=== PATIENT | female | born 1955 | race Caucasian/White ===

== ENCOUNTER 2016-10-10 13:14 | Inpatient (IN) | payer MEDICAID ==
[~2016-10-10] VITALS: Ht 160 cm; Wt 54.0 kg
[~2016-10-10 13:14] MED LIST: LORA0.5T PO; ONDA4TAB8 PO; PANT40TA4 PO; PERCOCET PO; PROM6.25 PO; SENN-53 PO
--- NOTE | 2016-10-10 15:50 | ERA ---
ER Documentation Chief Complaint Date/Time DATE: 10/10/16 TIME: 15:49 Chief Complaint Increased in ABD girth, hads a parecentesis on 09/07. HPI The patient is a 61-year-old female, presenting to the ER because of abdominal pain for the last 2 days, associated with vomiting and diarrhea. The pain is 5 out of 10. She has history of metastatic gastric carcinoma with peritoneal carcinomatosis, currently receiving chemotherapy. He denies fever, chills, neck pain, chest pain, palpitation, dysuria, polyuria. He denies hematochezia, hematemesis. She does not smoke, drink Past medical history: Metastatic gastric cancer with peritoneal carcinomatosis, gastritis, hypertension, dyslipidemia Past surgical history: Right chest Port-A-Cath, fibroid ROS All systems reviewed and are negative except as per history of present illness. Medications Home Meds Reported Medications Hydrocodone/Acetaminophen ([place] 5-325 Tablet) 1 Each Tablet, 1 EACH PO Q6H, TAB 10/10/16 Discontinued Scripts Sennosides* (Senna Lax*) 8.6 Mg Tablet, 1 TAB PO DAILY, #30 TAB Prov:YOGI AL MD 09/17/16 Ondansetron Hcl* (Zofran*) 4 Mg Tablet, 4 MG PO Q8 for NAUSEA AND/OR VOMITING, # 30 TAB Prov:REGGIE LAM NP 08/11/16 Lorazepam* (Lorazepam*) 0.5 Mg Tablet, 0.5 MG PO Q8 Y for NAUSEA AND/OR VOMITING , #30 TAB Prov:REGGIE LAM NP 08/11/16 Promethazine Hcl* (Phenergan* Liq) 6.25 Mg/5 Ml Syrup, 6.25 MG PO Q4H Y for NAUSEA AND/OR VOMITING, #30 Prov:REGGIE LAM NP 08/11/16 Pantoprazole* (Pantoprazole*) 40 Mg Tablet., 40 MG PO BID@,18 for 30 Days Prov:REGGIE LAM NP 08/11/16 Oxycodone Hcl/Acetaminophen (Percocet) 1 Tab Tab, 1 TAB PO Q6H Y for MODERATE PAIN LEVEL 4-6, #30 TAB Prov:REGGIE LAM NP 08/11/16 Allergies Allergies: Coded Allergies: No Known Allergy (Unverified , 10/10/16) PMhx/Soc History of Surgery: Yes (fybroma removal) Anesthesia Reaction: No Hx 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 Disorder: No Hx Respiratory Disorders: No Hx Cardiac Disorders: Yes (htn) Hx Psychiatric Problems: No Hx Miscellaneous Medical Probl: Yes (ascitis,stomach CA) Hx Alcohol Use: No Hx Substance Use: No Hx Tobacco Use: No Physical Exam Vitals Vital Signs Date Time Temp Pulse Resp B/P Pulse Ox O2 Delivery O2 Flow Rate FiO2 10/10/16 13:39 98.4 84 16 126/80 98 Physical Exam Const: No acute distress. Head: Atraumatic. Eyes: Normal Conjunctiva. ENT: Normal External Ears, Nose and Mouth. Neck: Full range of motion. No meningismus. Resp: Clear to auscultation bilaterally. Cardio: Regular rate and rhythm, no murmurs. Abd: Soft, non distended, normal bowel sounds, diffuse and moderate abdominal tenderness, no rigidity, rebound, CVA tenderness Skin: No petechiae or rashes. Back: No midline or flank tenderness. Ext: No cyanosis, or edema. Neur: Awake and alert. No focal deficit Psych: Normal Mood and Affect. Result Diagram: 10/10/16 1622 10/10/16 1622 Results 24 hrs Laboratory Tests Test 10/10/16 16:22 Alanine Aminotransferase (ALT/SGPT) 28IU/L Albumin 3.3g/dl Albumin/Globulin Ratio 1.00 Alkaline Phosphatase 141IU/L Anion Gap 15 Aspartate Amino Transf (AST/SGOT) 29IU/L Blood Morphology Comment Blood Urea Nitrogen 8mg/dl Calcium Level 8.6mg/dl Carbon Dioxide Level 26mmol/L Chloride Level 101mmol/L Creatinine 0.67mg/dl Direct Bilirubin 0.00mg/dl Globulin 3.30g/dl Glucose Level 122mg/dl Hematocrit 42.3% Hemoglobin 14.1g/dl Indirect Bilirubin 0.2mg/dl Lipase 61U/L Mean Corpuscular Hemoglobin 29.4pg Mean Corpuscular Hemoglobin Concent 33.3g/dl Mean Corpuscular Volume 88.3fl Mean Platelet Volume 7.8fl Platelet Count 54191^3/UL Potassium Level 3.8mmol/L Red Blood Count 4.7810^6/ul Red Cell Distribution Width 16.2% Sodium Level 138mmol/L Total Bilirubin 0.2mg/dl Total Protein 6.6g/dl White Blood Count 5.510^3/ul Current Medications Medications (Trade) Dose Ordered Sig/Deon Route PRN Reason Start Time Stop Time Status Last Admin Dose Admin Morphine Sulfate (morphine) 2 mg ONCE ONCE IV 10/10/16 16:00 10/10/16 16:04 DC 10/10/16 16:19 Ondansetron HCl (Zofran Inj) 4 mg ONCE STAT IV 10/10/16 16:00 10/10/16 16:04 DC 10/10/16 16:19 Procedures/[place] [address] Radiology Main Line: [phone] DIAGNOSTIC IMAGING REPORT Patient: CHRIS RALPH : 1955 Age: 61 Sex: F MR #: [id number] DOS: 10/10/16 1558 Ordering MD: JIAN BENSON MD Location: E/R Room/Bed: PROCEDURE: CT Abdomen and Pelvis without contrast. CLINICAL INDICATION: Abdominal pain TECHNIQUE: CT scan of the abdomen and pelvis without contrast was performed on a multi-slice CT scanner without intravenous contrast. Coronal and sagittal reformatted images were obtained from the axial source images. Images were reviewed on a high-resolution PACS workstation. One or more of the following does reduction techniques were used: Automated exposure control; adjustment of the mA and/or kV according to patient size; use of the aorta of reconstruction technique. The total exam CTDI equals 8.97 mGy and the total exam DLP equals 506.25 mGy-cm. COMPARISON: CT abdomen pelvis 09/17/2016 FINDINGS: There is mild bibasilar atelectasis.. The heart is mildly enlarged. There is a mild to moderate pericardial effusion increased slightly when compared to prior study.. Again seen is circumferential thickening of the body and antrum of the stomach. The liver, spleen, and pancreas are normal given limitations of a noncontrast CT examination. The gallbladder is normal. The adrenal glands are normal. The kidneys without renal calculus or hydronephrosis. The aorta is of normal caliber. There is no retroperitoneal lymph node enlargment. There is no evidence of large or small bowel obstruction. Again seen is large volume abdominal pelvic ascites with moderate peritoneal thickening and a few peritoneal nodules consistent with peritoneal carcinomatosis. There is a 6.1 x 4.2 cm mass in the left adnexa which may represent a primary, or peritoneal implant. No inflammatory changes are seen. As noted above, there is a 6.1 cm mass in the left adnexa which may represent a primary or metastatic focus. There is no other evidence of enlarged pelvic sidewall lymph nodes. There is moderate pelvic free fluid. The bladder is grossly unremarkable but difficult to separate from adjacent ascites. The uterus is not visualized and likely absent. There is a small left inguinal hernia containing fat. Incidental note is made of bilateral L5 spondylolysis with grade 1 anterolisthesis of L5 on S1. There are degenerative change of the spine. There are no definitive lytic or sclerotic osseous lesions.. IMPRESSION: 1. Large volume abdominal pelvic ascites with associated peritoneal thickening likely indicative of peritoneal carcinomatosis. 2. 6 cm left adnexal mass which may represent metastatic disease or primary. 3. Circumferential thickening of the gastric body and antrum which may represent a primary or metastatic disease. 4. Mild to moderate pericardial effusion, slightly worsened when compared to prior study. RPTAT: KK .Angelo Curtis MD, Date Time Electronically viewed and signed by .Angelo Curtis MD, on 2016 16:49 .B/ CC: JIAN BENSON MD Urinalysis and abdominal paracentesis are pending MEDICAL MAKING DECISION: The patient is a 61-year-old female, presenting with recurrent acute ascites, most likely due to metastatic gastric carcinoma with peritoneal carcinomatosis, mild to moderate pericardial effusion. She was treated with morphine 2 IV for pain, Zofran for me for nausea with good response. The differential diagnoses considered include but are not limited to spontaneous bacterial peritonitis, cholecystitis, cystitis, pancreatitis, hepatitis, gastritis, peptic ulcer disease, gastric ulcer, appendicitis, diverticulitis, cholangitis, choledocholithiasis, partial small bowel obstruction. Departure Diagnosis: Primary Impression: Abdominal pain Additional Impressions: Ascites Pericardial effusion Condition: Stable Comments I discussed the findings with the patient. I discussed the patient with the hospitalist Dr. Ojeda who was made aware of the lab, the treatment, the patient condition. The patient is admitted to medical surgery bed at 5:15 AM. He is aware of pending urinalysis and abdominal paracentesis JIAN BENSON MD Oct 10, 2016 15:50
[2016-10-10] MEDS ORDERED: morphine 2 MG INJ IV ONE (16:00)
[2016-10-10] MEDS ORDERED: ONDANSETRON 4 MG INJ IV STA (16:00)
[2016-10-10] MEDS ORDERED: HYDR-906 PO (16:08)
[2016-10-10 16:40] LABS: HEMATOCRIT 42.3 % (37.0-47.0); HEMOGLOBIN 14.1 g/dl (12.0-16.0); MEAN CORPUSCULAR HEMOGLOBIN 29.4 pg (29.0-33.0); MEAN CORPUSCULAR HGB CONC 33.3 g/dl (32.0-37.0); MEAN CORPUSCULAR VOLUME 88.3 fl (82.0-101.0); MEAN PLATELET VOLUME 7.8 fl (7.4-10.4); PLATELET COUNT 364 10^3/UL (140-440); RED BLOOD COUNT 4.78 10^6/ul (4.20-5.40); RED CELL DISTRIBUTION WIDTH 16.2 % (11.5-14.5); UNCORRECTED WBC 5.5 10^3/ul (4.8-10.8); WHITE BLOOD COUNT 5.5 10^3/ul (4.8-10.8)
[2016-10-10 16:46] LABS: CONDITION 1; LH ANALYZER COMMENTS 1
[2016-10-10 16:48] LABS: ALBUMIN 3.3 g/dl (3.3-4.9)
[2016-10-10 16:49] LABS: POTASSIUM 3.8 mmol/L (3.5-5.1)
--- NOTE | 2016-10-10 16:50 | RADRPT ---
PROCEDURE: CT Abdomen and Pelvis without contrast. CLINICAL INDICATION: Abdominal pain TECHNIQUE: CT scan of the abdomen and pelvis without contrast was performed on a multi-slice CT [facility] without intravenous contrast. Coronal and sagittal reformatted images were obtained from the axial source images. Images were reviewed on a high-resolution PACS workstation. One or more of the following does reduction techniques were used: Automated exposure control; adjustment of the mA an d/or kV according to patient size; use of the aorta of reconstruction technique. The total exam CTD I equals 8.97 mGy and the total exam DLP equals 506.25 mGy-cm. COMPARISON: CT abdomen pelvis 09/17/2016 FINDINGS: There is mild bibasilar atelectasis.. The heart is mildly enlarged. There is a mild to moderate pe ricardial effusion increased slightly when compared to prior study.. Again seen is circumferential thickening of the body and antrum of the stomach. The liver, spleen, and pancreas are normal given limitations of a noncontrast CT examination. The g allbladder is normal. The adrenal glands are normal. The kidneys without renal calculus or hydronephrosis. The aorta is of normal caliber. There is no retroperitoneal lymph node enlargment. There is no evidence of large or small bowel obstruction. Again seen is large volume abdominal pel elis ascites with moderate peritoneal thickening and a few peritoneal nodules consistent with periton eal carcinomatosis. There is a 6.1 x 4.2 cm mass in the left adnexa which may represent a primary, or peritoneal implant. No inflammatory changes are seen. As noted above, there is a 6.1 cm mass in the left adnexa which may represent a primary or metastati c focus. There is no other evidence of enlarged pelvic sidewall lymph nodes. There is moderate pelv ic free fluid. The bladder is grossly unremarkable but difficult to separate from adjacent ascites. The uterus is not visualized and likely absent. There is a small left inguinal hernia containing fat. Incidental note is made of bilateral L5 spondylolysis with grade 1 anterolisthesis of L5 on S1. The re are degenerative change of the spine. There are no definitive lytic or sclerotic osseous lesions .. IMPRESSION: 1. Large volume abdominal pelvic ascites with associated peritoneal thickening likely indicative of peritoneal carcinomatosis. 2. 6 cm left adnexal mass which may represent metastatic disease or primary. 3. Circumferential thickening of the gastric body and antrum which may represent a primary or metas tatic disease. 4. Mild to moderate pericardial effusion, slightly worsened when compared to prior study. RPTAT: KK .Angelo Curtis MD, MD Date Time Electronically viewed and signed by .Angelo Curtis MD, MD on 10/10/2016 16:49 .B/
[2016-10-10 16:51] LABS: BILIRUBIN,INDIRECT 0.2 mg/dl (0-1.1); BILIRUBIN,TOTAL 0.2 mg/dl (0.2-1.3); CREATININE 0.67 mg/dl (0.44-1.00); TOTAL PROTEIN 6.6 g/dl (6.1-8.1)
[2016-10-10 16:52] LABS: CALCIUM 8.6 mg/dl (8.4-10.2)
[2016-10-10 17:32] LABS: ADD UMIC YES; URINE BILIRUBIN (Dip) NEGATIVE (NEGATIVE); URINE BLOOD (Dip) NEGATIVE (NEGATIVE); URINE COLOR LT. YELLOW (YELLOW); URINE GLUCOSE (Dip) NEGATIVE (NEGATIVE); URINE KETONES (Dip) 15 (NEGATIVE); URINE LEUKOCYTE ESTERASE (Dip) 3+ (NEGATIVE); URINE NITRITE (Dip) NEGATIVE (NEGATIVE); URINE TOTAL PROTEIN (Dip) TRACE (NEGATIVE); URINE UROBILINOGEN (Dip) 0.2 E.U./dL (0.1-1.0)
[2016-10-10 17:42] LABS: SQUAMOUS EPITHELIAL CELL,UR MODERATE; URINE RBCS NONE SEEN /HPF (0)
[2016-10-10 17:47] LABS: ANISOCYTOSIS 1+; LYMPHOCYTES # 0.7 10^3/ul (0.8-2.9); NEUTROPHIL # 4.8 10^3/ul (1.6-7.5); PLATELET ESTIMATE PLT APPEAR ADEQUATE
[2016-10-10 19:42] VITALS: TEMP 97.7
[2016-10-10 20:00] VITALS: BP 116/65; PULSE 97; RESP 18
[2016-10-10] MEDS ORDERED: PANT40TA4 PO (20:19)
[2016-10-10] MEDS ORDERED: ACET-141 PO (20:19)
[2016-10-10] MEDS ORDERED: [UNRECOGNIZED DRUG - CODE] PO (20:19)
[2016-10-10] MEDS ORDERED: LORA0.5T PO (20:19)
[2016-10-10] MEDS ORDERED: DOCU-144 PO (20:19)
[2016-10-10 20:28] VITALS: Ht 160 cm; Wt 54.0 kg
[2016-10-10] MEDS ORDERED: LORAZEPAM 0.5 MG TAB PO PRN (21:00)
[2016-10-10] MEDS ORDERED: ACETAMINOPHEN 500 MG TAB PO PRN (21:00)
[2016-10-10] MEDS ORDERED: morphine 2 MG INJ IV PRN (21:00)
[2016-10-10] MEDS ORDERED: HYDROCODONE/APAP (5/325) TAB PO SCH (21:00)
[2016-10-10] MEDS ORDERED: ONDANSETRON 4 MG INJ IV PRN (21:00)
[2016-10-10] MEDS ORDERED: HYDROCODONE/APAP (5/325) TAB PO PRN (22:00)
[2016-10-10] MEDS: PANTOPRAZOLE (EC) 40 MG TAB PO SCH (22:23)
[2016-10-11] MEDS: PANTOPRAZOLE (EC) 40 MG TAB PO SCH (06:00)
[2016-10-11 07:36] VITALS: BP 120/76; RESP 18
--- NOTE | 2016-10-11 07:53 | HP ---
DATE OF ADMISSION: 10/10/2016 TIME SEEN: 2200. CHIEF COMPLAINT: Abdominal pain and distention. HISTORY OF PRESENT ILLNESS: The patient is a 61-year-old female with a history of metastatic gastri c adenocarcinoma with peritoneal carcinomatosis, ascites, gastritis and hypertension, which is now b eing medically managed, who presented to the emergency department with abdominal pain and distention . The pain has been going on for about 2 to 3 days and has been associated with nausea and nonbilio us, nonbloody emesis. The patient is currently receiving chemotherapy. Reported paracentesis a mon ago. Denied any chest pain, fevers, chills, or palpitations. When she presented to the ER vitals were stable. CBC and CMP were within acceptable range. CT abdo men and pelvis show large volume abdominal/pelvic ascites, with associated peritoneal thickening, in dicative of peritoneal carcinomatosis. Also a 6-cm left adnexal mass, which may represent metastati c disease or a primary. Also thickening of the gastric body and antrum, again likely related to can cer. Moderate pericardial effusion, slightly worsened compared to a prior study a month ago, was al so noted. REVIEW OF SYSTEMS: A 12-point review of systems was performed and is negative except as mentioned in the HPI. PAST MEDICAL HISTORY: As per HPI. SOCIAL HISTORY: Denied history of tobacco, alcohol, or illicit drug use. FAMILY HISTORY: Mother with abdominal cancer. ALLERGIES: NO KNOWN DRUG ALLERGIES. HOME MEDICATIONS: 1. Tylenol. 2. [place]. 3. Ativan. 4. Aprepitant. 5. Colace. 6. Protonix. PHYSICAL EXAMINATION: VITAL SIGNS: Stable. GENERAL: In no acute distress. Alert, answering questions appropriately. HEENT: Normocephalic, atraumatic. Pupils are reactive to light. CARDIOVASCULAR: Regular rate and rhythm, with no extra sounds. LUNGS: Slightly decreased breath sounds at the bases. ABDOMEN: Soft. There is tenderness diffusely, with no guarding, no rigidity. EXTREMITIES: No edema. LABORATORY: CBC and CMP within acceptable range. IMAGING: CT abdomen and pelvis with results as mentioned in the HPI. IMPRESSION: 1. History of metastatic gastric cancer, with peritoneal carcinomatosis. 2. Large abdominopelvic ascites. 3. Abdominal pain, secondary to #1 and #2. 4. History of gastritis. PLAN: Will keep n.p.o. for now. Will perform a paracentesis. Will provide pain medication and ant iemetics as needed. Will continue her home medications, with adjustment as needed. If the patient' s symptoms improve after paracentesis, will most likely discharge. I am not suspecting spontaneous bacterial peritonitis at this moment. Further workup and management per clinical course. Dictated By: SURI SANTIAGO/NO Conf#: [id number] DID#: [id number]
[2016-10-11] MEDS ORDERED: DOCUSATE SODIUM 100 MG CAP PO SCH (09:00)
[2016-10-11] MEDS ORDERED: APREPITANT 80 MG PO SCH (09:00)
[2016-10-11 10:12] LABS: INR 0.98
[2016-10-11 11:17] VITALS: BP 119/70; PULSE 68; RESP 18
--- NOTE | 2016-10-11 13:16 | CONS ---
Date/Time of Note Date/Time of Note DATE: 10/11/16 TIME: 12:28 Assessment/Plan Assessment/Plan Chief Complaint/Hosp Course Patient is a 61 year old female with metastatic gastric adenocarcinoma with peritoneal carcinomatosis, HER2 negative, currently on cycle 4 FOLFOX 10/10/16 with abdominal pain likely related to recurrent ascites vs. carcinomatosis. Patient admitted for paracentesis today. CT A/P without contrast performed 10/10 showed: 1. Large volume abdominal pelvic ascites with associated peritoneal thickening likely indicative of peritoneal carcinomatosis. 2. 6 cm left adnexal mass which may represent metastatic disease or primary. 3. Circumferential thickening of the gastric body and antrum which may represent a primary or metastatic disease. 4. Mild to moderate pericardial effusion, slightly worsened when compared to prior study. - Given non-contrast study, may not be the best to compare with prior to evaluate response, though again does show ascites with peritoneal thickening indicative of peritoneal carcinomatosis. There is also mild to moderate pericardial effusion, I have ordered a TTE to evaluate. - Patient also had 5FU pump changed today. If patient discharged today or tomorrow, she can come to our office to disconnect the pump. - Patient now s/p 4.8L paracentesis, consider albumin given large volume paracentesis. Will see whether outpatient paracenteses can be arranged if needed. Problems: Consultation Date/Type/Reason Admit Date/Time Oct 10, 2016 at 17:22 Initial Consult Date 24 HR Interval Summary Free Text/Dictation Patient just returned from paracentesis, where 4.8L were removed. She has some pain following the paracentesis but otherwise is doing well. Denies diarrhea for the last two days, some nausea, no vomiting, no SOB. Exam/Review of Systems Vital Signs Vitals Vital Signs Date Time Temp Pulse Resp B/P Pulse Ox O2 Delivery O2 Flow Rate FiO2 10/11/16 11:17 98.1 68 18 119/70 99 Room Air Intake and Output 10/10/16 10/10/16 10/11/16 15:00 23:00 07:00 Intake Total 320 ml Balance 320 ml Exam Constitutional: alert, oriented Psych: no complaints Eyes: nl conjunctiva Neck: supple Respiratory: clear to auscultation Cardiovascular: regular rate and rhythm Gastrointestinal: ascites, soft Musculoskeletal: nl extremities to inspection 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: AOC [employer] IN[employer]LL[employer] OFFICER II-XII intact Results Result Diagram: 10/10/16 1622 10/10/16 1622 Results 24 hrs Laboratory Tests Test 10/10/16 16:20 10/10/16 16:22 10/11/16 09:47 Urine Bilirubin NEGATIVE Urine Calcium Oxalate Crystals MODERATE Urine Clarity CLOUDY Urine Color LT. YELLOW Urine Glucose NEGATIVE Urine Hemoglobin NEGATIVE Urine Ketones 15 Urine Leukocyte Esterase 3+ H Urine Microscopic RBC NONE SEEN Urine Microscopic WBC 10-25 Urine Nitrite NEGATIVE Urine Specific [place] 1.025 Urine Squamous Epithelial Cells MODERATE Urine Total Protein TRACE Urine Urobilinogen 0.2 E.U./dL Urine pH 6.0 Alanine Aminotransferase (ALT/SGPT) 28 Albumin 3.3 Albumin/Globulin Ratio 1.00 Alkaline Phosphatase 141 H Anion Gap 15 Anisocytosis 1+ Aspartate Amino Transf (AST/SGOT) 29 Blood Morphology Comment Blood Urea Nitrogen 8 Calcium Level 8.6 Carbon Dioxide Level 26 Chloride Level 101 Creatinine 0.67 Direct Bilirubin 0.00 Globulin 3.30 H Glucose Level 122 Hematocrit 42.3 Hemoglobin 14.1 Indirect Bilirubin 0.2 Lipase 61 Lymphocytes # 0.7 L Lymphocytes % 12.0 L Mean Corpuscular Hemoglobin 29.4 Mean Corpuscular Hemoglobin Concent 33.3 Mean Corpuscular Volume 88.3 Mean Platelet Volume 7.8 Neutrophils # 4.8 Neutrophils % 88.0 H Platelet Count 364 # Platelet Estimate PLT APPEAR ADEQUATE Potassium Level 3.8 Red Blood Count 4.78 Red Cell Distribution Width 16.2 H Sodium Level 138 Total Bilirubin 0.2 Total Protein 6.6 White Blood Count 5.5 # INR International Normalized Ratio 0.98 Prothrombin Time 13.0 Prothrombin Time Ratio 1.0 Medications Medications Current Medications Acetaminophen (Tylenol Tab) 500 mg Q4H PRN PO PAIN AND OR ELEVATED TEMP Last administered on 10/10/16 22:23; Admin Dose 500 MG; Start 10/10/16 at 21:00 Docusate Sodium (Colace) 200 mg DAILY PO Last administered on 10/11/16 09:48; Admin Dose 200 MG; Start 10/11/16 at 09:00 Lorazepam (Ativan) 0.5 mg Q8H PRN PO AGITATION/ANXIETY; Start 10/10/16 at 21:00 Pantoprazole (Protonix Tab) 40 mg BID@18 PO Last administered on 10/10/16 22:23; Admin Dose 40 MG; Start 10/10/16 at 21:00 Morphine Sulfate (morphine) 2 mg Q4H PRN IV PAIN Last administered on 02:50; Admin Dose 2 MG; Start 10/10/16 at 21:00 Ondansetron HCl (Zofran Inj) 4 mg Q6H PRN IV NAUSEA AND/OR VOMITING; Start at 21:00 Acetaminophen/ Hydrocodone Bitart ([place] (5/325)) 1 tab Q6H PRN PO PAIN; Start 10/10/16 at 22:00 Non-Formulary Medication 1 ea DAILY PO Last administered on 10/11/16 09:48; Admin Dose 1 EA; Start 10/11/16 at 09:00; Stop 10/12/16 at 10:00 TORED MD Oct 11, 2016 13:16
[2016-10-11] MEDS ORDERED: FLUOROURACIL IV SCH (13:30)
[2016-10-11] MEDS ORDERED: LIDOCAINE 1% (MPF) 5 ML VIAL ONE (13:45)
[2016-10-11 14:10] VITALS: BP 132/69; PULSE 66; RESP 18
--- NOTE | 2016-10-11 14:29 | RADRPT ---
PROCEDURE: Ultrasound guided paracentesis. CLINICAL INDICATION: Ascites and shortness of breath. COMPARISON: 09/17/2016. TECHNIQUE: The risks, benefits, and alternatives were explained to the patient, including but not limited to bl eeding, infection, pain, visceral or vascular damage, shock, and . The patient understood the risks and the alternatives and wished to proceed with the procedure. Informed written consent was o btained. A procedural time out was performed. The patient's name, date of , and procedure to b e performed were verified. Utilizing ultrasound guidance, optimal location for entry to the peritoneal cavity was ascertained. The overlying skin was prepped and draped in the usual sterile fashion. Approximately 10 ml of 1% Xylocaine was injected locally for pain control. Using ultrasound guidance, an 8 [place] catheter wa s introduced into the peritoneal cavity in the right lower quadrant without difficulty. FINDINGS: Initial images demonstrate ascites. Approximately 4.8 liters of serous fluid was aspirated and sent for laboratory analysis. The patient tolerated the procedure well without complication. IMPRESSION: 1. Successful ultrasound-guided paracentesis. RPTAT: QQ .Jeison White MD, Date Time Electronically viewed and signed by .Jeison White MD, on 10/11/2016 14:29 .R/
--- NOTE | 2016-10-11 16:04 | DS ---
Date/Time of Note Date/Time of Note DATE: 10/11/16 TIME: 15:56 Discharge Summary Admission/Discharge Info Admit Date/Time Oct 10, 2016 at 17:22 Discharge Date/Time Final Diagnosis 1. Metastatic gastric cancer, with peritoneal carcinomatosis, follow up with oncology 2. Large abdominopelvic ascites, s/p US-guided paracentesis, stable, follow up with PCP 3. Pericardial effusion on CT scan, follow up with PCP Patient Condition: Stable Procedures ultrasound guided paracentesis with removal of 4.8 liter fluid Hx of Present Illness The patient is a 61-year-old female with a history of metastatic gastric adenocarcinoma with peritoneal carcinomatosis, ascites, gastritis and hypertension, which is now being medically managed, who presented to the emergency department with abdominal pain and distention. The pain has been going on for about 2 to 3 days and has been associated with nausea and nonbilious, nonbloody emesis. The patient is currently receiving chemotherapy. Reported paracentesis a month ago. Denied any chest pain, fevers, chills, or palpitations. When she presented to the ER vitals were stable. CBC and CMP were within acceptable range. CT abdomen and pelvis show large volume abdominal/pelvic ascites, with associated peritoneal thickening, indicative of peritoneal carcinomatosis. Also a 6-cm left adnexal mass, which may represent metastatic disease or a primary. Also thickening of the gastric body and antrum, again likely related to cancer. Moderate pericardial effusion, slightly worsened compared to a prior study a month ago, was also noted. Hospital Course Patient is a 61 year old female with metastatic gastric adenocarcinoma with peritoneal carcinomatosis, HER2 negative, currently on cycle 4 FOLFOX 10/10/16 with abdominal pain likely related to recurrent ascites vs. carcinomatosis. Patient admitted for paracentesis today. CT A/P without contrast performed 10/10 showed: 1. Large volume abdominal pelvic ascites with associated peritoneal thickening likely indicative of peritoneal carcinomatosis. 2. 6 cm left adnexal mass which may represent metastatic disease or primary. 3. Circumferential thickening of the gastric body and antrum which may represent a primary or metastatic disease. 4. Mild to moderate pericardial effusion, slightly worsened when compared to prior study. Patient got ultrasound guided paracentesis, that removed 4.8 liter of ascites fluid. Patient feels much better. She tolerates the procedure well. According to application support technician, no pericardial tamponade on Echo. Home Meds Reported Medications Aprepitant (Emend) 1 Each Cap.ds.pk, 1 EACH PO 10/10/16 Docusate Sodium* (Colace*) 100 Mg Capsule, 200 MG PO DAILY, #30 CAP 10/10/16 Acetaminophen* (Acetaminophen*) 500 MG Extra Strength Tablet, 500 MG PO Q4H Y for PAIN AND OR ELEVATED TEMP, TAB 10/10/16 Pantoprazole* (Pantoprazole*) 40 Mg Tablet.dr, 40 MG PO BID, TAB 10/10/16 Lorazepam* (Lorazepam*) 0.5 Mg Tablet, 0.5 MG PO Q8 Y for AGITATION/ANXIETY, TAB 10/10/16 Hydrocodone/Acetaminophen ([place] 5-325 Tablet) 1 Each Tablet, 1 EACH PO Q6H, TAB 10/10/16 Discontinued Scripts Sennosides* (Senna Lax*) 8.6 Mg Tablet, 1 TAB PO DAILY, #30 TAB Prov:YOGI AL MD 09/17/16 Ondansetron Hcl* (Zofran*) 4 Mg Tablet, 4 MG PO Q8 for NAUSEA AND/OR VOMITING, # 30 TAB Prov:REGGIE LAM NP 08/11/16 Lorazepam* (Lorazepam*) 0.5 Mg Tablet, 0.5 MG PO Q8 Y for NAUSEA AND/OR VOMITING , #30 TAB Prov:REGGIE LAM NP 08/11/16 Promethazine Hcl* (Phenergan* Liq) 6.25 Mg/5 Ml Syrup, 6.25 MG PO Q4H Y for NAUSEA AND/OR VOMITING, #30 Prov:REGGIE LAM NP 08/11/16 Pantoprazole* (Pantoprazole*) 40 Mg Tablet., 40 MG PO BID@,18 for 30 Days Prov:REGGIE LAM NP 08/11/16 Oxycodone Hcl/Acetaminophen (Percocet) 1 Tab Tab, 1 TAB PO Q6H Y for MODERATE PAIN LEVEL 4-6, #30 TAB Prov:REGGIE LAM NP 08/11/16 Follow-up Plan follow up with PCP and oncology Pending Labs Laboratory Tests Test 10/10/16 16:20 10/10/16 16:22 10/11/16 09:47 Urine Bilirubin NEGATIVE (NEGATIVE) Urine Calcium Oxalate Crystals MODERATE Urine Clarity CLOUDY (CLEAR) Urine Color LT. YELLOW (YELLOW) Urine Glucose NEGATIVE% (NEGATIVE) Urine Hemoglobin NEGATIVE (NEGATIVE) Urine Ketones 15 (NEGATIVE) Urine Leukocyte Esterase 3+ (NEGATIVE) Urine Microscopic RBC NONE SEEN/HPF (0) Urine Microscopic WBC 10-25/HPF (0) Urine Nitrite NEGATIVE (NEGATIVE) Urine Specific Edwards 1.025 (1.003-1.030) Urine Squamous Epithelial Cells MODERATE Urine Total Protein TRACE (NEGATIVE) Urine Urobilinogen 0.2 E.U./dL (0.1-1.0) Urine pH 6.0 (5.0-9.0) Alanine Aminotransferase (ALT/SGPT) 28IU/L (13-69) Albumin 3.3g/dl (3.3-4.9) Albumin/Globulin Ratio 1.00 Alkaline Phosphatase 141IU/L (42-121) Anion Gap 15 (8-16) Anisocytosis 1+ Aspartate Amino Transf (AST/SGOT) 29IU/L (15-46) Blood Morphology Comment Blood Urea Nitrogen 8mg/dl (7-20) Calcium Level 8.6mg/dl (8.4-10.2) Carbon Dioxide Level 26mmol/L (21-31) Chloride Level 101mmol/L (97-110) Creatinine 0.67mg/dl (0.44-1.00) Direct Bilirubin 0.00mg/dl (0.00-0.20) Globulin 3.30g/dl (1.3-3.2) Glucose Level 122mg/dl (70-220) Hematocrit 42.3% (37.0-47.0) Hemoglobin 14.1g/dl (12.0-16.0) Indirect Bilirubin 0.2mg/dl (0-1.1) Lipase 61U/L (23-300) Lymphocytes # 0.710^3/ul (0.8-2.9) Lymphocytes % 12.0% (15.0-51.0) Mean Corpuscular Hemoglobin 29.4pg (29.0-33.0) Mean Corpuscular Hemoglobin Concent 33.3g/dl (32.0-37.0) Mean Corpuscular Volume 88.3fl (82.0-101.0) Mean Platelet Volume 7.8fl (7.4-10.4) Neutrophils # 4.810^3/ul (1.6-7.5) Neutrophils % 88.0% (39.0-77.0) Platelet Count 05278^3/UL (140-440) Platelet Estimate PLT APPEAR ADEQUATE Potassium Level 3.8mmol/L (3.5-5.1) Red Blood Count 4.7810^6/ul (4.20-5.40) Red Cell Distribution Width 16.2% (11.5-14.5) Sodium Level 138mmol/L (135-144) Total Bilirubin 0.2mg/dl (0.2-1.3) Total Protein 6.6g/dl (6.1-8.1) White Blood Count 5.510^3/ul (4.8-10.8) INR International Normalized Ratio 0.98 Prothrombin Time 13.0Sec (12.2-14.2) Prothrombin Time Ratio 1.0 Microbiology Date/Time Source Procedure Growth Status 10/10/16 16:20 Clean Catch Urine Urine Culture - Preliminary NO GROWTH AFTER 24 HOURS Resulted RUBEN BALLARD MD Oct 11, 2016 16:04
[2016-10-11 16:43] LABS: FLUID TYPE ABDOMINAL FLUID
[2016-10-11 17:41] LABS: FLUID GLUCOSE 39 mg/dl; FLUID TOTAL PROTEIN 3.6 g/dl
[2016-10-11 19:34] LABS: FLUID APPEARANCE CLOUDY; FLUID LYMPHOCYTES 30 %; FLUID MONOCYTES 28 %; FLUID NEUTROPHILS 1 %; FLUID RBC EST 1+; FLUID TYPE PERITONEAL; FLUID WBC'S 238 /cmm
--- NOTE | 2016-10-12 11:26 | RADRPT ---
Echocardiogram Report Patient Name: CHRIS RALPH Gender: Female Date: 1955 Study Date: 11-Oct-2016 Technology Director: Vidhi Ball [facility] Location: 430 Ref. Physician: RED BARRON Quality: Good Procedures: Transthoracic echocardiogram examination. Indications: Pericardial Effusion. Findings Left Ventricle: The left ventricular ejection fraction is visually estimated at 60 - 65 %. Tricuspid Valve: There is moderate tricuspid regurgitation. Pericardium: Trivial effusion. Left pleural effusion seen. IVC: Normal inferior vena cava appearance and respiratory collapse. Conclusions 1.The left ventricular ejection fraction is visually estimated at 60 - 65 %. 2.There is moderate tricuspid regurgitation. 3.Trivial effusion. Left pleural effusion seen. 4.Normal inferior vena cava appearance and respiratory collapse. Electronically Signed By: Moshe Carrillo 12-Oct-2016 11:25:40 -0800 Patient Name: CHRIS RALPH Study Date: 11-Oct-2016 [id number]
== END 2016-10-11 17:25 | disposition home or self-care (01) | DRG 948 ==
LOC: E/R 13:14 → PP2 17:22 → MS1 10-11 10:15
PROVIDERS: ADMIT Internal Medicine; ATTEND Internal Medicine
PROC: 0W9G30Z Drainage of Peritoneal Cavity with Drainage Device, Percutaneous Approach (ICD-10-PCS; principal; 2016-10-11)
DX: R18.8 Other ascites (principal); C78.6 Secondary malignant neoplasm of retroperitoneum and peritoneum; I31.3 Pericardial effusion (noninflammatory); Z85.028 Personal history of other malignant neoplasm of stomach
CPT/HCPCS: 36415; 74176; 80053; 81001; 81003; 82945; 83690; 84157; 85025; 85610; 87070; 87086; 87102; 87116; 89050; 93308; 96374; 96375; J2270; J2405

== ENCOUNTER 2016-11-01 12:23 | Emergency (ER) | payer MEDICAID, OTHER ==
[~2016-11-01] VITALS: Ht 152.4 cm; Wt 50.0 kg
[~2016-11-01 12:23] MED LIST changes: +ACET-141 PO; +DOCU-144 PO; +HYDR-906 PO; -ONDA4TAB8 PO; -PERCOCET PO; -PROM6.25 PO; -SENN-53 PO; +[UNRECOGNIZED DRUG - CODE] PO
[2016-11-01 12:27] VITALS: Ht 152.4 cm; Wt 50.0 kg
[2016-11-01] MEDS ORDERED: ONDANSETRON (ODT) 4 MG TAB ODT STA (13:02)
[2016-11-01 13:21] LABS: ADD SCAN DIFF NO
[2016-11-01 13:24] LABS: BASOPHILS % 0.7 % (0.0-2.0); EOSINOPHILS # 0.1 10^3/ul (0.0-0.5); EOSINOPHILS % 1.7 % (0.0-7.0); HEMATOCRIT 37.3 % (37.0-47.0); HEMOGLOBIN 12.7 g/dl (12.0-16.0); LYMPHOCYTES # 0.7 10^3/ul (0.8-2.9); LYMPHOCYTES % 16.1 % (15.0-51.0); MEAN CORPUSCULAR HEMOGLOBIN 29.4 pg (29.0-33.0); MEAN CORPUSCULAR VOLUME 86.3 fl (82.0-101.0); MEAN PLATELET VOLUME 9.2 fl (7.4-10.4); MONOCYTE # 0.5 10^3/ul (0.3-0.9); MONOCYTES % 10.8 % (0.0-11.0); NEUTROPHIL # 2.9 10^3/ul (1.6-7.5); NEUTROPHILS % 70.2 % (39.0-77.0); PLATELET COUNT 395 10^3/UL (140-415); RED BLOOD COUNT 4.32 10^6/ul (4.20-5.40); RED CELL DISTRIBUTION WIDTH 15.1 % (11.5-14.5); WHITE BLOOD COUNT 4.2 10^3/ul (4.8-10.8)
[2016-11-01 13:26] LABS: ABNORMAL IP MESSAGE 1
[2016-11-01 13:33] LABS: INR 0.91; PROTIME 12.3 Sec (12.2-14.2)
[2016-11-01 13:34] LABS: PARTIAL THROMBOPLASTIN TIME 25.8 Sec (25.0-35.0)
[2016-11-01 13:38] LABS: POTASSIUM 3.8 mmol/L (3.5-5.1)
[2016-11-01 13:40] LABS: BILIRUBIN,INDIRECT 0.2 mg/dl (0-1.1); BILIRUBIN,TOTAL 0.2 mg/dl (0.2-1.3); CREATININE 0.68 mg/dl (0.44-1.00)
[2016-11-01 13:41] LABS: ALBUMIN/GLOBULIN RATIO 1.07; CALCIUM 8.5 mg/dl (8.4-10.2); TOTAL PROTEIN 5.8 g/dl (6.1-8.1)
--- NOTE | 2016-11-01 15:58 | ERD ---
ER Documentation Chief Complaint Date/Time DATE: 11/01/16 TIME: 15:56 Chief Complaint Patient sent from MD for eval abdominal pain HPI 7-year-old female presents from her doctor for evaluation for paracentesis. She has a history of gastric carcinoma with recurrent ascites. She has had several paracentesis here. She has nausea but no vomiting no fevers. She has no surgical history but is receiving chemotherapy per ROS All systems reviewed and are negative except as per history of present illness. Medications Home Meds Reported Medications Aprepitant (Emend) 1 Each Cap.ds.pk, 1 EACH PO 10/10/16 Docusate Sodium* (Colace*) 100 Mg Capsule, 200 MG PO DAILY, #30 CAP 10/10/16 Acetaminophen* (Acetaminophen*) 500 MG Extra Strength Tablet, 500 MG PO Q4H Y for PAIN AND OR ELEVATED TEMP, TAB 10/10/16 Pantoprazole* (Pantoprazole*) 40 Mg Tablet.dr, 40 MG PO BID, TAB 10/10/16 Lorazepam* (Lorazepam*) 0.5 Mg Tablet, 0.5 MG PO Q8 Y for AGITATION/ANXIETY, TAB 10/10/16 Hydrocodone/Acetaminophen ([place] 5-325 Tablet) 1 Each Tablet, 1 EACH PO Q6H, TAB 10/10/16 Allergies Allergies: Coded Allergies: No Known Allergy (Unverified , 10/10/16) PMhx/Soc History of Surgery: Yes (fibroids removal) Anesthesia Reaction: No Hx 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 Disorder: No Hx Respiratory Disorders: No Hx Cardiac Disorders: Yes (htn) Hx Psychiatric Problems: No Hx Miscellaneous Medical Probl: Yes (liver cirrhosis) Hx Alcohol Use: No Hx Substance Use: No Hx Tobacco Use: No Physical Exam Vitals Vital Signs Date Time Temp Pulse Resp B/P Pulse Ox O2 Delivery O2 Flow Rate FiO2 11/01/16 18:57 98.9 67 17 105/65 100 Room Air 11/01/16 12:27 98.9 81 20 112/76 99 Physical Exam Const: [] Head: Atraumatic Eyes: Normal Conjunctiva ENT: Normal External Ears, Nose and Mouth. Neck: Full range of motion..~ No meningismus. Resp: Clear to auscultation bilaterally Cardio: Regular rate and rhythm, no murmurs Abd: Soft, non tender, non distended. Normal bowel sounds Skin: No petechiae or rashes Back: No midline or flank tenderness Ext: No cyanosis, or edema Neur: Awake and alert Psych: Normal Mood and Affect Result Diagram: 11/01/16 1320 11/01/16 1320 Results 24 hrs Laboratory Tests Test 11/01/16 13:20 Activated Partial Thromboplast Time 25.8Sec Alanine Aminotransferase (ALT/SGPT) 20IU/L Albumin 3.0g/dl Albumin/Globulin Ratio 1.07 Alkaline Phosphatase 102IU/L Anion Gap 13 Aspartate Amino Transf (AST/SGOT) 19IU/L Basophils # 0.010^3/ul Basophils % 0.7% Blood Urea Nitrogen 11mg/dl Calcium Level 8.5mg/dl Carbon Dioxide Level 28mmol/L Chloride Level 101mmol/L Creatinine 0.68mg/dl Direct Bilirubin 0.00mg/dl Eosinophils # 0.110^3/ul Eosinophils % 1.7% Globulin 2.80g/dl Glucose Level 97mg/dl Hematocrit 37.3% Hemoglobin 12.7g/dl INR International Normalized Ratio 0.91 Indirect Bilirubin 0.2mg/dl Lymphocytes # 0.710^3/ul Lymphocytes % 16.1% Mean Corpuscular Hemoglobin 29.4pg Mean Corpuscular Hemoglobin Concent 34.0g/dl Mean Corpuscular Volume 86.3fl Mean Platelet Volume 9.2fl Monocytes # 0.510^3/ul Monocytes % 10.8% Neutrophils # 2.910^3/ul Neutrophils % 70.2% Nucleated Red Blood Cells # 0.010^3/ul Nucleated Red Blood Cells % 0.0/100WBC Platelet Count 66300^3/UL Potassium Level 3.8mmol/L Prothrombin Time 12.3Sec Prothrombin Time Ratio 1.0 Red Blood Count 4.3210^6/ul Red Cell Distribution Width 15.1% Sodium Level 138mmol/L Total Bilirubin 0.2mg/dl Total Protein 5.8g/dl White Blood Count 4.210^3/ul Current Medications Medications (Trade) Dose Ordered Sig/Deon Route PRN Reason Start Time Stop Time Status Last Admin Dose Admin Ondansetron HCl (Zofran Odt) 8 mg ONCE STAT ODT 11/01/16 13:02 11/01/16 13:04 DC 2/9/17 13:19 Lidocaine (Xylocaine 1% (Mpf)) 5 ml STK-MED ONCE .ROUTE 11/01/16 16:41 11/01/16 16:42 DC Procedures/MDM CBC shows white blood cell count of 4.2, hemoglobin normal. CMP is normal. PT PTT normal. Ultrasound-guided paracentesis pending at time of dictation will be signed out to mid-level provider Miller supervising ER physician. Patient was stable throughout the ER course. Patient with presumed UNcomplicated procedure will be discharged home instructions to return for fevers, vomiting, pain, new worsening symptoms. Patient advised to follow-up with primary care doctor and oncologist as scheduled. Patient shows no current evidence to suggest additional complications were emergent conditions. The patient was stable with no new complaints during the ER course. Clinically, there is no current evidence to suggest meningitis, sepsis, acute abdomen, pneumonia, acute coronary syndrome, pulmonary embolism, or any other emergent condition appearing to require further evaluation or hospitalization. The patient should certainly return for any new or worsening symptoms per the aftercare instructions. They should otherwise follow-up with her primary care doctor for reevaluation this week. Departure Diagnosis: Primary Impression: Gastric carcinoma Condition: Stable Patient Instructions: Paracentesis Additional Instructions: Cheque otro vez con rhoades doctor primario en el proximo evans or regresa para mas o nueva simptomas. JAVAD GARCIA MD Nov 01, 2016 15:58
[2016-11-01] MEDS ORDERED: LIDOCAINE 1% (MPF) 5 ML VIAL ONE (16:41)
--- NOTE | 2016-11-01 17:21 | RADRPT ---
PROCEDURE: Ultrasound guided paracentesis CLINICAL INDICATION: Ascites TECHNIQUE: The risks benefits and alternatives of the procedure were explained to the patient. In formed written consent was obtained. A time out was performed. The patient understood the risks be nefits and alternatives and wished to proceed with the procedure. COMPARISON: Ultrasound, 10/11/2016 FINDINGS: A time out was performed. The overlying skin of the right lower quadrant of the abdomen was prepped and draped in the usual sterile fashion. Approximately 10 cc of lidocaine was injected locally for pain control. Utilizing ultrasound guidance, a 5-Mexican Yueh catheter was placed into the peritone al cavity without difficulty. The patient tolerated the procedure well without complication. Appro ximately 4400 cc of clear yellow fluid was obtained. The fluid was not sent to the lab for further analysis. IMPRESSION: 1. Successful ultrasound-guided paracentesis. RPTAT: QQ .Florencio Maldonado MD, MD Date Time Electronically viewed and signed by .Florencio Maldonado MD, on 11/01/2016 17:20 .R/
[2016-11-01 18:57] VITALS: BP 105/65; PULSE 67; RESP 17; TEMP 98.9
== END 2016-11-01 18:57 | disposition home or self-care (01) ==
LOC: FTE 12:23
DX: C16.9 Malignant neoplasm of stomach, unspecified (principal); I10 Essential (primary) hypertension; R11.0 Nausea
CPT/HCPCS: 80053; 85025; 85610; 85730; Z7502; Z7610

== ENCOUNTER 2016-11-20 17:43 | Inpatient (IN) | payer OTHER ==
[~2016-11-20] VITALS: Ht 144.8 cm; Wt 51.2 kg
[2016-11-20] MEDS ORDERED: morphine 4 MG/ML VIAL IV STA (21:58)
[2016-11-20] MEDS ORDERED: ONDANSETRON 4 MG INJ IV STA (21:58)
[2016-11-20] MEDS ORDERED: DIPH1TAB25 PO (22:20)
[2016-11-20] MEDS ORDERED: FURO20TA3 PO (22:21)
[2016-11-20] MEDS ORDERED: ONDA4TAB95 PO (22:21)
[2016-11-20] MEDS ORDERED: TRAM-40 PO (22:22)
[2016-11-20] MEDS ORDERED: PANT40TA4 PO (22:23)
[2016-11-20 22:45] LABS: ADD SCAN DIFF NO
[2016-11-20 22:51] LABS: ABNORMAL IP MESSAGE 1; BASOPHILS % 0.2 % (0.0-2.0); HEMATOCRIT 41.6 % (37.0-47.0); HEMOGLOBIN 14.2 g/dl (12.0-16.0); LYMPHOCYTES # 0.3 10^3/ul (0.8-2.9); LYMPHOCYTES % 7.8 % (15.0-51.0); MEAN CORPUSCULAR HEMOGLOBIN 29.8 pg (29.0-33.0); MEAN CORPUSCULAR HGB CONC 34.1 g/dl (32.0-37.0); MEAN CORPUSCULAR VOLUME 87.4 fl (82.0-101.0); MEAN PLATELET VOLUME 9.5 fl (7.4-10.4); MONOCYTE # 0.2 10^3/ul (0.3-0.9); MONOCYTES % 4.7 % (0.0-11.0); NEUTROPHIL # 3.7 10^3/ul (1.6-7.5); NEUTROPHILS % 86.8 % (39.0-77.0); PLATELET COUNT 457 10^3/UL (140-415); RED BLOOD COUNT 4.76 10^6/ul (4.20-5.40); RED CELL DISTRIBUTION WIDTH 14.7 % (11.5-14.5); WHITE BLOOD COUNT 4.3 10^3/ul (4.8-10.8)
[2016-11-20 23:09] LABS: ALBUMIN 3.2 g/dl (3.3-4.9)
[2016-11-20 23:10] LABS: INR 0.97; POTASSIUM 4.6 mmol/L (3.5-5.1); PROTIME 12.9 Sec (12.2-14.2)
[2016-11-20 23:11] LABS: PARTIAL THROMBOPLASTIN TIME 27.8 Sec (25.0-35.0)
[2016-11-20 23:12] LABS: ALBUMIN/GLOBULIN RATIO 0.78; BILIRUBIN,INDIRECT 0.4 mg/dl (0-1.1); BILIRUBIN,TOTAL 0.4 mg/dl (0.2-1.3); CREATININE 0.73 mg/dl (0.44-1.00); TOTAL PROTEIN 7.3 g/dl (6.1-8.1)
[2016-11-20 23:13] LABS: CALCIUM 9.1 mg/dl (8.4-10.2)
--- NOTE | 2016-11-21 00:22 | ERA ---
ER Documentation Chief Complaint Date/Time DATE: 11/21/16 TIME: 00:21 Chief Complaint abdominal pain and distention. pres for paracentesis from pcp HPI This is a 7-year-old female with abdominal pain and distention. Patient was sent for possible paracentesis secondary to tense ascites prior primary care physician. ROS All systems reviewed and are negative except as per history of present illness. Medications Home Meds Reported Medications Pantoprazole* (Pantoprazole*) 40 Mg Tablet.dr, 40 MG PO AC BREAKFAST DINNER, TAB 11/20/16 Tramadol Hcl* (Ultram*) 50 Mg Tablet, 50 MG PO TID Y for PAIN, TAB 11/20/16 Ondansetron Hcl* (Ondansetron Hcl*) 4 Mg Tablet, 4 MG PO Q4H Y for NAUSEA AND OR VOMITING, TAB 11/20/16 Furosemide* (Furosemide*) 20 Mg Tablet, 20 MG PO DAILY, #60 TAB 11/20/16 Diphenoxylate HCl/Atropine (Diphenoxylate-Atrop 2.5-0.025) 1 Each Tablet, 1 EACH PO TID, TAB 11/20/16 Docusate Sodium* (Colace*) 100 Mg Capsule, 200 MG PO DAILY, #30 CAP 10/10/16 Acetaminophen* (Acetaminophen*) 500 MG Extra Strength Tablet, 500 MG PO Q4H Y for PAIN AND OR ELEVATED TEMP, TAB 10/10/16 Pantoprazole* (Pantoprazole*) 40 Mg Tablet.dr, 40 MG PO BID, TAB 10/10/16 Lorazepam* (Lorazepam*) 0.5 Mg Tablet, 0.5 MG PO Q8 Y for AGITATION/ANXIETY, TAB 10/10/16 Hydrocodone/Acetaminophen ([place] 5-325 Tablet) 1 Each Tablet, 1 EACH PO Q6H, TAB 10/10/16 Discontinued Reported Medications Aprepitant (Emend) 1 Each Cap.ds.pk, 1 EACH PO 10/10/16 Allergies Allergies: Coded Allergies: No Known Allergy (Unverified , 11/20/16) PMhx/Soc History of Surgery: Yes (fibroids removal) Anesthesia Reaction: No Hx 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 Disorder: No Hx Respiratory Disorders: No Hx Cardiac Disorders: Yes (htn) Hx Psychiatric Problems: No Hx Miscellaneous Medical Probl: Yes (liver cirrhosis, STOMACH CA) Hx Alcohol Use: No Hx Substance Use: No Hx Tobacco Use: No Smoking Status: Never smoker Physical Exam Vitals Vital Signs Date Time Temp Pulse Resp B/P Pulse Ox O2 Delivery O2 Flow Rate FiO2 11/20/16 22:07 97.8 86 18 119/82 98 Room Air 11/20/16 18:47 97.3 87 18 110/73 98 Physical Exam Const: [] Head: Atraumatic Eyes: Normal Conjunctiva ENT: Normal External Ears, Nose and Mouth. Neck: Full range of motion..~ No meningismus. Resp: Clear to auscultation bilaterally Cardio: Regular rate and rhythm, no murmurs Abd: Soft, non tender, non distended. Normal bowel sounds Skin: No petechiae or rashes Back: No midline or flank tenderness Ext: No cyanosis, or edema Neur: Awake and alert Psych: Normal Mood and Affect Result Diagram: 11/20/16222211/20/162222 Results 24 hrs Laboratory Tests Test 11/20/16 22:23 Activated Partial Thromboplast Time 27.8Sec Alanine Aminotransferase (ALT/SGPT) 18IU/L Albumin 3.2g/dl Albumin/Globulin Ratio 0.78 Alkaline Phosphatase 139IU/L Anion Gap 17 Aspartate Amino Transf (AST/SGOT) 23IU/L Basophils # 0.010^3/ul Basophils % 0.2% Blood Urea Nitrogen 14mg/dl Calcium Level 9.1mg/dl Carbon Dioxide Level 28mmol/L Chloride Level 93mmol/L Creatinine 0.73mg/dl Direct Bilirubin 0.00mg/dl Eosinophils # 0.010^3/ul Eosinophils % 0.0% Globulin 4.10g/dl Glucose Level 107mg/dl Hematocrit 41.6% Hemoglobin 14.2g/dl INR International Normalized Ratio 0.97 Indirect Bilirubin 0.4mg/dl Lipase 50U/L Lymphocytes # 0.310^3/ul Lymphocytes % 7.8% Mean Corpuscular Hemoglobin 29.8pg Mean Corpuscular Hemoglobin Concent 34.1g/dl Mean Corpuscular Volume 87.4fl Mean Platelet Volume 9.5fl Monocytes # 0.210^3/ul Monocytes % 4.7% Neutrophils # 3.710^3/ul Neutrophils % 86.8% Nucleated Red Blood Cells # 0.010^3/ul Nucleated Red Blood Cells % 0.0/100WBC Platelet Count 75367^3/UL Potassium Level 4.6mmol/L Prothrombin Time 12.9Sec Prothrombin Time Ratio 1.0 Red Blood Count 4.7610^6/ul Red Cell Distribution Width 14.7% Sodium Level 133mmol/L Total Bilirubin 0.4mg/dl Total Protein 7.3g/dl White Blood Count 4.310^3/ul Current Medications Medications (Trade) Dose Ordered Sig/Deon Route PRN Reason Start Time Stop Time Status Last Admin Dose Admin Morphine Sulfate (morphine) 4 mg ONCE STAT IV 11/20/16 21:58 11/20/16 22:01 DC 11/20/16 22:20 Ondansetron HCl (Zofran Inj) 4 mg ONCE STAT IV 11/20/16 21:58 11/20/16 22:01 DC 11/20/16 22:20 Procedures/MDM Medical decision-making: Patient has obvious ascites. Will need to be admitted for therapeutic tap. Patient to be admitted to Dr. Adam who is on-call for Dr. Marquez Departure Diagnosis: Primary Impression: Ascites Qualified Code: R18.0 - Malignant ascites Condition: Serious MORENOSURI TEMPLETONJt Nov 21, 2016 00:22
[2016-11-21 01:01] VITALS: TEMP 98
[2016-11-21 01:20] VITALS: BP 124/64; PULSE 77; RESP 18
[2016-11-21 01:56] VITALS: Ht 144.8 cm; Wt 51.2 kg
[2016-11-21] MEDS: morphine 2 MG INJ IV PRN ×2 (02:27→12:19)
[2016-11-21] MEDS: ONDANSETRON 4 MG INJ IV PRN ×2 (02:27→09:47)
[2016-11-21 07:52] VITALS: BP 106/68; RESP 18
[2016-11-21] MEDS ORDERED: LIDOCAINE 1% (MPF) 5 ML VIAL ONE (12:02)
[2016-11-21] MEDS ORDERED: METOCLOPRAMIDE 10 MG INJ IV PRN (12:30)
[2016-11-21] MEDS ORDERED: HYDROCODONE/APAP (5/325) TAB PO PRN (12:30)
--- NOTE | 2016-11-21 13:22 | HP ---
DATE OF ADMISSION: 11/21/2016 CHIEF COMPLAINT: Abdominal pain and distention. REASON FOR ADMISSION: Sent from primary physician's office for paracentesis. HISTORY OF PRESENT ILLNESS: The patient is a 61-year-old unfortunate female with metastatic gastric carcinoma which was diagnosed in July 2016. Patient with peritoneal carcinomatosis and ascites . The patient currently follows with Dr. Sands's office and Hematology/Oncology, and undergoing chemotherapy. Patient is also complaining of nonbilious, nonbloody emesis and severe nausea and pa in. The patient will be admitted for paracentesis. The patient denied any fever, denies any chills , complains of the left lower extremity swelling, abdominal and generalized pain and nausea and vomi ting. Patient denies any chest pain, denies any shortness of breath. PAST MEDICAL HISTORY: Per HPI. PAST SURGICAL HISTORY: The patient is status post a right chest Perm-A-Cath placement and denies ricketts ving any other surgeries. PAST MEDICAL HISTORY: Gastric adenocarcinoma with peritoneal carcinomatosis, diagnosed in July 2016, gastritis, hypertension. SOCIAL HISTORY: Patient lives at home. Patient denies any tobacco use, denies any alcohol use, den ies any illicit drug use. FAMILY HISTORY: Patient's mother with abdominal cancer. ALLERGIES: NO KNOWN ALLERGIES. MEDICATIONS ON ADMISSION: 1. Protonix. 2. Ultram. 3. Zofran. 4. Lasix. 5. Diphenoxylate. 6. Atropine. 7. Acetaminophen. 8. Ativan. 9. Boring. REVIEW OF SYSTEMS: A 12-point review of systems is negative unless what mentioned in the HPI. PHYSICAL ASSESSMENT GENERAL: Well-developed, cachectic female, currently is awake, alert. VITAL SIGNS: Temperature 97.9, pulse is 74, blood pressure 106/68, respiratory rate 18, oxygen satu ration 98% on room air. HEENT: Head is atraumatic, normocephalic. Pupils equal, round, reactive to light and accommodation . Oral mucosa is pink and moist. NECK: Supple. No cervical lymphadenopathy, no thyromegaly. CHEST: Lungs clear bilaterally. There is no rhonchi, wheezes, rales noted. CARDIOVASCULAR: The patient is slightly tachycardic. Normal S1, S2. No murmurs, gallops, clicks, rubs noted. ABDOMEN: Flat, soft, nondistended. Patient has right lower quadrant tenderness on palpation. EXTREMITIES: The patient has a left lower extremity with edema. Pulses equal bilaterally 2+. SKIN: There is no rash, petechiae noted. NEUROLOGIC: Patient has a right chest Perm-A-Cath. NEUROLOGIC: The patient is awake, alert and oriented x4. No focal deficits noted. Motor strength 5/5 in all extremities. LABORATORY DATA: On admission, CBC: White blood cells 4.3, hemoglobin 14.2, hematocrit 41.6, plate lets 467. Chemistry: Sodium is 133, potassium 4.6, chloride 93, carbon dioxide 28, anion gap 17, B UN is 14, creatinine 0.73, glucose 107, calcium 9.1. AST is 22, ALT is 18, alkaline phosphatase 139 . PT is 12.9, INR 0.97, APTT is 27.8. ASSESSMENT AND PLAN: 1. Intractable nausea, vomiting. 2. Metastatic gastric adenocarcinoma with peritoneal carcinomatosis. 3. Abdominopelvic ascites. 4. Abdominal pain. 5. Gastritis by history. 6. Left lower extremity edema. The patient will undergo paracentesis. We will continue Zofran and Reglan p.r.n. for nausea. Trung nue morphine p.r.n. for pain. We will obtain bilateral lower extremities ultrasound to rule out rosa p venous thrombosis. Dr. Sands will be following the patient from hematology[facility]oncology [facility], [facility]. We will continue Lovenox for deep venous thrombosis prophylaxis and Protonix for peptic ulcer disease prophylaxis. Further recommendations based on clinical course. Plan of care discussed with Dr. Estrella. Dictated By: GHAZALA HORNE MACHINE ROUGH ROUNDER for CINDY ESTRELLA MD SR/NO Conf#: [id number] DID#: [id number]
[2016-11-21] MEDS: PANTOPRAZOLE (EC) 40 MG TAB PO SCH ×2 (14:20→22:34)
[2016-11-21] MEDS: ENOXAPARIN 30 MG/0.3 ML SYG SC SCH (14:23)
--- NOTE | 2016-11-21 14:30 | RADRPT ---
PROCEDURE: Ultrasound guided paracentesis. CLINICAL INDICATION: Ascites and shortness of breath. COMPARISON: 11/01/2016. TECHNIQUE: The risks, benefits, and alternatives were explained to the patient and/or the patient's family, inc luding but not limited to bleeding, infection, pain, visceral or vascular damage, shock, and . The patient and/or the patient's family understood the risks and the alternatives and wished to pro ceed with the procedure. Informed written consent was obtained. A procedural time out was performed . The patient's name, date of , and procedure to be performed were verified. Utilizing ultrasound guidance, optimal location for entry to the peritoneal cavity was ascertained. The overlying skin was prepped and draped in the usual sterile fashion. Approximately 10 ml of 1% Xylocaine was injected locally for pain control. Using ultrasound guidance, an 8 Moroccan catheter wa s introduced into the peritoneal cavity in the right lower quadrant without difficulty. FINDINGS: Initial images demonstrate ascites. Approximately 5 point a liters of serous fluid was aspirated an d discarded. The patient tolerated the procedure well without complication. IMPRESSION: 1. Successful ultrasound-guided paracentesis. RPTAT: QQ .Jeison White MD, Date Time Electronically viewed and signed by .Jeison White MD, MD on 11/21/2016 14:29 .R/
[2016-11-21] MEDS ORDERED: morphine 2 MG INJ IV PRN (15:00)
--- NOTE | 2016-11-21 15:00 | RADRPT ---
PROCEDURE: US bilateral lower extremity veins. CLINICAL INDICATION: Bilateral leg pain and swelling. TECHNIQUE: Multiple longitudinal and transverse images of the bilateral lower extremity veins were obtained with [place] scale and color Doppler imaging. The common femoral vein, femoral vein, and popl iteal vein were evaluated. 2D grayscale measurements with compression sonography, color Doppler, and pulsed Doppler with augmentation. COMPARISON: No prior studies are available for comparison. FINDINGS: The bilateral common femoral, femoral and popliteal veins are normally compressible throughout. Col or flow demonstrates normal filling of the vessels. Normal waveforms are visualized and there is no rmal response to augmentation. IMPRESSION: 1. No evidence of deep vein thrombosis involving either lower extremity. RPTAT: QQ .Jeison White MD, MD Date Time Electronically viewed and signed by .Jeison White MD, on 11/21/2016 15:00 .R/
[2016-11-21 20:11] VITALS: BP 105/58; RESP 19
--- NOTE | 2016-11-21 20:17 | CONS ---
Date/Time of Note Date/Time of Note DATE: 11/21/16 TIME: 20:06 Assessment/Plan Assessment/Plan Chief Complaint/Hosp Course ASSESSMENT AND PLAN: Metastatic gastric adenocarcinoma with peritoneal carcinomatosis. Abdominopelvic ascites - malignant Intractable nausea, vomiting. Abdominal pain. Left lower extremity edema. PLAN COMPLETE CHEMO WITH 5FU INFUSION paracentesis. continue Zofran and Reglan p.r.n. for nausea. Continue morphine p.r.n. for pain. We will obtain bilateral lower extremities ultrasound to rule out deep venous thrombosis. Lovenox for deep venous thrombosis prophylaxis and Protonix for peptic ulcer disease prophylaxis. Problems: Consultation Date/Type/Reason Admit Date/Time Nov 21, 2016 at 00:10 Date of Consultation: Nov 21, 2016 Type of Consultation: [facility] Reason for Consultation gastric cancer Referring Provider: CINDY ESTRELLA MD Hx of Present Illness The patient is a 61-year-old unfortunate female with metastatic gastric carcinoma which was diagnosed in July 2016. Patient with peritoneal carcinomatosis and ascites. PT is undergoing chemotherapy with FOLFOX, started yesterday. Patient is also complaining of nonbilious, nonbloody emesis and severe nausea and pain. The patient will be admitted for paracentesis. The patient denied any fever, denies any chills, complains of the left lower extremity swelling, abdominal and generalized pain and nausea and vomiting. Patient denies any chest pain, denies any shortness of breath. PAST MEDICAL HISTORY: Per HPI. PAST SURGICAL HISTORY: The patient is status post a right chest Perm-A-Cath placement and denies having any other surgeries. PAST MEDICAL HISTORY: Gastric adenocarcinoma with peritoneal carcinomatosis, diagnosed in July 2016, gastritis, hypertension. SOCIAL HISTORY: Patient lives at home. Patient denies any tobacco use, denies any alcohol use, denies any illicit drug use. FAMILY HISTORY: Patient's mother with abdominal cancer. ALLERGIES: NO KNOWN ALLERGIES. MEDICATIONS ON ADMISSION: 1. Protonix. 2. Ultram. 3. Zofran. 4. Lasix. 5. Diphenoxylate. 6. Atropine. 7. Acetaminophen. 8. Ativan. 9. [place]. REVIEW OF SYSTEMS: A 12-point review of systems is negative unless what mentioned in the HPI. Past Surgical History Past Surgical Hx: other Social History Smoking Status: Never smoker Exam/Review of Systems Vital Signs Vitals Vital Signs Date Time Temp Pulse Resp B/P Pulse Ox O2 Delivery O2 Flow Rate FiO2 11/21/16 07:52 97.9 74 18 106/68 98 11/21/16 01:20 Room Air Intake and Output 11/20/16 11/20/16 11/21/16 15:00 23:00 07:00 Intake Total 420 ml Balance 420 ml Exam PHYSICAL ASSESSMENT GENERAL: Well-developed, cachectic female, currently is awake, alert. HEENT: Head is atraumatic, normocephalic. Pupils equal, round, reactive to light and accommodation. Oral mucosa is pink and moist. NECK: Supple. No cervical lymphadenopathy, no thyromegaly. CHEST: Lungs clear bilaterally. There is no rhonchi, wheezes, rales noted. CARDIOVASCULAR: The patient is slightly tachycardic. Normal S1, S2. No murmurs, gallops, clicks, rubs noted. ABDOMEN: Flat, soft, nondistended. Patient has right lower quadrant tenderness on palpation. EXTREMITIES: The patient has a left lower extremity with edema. Pulses equal bilaterally 2+. SKIN: There is no rash, petechiae noted. NEUROLOGIC: Patient has a right chest Perm-A-Cath. NEUROLOGIC: The patient is awake, alert and oriented x4. No focal deficits noted. Motor strength 5/5 in all extremities. Results Result Diagram: 11/20/16222211/20/162222 Results 24 hrs Laboratory Tests Test 11/20/16 22:23 Activated Partial Thromboplast Time 27.8 Alanine Aminotransferase (ALT/SGPT) 18 Albumin 3.2 L Albumin/Globulin Ratio 0.78 Alkaline Phosphatase 139 H Anion Gap 17 H Aspartate Amino Transf (AST/SGOT) 23 Basophils # 0.0 Basophils % 0.2 Blood Urea Nitrogen 14 Calcium Level 9.1 Carbon Dioxide Level 28 Chloride Level 93 L Creatinine 0.73 Direct Bilirubin 0.00 Eosinophils # 0.0 Eosinophils % 0.0 Globulin 4.10 H Glucose Level 107 Hematocrit 41.6 Hemoglobin 14.2 INR International Normalized Ratio 0.97 Indirect Bilirubin 0.4 Lipase 50 Lymphocytes # 0.3 L Lymphocytes % 7.8 L Mean Corpuscular Hemoglobin 29.8 Mean Corpuscular Hemoglobin Concent 34.1 Mean Corpuscular Volume 87.4 Mean Platelet Volume 9.5 Monocytes # 0.2 L Monocytes % 4.7 Neutrophils # 3.7 Neutrophils % 86.8 H Nucleated Red Blood Cells # 0.0 Nucleated Red Blood Cells % 0.0 Platelet Count 457 H Potassium Level 4.6 Prothrombin Time 12.9 Prothrombin Time Ratio 1.0 Red Blood Count 4.76 Red Cell Distribution Width 14.7 H Sodium Level 133 L Total Bilirubin 0.4 Total Protein 7.3 White Blood Count 4.3 L Medications Medications Current Medications Ondansetron HCl (Zofran Inj) 4 mg Q6H PRN IV NAUSEA AND/OR VOMITING Last administered on 11/21/16 09:47; Admin Dose 4 MG; Start 11/21/16 at 02:30 Metoclopramide HCl (Reglan) 10 mg Q6H PRN IV NAUSEA Last administered on 17:36; Admin Dose 10 MG; Start 11/21/16 at 12:30 Morphine Sulfate (morphine) 2 mg Q3 PRN IV PAIN Last administered on 11/21/16 17:35; Admin Dose 2 MG; Start 11/21/16 at 15:00 Acetaminophen/ Hydrocodone Bitart ([place] (5/325)) 1 tab Q4H PRN PO PAIN LEVEL 4 -6 Last administered on 11/21/16 14:20; Admin Dose 1 TAB; Start 11/21/16 at 12:30 Pantoprazole (Protonix Tab) 40 mg BID@06,18 PO Last administered on 11/21/16 14 :20; Admin Dose 40 MG; Start 11/21/16 at 13:00 Enoxaparin Sodium (Lovenox) 30 mg DAILY SC Last administered on 11/21/16 14:23 ; Admin Dose 30 MG; Start 11/21/16 at 13:00 GRETEL LITTLEJOHN MD Nov 21, 2016 20:17
[2016-11-22 05:06] LABS: ADD SCAN DIFF NO
[2016-11-22 05:12] LABS: ABNORMAL IP MESSAGE 1; BASOPHILS % 0.4 % (0.0-2.0); EOSINOPHILS # 0.1 10^3/ul (0.0-0.5); EOSINOPHILS % 1.6 % (0.0-7.0); HEMATOCRIT 30.9 % (37.0-47.0); HEMOGLOBIN 10.8 g/dl (12.0-16.0); LYMPHOCYTES # 0.3 10^3/ul (0.8-2.9); LYMPHOCYTES % 6.7 % (15.0-51.0); MEAN CORPUSCULAR HEMOGLOBIN 30.1 pg (29.0-33.0); MEAN CORPUSCULAR VOLUME 86.1 fl (82.0-101.0); MEAN PLATELET VOLUME 9.1 fl (7.4-10.4); MONOCYTE # 0.2 10^3/ul (0.3-0.9); MONOCYTES % 5.4 % (0.0-11.0); NEUTROPHIL # 3.8 10^3/ul (1.6-7.5); NEUTROPHILS % 85.5 % (39.0-77.0); PLATELET COUNT 345 10^3/UL (140-415); RED BLOOD COUNT 3.59 10^6/ul (4.20-5.40); RED CELL DISTRIBUTION WIDTH 14.3 % (11.5-14.5); WHITE BLOOD COUNT 4.5 10^3/ul (4.8-10.8)
[2016-11-22 05:39] LABS: POTASSIUM 3.7 mmol/L (3.5-5.1)
[2016-11-22 05:41] LABS: CREATININE 0.75 mg/dl (0.44-1.00)
[2016-11-22 05:42] LABS: CALCIUM 7.5 mg/dl (8.4-10.2)
[2016-11-22] MEDS: PANTOPRAZOLE (EC) 40 MG TAB PO SCH ×2 (06:07→17:39)
[2016-11-22] MEDS: ENOXAPARIN 30 MG/0.3 ML SYG SC SCH (08:28)
[2016-11-22 08:52] VITALS: BP 100/63; RESP 18
--- NOTE | 2016-11-22 14:36 | PN ---
Date/Time of Note Date/Time of Note DATE: 11/22/16 TIME: 14:36 Assessment/Plan Lines/Catheters IV [facility]from [facility]): Saline Lock Urinary Cath still in place: No Assessment/Plan Assessment/Plan 1. Intractable nausea, vomiting. 2. Metastatic gastric adenocarcinoma with peritoneal carcinomatosis. 3. Abdominopelvic ascites. 4. Abdominal pain. 5. Gastritis by history. 6. Left lower extremity edema. We will continue Lovenox for deep venous thrombosis prophylaxis and Protonix for peptic ulcer disease prophylaxis. Further recommendations based on clinical course. Plan of care discussed with Dr. Garner. Exam/Review of Systems Vital Signs Vitals Vital Signs Date Time Temp Pulse Resp B/P Pulse Ox O2 Delivery O2 Flow Rate FiO2 11/22/16 08:52 98.7 72 18 100/63 98 11/21/16 01:20 Room Air Intake and Output 11/21/16 11/21/16 11/22/16 15:00 23:00 07:00 Intake Total 400 ml 800 ml Balance 400 ml 800 ml Results Result Diagram: 11/22/16 0435 11/22/16 0435 Results 24 hrs Laboratory Tests Test 11/22/16 04:35 Anion Gap 12 Basophils # 0.0 Basophils % 0.4 Blood Urea Nitrogen 11 Calcium Level 7.5 L Carbon Dioxide Level 26 Chloride Level 96 L Creatinine 0.75 Eosinophils # 0.1 Eosinophils % 1.6 Glucose Level 84 Hematocrit 30.9 #L Hemoglobin 10.8 #L Lymphocytes # 0.3 L Lymphocytes % 6.7 L Mean Corpuscular Hemoglobin 30.1 Mean Corpuscular Hemoglobin Concent 35.0 Mean Corpuscular Volume 86.1 Mean Platelet Volume 9.1 Monocytes # 0.2 L Monocytes % 5.4 Neutrophils # 3.8 Neutrophils % 85.5 H Nucleated Red Blood Cells # 0.0 Nucleated Red Blood Cells % 0.0 Platelet Count 345 # Potassium Level 3.7 Red Blood Count 3.59 #L Red Cell Distribution Width 14.3 Sodium Level 130 L White Blood Count 4.5 L Medications Medications Current Medications Ondansetron HCl (Zofran Inj) 4 mg Q6H PRN IV NAUSEA AND/OR VOMITING Last administered on 11/21/16t 09:47; Admin Dose 4 MG; Start 11/21/16 at 02:30 Metoclopramide HCl (Reglan) 10 mg Q6H PRN IV NAUSEA Last administered on 17:36; Admin Dose 10 MG; Start 11/21/16 at 12:30 Morphine Sulfate (morphine) 2 mg Q3 PRN IV PAIN Last administered on 11/21/16 17:35; Admin Dose 2 MG; Start 11/21/16 at 15:00 Acetaminophen/ Hydrocodone Bitart ([place] (5/325)) 1 tab Q4H PRN PO PAIN LEVEL 4 -6 Last administered on 11/21/16 14:20; Admin Dose 1 TAB; Start 11/21/16 at 12:30 Pantoprazole (Protonix Tab) 40 mg BID@06,18 PO Last administered on 11/22/16 06 :07; Admin Dose 40 MG; Start 11/21/16 at 13:00 Enoxaparin Sodium (Lovenox) 30 mg DAILY SC Last administered on 11/22/16 08:28 ; Admin Dose 30 MG; Start 11/21/16 at 13:00 EDILSON ADEN Nov 22, 2016 14:36
--- NOTE | 2016-11-22 18:26 | CONS ---
Date/Time of Note Date/Time of Note DATE: 11/22/16 TIME: 18:24 Assessment/Plan Assessment/Plan Chief Complaint/Hosp Course ASSESSMENT AND PLAN: Metastatic gastric adenocarcinoma with peritoneal carcinomatosis. Abdominopelvic ascites - malignant Intractable nausea, vomiting. Abdominal pain. Left lower extremity edema. PLAN COMPLETED CHEMO WITH 5FU INFUSION POST paracentesis. continue Zofran and Reglan p.r.n. for nausea. Continue morphine p.r.n. for pain. bilateral lower extremities ultrasound - NEG OK TO DC Problems: Consultation Date/Type/Reason Admit Date/Time Nov 21, 2016 at 00:10 Initial Consult Date 11/21/16 [facility] Referring Provider: CINDY ESTRELLA MD 24 HR Interval Summary Free Text/Dictation all noted felling better post paracentesis Exam/Review of Systems Vital Signs Vitals Vital Signs Date Time Temp Pulse Resp B/P Pulse Ox O2 Delivery O2 Flow Rate FiO2 11/22/16 08:52 98.7 72 18 100/63 98 11/21/16 01:20 Room Air Intake and Output 11/21/16 11/21/16 11/22/16 15:00 23:00 07:00 Intake Total 400 ml 800 ml Balance 400 ml 800 ml Exam GENERAL: Well-developed, cachectic female, currently is awake, alert. HEENT: Head is atraumatic, normocephalic. Pupils equal, round, reactive to light and accommodation. Oral mucosa is pink and moist. NECK: Supple. No cervical lymphadenopathy, no thyromegaly. CHEST: Lungs clear bilaterally. There is no rhonchi, wheezes, rales noted. CARDIOVASCULAR: The patient is slightly tachycardic. Normal S1, S2. No murmurs, gallops, clicks, rubs noted. ABDOMEN: Flat, soft, nondistended. Patient has right lower quadrant tenderness on palpation. ascites decreased EXTREMITIES: The patient has a left lower extremity with edema. Pulses equal bilaterally 2+. SKIN: There is no rash, petechiae noted. NEUROLOGIC: Patient has a right chest Perm-A-Cath. NEUROLOGIC: The patient is awake, alert and oriented x4. No focal deficits noted. Motor strength 5/5 in all extremities. Results Result Diagram: 11/22/16 0435 11/22/16 0435 Results 24 hrs Laboratory Tests Test 11/22/16 04:35 Anion Gap 12 Basophils # 0.0 Basophils % 0.4 Blood Urea Nitrogen 11 Calcium Level 7.5 L Carbon Dioxide Level 26 Chloride Level 96 L Creatinine 0.75 Eosinophils # 0.1 Eosinophils % 1.6 Glucose Level 84 Hematocrit 30.9 #L Hemoglobin 10.8 #L Lymphocytes # 0.3 L Lymphocytes % 6.7 L Mean Corpuscular Hemoglobin 30.1 Mean Corpuscular Hemoglobin Concent 35.0 Mean Corpuscular Volume 86.1 Mean Platelet Volume 9.1 Monocytes # 0.2 L Monocytes % 5.4 Neutrophils # 3.8 Neutrophils % 85.5 H Nucleated Red Blood Cells # 0.0 Nucleated Red Blood Cells % 0.0 Platelet Count 345 # Potassium Level 3.7 Red Blood Count 3.59 #L Red Cell Distribution Width 14.3 Sodium Level 130 L White Blood Count 4.5 L Medications Medications Current Medications Ondansetron HCl (Zofran Inj) 4 mg Q6H PRN IV NAUSEA AND/OR VOMITING Last administered on 11/21/16 09:47; Admin Dose 4 MG; Start 11/21/16 at 02:30 Metoclopramide HCl (Reglan) 10 mg Q6H PRN IV NAUSEA Last administered on 17:36; Admin Dose 10 MG; Start 11/21/16 at 12:30 Morphine Sulfate (morphine) 2 mg Q3 PRN IV PAIN Last administered on 11/21/16 17:35; Admin Dose 2 MG; Start 11/21/16 at 15:00 Acetaminophen/ Hydrocodone Bitart ([place] (5/325)) 1 tab Q4H PRN PO PAIN LEVEL 4 -6 Last administered on 11/21/16 14:20; Admin Dose 1 TAB; Start 11/21/16 at 12:30 Pantoprazole (Protonix Tab) 40 mg BID@06,18 PO Last administered on 11/22/16 17 :39; Admin Dose 40 MG; Start 11/21/16 at 13:00 Enoxaparin Sodium (Lovenox) 30 mg DAILY SC Last administered on 11/22/16 08:28 ; Admin Dose 30 MG; Start 11/21/16 at 13:00 GRETEL LITTLEJOHN MD Nov 22, 2016 18:26
--- NOTE | 2016-11-22 19:09 | PDOCDIS ---
Discharge Instructions CONDITION Patient Condition: Stable HOME CARE INSTRUCTIONS: Diet Instructions: ACTIVITY: Activity Restrictions: Slowly Increase Activity Rest between Activity Avoid heavy lifting Do not operate Machinery Do not operate Power Tool Avoid Heavy Housework Bathing Restrictions: Sponge Bath FOLLOW UP/APPOINTMENTS Appointments fu with Primary MD x 1 week FU with oncology as recommended. Patient verbalized understanding discharge instructions. call 911 or go to the nearest hospital if symptoms get worse. Valdemar Garner/ staff/patient. EDILSON ADEN Nov 22, 2016 19:09
--- NOTE | 2016-11-22 19:10 | DS ---
Date/Time of Note Date/Time of Note DATE: 11/22/16 TIME: 19:10 Discharge Summary Admission/Discharge Info Admit Date/Time Nov 21, 2016 at 00:10 Discharge Date/Time Hospital Course ASSESSMENT AND PLAN: Metastatic gastric adenocarcinoma with peritoneal carcinomatosis. Abdominopelvic ascites - malignant Intractable nausea, vomiting. Abdominal pain. Left lower extremity edema. PLAN COMPLETED CHEMO WITH 5FU INFUSION POST paracentesis. continue Zofran and Reglan p.r.n. for nausea. Continue morphine p.r.n. for pain. bilateral lower extremities ultrasound - NEG OK TO PA Home Meds Reported Medications Pantoprazole* (Pantoprazole*) 40 Mg Tablet.dr, 40 MG PO AC BREAKFAST DINNER, TAB 11/20/16 Tramadol Hcl* (Ultram*) 50 Mg Tablet, 50 MG PO TID Y for PAIN, TAB 11/20/16 Ondansetron Hcl* (Ondansetron Hcl*) 4 Mg Tablet, 4 MG PO Q4H Y for NAUSEA AND OR VOMITING, TAB 11/20/16 Furosemide* (Furosemide*) 20 Mg Tablet, 20 MG PO DAILY, #60 TAB 11/20/16 Diphenoxylate HCl/Atropine (Diphenoxylate-Atrop 2.5-0.025) 1 Each Tablet, 1 EACH PO TID, TAB 11/20/16 Docusate Sodium* (Colace*) 100 Mg Capsule, 200 MG PO DAILY, #30 CAP 10/10/16 Acetaminophen* (Acetaminophen*) 500 MG Extra Strength Tablet, 500 MG PO Q4H Y for PAIN AND OR ELEVATED TEMP, TAB 10/10/16 Pantoprazole* (Pantoprazole*) 40 Mg Tablet.dr, 40 MG PO BID, TAB 10/10/16 Lorazepam* (Lorazepam*) 0.5 Mg Tablet, 0.5 MG PO Q8 Y for AGITATION/ANXIETY, TAB 10/10/16 Hydrocodone/Acetaminophen ([place] 5-325 Tablet) 1 Each Tablet, 1 EACH PO Q6H, TAB 10/10/16 Discontinued Reported Medications Aprepitant (Emend) 1 Each Cap.ds.pk, 1 EACH PO 10/10/16 Pending Labs Laboratory Tests Test 11/22/16 04:35 Anion Gap 12 (8-16) Basophils # 0.010^3/ul (0.0-0.1) Basophils % 0.4% (0.0-2.0) Blood Urea Nitrogen 11mg/dl (7-20) Calcium Level 7.5mg/dl (8.4-10.2) Carbon Dioxide Level 26mmol/L (21-31) Chloride Level 96mmol/L (97-110) Creatinine 0.75mg/dl (0.44-1.00) Eosinophils # 0.110^3/ul (0.0-0.5) Eosinophils % 1.6% (0.0-7.0) Glucose Level 84mg/dl (70-220) Hematocrit 30.9% (37.0-47.0) Hemoglobin 10.8g/dl (12.0-16.0) Lymphocytes # 0.310^3/ul (0.8-2.9) Lymphocytes % 6.7% (15.0-51.0) Mean Corpuscular Hemoglobin 30.1pg (29.0-33.0) Mean Corpuscular Hemoglobin Concent 35.0g/dl (32.0-37.0) Mean Corpuscular Volume 86.1fl (82.0-101.0) Mean Platelet Volume 9.1fl (7.4-10.4) Monocytes # 0.210^3/ul (0.3-0.9) Monocytes % 5.4% (0.0-11.0) Neutrophils # 3.810^3/ul (1.6-7.5) Neutrophils % 85.5% (39.0-77.0) Nucleated Red Blood Cells # 0.010^3/ul (0.0-0.0) Nucleated Red Blood Cells % 0.0/100WBC (0.0-0.0) Platelet Count 47032^3/UL (140-415) Potassium Level 3.7mmol/L (3.5-5.1) Red Blood Count 3.5910^6/ul (4.20-5.40) Red Cell Distribution Width 14.3% (11.5-14.5) Sodium Level 130mmol/L (135-144) White Blood Count 4.510^3/ul (4.8-10.8) EDILSON ADEN Nov 22, 2016 19:10
[2016-11-22 20:25] VITALS: BP 136/65; RESP 20
== END 2016-11-22 20:00 | disposition home or self-care (01) | DRG 375 ==
LOC: E/R 17:43 → MS2 11-21 00:10 → MS1 11-21 01:16
PROVIDERS: ADMIT Internal Medicine; ATTEND Internal Medicine
PROC: 0W9G3ZZ Drainage of Peritoneal Cavity, Percutaneous Approach (ICD-10-PCS; principal; 2016-11-21)
DX: C16.9 Malignant neoplasm of stomach, unspecified (principal); C78.6 Secondary malignant neoplasm of retroperitoneum and peritoneum; R18.0 Malignant ascites; K74.60 Unspecified cirrhosis of liver; I10 Essential (primary) hypertension; K29.70 Gastritis, unspecified, without bleeding; R60.0 Localized edema; R11.2 Nausea with vomiting, unspecified; Z80.0 Family history of malignant neoplasm of digestive organs
CPT/HCPCS: 36415; 80048; 80053; 83690; 85025; 85610; 85730; 93970; 96374; 96375; J1650; J2270; J2405; J2765

== ENCOUNTER 2016-12-07 08:18 | Emergency (ER) | payer OTHER ==
[~2016-12-07] VITALS: Wt 44.0 kg
[~2016-12-07 08:18] MED LIST changes: +DIPH1TAB25 PO; +FURO20TA3 PO; +ONDA4TAB95 PO; +TRAM-40 PO; -[UNRECOGNIZED DRUG - CODE] PO
[2016-12-07] MEDS ORDERED: ONDANSETRON 4 MG INJ IV STA (08:51)
[2016-12-07] MEDS ORDERED: SOD CHLORIDE 0.9% 1,000 ML IV STA (08:51)
[2016-12-07] MEDS ORDERED: morphine 4 MG/ML VIAL IV STA (08:51)
--- NOTE | 2016-12-07 09:02 | ERA ---
ER Documentation Chief Complaint Date/Time DATE: 12/07/16 TIME: 08:58 Chief Complaint abd pain and distention . sent here for paracenthesis HPI Patient is a 61-year-old female who recently started chemo for her cancer. She states she took her first round of chemo this week. Since then she has had increased abdominal pain with vomiting and subjective fevers. She also reports lower extremity edema which she says is "retained water" according to her physician. She does not know if she has blood clots. She says her abdominal pain is diffuse and nothing seems to help the pain. She says movement increases the pain. The vomiting started 2-3 days ago and she has had increasing dysuria without hematuria. She has not had any diarrhea, flank or back pain. She denies any hematemesis, melena, or hematochezia. She also denies any chest pain, shortness of breath, coughing, congestion, rhinorrhea, sore throat, otalgia, dizziness, syncope, paresthesias, bruising, or abnormal bleeding, or rashes. The remainder of the systems are negative. ROS All systems reviewed and are negative except as per history of present illness. Medications Home Meds Reported Medications Pantoprazole* (Pantoprazole*) 40 Mg Tablet.dr, 40 MG PO AC BREAKFAST DINNER, TAB 11/20/16 Tramadol Hcl* (Ultram*) 50 Mg Tablet, 50 MG PO TID Y for PAIN, TAB 11/20/16 Ondansetron Hcl* (Ondansetron Hcl*) 4 Mg Tablet, 4 MG PO Q4H Y for NAUSEA AND OR VOMITING, TAB 11/20/16 Furosemide* (Furosemide*) 20 Mg Tablet, 20 MG PO DAILY, #60 TAB 11/20/16 Diphenoxylate HCl/Atropine (Diphenoxylate-Atrop 2.5-0.025) 1 Each Tablet, 1 EACH PO TID, TAB 11/20/16 Docusate Sodium* (Colace*) 100 Mg Capsule, 200 MG PO DAILY, #30 CAP 10/10/16 Acetaminophen* (Acetaminophen*) 500 MG Extra Strength Tablet, 500 MG PO Q4H Y for PAIN AND OR ELEVATED TEMP, TAB 10/10/16 Lorazepam* (Lorazepam*) 0.5 Mg Tablet, 0.5 MG PO Q8 Y for AGITATION/ANXIETY, TAB 10/10/16 Hydrocodone/Acetaminophen ([place] 5-325 Tablet) 1 Each Tablet, 1 EACH PO Q6H, TAB 10/10/16 Discontinued Reported Medications Pantoprazole* (Pantoprazole*) 40 Mg Tablet.dr, 40 MG PO BID, TAB 10/10/16 Allergies Allergies: Coded Allergies: No Known Allergy (Unverified , 11/20/16) PMhx/Soc History of Surgery: Yes (FIBROIDS REMOVAL) Anesthesia Reaction: No Hx 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 Disorder: No Hx Respiratory Disorders: No Hx Cardiac Disorders: Yes (HTN) Hx Psychiatric Problems: No Hx Miscellaneous Medical Probl: Yes (LIVER CIRRHOSIS) Hx Alcohol Use: No Hx Substance Use: No Hx Tobacco Use: No FmHx Family History: No diabetes Physical Exam Vitals Vital Signs Date Time Temp Pulse Resp B/P Pulse Ox O2 Delivery O2 Flow Rate FiO2 12/07/16 08:20 97.9 81 20 119/65 97 Physical Exam Const: [] Well-developed well-nourished female sitting on the bed spitting into an emesis bag Head: Atraumatic normocephalic Eyes: Normal Conjunctiva ENT: Normal External Ears, Nose and Mouth. Neck: Full range of motion..~ No meningismus. Resp: Clear to auscultation bilaterally Cardio: Regular rate and rhythm, no murmurs Abd: Soft, mild tenderness to palpation diffusely, audible bowel sounds, no masses, rebound, or guarding Skin: No petechiae or rashes Back: No midline or flank tenderness Ext: No cyanosis, 2+ pitting edema of the feet, ankles, and lower extremities Neur: Awake and alert oriented 3 with a GCS of 15, moves all extremities equally, nonfocal Psych: Normal Mood and Affect Result Diagram: 12/07/1690712/07/1608 Results 24 hrs Laboratory Tests Test 12/07/16 09:00 12/07/16 09:08 Activated Partial Thromboplast Time 27.8Sec INR International Normalized Ratio 0.93 Prothrombin Time 12.5Sec Prothrombin Time Ratio 1.0 Alanine Aminotransferase (ALT/SGPT) 21IU/L Albumin 2.5g/dl Albumin/Globulin Ratio 1.08 Alkaline Phosphatase 123IU/L Anion Gap 12 Aspartate Amino Transf (AST/SGOT) 20IU/L Basophils # 0.010^3/ul Basophils % 0.2% Blood Urea Nitrogen 11mg/dl Calcium Level 8.4mg/dl Carbon Dioxide Level 29mmol/L Chloride Level 97mmol/L Creatinine 0.65mg/dl Direct Bilirubin 0.00mg/dl Eosinophils # 0.010^3/ul Eosinophils % 0.2% Globulin 2.30g/dl Glucose Level 85mg/dl Hematocrit 37.6% Hemoglobin 12.9g/dl Indirect Bilirubin 0.5mg/dl Lipase 196U/L Lymphocytes # 0.410^3/ul Lymphocytes % 7.9% Mean Corpuscular Hemoglobin 30.4pg Mean Corpuscular Hemoglobin Concent 34.3g/dl Mean Corpuscular Volume 88.5fl Mean Platelet Volume 8.6fl Monocytes # 0.110^3/ul Monocytes % 2.4% Neutrophils # 4.410^3/ul Neutrophils % 87.9% Nucleated Red Blood Cells # 0.010^3/ul Nucleated Red Blood Cells % 0.0/100WBC Platelet Count 05828^3/UL Potassium Level 3.9mmol/L Red Blood Count 4.2510^6/ul Red Cell Distribution Width 14.7% Sodium Level 134mmol/L Total Bilirubin 0.5mg/dl Total Protein 4.8g/dl White Blood Count 5.110^3/ul Current Medications Medications (Trade) Dose Ordered Sig/Deon Route PRN Reason Start Time Stop Time Status Last Admin Dose Admin Sodium Chloride (NS) 1,000 ml @ 1,000 mls/hr Q1H STAT IV 12/07/16 08:51 12/07/16 09:50 DC 12/07/16 09:28 Morphine Sulfate (morphine) 4 mg ONCE STAT IV 12/07/16 08:51 12/07/16 08:54 DC 12/07/16 09:28 Ondansetron HCl (Zofran Inj) 4 mg ONCE STAT IV 12/07/16 08:51 12/07/16 08:54 DC 12/07/16 09:28 Lidocaine (Xylocaine 1% (Mpf)) 5 ml STK-MED ONCE .ROUTE 12/07/16 13:58 12/07/16 13:59 DC 12/07/16 14:02 Procedures/MDM Differential includes but is not limited to nonspecific abdominal pain, urinary tract infection, pyelonephritis, colitis, DVT, pedal edema, mesenteric adenopathy, febrile reaction to chemo CT of the abdomen and pelvis is consistent with peritoneal and intestinal carcinomatosis without any evidence for obstruction or acute findings per the radiologist Bilateral ultrasound of the lower extremities does not reveal any evidence of DVT or acute findings per the radiologist An ultrasound-guided paracentesis was performed per Dr. White in the radiology suite. Patient tolerated the procedure well without any complications noted. She feels much improved. She is stable for discharge home. Departure Diagnosis: Primary Impression: Abdominal carcinomatosis Additional Impressions: Ascites, malignant Edema leg Qualified Code: R60.0 - Bilateral edema of lower extremity Condition: Good Patient Instructions: Abdominal Pain, Ascites, Peripheral Edema, Bilateral Additional Instructions: Continue taking all of your medications as previously prescribed and keep all of your follow-up appointments with your oncologist and primary care physician is made. Return to the emergency department for any increasing abdominal pain, fever, vomiting, or new or worsening symptoms. You may want to discuss scheduling your paracentesis as a routine appointment through outpatient. Please discuss this with your oncologist as these can be scheduled routinely so that you do not have to come to the emergency department. Otherwise please return to the emergency department for any of the above symptoms. PRINCESS ROSALES Dec 07, 2016 09:01
[2016-12-07 09:15] LABS: ADD SCAN DIFF NO
[2016-12-07 09:21] LABS: ABNORMAL IP MESSAGE 1; BASOPHILS % 0.2 % (0.0-2.0); EOSINOPHILS % 0.2 % (0.0-7.0); HEMATOCRIT 37.6 % (37.0-47.0); HEMOGLOBIN 12.9 g/dl (12.0-16.0); LYMPHOCYTES # 0.4 10^3/ul (0.8-2.9); LYMPHOCYTES % 7.9 % (15.0-51.0); MEAN CORPUSCULAR HEMOGLOBIN 30.4 pg (29.0-33.0); MEAN CORPUSCULAR HGB CONC 34.3 g/dl (32.0-37.0); MEAN CORPUSCULAR VOLUME 88.5 fl (82.0-101.0); MEAN PLATELET VOLUME 8.6 fl (7.4-10.4); MONOCYTE # 0.1 10^3/ul (0.3-0.9); MONOCYTES % 2.4 % (0.0-11.0); NEUTROPHIL # 4.4 10^3/ul (1.6-7.5); NEUTROPHILS % 87.9 % (39.0-77.0); PLATELET COUNT 442 10^3/UL (140-415); RED BLOOD COUNT 4.25 10^6/ul (4.20-5.40); RED CELL DISTRIBUTION WIDTH 14.7 % (11.5-14.5); WHITE BLOOD COUNT 5.1 10^3/ul (4.8-10.8)
[2016-12-07 09:54] LABS: ALBUMIN 2.5 g/dl (3.3-4.9)
[2016-12-07 09:55] LABS: POTASSIUM 3.9 mmol/L (3.5-5.1)
--- NOTE | 2016-12-07 09:56 | RADRPT ---
PROCEDURE: US DVT. CLINICAL INDICATION: Lower extremity edema. The patient on chemotherapy.. TECHNIQUE: Multiple longitudinal and transverse images of the bilateral lower extremity veins were obtained with [place] scale and color Doppler imaging. 2D grayscale measurements with compression, co hugh Doppler flow, and augmentation was performed. The calf veins were interrogated as well. COMPARISON: Previous venous ultrasound from 07/30/2016. FINDINGS: The bilateral common femoral, superficial femoral and popliteal veins are normally compressible thro ughout. Color flow demonstrates normal filling of the vessel. Normal waveforms are visualized and there is normal response to augmentation. The calf veins are visualized and are equally unremarkabl e. IMPRESSION: 1. No evidence of a deep vein thrombosis involving either lower extremity. RPTAT: [facility] Physician Isaiah Date Time Electronically viewed and signed by Physician Isaiah on 12/07/2016 09:56 /
[2016-12-07 09:57] LABS: ALBUMIN/GLOBULIN RATIO 1.08; BILIRUBIN,INDIRECT 0.5 mg/dl (0-1.1); BILIRUBIN,TOTAL 0.5 mg/dl (0.2-1.3); CREATININE 0.65 mg/dl (0.44-1.00); TOTAL PROTEIN 4.8 g/dl (6.1-8.1)
[2016-12-07 09:58] LABS: CALCIUM 8.4 mg/dl (8.4-10.2)
--- NOTE | 2016-12-07 10:25 | RADRPT ---
PROCEDURE: CT Abdomen and Pelvis without contrast. CLINICAL INDICATION: Abdominal distension. TECHNIQUE: CT scan of the abdomen and pelvis without contrast was performed on a multi-slice [facility] without intravenous contrast. Coronal and sagittal reformatted images were obtained from the axial source images. Images were reviewed on a high-resolution PACS workstation. One or more of the following does reduction techniques were used: Automated exposure control; adjustment of the mA an d/or kV according to patient size; use of the aorta of reconstruction technique. The total exam CTD I equals 5.97 mGy and the total exam DLP equals 322.2 mGy-cm. COMPARISON: CT abdomen pelvis 10/10/2016 FINDINGS: There is a new small right pleural effusion and trace left pleural effusion with adjacent atelectasi s. There is mild increased interstitial opacification which may represent pulmonary edema or inters titial carcinomatosis. There is a trace pericardial effusion which is stable compared to prior stud y. Heart size is at the upper limits of normal. There is persistent moderate thickening of the gastric antrum. The liver, spleen, and pancreas are normal given limitations of a noncontrast CT examination. The g allbladder is normal. The adrenal glands are not well visualized but no obvious adrenal masses seen. There is new mild to moderate bilateral hydronephrosis presumably related to external compression of the ureters.. No r enal calculi identified. The aorta is of normal caliber. Evaluation for retroperitoneal lymph node enlargement is limited th ere is no obvious retroperitoneal lymph node enlargement.. There is no evidence of large or small bowel obstruction the appendix is not clearly identified.. Again seen is peritoneal nodularity and thickening with associated large volume ascites consistent w ith peritoneal carcinomatosis. Evaluation for inflammatory change is limited a large left adnexal m ass is again seen, though poorly from adjacent ascites. The mass is likely increased sign ificantly in size now measuring approximately 7.6 x 5.8 cm.. Evaluation for pelvic sidewall lymph node enlargement is limited. Apart from left adnexal mass and no obvious sidewall lymph node enlargement is seen. The bladder is decompressed and collapsed. The inguinal regions are unremarkable. There is bilateral L5 spondylolysis with grade 1 anterolisthesis of L5 on S1. No obvious lytic or s clerotic lesions are identified to suggest osseous metastatic disease. IMPRESSION: 1. 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 2. New small right pleural effusion and trace left pleural effusion with adjacent atelectasis. Int erstitial opacities in the lung bases may represent pulmonary edema or interstitial carcinomatosis. 3. New mild to moderate bilateral hydronephrosis, presumably related to external compression of the ureters. 4. Enlarging left adnexal mass. 5. Persistent marked thickening of the gastric antrum which may be related to primary or metastatic disease. RPTAT: KK .Angelo Curtis MD, MD Date Time Electronically viewed and signed by .Angelo Curtis MD, on 12/07/2016 10:25 .B/
[2016-12-07 12:46] LABS: INR 0.93; PROTIME 12.5 Sec (12.2-14.2)
[2016-12-07 12:47] LABS: PARTIAL THROMBOPLASTIN TIME 27.8 Sec (25.0-35.0)
[2016-12-07] MEDS ORDERED: LIDOCAINE 1% (MPF) 5 ML VIAL ONE (13:58)
[2016-12-07 15:07] VITALS: BP 109/64; PULSE 64; RESP 20; TEMP 98.3
--- NOTE | 2016-12-07 16:26 | RADRPT ---
PROCEDURE: Ultrasound guided paracentesis. CLINICAL INDICATION: Ascites and shortness of breath. COMPARISON: 11/21/2016. TECHNIQUE: The risks, benefits, and alternatives were explained to the patient and/or the patient's family, inc luding but not limited to bleeding, infection, pain, visceral or vascular damage, shock, and . The patient and/or the patient's family understood the risks and the alternatives and wished to pro ceed with the procedure. Informed written consent was obtained. A procedural time out was performed . The patient's name, date of , and procedure to be performed were verified. Utilizing ultrasound guidance, optimal location for entry to the peritoneal cavity was ascertained. The overlying skin was prepped and draped in the usual sterile fashion. Approximately 10 ml of 1% Xylocaine was injected locally for pain control. Using ultrasound guidance, an 8 Kosovan catheter wa s introduced into the peritoneal cavity in the right lower quadrant without difficulty. FINDINGS: Initial images demonstrate ascites. Approximately 4.35 liters of serous fluid was aspirated and dis carded. The patient tolerated the procedure well without complication. IMPRESSION: 1. Successful ultrasound-guided paracentesis. RPTAT: QQ .Jeison White MD, Date Time Electronically viewed and signed by .Jeison White MD, on 12/07/2016 16:26 .R/
== END 2016-12-07 15:09 | disposition home or self-care (01) ==
LOC: E/R 08:18
DX: C78.6 Secondary malignant neoplasm of retroperitoneum and peritoneum (principal); I10 Essential (primary) hypertension; R18.0 Malignant ascites; C16.9 Malignant neoplasm of stomach, unspecified; R11.10 Vomiting, unspecified; R40.2142 Coma scale, eyes open, spontaneous, at arrival to emergency department; R40.2252 Coma scale, best verbal response, oriented, at arrival to emergency department; R40.2362 Coma scale, best motor response, obeys commands, at arrival to emergency department
CPT/HCPCS: 36415; 74176; 80053; 83690; 85025; 85610; 85730; 87040; 93970; 96374; 96375; J2270; J2405; J7030; Z7502; Z7610

== ENCOUNTER 2016-12-24 08:43 | Emergency (ER) | payer OTHER ==
[~2016-12-24] VITALS: Ht 152.4 cm; Wt 51.5 kg
[2016-12-24 08:46] VITALS: Ht 152.4 cm; Wt 51.5 kg
[2016-12-24 09:49] LABS: ADD SCAN DIFF NO
[2016-12-24 09:52] LABS: ABNORMAL IP MESSAGE 1; ADD UMIC YES; BASOPHILS % 0.3 % (0.0-2.0); EOSINOPHILS % 0.1 % (0.0-7.0); HEMATOCRIT 31.4 % (37.0-47.0); HEMOGLOBIN 10.5 g/dl (12.0-16.0); LYMPHOCYTES # 0.6 10^3/ul (0.8-2.9); LYMPHOCYTES % 7.9 % (15.0-51.0); MEAN CORPUSCULAR HEMOGLOBIN 29.5 pg (29.0-33.0); MEAN CORPUSCULAR HGB CONC 33.4 g/dl (32.0-37.0); MEAN CORPUSCULAR VOLUME 88.2 fl (82.0-101.0); MEAN PLATELET VOLUME 8.7 fl (7.4-10.4); MONOCYTE # 0.2 10^3/ul (0.3-0.9); MONOCYTES % 2.7 % (0.0-11.0); NEUTROPHIL # 5.9 10^3/ul (1.6-7.5); NEUTROPHILS % 85.4 % (39.0-77.0); PLATELET COUNT 360 10^3/UL (140-415); RED BLOOD COUNT 3.56 10^6/ul (4.20-5.40); RED CELL DISTRIBUTION WIDTH 15.6 % (11.5-14.5); URINE BILIRUBIN (Dip) NEGATIVE (NEGATIVE); URINE BLOOD (Dip) NEGATIVE (NEGATIVE); URINE COLOR LT. YELLOW (YELLOW); URINE GLUCOSE (Dip) NEGATIVE (NEGATIVE); URINE KETONES (Dip) NEGATIVE (NEGATIVE); URINE LEUKOCYTE ESTERASE (Dip) 1+ (NEGATIVE); URINE NITRITE (Dip) NEGATIVE (NEGATIVE); URINE TOTAL PROTEIN (Dip) TRACE (NEGATIVE); URINE UROBILINOGEN (Dip) 1.0 E.U./dL (0.1-1.0); WHITE BLOOD COUNT 6.9 10^3/ul (4.8-10.8)
[2016-12-24 10:01] LABS: ALBUMIN 2.5 g/dl (3.3-4.9)
[2016-12-24 10:02] LABS: POTASSIUM 3.3 mmol/L (3.5-5.1)
[2016-12-24 10:03] LABS: INR 1.01; PROTIME 13.3 Sec (12.2-14.2)
[2016-12-24 10:04] LABS: BILIRUBIN,INDIRECT 0.1 mg/dl (0-1.1); CREATININE 0.55 mg/dl (0.44-1.00)
[2016-12-24 10:05] LABS: ALBUMIN/GLOBULIN RATIO 0.86; BILIRUBIN,TOTAL 0.1 mg/dl (0.2-1.3); CALCIUM 7.9 mg/dl (8.4-10.2); TOTAL PROTEIN 5.4 g/dl (6.1-8.1)
[2016-12-24 10:13] LABS: BACTERIA,URINE FEW; URINE RBCS 0-2 /HPF (0)
[2016-12-24] MEDS ORDERED: NITR-58 PO (10:24)
[2016-12-24] MEDS ORDERED: CEPHALEXIN 500 MG CAP PO ONE (10:30)
[2016-12-24] MEDS ORDERED: LIDOCAINE 1% (MPF) 5 ML VIAL ONE (11:50)
[2016-12-24 13:00] VITALS: BP 118/77; PULSE 64; RESP 18; TEMP 98.3
[2016-12-24] MEDS ORDERED: POTASSIUM CHLORIDE (SR) 20 MEQ TAB PO STA (13:34)
--- NOTE | 2016-12-24 13:38 | RADRPT ---
PROCEDURE: Ultrasound guided paracentesis. CLINICAL INDICATION: Ascites and shortness of breath. COMPARISON: 12/07/2016. TECHNIQUE: The risks, benefits, and alternatives were explained to the patient and/or the patient's family, inc luding but not limited to bleeding, infection, pain, visceral or vascular damage, shock, and . The patient and/or the patient's family understood the risks and the alternatives and wished to pro ceed with the procedure. Informed written consent was obtained. A procedural time out was performed . The patient's name, date of , and procedure to be performed were verified. Utilizing ultrasound guidance, optimal location for entry to the peritoneal cavity was ascertained. The overlying skin was prepped and draped in the usual sterile fashion. Approximately 10 ml of 1% Xylocaine was injected locally for pain control. Using ultrasound guidance, an 8 Malagasy catheter wa s introduced into the peritoneal cavity in the right lower quadrant without difficulty. FINDINGS: Initial images demonstrate ascites. Approximately 3.9 liters of serous fluid was aspirated and disc arded. The patient tolerated the procedure well without complication. IMPRESSION: 1. Successful ultrasound-guided paracentesis. RPTAT: QQ .Jeison White MD, Date Time Electronically viewed and signed by .Jeison White MD, on 12/24/2016 13:38 .R/
--- NOTE | 2016-12-24 13:48 | ERD ---
ER Documentation Chief Complaint Date/Time DATE: 12/24/16 TIME: 13:46 Chief Complaint abd pain , needs paracentesis HPI Patient is a 61-year-old female with cirrhosis who presents with "water in my stomach". The patient has bilateral leg swelling as well. The symptoms started last Saturday. She had a paracentesis done last month. She says that she is having abdominal pain from the distention. She tried Tylenol for pain. She does not know the name of her primary doctor. Upon review of old medical records she has had multiple visits to the ER for various complaints. ROS All systems reviewed and are negative except as per history of present illness. Medications Home Meds Active Scripts Nitrofurantoin Monohyd Macrocr* (Macrobid*) 100 Mg Capsr, 100 MG PO BID for 7 Days, CAP Prov:YOGI AL MD 12/24/16 Reported Medications Pantoprazole* (Pantoprazole*) 40 Mg Tablet.dr, 40 MG PO AC BREAKFAST DINNER, TAB 11/20/16 Tramadol Hcl* (Ultram*) 50 Mg Tablet, 50 MG PO TID Y for PAIN, TAB 11/20/16 Ondansetron Hcl* (Ondansetron Hcl*) 4 Mg Tablet, 4 MG PO Q4H Y for NAUSEA AND OR VOMITING, TAB 11/20/16 Furosemide* (Furosemide*) 20 Mg Tablet, 20 MG PO DAILY, #60 TAB 11/20/16 Diphenoxylate HCl/Atropine (Diphenoxylate-Atrop 2.5-0.025) 1 Each Tablet, 1 EACH PO TID, TAB 11/20/16 Docusate Sodium* (Colace*) 100 Mg Capsule, 200 MG PO DAILY, #30 CAP 10/10/16 Acetaminophen* (Acetaminophen*) 500 MG Extra Strength Tablet, 500 MG PO Q4H Y for PAIN AND OR ELEVATED TEMP, TAB 10/10/16 Lorazepam* (Lorazepam*) 0.5 Mg Tablet, 0.5 MG PO Q8 Y for AGITATION/ANXIETY, TAB 10/10/16 Hydrocodone/Acetaminophen ([place] 5-325 Tablet) 1 Each Tablet, 1 EACH PO Q6H, TAB 10/10/16 Allergies Allergies: Coded Allergies: No Known Allergy (Unverified , 12/24/16) PMhx/Soc History of Surgery: Yes (Hysterectomy) Anesthesia Reaction: No Hx 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 Disorder: No Hx Respiratory Disorders: No Hx Cardiac Disorders: Yes (HTN, Cholesterol) Hx Psychiatric Problems: No Hx Miscellaneous Medical Probl: Yes (Stomach CA-Chemo) Hx Alcohol Use: No Hx Substance Use: No Hx Tobacco Use: No Smoking Status: Never smoker FmHx Family History: No diabetes Physical Exam Vitals Vital Signs Date Time Temp Pulse Resp B/P Pulse Ox O2 Delivery O2 Flow Rate FiO2 12/24/16 13:00 98.3 64 18 118/77 98 Room Air 12/24/16 10:50 98.3 62 16 123/83 98 Room Air 12/24/16 08:46 98.1 73 18 127/70 99 Physical Exam Const: Mild distress Head: Atraumatic Eyes: Normal Conjunctiva ENT: Normal External Ears, Nose and Mouth. Neck: Full range of motion..~ No meningismus. Resp: Clear to auscultation bilaterally Cardio: Regular rate and rhythm, no murmurs Abd: Distended abdomen with positive fluid wave Skin: No petechiae or rashes Back: No midline or flank tenderness Ext: 3+ pitting edema bilaterally Neur: Awake and alert Psych: Normal Mood and Affect Result Diagram: 12/24/1630 12/24/16 0930 Results 24 hrs Laboratory Tests Test 12/24/16 09:30 White Blood Count 6.910^3/ul Red Blood Count 3.5610^6/ul Hemoglobin 10.5g/dl Hematocrit 31.4% Mean Corpuscular Volume 88.2fl Mean Corpuscular Hemoglobin 29.5pg Mean Corpuscular Hemoglobin Concent 33.4g/dl Red Cell Distribution Width 15.6% Platelet Count 31957^3/UL Mean Platelet Volume 8.7fl Neutrophils % 85.4% Lymphocytes % 7.9% Monocytes % 2.7% Eosinophils % 0.1% Basophils % 0.3% Nucleated Red Blood Cells % 0.0/100WBC Neutrophils # 5.910^3/ul Lymphocytes # 0.610^3/ul Monocytes # 0.210^3/ul Eosinophils # 0.010^3/ul Basophils # 0.010^3/ul Nucleated Red Blood Cells # 0.010^3/ul Prothrombin Time 13.3Sec Prothrombin Time Ratio 1.0 INR International Normalized Ratio 1.01 Activated Partial Thromboplast Time 25.0Sec Urine Color LT. YELLOW Urine Clarity CLEAR Urine pH 7.0 Urine Specific [place] 1.015 Urine Ketones NEGATIVE Urine Nitrite NEGATIVE Urine Bilirubin NEGATIVE Urine Urobilinogen 1.0 E.U./dL Urine Leukocyte Esterase 1+ Urine Microscopic RBC 0-2/HPF Urine Microscopic WBC 2-5/HPF Urine Epithelial Cells FEW Urine Calcium Oxalate Crystals MODERATE Urine Bacteria FEW Urine Hemoglobin NEGATIVE Urine Glucose NEGATIVE% Urine Total Protein TRACE Sodium Level 135mmol/L Potassium Level 3.3mmol/L Chloride Level 99mmol/L Carbon Dioxide Level 28mmol/L Anion Gap 11 Blood Urea Nitrogen 11mg/dl Creatinine 0.55mg/dl Glucose Level 94mg/dl Calcium Level 7.9mg/dl Total Bilirubin 0.1mg/dl Direct Bilirubin 0.00mg/dl Indirect Bilirubin 0.1mg/dl Aspartate Amino Transf (AST/SGOT) 17IU/L Alanine Aminotransferase (ALT/SGPT) 18IU/L Alkaline Phosphatase 130IU/L Total Protein 5.4g/dl Albumin 2.5g/dl Globulin 2.90g/dl Albumin/Globulin Ratio 0.86 Lipase 132U/L Current Medications Medications (Trade) Dose Ordered Sig/Deon Route PRN Reason Start Time Stop Time Status Last Admin Dose Admin Cephalexin (Keflex) 500 mg ONCE ONCE PO 12/24/16 10:30 12/24/16 10:31 DC 12/24/16 10:36 Lidocaine (Xylocaine 1% (Mpf)) 5 ml STK-MED ONCE .ROUTE 12/24/16 11:50 12/24/16 11:51 DC 12/24/16 11:52 Potassium Chloride (Klor-Con 20) 40 meq ONCE STAT PO 12/24/16 13:34 12/24/16 13:35 DC 12/24/16 13:37 Procedures/MDM Ultrasound-guided paracentesis done by radiology. Patient is a 61-year-old female with cirrhosis who presents with abdominal distention. I believe she has acute ascites. I doubt spontaneous bacterial peritonitis. I believe outpatient management is appropriate. The patient had mild hypokalemia and was given potassium by mouth. The patient will be discharged and can return for any worsening symptoms. I doubt appendicitis, cholecystitis, pancreatitis, or bowel obstruction. Departure Diagnosis: Primary Impression: Abdominal pain Abdominal location: generalized Qualified Code: R10.84 - Generalized abdominal pain Additional Impression: Cystitis Condition: Fair Patient Instructions: Cystitis, Ascites Referrals: Your doctor Additional Instructions: Llame al doctor nombrado abajo (Referral Sources) MAANA y naomie kate ANUSHA PARA DENTRO DE KATE SEMANA. Dgale a la secretaria que nosotros le instruimos hacer esta anusha.Avise o llame si rhoades condicin se empeora antes de la anusha. YOGI AL MD Dec 24, 2016 13:48
== END 2016-12-24 13:45 | disposition home or self-care (01) ==
LOC: E/R 08:43
DX: R10.84 Generalized abdominal pain (principal); N30.90 Cystitis, unspecified without hematuria; I10 Essential (primary) hypertension; C16.9 Malignant neoplasm of stomach, unspecified
CPT/HCPCS: 80053; 81001; 81003; 83690; 85025; 85610; 85730; Z7610; 36415

== ENCOUNTER 2017-01-25 09:26 | Emergency (ER) | payer OTHER ==
[~2017-01-25] VITALS: Wt 43.5 kg
[~2017-01-25 09:26] MED LIST changes: +NITR-58 PO
[2017-01-25 11:30] LABS: ADD SCAN DIFF NO
[2017-01-25 11:37] LABS: ABNORMAL IP MESSAGE 1; BASOPHILS % 0.3 % (0.0-2.0); EOSINOPHILS # 0.1 10^3/ul (0.0-0.5); EOSINOPHILS % 1.9 % (0.0-7.0); HEMATOCRIT 34.2 % (37.0-47.0); HEMOGLOBIN 11.8 g/dl (12.0-16.0); LYMPHOCYTES # 0.6 10^3/ul (0.8-2.9); LYMPHOCYTES % 8.8 % (15.0-51.0); MEAN CORPUSCULAR HEMOGLOBIN 30.6 pg (29.0-33.0); MEAN CORPUSCULAR HGB CONC 34.5 g/dl (32.0-37.0); MEAN CORPUSCULAR VOLUME 88.6 fl (82.0-101.0); MEAN PLATELET VOLUME 9.2 fl (7.4-10.4); MONOCYTE # 0.2 10^3/ul (0.3-0.9); NEUTROPHIL # 5.3 10^3/ul (1.6-7.5); NEUTROPHILS % 85.2 % (39.0-77.0); PLATELET COUNT 381 10^3/UL (140-415); RED BLOOD COUNT 3.86 10^6/ul (4.20-5.40); WHITE BLOOD COUNT 6.3 10^3/ul (4.8-10.8)
[2017-01-25] MEDS ORDERED: ONDANSETRON (ODT) 4 MG TAB ODT STA (11:38)
[2017-01-25 11:55] LABS: INR 0.91; PROTIME 12.2 Sec (12.2-14.2)
[2017-01-25 11:56] LABS: PARTIAL THROMBOPLASTIN TIME 26.6 Sec (25.0-35.0)
[2017-01-25 12:55] LABS: ALBUMIN 2.9 g/dl (3.3-4.9)
[2017-01-25 12:58] LABS: ALBUMIN/GLOBULIN RATIO 1.03; BILIRUBIN,INDIRECT 0.2 mg/dl (0-1.1); BILIRUBIN,TOTAL 0.2 mg/dl (0.2-1.3); CREATININE 0.61 mg/dl (0.44-1.00); TOTAL PROTEIN 5.7 g/dl (6.1-8.1)
[2017-01-25 12:59] LABS: CALCIUM 7.9 mg/dl (8.4-10.2); POTASSIUM 2.9 mmol/L (3.5-5.1)
[2017-01-25] MEDS ORDERED: POTASSIUM CHLORIDE (SR) 20 MEQ TAB PO STA (13:01)
[2017-01-25] MEDS ORDERED: ONDA4TAB14 PO (13:09)
[2017-01-25] MEDS ORDERED: LIDOCAINE 1% (MPF) 5 ML VIAL ONE (13:23)
[2017-01-25 13:58] VITALS: BP 106/68; PULSE 68; RESP 20; TEMP 98.5
--- NOTE | 2017-01-25 14:05 | ERD ---
ER Documentation Chief Complaint Date/Time DATE: 01/25/17 TIME: 14:04 Chief Complaint ABD PAIN AND DISTENTION FOR THE PAST MONTH. NEEDS PARACENTHESIS HPI Patient is a 61-year-old female with gastric carcinoma who presents saying that she needs to have a paracentesis. She says "I need water taken off". She said these symptoms of abdominal distention started in December about 1 month ago. She has had paracentesis in the past. She has subjective fever but has not taken her temperature as of yet. She has mild abdominal pain. Upon review of old medical records this is the patient's eighth visit to the ER since 2016. She does not know the name of her primary doctor. ROS All systems reviewed and are negative except as per history of present illness. Medications Home Meds Active Scripts Ondansetron (Ondansetron Odt) 4 Mg Tab.rapdis, 4 MG PO Q6H Y for NAUSEA AND/OR VOMITING, #10 TAB Prov:YOGI AL MD 01/25/17 Reported Medications Pantoprazole* (Pantoprazole*) 40 Mg Tablet.dr, 40 MG PO AC BREAKFAST DINNER, TAB 11/20/16 Tramadol Hcl* (Ultram*) 50 Mg Tablet, 50 MG PO TID Y for PAIN, TAB 11/20/16 Ondansetron Hcl* (Ondansetron Hcl*) 4 Mg Tablet, 4 MG PO Q4H Y for NAUSEA AND OR VOMITING, TAB 11/20/16 Furosemide* (Furosemide*) 20 Mg Tablet, 20 MG PO DAILY, #60 TAB 11/20/16 Diphenoxylate HCl/Atropine (Diphenoxylate-Atrop 2.5-0.025) 1 Each Tablet, 1 EACH PO TID, TAB 11/20/16 Docusate Sodium* (Colace*) 100 Mg Capsule, 200 MG PO DAILY, #30 CAP 10/10/16 Acetaminophen* (Acetaminophen*) 500 MG Extra Strength Tablet, 500 MG PO Q4H Y for PAIN AND OR ELEVATED TEMP, TAB 10/10/16 Lorazepam* (Lorazepam*) 0.5 Mg Tablet, 0.5 MG PO Q8 Y for AGITATION/ANXIETY, TAB 10/10/16 Hydrocodone/Acetaminophen ([place] 5-325 Tablet) 1 Each Tablet, 1 EACH PO Q6H, TAB 10/10/16 Discontinued Scripts Nitrofurantoin Monohyd Macrocr* (Macrobid*) 100 Mg Capsr, 100 MG PO BID for 7 Days, CAP Prov:YOGI AL MD 12/24/16 Allergies Allergies: Coded Allergies: No Known Allergy (Unverified , 01/25/17) PMhx/Soc History of Surgery: Yes (Hysterectomy) Anesthesia Reaction: No Hx 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 Disorder: No Hx Respiratory Disorders: No Hx Cardiac Disorders: Yes (HTN, Cholesterol) Hx Psychiatric Problems: No Hx Miscellaneous Medical Probl: Yes (Stomach CA-Chemo) Hx Alcohol Use: No Hx Substance Use: No Hx Tobacco Use: No Smoking Status: Unknown if ever smoked FmHx Family History: No diabetes Physical Exam Vitals Vital Signs Date Time Temp Pulse Resp B/P Pulse Ox O2 Delivery O2 Flow Rate FiO2 01/25/17 13:58 98.5 68 20 106/68 99 Room Air 01/25/17 09:31 98.5 89 20 119/82 98 Physical Exam Const: No acute distress Head: Atraumatic Eyes: Normal Conjunctiva ENT: Normal External Ears, Nose and Mouth. Neck: Full range of motion..~ No meningismus. Resp: Clear to auscultation bilaterally Cardio: Regular rate and rhythm, no murmurs Abd: Distended abdomen with positive fluid wave Skin: No petechiae or rashes Back: No midline or flank tenderness Ext: No cyanosis, or edema Neur: Awake and alert Psych: Normal Mood and Affect Result Diagram: 01/25/17 1115 01/25/17 1115 Results 24 hrs Laboratory Tests Test 01/25/17 11:15 White Blood Count 6.310^3/ul Red Blood Count 3.8610^6/ul Hemoglobin 11.8g/dl Hematocrit 34.2% Mean Corpuscular Volume 88.6fl Mean Corpuscular Hemoglobin 30.6pg Mean Corpuscular Hemoglobin Concent 34.5g/dl Red Cell Distribution Width 16.0% Platelet Count 60558^3/UL Mean Platelet Volume 9.2fl Neutrophils % 85.2% Lymphocytes % 8.8% Monocytes % 3.0% Eosinophils % 1.9% Basophils % 0.3% Nucleated Red Blood Cells % 0.0/100WBC Neutrophils # 5.310^3/ul Lymphocytes # 0.610^3/ul Monocytes # 0.210^3/ul Eosinophils # 0.110^3/ul Basophils # 0.010^3/ul Nucleated Red Blood Cells # 0.010^3/ul Prothrombin Time 12.2Sec Prothrombin Time Ratio 1.0 INR International Normalized Ratio 0.91 Activated Partial Thromboplast Time 26.6Sec Sodium Level 134mmol/L Potassium Level 2.9mmol/L Chloride Level 95mmol/L Carbon Dioxide Level 29mmol/L Anion Gap 13 Blood Urea Nitrogen 10mg/dl Creatinine 0.61mg/dl Glucose Level 109mg/dl Calcium Level 7.9mg/dl Total Bilirubin 0.2mg/dl Direct Bilirubin 0.00mg/dl Indirect Bilirubin 0.2mg/dl Aspartate Amino Transf (AST/SGOT) 21IU/L Alanine Aminotransferase (ALT/SGPT) 26IU/L Alkaline Phosphatase 165IU/L Total Protein 5.7g/dl Albumin 2.9g/dl Globulin 2.80g/dl Albumin/Globulin Ratio 1.03 Current Medications Medications (Trade) Dose Ordered Sig/Deon Route PRN Reason Start Time Stop Time Status Last Admin Dose Admin Ondansetron HCl (Zofran Odt) 4 mg ONCE STAT ODT 01/25/17 11:38 01/25/17 11:39 DC 01/25/17 11:50 Potassium Chloride (Klor-Con 20) 40 meq ONCE STAT PO 01/25/17 13:01 01/25/17 13:02 DC 01/25/17 13:37 Lidocaine (Xylocaine 1% (Mpf)) 5 ml STK-MED ONCE .ROUTE 01/25/17 13:23 01/25/17 13:24 DC 01/25/17 13:34 Procedures/MDM Patient is a 61-year-old female who presents with abdominal ascites. The patient had laboratory studies done prior to ultrasound-guided paracentesis. She was found to have mild hypokalemia and was given potassium. She had one episode of vomiting was given Zofran. She has no fever in the emergency department. At this point time I doubt spontaneous bacterial peritonitis. The patient had ultrasound-guided paracentesis and now feels much better. She will be discharged home and can follow-up with her primary doctor within 24-48 hours. She can return sooner for any worsening symptoms. Departure Diagnosis: Primary Impression: Ascites Ascites type: malignant Qualified Code: R18.0 - Malignant ascites Additional Impression: Hypokalemia Condition: Fair Patient Instructions: Ascites Referrals: Your doctor Additional Instructions: Llame al doctor MAANA y naomie kate ANUSHA PARA DENTRO DE 1-2 PATRICK.Dgale a la secretaria que nosotros le instruimos hacer esta anusha.Avise o llame si rhoades condicin se empeora antes de la anusha. Regresa aqui si peor o no mejor. YOGI AL MD January 25, 2017 14:05
--- NOTE | 2017-01-25 14:40 | RADRPT ---
PROCEDURE: Ultrasound guided paracentesis. CLINICAL INDICATION: Ascites and shortness of breath. COMPARISON: No prior studies are available for comparison. TECHNIQUE: The risks, benefits, and alternatives were explained to the patient and/or the patient's family, inc luding but not limited to bleeding, infection, pain, visceral or vascular damage, shock, and . The patient and/or the patient's family understood the risks and the alternatives and wished to pro ceed with the procedure. Informed written consent was obtained. A procedural time out was performed . The patient's name, date of , and procedure to be performed were verified. Utilizing ultrasound guidance, optimal location for entry to the peritoneal cavity was ascertained. The overlying skin was prepped and draped in the usual sterile fashion. Approximately 10 ml of 1% Xylocaine was injected locally for pain control. Using ultrasound guidance, an 8 Irish catheter wa s introduced into the peritoneal cavity in the right lower quadrant without difficulty. FINDINGS: Initial images demonstrate ascites. Approximately 4.5 liters of serous fluid was aspirated and disc arded. The patient tolerated the procedure well without complication. IMPRESSION: 1. Successful ultrasound-guided paracentesis. RPTAT: QQ .Jeison White MD, Date Time Electronically viewed and signed by .Jeison White MD, on 01/25/2017 14:39 .R/
== END 2017-01-25 13:59 | disposition home or self-care (01) ==
LOC: E/R 09:26
DX: C78.6 Secondary malignant neoplasm of retroperitoneum and peritoneum (principal); E87.6 Hypokalemia; R18.0 Malignant ascites; I10 Essential (primary) hypertension
CPT/HCPCS: 36415; 80053; 85025; 85610; 85730; Z7502; Z7610

== ENCOUNTER 2017-02-26 09:26 | Emergency (ER) | payer OTHER ==
[~2017-02-26] VITALS: Ht 160 cm; Wt 49.0 kg
[~2017-02-26 09:26] MED LIST changes: -NITR-58 PO; +ONDA4TAB14 PO
[2017-02-26 09:49] VITALS: Ht 160 cm; Wt 49.0 kg
--- NOTE | 2017-02-26 11:14 | ERD ---
ER Documentation Chief Complaint Date/Time DATE: 02/26/17 TIME: 11:14 Chief Complaint ABDOMINAL DISTENTION, NEEDS FLUID REMOVED HPI 61-year-old female with history of hypertension and metastatic gastric carcinoma with peritoneal carcinomatosis diagnosed in 2016 being treated with chemotherapy and recurrent ascites requiring frequent paracentesis most recently January 25, 2017, presents to the ED complaining of increasing abdominal girth and discomfort but no pain. Denies nausea, vomiting, diarrhea, constipation, hematemesis, hematochezia or melanotic stools. No shortness of breath or cough. Chronic mild lower extremity swelling but no pain. No fevers or chills. ROS All systems reviewed and are negative except as per history of present illness. Medications Home Meds Active Scripts Ondansetron (Ondansetron Odt) 4 Mg Tab.rapdis, 4 MG PO Q6H Y for NAUSEA AND/OR VOMITING, #10 TAB Prov:YOGI AL MD 01/25/17 Reported Medications Pantoprazole* (Pantoprazole*) 40 Mg Tablet.dr, 40 MG PO AC BREAKFAST DINNER, TAB 11/20/16 Tramadol Hcl* (Ultram*) 50 Mg Tablet, 50 MG PO TID Y for PAIN, TAB 11/20/16 Ondansetron Hcl* (Ondansetron Hcl*) 4 Mg Tablet, 4 MG PO Q4H Y for NAUSEA AND OR VOMITING, TAB 11/20/16 Furosemide* (Furosemide*) 20 Mg Tablet, 20 MG PO DAILY, #60 TAB 11/20/16 Diphenoxylate HCl/Atropine (Diphenoxylate-Atrop 2.5-0.025) 1 Each Tablet, 1 EACH PO TID, TAB 11/20/16 Docusate Sodium* (Colace*) 100 Mg Capsule, 200 MG PO DAILY, #30 CAP 10/10/16 Acetaminophen* (Acetaminophen*) 500 MG Extra Strength Tablet, 500 MG PO Q4H Y for PAIN AND OR ELEVATED TEMP, TAB 10/10/16 Lorazepam* (Lorazepam*) 0.5 Mg Tablet, 0.5 MG PO Q8 Y for AGITATION/ANXIETY, TAB 10/10/16 Hydrocodone/Acetaminophen ([place] 5-325 Tablet) 1 Each Tablet, 1 EACH PO Q6H, TAB 10/10/16 Allergies Allergies: Coded Allergies: No Known Allergy (Unverified , 01/25/17) PMhx/Soc Reviewed in chart. As per HPI History of Surgery: Yes (Hysterectomy) Anesthesia Reaction: No Hx 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 Disorder: No Hx Respiratory Disorders: No Hx Cardiac Disorders: Yes (HTN, Cholesterol) Hx Psychiatric Problems: No Hx Miscellaneous Medical Probl: Yes (Stomach CA-Chemo) Hx Alcohol Use: No Hx Substance Use: No Hx Tobacco Use: No FmHx Not relevant to presenting complaint Physical Exam Vitals Vital Signs Date Time Temp Pulse Resp B/P Pulse Ox O2 Delivery O2 Flow Rate FiO2 02/26/17 14:54 97.6 83 14 114/71 97 Room Air 02/26/17 09:49 98.3 79 20 117/75 98 Physical Exam Const: Alert, cachectic, chronically ill-appearing in moderate distress. Head: Atraumatic Eyes: Pale Conjunctiva. ENT: Normal External Ears, Nose and Mouth. Neck: Full range of motion. No JVD Resp: Breath sounds are equal but diminished at the bases. Clear to auscultation bilaterally Chest Wall: Port-A-Cath right upper chest wall. Nontender. Cardio: Regular rate and rhythm, no murmurs Abd: Soft, distended. Positive fluid wave. Nontender. No rebound or guarding. Skin: No petechiae or rashes Back: No midline or flank tenderness Ext: 2+ bilateral lower extremity pitting edema. No calf swelling or tenderness. Neur: Awake and alert. No focal deficit observed. Psych: Normal Mood and Affect Result Diagram: 02/26/17 1145 02/26/17 1145 Results 24 hrs Laboratory Tests Test 02/26/17 11:45 White Blood Count 14.710^3/ul Red Blood Count 3.5210^6/ul Hemoglobin 10.5g/dl Hematocrit 31.5% Mean Corpuscular Volume 89.5fl Mean Corpuscular Hemoglobin 29.8pg Mean Corpuscular Hemoglobin Concent 33.3g/dl Red Cell Distribution Width 17.0% Platelet Count 79633^3/UL Mean Platelet Volume 9.6fl Neutrophils % 82.4% Lymphocytes % 4.4% Monocytes % 7.4% Eosinophils % 1.0% Basophils % 0.3% Nucleated Red Blood Cells % 0.0/100WBC Neutrophils # 12.110^3/ul Lymphocytes # 0.610^3/ul Monocytes # 1.110^3/ul Eosinophils # 0.110^3/ul Basophils # 0.010^3/ul Nucleated Red Blood Cells # 0.010^3/ul Prothrombin Time 13.2Sec Prothrombin Time Ratio 1.0 INR International Normalized Ratio 1.00 Activated Partial Thromboplast Time 31.2Sec Sodium Level 132mmol/L Potassium Level 2.9mmol/L Chloride Level 97mmol/L Carbon Dioxide Level 30mmol/L Anion Gap 8 Blood Urea Nitrogen 10mg/dl Creatinine 0.59mg/dl Glucose Level 93mg/dl Calcium Level 7.8mg/dl Magnesium Level 2.0mg/dl Current Medications Medications (Trade) Dose Ordered Sig/Deon Route PRN Reason Start Time Stop Time Status Last Admin Dose Admin Potassium Chloride (Potassium Chloride Pwd/Soln) 40 meq ONCE ONCE PO 02/26/17 13:00 02/26/17 13:01 DC 02/26/17 14:05 Lidocaine (Xylocaine 1% (Mpf)) 5 ml STK-MED ONCE .ROUTE 02/26/17 13:12 02/26/17 13:13 DC 02/26/17 13:41 PROCEDURE: US guided paracentesis CLINICAL INDICATION: Ascites TECHNIQUE: Multiple sonographic images were obtained through the patient's abdomen. A site in the patient's RIGHT lower abdomen was selected and marked. The area was prepped and draped in the usual sterile fashion. 1% lidocaine was utilized. A 19-gauge Yueh needle was advanced into the peritoneal space and the introducer was connected to a vacuum drainage bottle. A total of 4600 cc of clear yellow fluid were drained at the end of the procedure. The patient tolerated the procedure well. COMPARISON: None FINDINGS: Ascites. RPTAT: AA IMPRESSION: Successful paracentesis. .Alfredo Escalona MD, MD Date Time Electronically viewed and signed by .Alfredo Escalona MD, on 02/26/2017 13: 47 .S/ Procedures/MDM DOCUMENTS REVIEWED: ED nurse, prior ED, prior records REEXAMINATION/REEVALUATION: Time: 14:00. Returned from interventional radiology. Doing well. Vital signs stable. BP:114/71. Abdomen soft nontender. MEDICAL DECISION MAKIN-year-old female with history of hypertension and metastatic gastric carcinoma with peritoneal carcinomatosis diagnosed in 2016 being treated with chemotherapy and recurrent ascites requiring frequent paracentesis most recently January 25, 2017, presents to the ED complaining of increasing abdominal girth and discomfort but no pain. Ultrasound-guided paracentesis performed by interventional radiology. 4.6 Liters of clear fluid removed. No pain, tenderness, rebound or other signs of spontaneous bacterial peritonitis. No leukopenia, fever or signs of sepsis. Hypokalemia replaced orally. Stable for discharge with precautionary instructions and outpatient follow-up as counseled. Counseled patient and family regarding diagnostic workup, diagnosis and need for followup. Understands to return to ED if symptoms recur, worsen or any other concerns. Departure Diagnosis: Primary Impression: Ascites Ascites type: other type Qualified Code: R18.8 - Other ascites Additional Impressions: Gastric carcinoma Hypokalemia Condition: Stable (Improved) LEOBARDO POTTER MD Feb 26, 2017 11:14
[2017-02-26 11:54] LABS: ADD SCAN DIFF NO
[2017-02-26 11:58] LABS: BASOPHILS % 0.3 % (0.0-2.0); EOSINOPHILS # 0.1 10^3/ul (0.0-0.5); HEMATOCRIT 31.5 % (37.0-47.0); HEMOGLOBIN 10.5 g/dl (12.0-16.0); LYMPHOCYTES # 0.6 10^3/ul (0.8-2.9); LYMPHOCYTES % 4.4 % (15.0-51.0); MEAN CORPUSCULAR HEMOGLOBIN 29.8 pg (29.0-33.0); MEAN CORPUSCULAR HGB CONC 33.3 g/dl (32.0-37.0); MEAN CORPUSCULAR VOLUME 89.5 fl (82.0-101.0); MEAN PLATELET VOLUME 9.6 fl (7.4-10.4); MONOCYTE # 1.1 10^3/ul (0.3-0.9); MONOCYTES % 7.4 % (0.0-11.0); NEUTROPHIL # 12.1 10^3/ul (1.6-7.5); NEUTROPHILS % 82.4 % (39.0-77.0); PLATELET COUNT 314 10^3/UL (140-415); RED BLOOD COUNT 3.52 10^6/ul (4.20-5.40); WHITE BLOOD COUNT 14.7 10^3/ul (4.8-10.8)
[2017-02-26 12:16] LABS: CALCIUM 7.8 mg/dl (8.4-10.2); CREATININE 0.59 mg/dl (0.44-1.00)
[2017-02-26 12:26] LABS: POTASSIUM 2.9 mmol/L (3.5-5.1)
[2017-02-26 12:33] LABS: PROTIME 13.2 Sec (12.2-14.2)
[2017-02-26 12:34] LABS: PARTIAL THROMBOPLASTIN TIME 31.2 Sec (25.0-35.0)
[2017-02-26] MEDS ORDERED: POTASSIUM CHLORIDE 20 MEQ POWDER FOR ORAL SOLN PO ONE (13:00)
[2017-02-26] MEDS ORDERED: LIDOCAINE 1% (MPF) 5 ML VIAL ONE (13:12)
--- NOTE | 2017-02-26 13:48 | RADRPT ---
PROCEDURE: US guided paracentesis CLINICAL INDICATION: Ascites TECHNIQUE: Multiple sonographic images were obtained through the patient's abdomen. A site in the patient's RIGHT lower abdomen was selected and marked. The area was prepped and draped in the usual sterile fashion. 1% lidocaine was utilized. A 19-gauge Yueh needle was advanced into the peritonea l space and the introducer was connected to a vacuum drainage bottle. A total of 4600 cc of clear y ellow fluid were drained at the end of the procedure. The patient tolerated the procedure well. COMPARISON: None FINDINGS: Ascites. RPTAT: AA IMPRESSION: Successful paracentesis. .Alfredo Escalona MD, Date Time Electronically viewed and signed by .Alfrdeo Escalona MD, on 02/26/2017 13:47 .S/
[2017-02-26 14:54] VITALS: BP 114/71; PULSE 83; RESP 14; TEMP 97.6
== END 2017-02-26 14:56 | disposition home or self-care (01) ==
LOC: E/R 09:26
DX: R18.8 Other ascites (principal); E87.6 Hypokalemia; C16.9 Malignant neoplasm of stomach, unspecified; I10 Essential (primary) hypertension; M79.89 Other specified soft tissue disorders
CPT/HCPCS: 80048; 83735; 85025; 85610; 85730; Z7502; Z7610

== ENCOUNTER 2017-03-14 08:50 | Emergency (ER) | payer OTHER ==
[~2017-03-14] VITALS: Ht 152.4 cm; Wt 47.0 kg
[2017-03-14 08:54] VITALS: Ht 152.4 cm; Wt 47.0 kg
[2017-03-14 09:36] LABS: ADD SCAN DIFF NO
[2017-03-14 09:41] LABS: ABNORMAL IP MESSAGE 1; BASOPHILS % 0.4 % (0.0-2.0); EOSINOPHILS % 0.8 % (0.0-7.0); HEMATOCRIT 30.3 % (37.0-47.0); HEMOGLOBIN 10.5 g/dl (12.0-16.0); LYMPHOCYTES # 0.4 10^3/ul (0.8-2.9); LYMPHOCYTES % 8.5 % (15.0-51.0); MEAN CORPUSCULAR HEMOGLOBIN 30.4 pg (29.0-33.0); MEAN CORPUSCULAR HGB CONC 34.7 g/dl (32.0-37.0); MEAN CORPUSCULAR VOLUME 87.8 fl (82.0-101.0); MONOCYTE # 0.5 10^3/ul (0.3-0.9); MONOCYTES % 9.5 % (0.0-11.0); NEUTROPHILS % 80.2 % (39.0-77.0); PLATELET COUNT 291 10^3/UL (140-415); RED BLOOD COUNT 3.45 10^6/ul (4.20-5.40); RED CELL DISTRIBUTION WIDTH 15.9 % (11.5-14.5)
[2017-03-14 09:53] LABS: INR 0.94; PARTIAL THROMBOPLASTIN TIME 22.1 Sec (25.0-35.0); PROTIME 12.6 Sec (12.2-14.2)
[2017-03-14 09:54] LABS: ALBUMIN 3.3 g/dl (3.3-4.9); ALBUMIN/GLOBULIN RATIO 1.13; BILIRUBIN,INDIRECT 0.2 mg/dl (0-1.1); BILIRUBIN,TOTAL 0.2 mg/dl (0.2-1.3); CALCIUM 8.2 mg/dl (8.4-10.2); CREATININE 0.65 mg/dl (0.44-1.00); POTASSIUM 3.4 mmol/L (3.5-5.1); TOTAL PROTEIN 6.2 g/dl (6.1-8.1)
[2017-03-14] MEDS ORDERED: LIDOCAINE 1% (MPF) 5 ML VIAL ONE (10:16)
[2017-03-14 10:41] VITALS: BP 109/74; PULSE 65; RESP 22
--- NOTE | 2017-03-14 11:05 | ERD ---
ER Documentation Chief Complaint Date/Time DATE: 03/14/17 TIME: 11:03 Chief Complaint here for paracenthesis, HPI Patient is a 61-year-old female with cirrhosis and ascites who presents for paracentesis. The patient denies abdominal pain or fever. She said that her last paracentesis was done a few weeks ago in the beginning of February. Upon review of old medical records the patient has multiple visits to the ER for similar complaints. ROS All systems reviewed and are negative except as per history of present illness. Medications Home Meds Reported Medications Pantoprazole* (Pantoprazole*) 40 Mg Tablet.dr, 40 MG PO AC BREAKFAST DINNER, TAB 11/20/16 Tramadol Hcl* (Ultram*) 50 Mg Tablet, 50 MG PO TID Y for PAIN, TAB 11/20/16 Ondansetron Hcl* (Ondansetron Hcl*) 4 Mg Tablet, 4 MG PO Q4H Y for NAUSEA AND OR VOMITING, TAB 11/20/16 Furosemide* (Furosemide*) 20 Mg Tablet, 20 MG PO DAILY, #60 TAB 11/20/16 Diphenoxylate HCl/Atropine (Diphenoxylate-Atrop 2.5-0.025) 1 Each Tablet, 1 EACH PO TID, TAB 11/20/16 Docusate Sodium* (Colace*) 100 Mg Capsule, 200 MG PO DAILY, #30 CAP 10/10/16 Acetaminophen* (Acetaminophen*) 500 MG Extra Strength Tablet, 500 MG PO Q4H Y for PAIN AND OR ELEVATED TEMP, TAB 10/10/16 Lorazepam* (Lorazepam*) 0.5 Mg Tablet, 0.5 MG PO Q8 Y for AGITATION/ANXIETY, TAB 10/10/16 Hydrocodone/Acetaminophen ([place] 5-325 Tablet) 1 Each Tablet, 1 EACH PO Q6H, TAB 10/10/16 Discontinued Scripts Ondansetron (Ondansetron Odt) 4 Mg Tab.rapdis, 4 MG PO Q6H Y for NAUSEA AND/OR VOMITING, #10 TAB Prov:YOGI AL MD 01/25/17 Allergies Allergies: Coded Allergies: No Known Allergy (Unverified , 03/14/17) PMhx/Soc History of Surgery: Yes (Hysterectomy) Anesthesia Reaction: No Hx 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 Disorder: No Hx Respiratory Disorders: No Hx Cardiac Disorders: Yes (HTN, Cholesterol) Hx Psychiatric Problems: No Hx Miscellaneous Medical Probl: Yes (Stomach CA-Chemo) Hx Alcohol Use: No Hx Substance Use: No Hx Tobacco Use: No Smoking Status: Never smoker FmHx Family History: No diabetes Physical Exam Vitals Vital Signs Date Time Temp Pulse Resp B/P Pulse Ox O2 Delivery O2 Flow Rate FiO2 03/14/17 10:41 65 22 109/74 99 03/14/17 08:54 98.1 80 20 112/75 99 Physical Exam Const: No acute distress Head: Atraumatic Eyes: Normal Conjunctiva ENT: Normal External Ears, Nose and Mouth. Neck: Full range of motion..~ No meningismus. Resp: Clear to auscultation bilaterally Cardio: Regular rate and rhythm, no murmurs Abd: Distended abdomen with positive fluid wave Skin: No petechiae or rashes Back: No midline or flank tenderness Ext: No cyanosis, or edema Neur: Awake and alert Psych: Normal Mood and Affect Result Diagram: 03/14/1792903/14/1730 Results 24 hrs Laboratory Tests Test 03/14/17 09:30 White Blood Count 5.010^3/ul Red Blood Count 3.4510^6/ul Hemoglobin 10.5g/dl Hematocrit 30.3% Mean Corpuscular Volume 87.8fl Mean Corpuscular Hemoglobin 30.4pg Mean Corpuscular Hemoglobin Concent 34.7g/dl Red Cell Distribution Width 15.9% Platelet Count 68797^3/UL Mean Platelet Volume 10.0fl Neutrophils % 80.2% Lymphocytes % 8.5% Monocytes % 9.5% Eosinophils % 0.8% Basophils % 0.4% Nucleated Red Blood Cells % 0.0/100WBC Neutrophils # 4.010^3/ul Lymphocytes # 0.410^3/ul Monocytes # 0.510^3/ul Eosinophils # 0.010^3/ul Basophils # 0.010^3/ul Nucleated Red Blood Cells # 0.010^3/ul Prothrombin Time 12.6Sec Prothrombin Time Ratio 1.0 INR International Normalized Ratio 0.94 Activated Partial Thromboplast Time 22.1Sec Sodium Level 129mmol/L Potassium Level 3.4mmol/L Chloride Level 93mmol/L Carbon Dioxide Level 31mmol/L Anion Gap 8 Blood Urea Nitrogen 11mg/dl Creatinine 0.65mg/dl Glucose Level 101mg/dl Calcium Level 8.2mg/dl Total Bilirubin 0.2mg/dl Direct Bilirubin 0.00mg/dl Indirect Bilirubin 0.2mg/dl Aspartate Amino Transf (AST/SGOT) 16IU/L Alanine Aminotransferase (ALT/SGPT) 24IU/L Alkaline Phosphatase 145IU/L Total Protein 6.2g/dl Albumin 3.3g/dl Globulin 2.90g/dl Albumin/Globulin Ratio 1.13 Lipase 215U/L Current Medications Medications (Trade) Dose Ordered Sig/Deon Route PRN Reason Start Time Stop Time Status Last Admin Dose Admin Lidocaine (Xylocaine 1% (Mpf)) 5 ml STK-MED ONCE .ROUTE 03/14/17 10:16 03/14/17 10:17 DC 03/14/17 10:37 Procedures/MDM Patient is a 61-year-old female with abdominal distention who presents for paracentesis. The patient has mild hypokalemia and hyponatremia. The patient had laboratory studies done and then had a paracentesis performed by radiology. She feels much better. She can return for any worsening symptoms. I believe outpatient management is appropriate at this time. I doubt spontaneous bacterial peritonitis. Departure Diagnosis: Primary Impression: Ascites Ascites type: other type Qualified Code: R18.8 - Other ascites Additional Impression: Abdominal pain Abdominal location: generalized Qualified Code: R10.84 - Generalized abdominal pain Condition: Fair Patient Instructions: Ascites Referrals: Your doctor Additional Instructions: Llame al doctor nomfeliberto cox (Referral Sources) MAANA y naomie kate ANUSHA PARA DENTRO DE KATE SEMANA. Dgale a la secretaria que nosotros le instruimos hacer esta anusha.Avise o llame si rhoades condicin se empeora antes de la anusha. YOGI AL MD Mar 14, 2017 11:04
--- NOTE | 2017-03-14 11:17 | RADRPT ---
PROCEDURE: Ultrasound guided paracentesis. CLINICAL INDICATION: Ascites and shortness of breath. COMPARISON: No prior studies are available for comparison. TECHNIQUE: The risks, benefits, and alternatives were explained to the patient and/or the patient's family, inc luding but not limited to bleeding, infection, pain, visceral or vascular damage, shock, and . The patient and/or the patient's family understood the risks and the alternatives and wished to pro ceed with the procedure. Informed written consent was obtained. A procedural time out was performed . The patient's name, date of , and procedure to be performed were verified. Utilizing ultrasound guidance, optimal location for entry to the peritoneal cavity was ascertained. The overlying skin was prepped and draped in the usual sterile fashion. Approximately 10 ml of 1% Xylocaine was injected locally for pain control. Using ultrasound guidance, an 8 [place] catheter wa s introduced into the peritoneal cavity in the right lower quadrant without difficulty. FINDINGS: Initial images demonstrate ascites. Approximately 4.95 liters of serous fluid was aspirated and dis carded. The patient tolerated the procedure well without complication. IMPRESSION: 1. Successful ultrasound-guided paracentesis. RPTAT: QQ .Jeison White MD, MD Date Time Electronically viewed and signed by .Jeison White MD, on 03/14/2017 11:17 .R/
== END 2017-03-14 10:59 | disposition home or self-care (01) ==
LOC: E/R 08:50
DX: R18.8 Other ascites (principal); R10.84 Generalized abdominal pain; I10 Essential (primary) hypertension; C16.9 Malignant neoplasm of stomach, unspecified
CPT/HCPCS: 36415; 80053; 83690; 85025; 85610; 85730; Z7502; Z7610

== ENCOUNTER 2017-03-27 08:23 | Emergency (ER) | payer BC, OTHER ==
[~2017-03-27] VITALS: Ht 152.4 cm; Wt 45.0 kg
[~2017-03-27 08:23] MED LIST changes: -ONDA4TAB14 PO
[2017-03-27 08:26] VITALS: Ht 152.4 cm; Wt 45.0 kg
[2017-03-27] MEDS ORDERED: LIDOCAINE 1% (MPF) 5 ML VIAL ONE (11:39)
[2017-03-27 12:45] VITALS: BP 97/71; PULSE 77; RESP 18
--- NOTE | 2017-03-27 12:53 | ERD ---
ER Documentation Chief Complaint Date/Time DATE: 03/27/17 TIME: 12:52 Chief Complaint ap with nausea, here for paracenthesis HPI Patient is a 61-year-old female with cirrhosis and ascites who presents with ascites. She said that she needs "fluid removed". She said that she last had a paracentesis on March 14. She had subjective fevers on Saturday. She has abdominal pain and distention. Upon review of old medical records she has multiple visits with similar complaints of ascites. ROS All systems reviewed and are negative except as per history of present illness. Medications Home Meds Reported Medications Pantoprazole* (Pantoprazole*) 40 Mg Tablet.dr, 40 MG PO AC BREAKFAST DINNER, TAB 11/20/16 Tramadol Hcl* (Ultram*) 50 Mg Tablet, 50 MG PO TID Y for PAIN, TAB 11/20/16 Ondansetron Hcl* (Ondansetron Hcl*) 4 Mg Tablet, 4 MG PO Q4H Y for NAUSEA AND OR VOMITING, TAB 11/20/16 Furosemide* (Furosemide*) 20 Mg Tablet, 20 MG PO DAILY, #60 TAB 11/20/16 Diphenoxylate HCl/Atropine (Diphenoxylate-Atrop 2.5-0.025) 1 Each Tablet, 1 EACH PO TID, TAB 11/20/16 Docusate Sodium* (Colace*) 100 Mg Capsule, 200 MG PO DAILY, #30 CAP 10/10/16 Acetaminophen* (Acetaminophen*) 500 MG Extra Strength Tablet, 500 MG PO Q4H Y for PAIN AND OR ELEVATED TEMP, TAB 10/10/16 Lorazepam* (Lorazepam*) 0.5 Mg Tablet, 0.5 MG PO Q8 Y for AGITATION/ANXIETY, TAB 10/10/16 Hydrocodone/Acetaminophen ([place] 5-325 Tablet) 1 Each Tablet, 1 EACH PO Q6H, TAB 10/10/16 Allergies Allergies: Coded Allergies: No Known Allergy (Unverified , 03/14/17) PMhx/Soc History of Surgery: Yes (Hysterectomy) Anesthesia Reaction: No Hx 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 Disorder: No Hx Respiratory Disorders: No Hx Cardiac Disorders: Yes (HTN, Cholesterol) Hx Psychiatric Problems: No Hx Miscellaneous Medical Probl: Yes (Stomach CA-Chemo, PARECENTESIS) Hx Alcohol Use: No Hx Substance Use: No Hx Tobacco Use: No Smoking Status: Never smoker FmHx Family History: No diabetes Physical Exam Vitals Vital Signs Date Time Temp Pulse Resp B/P Pulse Ox O2 Delivery O2 Flow Rate FiO2 03/27/17 12:45 77 18 97/71 99 Room Air 03/27/17 08:26 98.4 88 18 111/78 99 Physical Exam Const: No acute distress Head: Atraumatic Eyes: Normal Conjunctiva ENT: Normal External Ears, Nose and Mouth. Neck: Full range of motion..~ No meningismus. Resp: Clear to auscultation bilaterally Cardio: Regular rate and rhythm, no murmurs Abd: Distended abdomen with positive fluid wave Skin: No petechiae or rashes Back: No midline or flank tenderness Ext: No cyanosis, or edema Neur: Awake and alert Psych: Normal Mood and Affect Results 24 hrs Current Medications Medications (Trade) Dose Ordered Sig/Deon Route PRN Reason Start Time Stop Time Status Last Admin Dose Admin Lidocaine (Xylocaine 1% (Mpf)) 5 ml STK-MED ONCE .ROUTE 03/27/17 11:39 03/27/17 11:40 DC 03/27/17 11:46 Procedures/MDM Ultrasound-guided paracentesis performed by radiology. Patient is a 61-year-old female with cirrhosis and ascites who presents for paracentesis. She had laboratory studies done on March 14 and does not need a repeat at this time. I doubt spontaneous bacterial peritonitis. She had her centesis performed that she feels much better. She will be discharged home and can follow-up with her primary doctor within 1 week. Departure Diagnosis: Primary Impression: Abdominal pain Abdominal location: generalized Qualified Code: R10.84 - Generalized abdominal pain Additional Impression: Ascites Ascites type: other type Qualified Code: R18.8 - Other ascites Condition: Fair Patient Instructions: Ascites Referrals: Your doctor Additional Instructions: Llame al doctor nomfeliberto cox (Referral Sources) MAANA y naomie kate ANUSHA PARA DENTRO DE KATE SEMANA. Dgale a la secretaria que nosotros le instruimos hacer esta anusha.Avise o llame si rhoades condicin se empeora antes de la anusha. YOGI AL MD Mar 27, 2017 12:53
--- NOTE | 2017-03-27 13:42 | RADRPT ---
PROCEDURE: Ultrasound guided paracentesis. CLINICAL INDICATION: Ascites and shortness of breath. COMPARISON: 03/14/2017. TECHNIQUE: The risks, benefits, and alternatives were explained to the patient and/or the patient's family, inc luding but not limited to bleeding, infection, pain, visceral or vascular damage, shock, and . The patient and/or the patient's family understood the risks and the alternatives and wished to pro ceed with the procedure. Informed written consent was obtained. A procedural time out was performed . The patient's name, date of , and procedure to be performed were verified. Utilizing ultrasound guidance, optimal location for entry to the peritoneal cavity was ascertained. The overlying skin was prepped and draped in the usual sterile fashion. Approximately 10 ml of 1% Xylocaine was injected locally for pain control. Using ultrasound guidance, an 8 [place] Citizen catheter wa s introduced into the peritoneal cavity in the right lower quadrant without difficulty. FINDINGS: Initial images demonstrate ascites. Approximately 5.55 liters of serous fluid was aspirated and dis carded. The patient tolerated the procedure well without complication. IMPRESSION: 1. Successful ultrasound-guided paracentesis. RPTAT: QQ .Jeison White MD, Date Time Electronically viewed and signed by .Jeison White MD, on 03/27/2017 13:41 .R/
== END 2017-03-27 12:46 | disposition home or self-care (01) ==
LOC: E/R 08:23
DX: R10.84 Generalized abdominal pain (principal); R18.8 Other ascites; I10 Essential (primary) hypertension; C16.9 Malignant neoplasm of stomach, unspecified
CPT/HCPCS: 99285; Z7610

== ENCOUNTER 2017-04-02 15:12 | Emergency (ER) | payer BC ==
[~2017-04-02] VITALS: Ht 152.4 cm; Wt 42.5 kg
[2017-04-02 15:17] VITALS: Ht 152.4 cm; Wt 42.5 kg
--- NOTE | 2017-04-02 16:57 | RADRPT ---
PROCEDURE: XR Chest. CLINICAL INDICATION: chest pain TECHNIQUE: Single frontal view of the chest was obtained COMPARISON: 09/17/2016 FINDINGS: There is mild cardiomegaly. There is a right-sided Port-A-Cath with its tip overlying the low right atrium. The lungs are clear. There is no pleural effusion or pneumothorax. RPTAT: AA IMPRESSION: Right-sided Perma-Cath with its tip overlying the low right atrium. Mild cardiomegaly. .Alfredo Escalona MD, Date Time Electronically viewed and signed by .Alfredo Escalona MD, on 04/02/2017 16:57 .S/
[2017-04-02] MEDS ORDERED: FURO80TA3 PO (17:30)
[2017-04-02] MEDS ORDERED: GABA-526 PO (17:31)
[2017-04-02] MEDS ORDERED: POTA10TA37 PO (17:31)
[2017-04-02] MEDS ORDERED: ALTEPLASE (CATHFLO) 2 MG INJ CATHETER ONE (18:00)
[2017-04-02 18:46] VITALS: BP 109/76; PULSE 79; RESP 18
--- NOTE | 2017-04-02 18:48 | ERD ---
ER Documentation Chief Complaint Date/Time DATE: 04/02/17 TIME: 18:45 Chief Complaint portacath not functioning, unable to get chemo today HPI This is a 61-year-old female who presents to the emergency room due to the fact that her Port-A-Cath is not functioning properly. The patient did see her oncologist, Dr. Ford and was unable to get chemotherapy today. They were unable to draw blood from the port and the patient was sent to the ER for evaluation. The patient is getting chemo for gastric carcinoma ROS All systems reviewed and are negative except as per history of present illness. Medications Home Meds Reported Medications Gabapentin* (Gabapentin*) 600 Mg Tablet, 600 MG PO BID, #60 TAB 04/02/17 Potassium Chloride* (K-Dur*) 10 Meq Tab.prt.sr, 10 MEQ PO DAILY, TAB 04/02/17 Furosemide* (Furosemide*) 80 Mg Tablet, 80 MG PO DAILY, #30 TAB 04/02/17 Ondansetron Hcl* (Ondansetron Hcl*) 4 Mg Tablet, 4 MG PO Q4H Y for NAUSEA AND OR VOMITING, TAB 11/20/16 Discontinued Reported Medications Pantoprazole* (Pantoprazole*) 40 Mg Tablet.dr, 40 MG PO AC BREAKFAST DINNER, TAB 11/20/16 Tramadol Hcl* (Ultram*) 50 Mg Tablet, 50 MG PO TID Y for PAIN, TAB 11/20/16 Furosemide* (Furosemide*) 20 Mg Tablet, 20 MG PO DAILY, #60 TAB 11/20/16 Diphenoxylate HCl/Atropine (Diphenoxylate-Atrop 2.5-0.025) 1 Each Tablet, 1 EACH PO TID, TAB 11/20/16 Docusate Sodium* (Colace*) 100 Mg Capsule, 200 MG PO DAILY, #30 CAP 10/10/16 Acetaminophen* (Acetaminophen*) 500 MG Extra Strength Tablet, 500 MG PO Q4H Y for PAIN AND OR ELEVATED TEMP, TAB 10/10/16 Lorazepam* (Lorazepam*) 0.5 Mg Tablet, 0.5 MG PO Q8 Y for AGITATION/ANXIETY, TAB 10/10/16 Hydrocodone/Acetaminophen (Elim 5-325 Tablet) 1 Each Tablet, 1 EACH PO Q6H, TAB 10/10/16 Allergies Allergies: Coded Allergies: No Known Allergy (Unverified , 04/02/17) PMhx/Soc History of Surgery: Yes (Hysterectomy) Anesthesia Reaction: No Hx 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 Disorder: No Hx Respiratory Disorders: No Hx Cardiac Disorders: Yes (HTN, Cholesterol) Hx Psychiatric Problems: No Hx Miscellaneous Medical Probl: Yes (Stomach CA-Chemo, PARECENTESIS) Hx Alcohol Use: No Hx Substance Use: No Hx Tobacco Use: No Smoking Status: Never smoker Physical Exam Vitals Vital Signs Date Time Temp Pulse Resp B/P Pulse Ox O2 Delivery O2 Flow Rate FiO2 04/02/17 15:17 97.8 92 18 101/67 100 Physical Exam Const: Frail-appearing elderly female, no acute distress Head: Atraumatic Eyes: Normal Conjunctiva ENT: Normal External Ears, Nose and Mouth. Neck: Full range of motion..~ No meningismus. Resp: Clear to auscultation bilaterally Cardio: Regular rate and rhythm, no murmurs Abd: Soft, non tender, non distended. Normal bowel sounds Skin: Port-A-Cath in right anterior chest wall, unable to draw back, flushes easily no petechiae or rashes Back: No midline or flank tenderness Ext: No cyanosis, or edema Neur: Awake and alert Psych: Normal Mood and Affect Results 24 hrs Current Medications Medications (Trade) Dose Ordered Sig/Deon Route PRN Reason Start Time Stop Time Status Last Admin Dose Admin Alteplase, Recombinant (Cathflo (Activase)) 2 mg ONCE ONCE CATHETER 04/02/17 18:00 04/02/17 18:01 DC 04/02/17 17:55 Procedures/MDM Chest X-ray 1V Interpreted by me: Soft Tissue: Port-A-Cath tip in right atrium Bones: No acute abnormalities Mediastinum/Cardiac Silhouette/Lungs: [No acute abnormalities] This 61-year-old female presents to the ER for evaluation of a Port-A-Cath of is unable to draw back. The patient was supposed to receive chemotherapy today by her oncologist Dr. Ford however she was unable to do so. The patient was sent to the ER for evaluation. I was unable to draw back on the port. 2 mg of capsule were placed in the port for 30 minutes and after consult was placed this patient had blood that was easily able to be aspirated. The patient is in no acute distress at this time. I have contacted Dr. Ford who states the patient can follow-up in office on April 04. Departure Diagnosis: Primary Impression: Encounter for care related to Port-a-Cath Condition: ELISHA Ortega DO Apr 02, 2017 18:48
[2017-04-02] MEDS ORDERED: ONDA4TAB8 PO (18:50)
[2017-04-09] MEDS ORDERED: ONDANSETRON 4 MG INJ ONE (13:01)
== END 2017-04-02 18:55 | disposition home or self-care (01) ==
LOC: E/R 15:12
DX: T82.598A Other mechanical complication of other cardiac and vascular devices and implants, initial encounter (principal); I10 Essential (primary) hypertension; C16.9 Malignant neoplasm of stomach, unspecified; Y82.8 Other medical devices associated with adverse incidents
CPT/HCPCS: 36593; 71010; J2997

== ENCOUNTER 2017-04-07 16:43 | Inpatient (IN) | payer BC, OTHER ==
[~2017-04-07] VITALS: Ht 157.5 cm; Wt 41.9 kg
[~2017-04-07 16:43] MED LIST changes: -ACET-141 PO; -DIPH1TAB25 PO; -DOCU-144 PO; -FURO20TA3 PO; +FURO80TA3 PO; +GABA-526 PO; -HYDR-906 PO; -LORA0.5T PO; +ONDA4TAB8 PO; -PANT40TA4 PO; +POTA10TA37 PO; -TRAM-40 PO
[2017-04-07] MEDS ORDERED: ONDANSETRON 4 MG INJ IV STA ×2 (17:04)
[2017-04-07] MEDS ORDERED: morphine 10 MG INJ IV ONE (17:30)
--- NOTE | 2017-04-07 17:37 | RADRPT ---
PROCEDURE: Chest x-ray CLINICAL INDICATION: Shortness of breath TECHNIQUE: Chest single view COMPARISON: None FINDINGS: There is a right chest Port-A-Cath with tip in right atrium. Mild cardiomegaly is identified. Ther e are prominent bilateral interstitial markings. This may represent interstitial edema, interstitia l pneumonia, or chronic change. Lung volumes are low. Costophrenic angles are sharp. IMPRESSION: 1. Right chest Port-A-Cath with tip in the right atrium. 2. Mild cardiomegaly. 3. Increased bilateral interstitial markings may represent interstitial edema, interstitial pneumon ia, or chronic change RPTAT: HH .Garry Vasquez MD, MD Date Time Electronically viewed and signed by .Garry Vasquez MD, on 04/07/2017 17:36 .W/
[2017-04-07 18:02] LABS: ABNORMAL IP MESSAGE 1; HEMATOCRIT 34.3 % (37.0-47.0); HEMOGLOBIN 11.5 g/dl (12.0-16.0); MEAN CORPUSCULAR HEMOGLOBIN 28.1 pg (29.0-33.0); MEAN CORPUSCULAR HGB CONC 33.5 g/dl (32.0-37.0); MEAN CORPUSCULAR VOLUME 83.9 fl (82.0-101.0); MEAN PLATELET VOLUME 8.7 fl (7.4-10.4); PLATELET COUNT 270 10^3/UL (140-415); RED BLOOD COUNT 4.09 10^6/ul (4.20-5.40); RED CELL DISTRIBUTION WIDTH 16.5 % (11.5-14.5); WHITE BLOOD COUNT 2.5 10^3/ul (4.8-10.8)
[2017-04-07 18:03] LABS: ADD SCAN DIFF NO
[2017-04-07 18:06] VITALS: TEMP 97.3
[2017-04-07 18:16] LABS: INR 1.03; PROTIME 13.5 Sec (12.2-14.2); PT RATIO 1.1
[2017-04-07 18:20] LABS: LYMPHOCYTES # 0.3 10^3/ul (0.8-2.9); NEUTROPHIL # 2.2 10^3/ul (1.6-7.5)
[2017-04-07 18:22] LABS: ALBUMIN 2.6 g/dl (3.3-4.9); ALBUMIN/GLOBULIN RATIO 1.08; BILIRUBIN,INDIRECT 0.3 mg/dl (0-1.1); BILIRUBIN,TOTAL 0.3 mg/dl (0.2-1.3); CREATININE 0.73 mg/dl (0.44-1.00); POTASSIUM 3.7 mmol/L (3.5-5.1)
[2017-04-07 18:32] LABS: TROPONIN-I 0.013 ng/ml (0.00-0.12)
--- NOTE | 2017-04-07 18:53 | ERA ---
ER Documentation Chief Complaint Date/Time DATE: 04/07/17 TIME: 18:47 Chief Complaint BIB RA FOR EVAL OF N/V AP. HX OF STOMACH CA HPI This 61-year-old female presents for nausea and vomiting with mid and upper abdominal pain. She has stomach cancer and received chemotherapy on which was 4 days ago. Last 2 days she has had increasing abdominal pain nausea and vomiting. She is also had chills. No fevers. Denies specific chest pain shortness of breath. Feels profound generalized weakness without any focal weakness. ROS All systems reviewed and are negative except as per history of present illness. Allergies Allergies: Coded Allergies: No Known Allergy (Unverified , 04/07/17) Physical Exam Vitals Vital Signs Date Time Temp Pulse Resp B/P Pulse Ox O2 Delivery O2 Flow Rate FiO2 04/07/17 18:06 97.3 97 16 117/94 100 Room Air 04/07/17 17:03 98.3 103 20 108/86 100 Physical Exam Const: [] Moderate distress, vomiting appears to be in pain Head: Atraumatic Eyes: Normal Conjunctiva, EOMI, PRL ENT: Normal External Ears, Nose and Mouth. Neck: Full range of motion..~ No meningismus. Resp: Clear to auscultation bilaterally Cardio: Regular tachycardia m, no murmurs Abd: Soft, moderate upper abdominal tenderness without guarding or rebound, non distended. Normal bowel sounds Skin: No petechiae or rashes Back: No midline or flank tenderness Ext: No cyanosis, or edema Neur: Awake and alert and oriented 3, no focal deficits Psych: Normal Mood and Affect Result Diagram: 04/07/17 1745 04/07/17 1745 Results 24 hrs Laboratory Tests Test 04/07/17 17:45 White Blood Count 2.510^3/ul Red Blood Count 4.0910^6/ul Hemoglobin 11.5g/dl Hematocrit 34.3% Mean Corpuscular Volume 83.9fl Mean Corpuscular Hemoglobin 28.1pg Mean Corpuscular Hemoglobin Concent 33.5g/dl Red Cell Distribution Width 16.5% Platelet Count 21058^3/UL Mean Platelet Volume 8.7fl Neutrophils % 86.0% Band Neutrophils % 1.0% Lymphocytes % 12.0% Monocytes % 1.0% Neutrophils # 2.210^3/ul Lymphocytes # 0.310^3/ul Monocytes # 0.010^3/ul Prothrombin Time 13.5Sec Prothrombin Time Ratio 1.1 INR International Normalized Ratio 1.03 Activated Partial Thromboplast Time 24.0Sec Sodium Level 125mmol/L Potassium Level 3.7mmol/L Chloride Level 77mmol/L Carbon Dioxide Level 36mmol/L Anion Gap 16 Blood Urea Nitrogen 36mg/dl Creatinine 0.73mg/dl Glucose Level 135mg/dl Lactic Acid Level 1.5mmol/L Calcium Level 8.0mg/dl Total Bilirubin 0.3mg/dl Direct Bilirubin 0.00mg/dl Indirect Bilirubin 0.3mg/dl Aspartate Amino Transf (AST/SGOT) 27IU/L Alanine Aminotransferase (ALT/SGPT) 31IU/L Alkaline Phosphatase 153IU/L Troponin I 0.013ng/ml Total Protein 5.0g/dl Albumin 2.6g/dl Globulin 2.40g/dl Albumin/Globulin Ratio 1.08 Lipase 76U/L Current Medications Medications (Trade) Dose Ordered Sig/Deon Route PRN Reason Start Time Stop Time Status Last Admin Dose Admin Ondansetron HCl (Zofran Inj) 4 mg ONCE STAT IV 04/07/17 17:04 04/07/17 17:10 DC 04/07/17 17:21 Ondansetron HCl (Zofran Inj) 4 mg ONCE STAT IV 04/07/17 17:04 04/07/17 17:10 DC 04/07/17 17:58 Morphine Sulfate 6 mg 6 mg ONCE ONCE IV 04/07/17 17:30 04/07/17 17:31 DC 04/07/17 17:21 Cefepime HCl (Maxipime 1gm/50 ml (Pmx)) 50 ml @ 100 mls/hr ONCE ONCE IVPB 04/07/17 19:00 04/07/17 19:29 Procedures/MDM 61-year-old female with significant vomiting and hyponatremia. Dehydration. She also has significant abdominal pain. She was given 30 cc/kg of IV fluid, morphine, Zofran, cefepime out of worry for sepsis in immunocompromised patient with tachycardia. Heart rate improved with IV fluid. No signs of acute ischemia on EKG. No lactic acidosis. Patient is very uncomfortable with the hyponatremia which may be causative of many of her symptoms. Evidence of dehydration on physical exam as well as laboratories consistent with contraction alkalosis. CT is pending. Urinalysis is also pending. Patient still is very ill-appearing and she will be admitted for treatment of hypernatremia and dehydration. Departure Diagnosis: Primary Impression: Hyponatremia Additional Impressions: Dehydration Acute abdominal pain Vomiting Condition: Serious TEXMALICKNSETORBEVERLY REYNOLDS Apr 07, 2017 18:53
[2017-04-07] MEDS ORDERED: CEFEPIME 1GM/50 ML (PMX) 50 ML IVPB ONE (19:00)
[2017-04-07] MEDS ORDERED: ONDANSETRON 4 MG INJ IV PRN (19:30)
[2017-04-07] MEDS ORDERED: ACETAMINOPHEN 325 MG TAB PO PRN (19:30)
[2017-04-07] MEDS ORDERED: METOCLOPRAMIDE 10 MG INJ IV ONE (19:30)
[2017-04-07 20:34] LABS: ADD UMIC YES; UR ASCORBIC ACID NEGATIVE (NEGATIVE); UR BILIRUBIN (Dip) NEGATIVE (NEGATIVE); UR BLOOD (Dip) NEGATIVE (NEGATIVE); UR CLARITY SLIGHTLY CLOUDY (CLEAR); UR COLOR YELLOW (YELLOW); UR GLUCOSE (Dip) NEGATIVE (NEGATIVE); UR KETONES (Dip) NEGATIVE (NEGATIVE); UR LEUKOCYTE ESTERASE (Dip) NEGATIVE Leu/ul (NEGATIVE); UR MUCUS MANY /HPF (NONE SEEN); UR NITRITE (Dip) NEGATIVE (NEGATIVE); UR NONSQUAMOUS EPITHELIAL CELL 1 /HPF (NONE SEEN); UR RBC 2 /HPF (0-5); UR SPECIFIC GRAVITY (Dip) 1.027 (1.003-1.030); UR SQUAMOUS EPITHELIAL CELL FEW /HPF (FEW); UR TOTAL PROTEIN (Dip) 1+ mg/dl (NEGATIVE); UR UROBILINOGEN (Dip) NEGATIVE (NEGATIVE)
--- NOTE | 2017-04-07 20:57 | RADRPT ---
PROCEDURE: CT Abdomen and Pelvis without intravenous contrast. CLINICAL INDICATION: Abdominal pain. Vomiting. History of stomach cancer. . TECHNIQUE: CT scan of the abdomen and pelvis without intravenous contrast was performed on a multi -slice CT scanner. Coronal and sagittal reformatted images were obtained from the axial source image s. Images were reviewed on a high-resolution PACS workstation. Total DLP = 195 mGy-cm. CTDIvol = 504.0 mGy. One or more of the following dose reduction techniques were used: Automated exposure control. Adjustment of the mA and/or kV according to patient size. Use of iterative reconstruction technique. COMPARISON: None. FINDINGS: CT abdomen and pelvis: The lung bases there is a moderate right pleural effusion and trace left pleural effusion.. The hea rt size is normal in size. There is mild pericardial effusion or thickening. Cardiac pacer wires e xtending to the right heart chambers. . The liver is effaced with loculated ascites along the shanta ins. There is no hepatic focal mass or intrahepatic biliary dilatation. The spleen is normal in siz e and homogeneous in density. The pancreas as visualized is normal. The gallbladder shows no tawnya dence of stones or distension . The adrenal glands are normal. The kidneys are symmetrically unrem arkable. No urolithiasis, obstructive uropathy, or solid mass lesion is seen. There is extensive partially loculated ascites throughout the abdomen and pelvis. The ascites cause s displacement of the stomach and small bowels centrally. The stomach is diffusely thick-walled jeffrey ecially along the body and antrum which may correlate to history of gastric cancer. There is mild d istension of the distal esophagus and proximal duodenum. . The small bowels are nondistended.. The c olon and rectum are nondistended.. There is diffuse thickening of the peritoneum. There is a left pelvic peritoneal mass measuring 5.5 cm suspicious for peroneal tumor or metastasis.. The uterus has been removed.. The bladder is not well visualized.. There is no abdominal or pelvic adenopathy, alison e air. The aorta is normal in caliber and course. The osseous structures are intact. No osteolytic or osteo blastic lesions are identified. There is diffuse subcutaneous edema or anasarca.. Lack of IV and o ral contrast limits sensitivity of exam. IMPRESSION: 1. Extensive partially loculated ascites throughout the abdomen and pelvis with peroneal thickening and 5.5 cm peritoneal tumor in the left pelvis. Findings are suspicious for malignant ascites with peritoneal carcinomatosis. Ascites causes effacement and displacement of the liver margin and centr alization of small bowels. 2. Diffusely thick-walled gastric body and antrum which may correlate to history of gastric carcino ma. 3. Distended distal esophagus and proximal duodenum. 4. Moderate right pleural effusion. 5. Mild pericardial effusion. 6. Diffuse subcutaneous edema. RPTAT: [facility] .Amari Dominguez MD, MD Date Time Electronically viewed and signed by .Amari Dominguez MD, MD on 04/07/2017 20:55 .L/
[2017-04-07 21:45] VITALS: Ht 157.5 cm; Wt 41.9 kg
[2017-04-07 22:07] VITALS: PULSE 90
[2017-04-07 22:16] VITALS: BP 119/94; RESP 17
[2017-04-07 22:45] VITALS: BP 119/94; PULSE 100; RESP 20
[2017-04-07] MEDS: NS + KCL 20 MEQ 1,000 ML IV SCH (23:27)
[2017-04-07] MEDS: CEFTRIAXONE 1 GM/50 ML (PMX) 50 ML IVPB SCH (23:27)
[2017-04-07] MEDS: ONDANSETRON 4 MG INJ IV PRN (23:27)
[2017-04-07 23:36] VITALS: BP 119/78; RESP 17
[2017-04-08] VITALS (11 sets, daily range): BP systolic 102–109; BP diastolic 70–80; PULSE 78–87; RESP 17–19
[2017-04-08 05:58] LABS: ADD SCAN DIFF NO
[2017-04-08 06:01] LABS: ABNORMAL IP MESSAGE 1; HEMATOCRIT 30.2 % (37.0-47.0); MEAN CORPUSCULAR HEMOGLOBIN 27.9 pg (29.0-33.0); MEAN CORPUSCULAR HGB CONC 33.1 g/dl (32.0-37.0); MEAN CORPUSCULAR VOLUME 84.4 fl (82.0-101.0); MEAN PLATELET VOLUME 8.9 fl (7.4-10.4); PLATELET COUNT 211 10^3/UL (140-415); RED BLOOD COUNT 3.58 10^6/ul (4.20-5.40); RED CELL DISTRIBUTION WIDTH 16.6 % (11.5-14.5); WHITE BLOOD COUNT 1.9 10^3/ul (4.8-10.8)
[2017-04-08 06:46] LABS: ALBUMIN 2.4 g/dl (3.3-4.9); ALBUMIN/GLOBULIN RATIO 1.14; BILIRUBIN,INDIRECT 0.1 mg/dl (0-1.1); BILIRUBIN,TOTAL 0.1 mg/dl (0.2-1.3); CALCIUM 7.3 mg/dl (8.4-10.2); CREATININE 0.77 mg/dl (0.44-1.00); POTASSIUM 3.6 mmol/L (3.5-5.1); TOTAL PROTEIN 4.5 g/dl (6.1-8.1)
[2017-04-08 11:04] LABS: LYMPHOCYTES # 0.4 10^3/ul (0.8-2.9); NEUTROPHIL # 1.4 10^3/ul (1.6-7.5)
--- NOTE | 2017-04-08 12:40 | HP ---
Date/Time of Note Date/Time of Note DATE: 04/08/17 TIME: 12:23 Assessment/Plan VTE Prophylaxis VTE Prophylaxis Intervention: SCD's Lines/Catheters IV Catheter Type (from [facility]): DILIP CATH Urinary Cath still in place: No Assessment/Plan Assessment/Plan -Gastric cancer, status post chemotherapy by Dr. Ford, oncology. -Nausea and vomiting, rule out gastric outlet obstruction. Dr. Millan is asked to see patient in gastroenterology consultation. Continue Zofran for for nausea and morphine as needed for pain. -Hyponatremia secondary to dehydration, continue IV fluids, monitor electrolytes. -Possible malignant ascites with peritoneal carcinomatosis -Protein calorie severe malnutrition, nutritional consult. -Leukopenia and anemia most likely secondary to chemotherapy. Further recommendations based on clinical course. Plan of care discussed with Dr. Garner. HPI/ROS Admit Date/Time Admit Date/Time Apr 07, 2017 at 19:17 Hx of Present Illness The patient is 61-year-old unfortunate female with history of gastric cancer was diagnosed in July 2016. Patient underwent chemotherapy through right upper chest permacath and was followed by Dr. Ford in oncology consultation. Patient received chemotherapy 4 days ago. Patient developed dysphagia, was able to tolerate only liquid diet for the last couple of weeks. Patient presented to the emergency room with increased abdominal pain and nausea and vomiting, patient also complains of generalized weakness. Patient also complains of esophageal pain after food ingestion. Patient denies any chest pain, denies any shortness of breath, denies fever, chills. Patient complains of weight loss, appears cachectic. Patient was also noted to have hyponatremia with dehydration, was giving IV fluids. Chest x-ray revealed bilateral interstitial markings patient was giving cefepime for possible infection since patient immunocompromised. Patient is admitted for further evaluation and management. ROS 12 point review of systems is negative unless mentioned in HPI PMH/Family/Social Past Medical History Medical History: hypertension Past Surgical History Colonoscopy by Dr. Millan Family History Significant Family History: no pertinent family hx Social History Alcohol Use: none Smoking Status: Never smoker Drug Use: none Exam/Review of Systems Vital Signs Vitals Vital Signs Date Time Temp Pulse Resp B/P Pulse Ox O2 Delivery O2 Flow Rate FiO2 04/08/17 12:02 87 04/08/17 11:06 98.6 18 109/77 100 04/07/17 22:45 Room Air 04/07/17 17:03 2 Intake and Output 04/07/17 04/07/17 04/08/17 15:00 23:00 07:00 Intake Total 525 ml Balance 525 ml Exam Constitutional: alert, frail, oriented, other (Cachectic) Psych: no complaints Head: atraumatic, normocephalic Eyes: nl conjunctiva Neck: supple Respiratory: normal air movement Cardiovascular: nl pulses Gastrointestinal: distended, soft, tender Musculoskeletal: nl extremities to inspection Extremities: edema 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: nl mental status Skin: nl turgor Labs Result Diagram: 04/08/1754304/08/1744 Medications Medications Current Medications Ceftriaxone Sodium 50 ml @ 100 mls/hr Q24H IVPB Last administered on 23:27; Admin Dose 100 MLS/HR; Start 04/07/17 at 23:00 Potassium Chloride/Sodium Chloride (NS-KCl 20 Meq) 1,000 ml @ 75 mls/hr [id number] IV Last administered on 04/07/17 23:27; Admin Dose 75 MLS/HR; Start at 23:00 Ondansetron HCl (Zofran Inj) 4 mg Q6H PRN IV NAUSEA AND/OR VOMITING Last administered on 04/07/17 23:27; Admin Dose 4 MG; Start 04/07/17 at 23:00 Morphine Sulfate (morphine) 2 mg Q4H PRN IV PAIN; Start 04/07/17 at 23:00 GHAZALA HORNE Apr 08, 2017 12:34
[2017-04-08] MEDS: NS + KCL 20 MEQ 1,000 ML IV SCH (12:47)
[2017-04-08] MEDS: morphine 2 MG INJ IV PRN (14:08)
[2017-04-08] MEDS: ONDANSETRON 4 MG INJ IV PRN (14:08)
--- NOTE | 2017-04-08 14:53 | CONS ---
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 POST CHEMO Abdominopelvic ascites - malignant LEUKOPENIA POST CHEMO NEUPOGEN, monitor blood count ANEMIA POST CHEMO MONITOR Intractable nausea, vomiting, dehydration ANTIEMETICS, IVF Moderate right pleural effusion. Mild pericardial effusion. Diffuse subcutaneous edema. Abdominal pain. PAIN CONTROL hx Left lower extremity edema.- better HYPONATREMIA NEPHRO Problems: Consultation Date/Type/Reason Admit Date/Time Apr 07, 2017 at 19:17 Initial Consult Date Type of Consultation: hemeon Reason for Consultation gastric cancer Referring Provider: CINDY ESTRELLA MD 24 HR Interval Summary Free Text/Dictation WEAK WBC- COMING DOWN NO FEVER ON ATB Exam/Review of Systems Vital Signs Vitals Vital Signs Date Time Temp Pulse Resp B/P Pulse Ox O2 Delivery O2 Flow Rate FiO2 04/08/17 12:02 87 04/08/17 11:06 98.6 18 109/77 100 04/07/17 22:45 Room Air 04/07/17 17:03 2 Intake and Output 04/07/17 04/07/17 04/08/17 15:00 23:00 07:00 Intake Total 525 ml Balance 525 ml Exam Const: [] Moderate distress, WEAK Head: Atraumatic Eyes: Normal Conjunctiva, EOMI, PRL ENT: Normal External Ears, Nose and Mouth. Neck: Full range of motion..~ No meningismus. Resp: Clear to auscultation bilaterally Cardio: Regular tachycardia m, no murmurs Abd: Soft, moderate upper abdominal tenderness without guarding or rebound, + ASCITES. Normal bowel sounds Skin: No petechiae or rashes Back: No midline or flank tenderness Ext: No cyanosis, or edema Neur: Awake and alert and oriented 3, no focal deficits Psych: Normal Mood and Affect Results Result Diagram: 04/08/17 0544 04/08/17 0544 Results 24 hrs Laboratory Tests Test 04/07/17 17:45 04/07/17 19:57 04/07/17 20:15 04/07/17 21:07 White Blood Count 2.5 L Red Blood Count 4.09 L Hemoglobin 11.5 L Hematocrit 34.3 L Mean Corpuscular Volume 83.9 Mean Corpuscular Hemoglobin 28.1 L Mean Corpuscular Hemoglobin Concent 33.5 Red Cell Distribution Width 16.5 H Platelet Count 270 Mean Platelet Volume 8.7 Neutrophils % 86.0 H Band Neutrophils % 1.0 Lymphocytes % 12.0 L Monocytes % 1.0 Neutrophils # 2.2 Lymphocytes # 0.3 L Monocytes # 0.0 L Prothrombin Time 13.5 Prothrombin Time Ratio 1.1 INR International Normalized Ratio 1.03 Activated Partial Thromboplast Time 24.0 L Sodium Level 125 L Potassium Level 3.7 Chloride Level 77 L Carbon Dioxide Level 36 H Anion Gap 16 Blood Urea Nitrogen 36 H Creatinine 0.73 Glucose Level 135 Lactic Acid Level 1.5 2.4 *H 2.2 *H Calcium Level 8.0 L Total Bilirubin 0.3 Direct Bilirubin 0.00 Indirect Bilirubin 0.3 Aspartate Amino Transf (AST/SGOT) 27 Alanine Aminotransferase (ALT/SGPT) 31 Alkaline Phosphatase 153 H Troponin I 0.013 Total Protein 5.0 L Albumin 2.6 L Globulin 2.40 Albumin/Globulin Ratio 1.08 Lipase 76 Urine Color YELLOW Urine Clarity SLIGHTLY CLOUDY A Urine pH 5.0 Urine Specific [place] 1.027 Urine Ketones NEGATIVE Urine Nitrite NEGATIVE Urine Bilirubin NEGATIVE Urine Urobilinogen NEGATIVE Urine Leukocyte Esterase NEGATIVE Urine Microscopic RBC 2 Urine Microscopic WBC 2 Urine Squamous Epithelial Cells FEW Urine Mucus MANY A Urine Hemoglobin NEGATIVE Urine Glucose NEGATIVE Urine Total Protein 1+ H Test 04/08/17 05:44 White Blood Count 1.9 #L Red Blood Count 3.58 L Hemoglobin 10.0 L Hematocrit 30.2 L Mean Corpuscular Volume 84.4 Mean Corpuscular Hemoglobin 27.9 L Mean Corpuscular Hemoglobin Concent 33.1 Red Cell Distribution Width 16.6 H Platelet Count 211 # Mean Platelet Volume 8.9 Neutrophils % 73.0 Band Neutrophils % 1.0 Lymphocytes % 23.0 Monocytes % 2.0 Eosinophils % 1.0 Nucleated Red Blood Cells % 1.0 H Neutrophils # 1.4 L Lymphocytes # 0.4 L Monocytes # 0.0 L Eosinophils # 0.0 Sodium Level 126 L Potassium Level 3.6 Chloride Level 81 L Carbon Dioxide Level 36 H Anion Gap 13 Blood Urea Nitrogen 36 H Creatinine 0.77 Glucose Level 116 Lactic Acid Level 1.2 Calcium Level 7.3 L Total Bilirubin 0.1 L Direct Bilirubin 0.00 Indirect Bilirubin 0.1 Aspartate Amino Transf (AST/SGOT) 27 Alanine Aminotransferase (ALT/SGPT) 26 Alkaline Phosphatase 123 H Total Protein 4.5 L Albumin 2.4 L Globulin 2.10 Albumin/Globulin Ratio 1.14 Medications Medications Current Medications Ceftriaxone Sodium 50 ml @ 100 mls/hr Q24H IVPB Last administered on 23:27; Admin Dose 100 MLS/HR; Start 04/07/17 at 23:00 Potassium Chloride/Sodium Chloride (NS-KCl 20 Meq) 1,000 ml @ 75 mls/hr [id number] IV Last administered on 04/08/17 12:47; Admin Dose 75 MLS/HR; Start at 23:00 Ondansetron HCl (Zofran Inj) 4 mg Q6H PRN IV NAUSEA AND/OR VOMITING Last administered on 04/08/17 14:08; Admin Dose 4 MG; Start 04/07/17 at 23:00 Morphine Sulfate (morphine) 2 mg Q4H PRN IV PAIN Last administered on 14:08; Admin Dose 2 MG; Start 04/07/17 at 23:00 Procedures Procedures [place] [id number] Radiology Main Line: [phone] DIAGNOSTIC IMAGING REPORT Patient: CHRIS RALPH : 1955 Age: 61 Sex: F [id number] DOS: 04/07/17 0000 Ordering MD: NESTOR NICE DO Location: FTE Room/Bed: PROCEDURE: CT Abdomen and Pelvis without intravenous contrast. CLINICAL INDICATION: Abdominal pain. Vomiting. History of stomach cancer. . TECHNIQUE: CT scan of the abdomen and pelvis without intravenous contrast was performed on a multi-slice CT scanner. Coronal and sagittal reformatted images were obtained from the axial source images. Images were reviewed on a high- resolution PACS workstation. Total DLP = 195 mGy-cm. CTDIvol = 504.0 mGy. One or more of the following dose reduction techniques were used: Automated exposure control. Adjustment of the mA and/or kV according to patient size. Use of iterative reconstruction technique. COMPARISON: None. FINDINGS: CT abdomen and pelvis: The lung bases there is a moderate right pleural effusion and trace left pleural effusion.. The heart size is normal in size. There is mild pericardial effusion or thickening. Cardiac pacer wires extending to the right heart chambers. . The liver is effaced with loculated ascites along the margins. There is no hepatic focal mass or intrahepatic biliary dilatation. The spleen is normal in size and homogeneous in density. The pancreas as visualized is normal. The gallbladder shows no evidence of stones or distension . The adrenal glands are normal. The kidneys are symmetrically unremarkable. No urolithiasis, obstructive uropathy, or solid mass lesion is seen. There is extensive partially loculated ascites throughout the abdomen and pelvis. The ascites causes displacement of the stomach and small bowels centrally. The stomach is diffusely thick-walled especially along the body and antrum which may correlate to history of gastric cancer. There is mild distension of the distal esophagus and proximal duodenum. . The small bowels are nondistended.. The colon and rectum are nondistended.. There is diffuse thickening of the peritoneum. There is a left pelvic peritoneal mass measuring 5.5 cm suspicious for peroneal tumor or metastasis.. The uterus has been removed.. The bladder is not well visualized.. There is no abdominal or pelvic adenopathy, free air. The aorta is normal in caliber and course. The osseous structures are intact. No osteolytic or osteoblastic lesions are identified. There is diffuse subcutaneous edema or anasarca.. Lack of IV and oral contrast limits sensitivity of exam. IMPRESSION: 1. Extensive partially loculated ascites throughout the abdomen and pelvis with peroneal thickening and 5.5 cm peritoneal tumor in the left pelvis. Findings are suspicious for malignant ascites with peritoneal carcinomatosis. Ascites causes effacement and displacement of the liver margin and centralization of small bowels. 2. Diffusely thick-walled gastric body and antrum which may correlate to history of gastric carcinoma. 3. Distended distal esophagus and proximal duodenum. 4. Moderate right pleural effusion. 5. Mild pericardial effusion. 6. Diffuse subcutaneous edema. RPTAT: [facility] .Amari Dominguez MD, MD Date Time Electronically viewed and signed by .Amari Dominguez MD, on 04/07/2017 20:55 .L/ CC: NESTOR NICE VERA M MD Apr 08, 2017 14:47
--- NOTE | 2017-04-08 16:23 | CONS ---
Date/Time of Note Date/Time of Note DATE: 04/08/17 TIME: 16:22 Consultation Date/Type/Reason Admit Date/Time Apr 07, 2017 at 19:17 Type of Consultation: ID Reason for Consultation This is Dr. Taniya Reis dictating infectious disease consult on [place], date of admission 04/07 date of consultation and dictation is , reason for consultation is antibiotic management. 3 months patient is a 61-year-old unfortunate female with history of gastric cancer diagnosed July 2016. She underwent chemotherapy through right upper chest permacath and was followed by Dr. Ford in oncology consultation. She received chemotherapy 4 days ago. She has developed dysphasia and has been able to tolerate only liquid diets for the last few weeks. She presented to the emergency room with increased abdominal pain nausea vomiting, as well as generalized weakness. Patient also complains of esophageal pain after food ingestion chest x-ray revealed bilateral interstitial markings and she was started on cefepime for possible infection since she is immunocompromise. On admission her white count was 1.9 H&H of 10 and 30.2 platelet count 211,000. BUN creatinine is 36/0.77. Patient is currently on ceftriaxone she has 73 polys and 1 band, so she is not absolutely neutropenic urine analysis was negative for leukocyte esterase and nitrite her lactic acid was 2.4 and 2.2. Chest x-ray has a right chest Port-A-Cath with the tip in the right atrium mild cardiomegaly increased bilateral interstitial markings which may represent interstitial edema pneumonia or chronic change. Urine C&S grew no organisms. CT scan of the abdomen and pelvis showed extensive partially loculated ascites throughout the abdomen and pelvis with peritoneal thickening and 5.5 cm peritoneal tumor in the left pelvis findings are suspicious for malignant ascites with peritoneal carcinomatosis. She has diffusely thickened gastric body and antrum which may correlate to history of gastric carcinoma. She has a distended distal esophageal area and distended proximal duodenum. She has moderate right pleural effusion mild pericardial effusion diffuse subcutaneous edema. Past medical history: Hypertension and gastric carcinoma. Past surgical history: None Family history noncontributory Social history she does not smoke drink or abuse drugs Allergies none to penicillin sulfa foods Medications per chart Review of systems noncontributory On physical examination patient is a frail cachectic female who is awake responsive in no acute distress. Vital signs are stable she is afebrile. SHEENT: Within normal limits Neck is supple without neck vein distention Chest decreased breath sounds at the bases Heart without murmur gallop Abdomen is soft nontender without organosplenomegaly or masses Extremities without cyanosis clubbing but with 1+ edema Rectal genital exams deferred 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 evaluation no focal neurological abnormalities. Impression/plan: Patient has Meding static gastric adenocarcinoma with peritoneal, carcinomatosis. She is leukopenic but not absolutely, and is receiving Neupogen postchemotherapy. At present she is on ceftriaxone. Her chest x-ray shows interstitial markings possible interstitial pneumonia. She has a right Port-A-Cath in place. She has had blood cultures and urine cultures done and are pending. I will dictate my findings to Dr. Read and to Dr. Ford. 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 Psychological: no complaints Past Medical History Medical History: hypertension Social History Alcohol Use: none Smoking Status: Never smoker Drug Use: none Exam/Review of Systems Vital Signs Vitals Vital Signs Date Time Temp Pulse Resp B/P Pulse Ox O2 Delivery O2 Flow Rate FiO2 04/08/17 15:27 98.7 67 18 108/80 98 04/07/17 22:45 Room Air 04/07/17 17:03 2 Intake and Output 04/07/17 04/07/17 04/08/17 15:00 23:00 07:00 Intake Total 525 ml Balance 525 ml Results Result Diagram: 04/08/17 0544 04/08/17 0544 Results 24 hrs Laboratory Tests Test 04/07/17 17:45 04/07/17 19:57 04/07/17 20:15 04/07/17 21:07 White Blood Count 2.5 L Red Blood Count 4.09 L Hemoglobin 11.5 L Hematocrit 34.3 L Mean Corpuscular Volume 83.9 Mean Corpuscular Hemoglobin 28.1 L Mean Corpuscular Hemoglobin Concent 33.5 Red Cell Distribution Width 16.5 H Platelet Count 270 Mean Platelet Volume 8.7 Neutrophils % 86.0 H Band Neutrophils % 1.0 Lymphocytes % 12.0 L Monocytes % 1.0 Neutrophils # 2.2 Lymphocytes # 0.3 L Monocytes # 0.0 L Prothrombin Time 13.5 Prothrombin Time Ratio 1.1 INR International Normalized Ratio 1.03 Activated Partial Thromboplast Time 24.0 L Sodium Level 125 L Potassium Level 3.7 Chloride Level 77 L Carbon Dioxide Level 36 H Anion Gap 16 Blood Urea Nitrogen 36 H Creatinine 0.73 Glucose Level 135 Lactic Acid Level 1.5 2.4 *H 2.2 *H Calcium Level 8.0 L Total Bilirubin 0.3 Direct Bilirubin 0.00 Indirect Bilirubin 0.3 Aspartate Amino Transf (AST/SGOT) 27 Alanine Aminotransferase (ALT/SGPT) 31 Alkaline Phosphatase 153 H Troponin I 0.013 Total Protein 5.0 L Albumin 2.6 L Globulin 2.40 Albumin/Globulin Ratio 1.08 Lipase 76 Urine Color YELLOW Urine Clarity SLIGHTLY CLOUDY A Urine pH 5.0 Urine Specific [place] 1.027 Urine Ketones NEGATIVE Urine Nitrite NEGATIVE Urine Bilirubin NEGATIVE Urine Urobilinogen NEGATIVE Urine Leukocyte Esterase NEGATIVE Urine Microscopic RBC 2 Urine Microscopic WBC 2 Urine Squamous Epithelial Cells FEW Urine Mucus MANY A Urine Hemoglobin NEGATIVE Urine Glucose NEGATIVE Urine Total Protein 1+ H Test 04/08/17 05:44 White Blood Count 1.9 #L Red Blood Count 3.58 L Hemoglobin 10.0 L Hematocrit 30.2 L Mean Corpuscular Volume 84.4 Mean Corpuscular Hemoglobin 27.9 L Mean Corpuscular Hemoglobin Concent 33.1 Red Cell Distribution Width 16.6 H Platelet Count 211 # Mean Platelet Volume 8.9 Neutrophils % 73.0 Band Neutrophils % 1.0 Lymphocytes % 23.0 Monocytes % 2.0 Eosinophils % 1.0 Nucleated Red Blood Cells % 1.0 H Neutrophils # 1.4 L Lymphocytes # 0.4 L Monocytes # 0.0 L Eosinophils # 0.0 Sodium Level 126 L Potassium Level 3.6 Chloride Level 81 L Carbon Dioxide Level 36 H Anion Gap 13 Blood Urea Nitrogen 36 H Creatinine 0.77 Glucose Level 116 Lactic Acid Level 1.2 Calcium Level 7.3 L Total Bilirubin 0.1 L Direct Bilirubin 0.00 Indirect Bilirubin 0.1 Aspartate Amino Transf (AST/SGOT) 27 Alanine Aminotransferase (ALT/SGPT) 26 Alkaline Phosphatase 123 H Total Protein 4.5 L Albumin 2.4 L Globulin 2.10 Albumin/Globulin Ratio 1.14 Medications Medications Current Medications Ceftriaxone Sodium 50 ml @ 100 mls/hr Q24H IVPB Last administered on t 23:27; Admin Dose 100 MLS/HR; Start 04/07/17 at 23:00 Potassium Chloride/Sodium Chloride (NS-KCl 20 Meq) 1,000 ml @ 75 mls/hr [id number] IV Last administered on 04/08/17 12:47; Admin Dose 75 MLS/HR; Start at 23:00 Ondansetron HCl (Zofran Inj) 4 mg Q6H PRN IV NAUSEA AND/OR VOMITING Last administered on 04/08/17 14:08; Admin Dose 4 MG; Start 04/07/17 at 23:00 Morphine Sulfate (morphine) 2 mg Q4H PRN IV PAIN Last administered on 14:08; Admin Dose 2 MG; Start 04/07/17 at 23:00 Filgrastim (Neupogen) 300 mcg DAILY@17 SC ; Start 04/08/17 at 17:00 TANIYA REIS MD Apr 08, 2017 16:23
[2017-04-08] MEDS: FILGRASTIM 300 MCG INJ SC SCH (16:56)
--- NOTE | 2017-04-08 18:12 | CONS ---
Date/Time of Note Date/Time of Note DATE: 04/08/17 TIME: 18:09 Assessment/Plan Assessment/Plan Additional Assessment/Plan 1. 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 Intractable nausea vomiting 3. Dysphagia 4. Hypertension 5. Cachexia Plan PPI and Reglan for symptomatic relief of her heartburn and nausea and vomiting. Patient may need EGD to evaluate abnormal findings on CAT scan. I will also try to review her previous EGD report. Consultation Date/Type/Reason Admit Date/Time Apr 07, 2017 at 19:17 Initial Consult Date Type of Consultation: ID Reason for Consultation 61-year-old female with a history of cancer of the stomach status post chemotherapy admitted to the hospital for nausea vomiting and dysphagia. Patient was unable to swallow solid food for last 2 weeks. She is able to take only liquid diet. She lost a significant weight. GI consult was called in for dysphagia and nausea and vomiting. Patient has not had a CAT scan done which showed ascites and carcinomatosis. It also showed thickening of the distal part of the esophagus and also stomach. Patient feels somewhat better today Referring Provider: CINDY ESTRELLA MD Exam/Review of Systems Vital Signs Vitals Vital Signs Date Time Temp Pulse Resp B/P Pulse Ox O2 Delivery O2 Flow Rate FiO2 04/08/17 16:11 87 04/08/17 15:27 98.7 18 108/80 98 04/07/17 22:45 Room Air 04/07/17 17:03 2 Intake and Output 04/07/17 04/07/17 04/08/17 15:00 23:00 07:00 Intake Total 525 ml Balance 525 ml Exam Constitutional: alert, oriented, well developed Psych: nl mood/affect, no complaints Head: atraumatic, normocephalic Eyes: EOMI, PERRL, nl conjunctiva, nl lids, nl sclera ENMT: nl external ears & nose, nl lips & teeth, nl nasal mucosa & septum Neck: non-tender, supple Respiratory: clear to auscultation, normal air movement Cardiovascular: nl pulses, regular rate and rhythm Gastrointestinal: nl liver, spleen, non-tender, soft Musculoskeletal: nl extremities to inspection, nl gait and stance Extremities: normal pulses 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: 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 intact, nl mental status, nl speech, nl strength Skin: nl turgor, No rash or lesions Lymph: nl lymph nodes Results Result Diagram: 04/08/17 0544 04/08/17 0544 Results 24 hrs Laboratory Tests Test 04/07/17 19:57 04/07/17 20:15 04/07/17 21:07 04/08/17 05:44 Urine Color YELLOW Urine Clarity SLIGHTLY CLOUDY A Urine pH 5.0 Urine Specific [place] 1.027 Urine Ketones NEGATIVE Urine Nitrite NEGATIVE Urine Bilirubin NEGATIVE Urine Urobilinogen NEGATIVE Urine Leukocyte Esterase NEGATIVE Urine Microscopic RBC 2 Urine Microscopic WBC 2 Urine Squamous Epithelial Cells FEW Urine Mucus MANY A Urine Hemoglobin NEGATIVE Urine Glucose NEGATIVE Urine Total Protein 1+ H Lactic Acid Level 2.4 *H 2.2 *H 1.2 White Blood Count 1.9 #L Red Blood Count 3.58 L Hemoglobin 10.0 L Hematocrit 30.2 L Mean Corpuscular Volume 84.4 Mean Corpuscular Hemoglobin 27.9 L Mean Corpuscular Hemoglobin Concent 33.1 Red Cell Distribution Width 16.6 H Platelet Count 211 # Mean Platelet Volume 8.9 Neutrophils % 73.0 Band Neutrophils % 1.0 Lymphocytes % 23.0 Monocytes % 2.0 Eosinophils % 1.0 Nucleated Red Blood Cells % 1.0 H Neutrophils # 1.4 L Lymphocytes # 0.4 L Monocytes # 0.0 L Eosinophils # 0.0 Sodium Level 126 L Potassium Level 3.6 Chloride Level 81 L Carbon Dioxide Level 36 H Anion Gap 13 Blood Urea Nitrogen 36 H Creatinine 0.77 Glucose Level 116 Calcium Level 7.3 L Total Bilirubin 0.1 L Direct Bilirubin 0.00 Indirect Bilirubin 0.1 Aspartate Amino Transf (AST/SGOT) 27 Alanine Aminotransferase (ALT/SGPT) 26 Alkaline Phosphatase 123 H Total Protein 4.5 L Albumin 2.4 L Globulin 2.10 Albumin/Globulin Ratio 1.14 Medications Medications Current Medications Ceftriaxone Sodium 50 ml @ 100 mls/hr Q24H IVPB Last administered on 23:27; Admin Dose 100 MLS/HR; Start 04/07/17 at 23:00 Potassium Chloride/Sodium Chloride (NS-KCl 20 Meq) 1,000 ml @ 75 mls/hr [id number] IV Last administered on 04/08/17 12:47; Admin Dose 75 MLS/HR; Start at 23:00 Ondansetron HCl (Zofran Inj) 4 mg Q6H PRN IV NAUSEA AND/OR VOMITING Last administered on 04/08/17 14:08; Admin Dose 4 MG; Start 04/07/17 at 23:00 Morphine Sulfate (morphine) 2 mg Q4H PRN IV PAIN Last administered on 14:08; Admin Dose 2 MG; Start 04/07/17 at 23:00 Filgrastim (Neupogen) 300 mcg DAILY@17 SC Last administered on 04/08/17 16:56 ; Admin Dose 300 MCG; Start 04/08/17 at 17:00 GIANNA CHANEL MD Apr 08, 2017 18:12
[2017-04-08] MEDS: CEFTRIAXONE 1 GM/50 ML (PMX) 50 ML IVPB SCH (22:30)
[2017-04-09] VITALS (24 sets, daily range): BP systolic 81–116; BP diastolic 58–77; PULSE 68–93; RESP 10–21
[2017-04-09] MEDS: NS + KCL 20 MEQ 1,000 ML IV SCH ×2 (01:20→14:16)
[2017-04-09 07:54] LABS: ADD SCAN DIFF NO
[2017-04-09 07:57] LABS: ABNORMAL IP MESSAGE 1; BASOPHILS % 0.2 % (0.0-2.0); HEMATOCRIT 28.7 % (37.0-47.0); HEMOGLOBIN 9.3 g/dl (12.0-16.0); LYMPHOCYTES # 0.3 10^3/ul (0.8-2.9); LYMPHOCYTES % 2.6 % (15.0-51.0); MEAN CORPUSCULAR HEMOGLOBIN 27.7 pg (29.0-33.0); MEAN CORPUSCULAR HGB CONC 32.4 g/dl (32.0-37.0); MEAN CORPUSCULAR VOLUME 85.4 fl (82.0-101.0); MEAN PLATELET VOLUME 9.4 fl (7.4-10.4); MONOCYTE # 0.1 10^3/ul (0.3-0.9); MONOCYTES % 0.7 % (0.0-11.0); NEUTROPHIL # 12.1 10^3/ul (1.6-7.5); NEUTROPHILS % 93.5 % (39.0-77.0); NUCLEATED RED BLOOD CELLS% 0.2 /100WBC (0.0-0.0); PLATELET COUNT 177 10^3/UL (140-415); RED BLOOD COUNT 3.36 10^6/ul (4.20-5.40); RED CELL DISTRIBUTION WIDTH 16.6 % (11.5-14.5); WHITE BLOOD COUNT 12.9 10^3/ul (4.8-10.8)
[2017-04-09 08:10] LABS: CALCIUM 7.1 mg/dl (8.4-10.2); CREATININE 0.58 mg/dl (0.44-1.00); POTASSIUM 3.2 mmol/L (3.5-5.1)
[2017-04-09] MEDS: morphine 2 MG INJ IV PRN ×3 (08:25→22:00)
[2017-04-09] MEDS: ONDANSETRON 4 MG INJ IV PRN ×2 (08:31→13:03)
--- NOTE | 2017-04-09 08:43 | QN ---
Documentation Comment Patient seen and examined, full H&P dictated FORTUNATO MUÑIZ DO Apr 09, 2017 08:43
[2017-04-09 10:44] LABS: ADD UMIC YES; UR ASCORBIC ACID NEGATIVE (NEGATIVE); UR BILIRUBIN (Dip) NEGATIVE (NEGATIVE); UR BLOOD (Dip) NEGATIVE (NEGATIVE); UR CLARITY CLEAR (CLEAR); UR COLOR YELLOW (YELLOW); UR GLUCOSE (Dip) NEGATIVE (NEGATIVE); UR KETONES (Dip) TRACE mg/dL (NEGATIVE); UR LEUKOCYTE ESTERASE (Dip) NEGATIVE Leu/ul (NEGATIVE); UR NITRITE (Dip) NEGATIVE (NEGATIVE); UR RBC 1 /HPF (0-5); UR SPECIFIC GRAVITY (Dip) 1.025 (1.003-1.030); UR SQUAMOUS EPITHELIAL CELL FEW /HPF (FEW); UR TOTAL PROTEIN (Dip) 1+ mg/dl (NEGATIVE); UR UROBILINOGEN (Dip) 1+ mg/dL (NEGATIVE)
[2017-04-09] MEDS ORDERED: LIDOCAINE 2% (SDV) 5 ML INJ ONE (11:34)
[2017-04-09] MEDS ORDERED: ONDANSETRON 4 MG INJ ONE (11:34)
[2017-04-09] MEDS ORDERED: PHENYLephrine (100 MCG/ML) 5ML SYG ONE (11:34)
[2017-04-09] MEDS ORDERED: FENTAnyl 50 MCG/ML VIAL ONE (11:34)
[2017-04-09] MEDS ORDERED: PROPOFOL 40 ML ONE (11:34)
[2017-04-09] MEDS ORDERED: PROCHLORPERAZINE 10 MG INJ IV PRN (12:30)
[2017-04-09] MEDS ORDERED: OXYCODONE/ACETAMINOPHEN (5/325) TAB PO PRN ×2 (12:30)
[2017-04-09] MEDS ORDERED: METOCLOPRAMIDE 10 MG INJ IV PRN (12:30)
[2017-04-09] MEDS ORDERED: HYDROmorphONE (0.2 MG/ML) 10ML SYG IV PRN ×3 (12:30)
[2017-04-09] MEDS ORDERED: TRIMETHOBENZAMIDE 100 MG/ML VIAL IM PRN (12:30)
--- NOTE | 2017-04-09 17:19 | PN ---
Date/Time of Note Date/Time of Note DATE: 04/09/17 TIME: 17:10 Assessment/Plan VTE Prophylaxis VTE Prophylaxis Intervention: SCD's Lines/Catheters IV Catheter Type (from [facility]): DILIP CATH Urinary Cath still in place: No Assessment/Plan Chief Complaint/Hosp Course Patient pain is better controlled, patient has an intermittent nausea however able to tolerate liquid diet. Assessment/Plan -Metastatic gastric adenocarcinoma, status post chemotherapy by Dr. Ford, oncology. -Nausea and vomiting, rule out gastric outlet obstruction. Dr. Millan is following in gastroenterology consultation. Continue Zofran for for nausea and morphine as needed for pain. -Hyponatremia secondary to dehydration, continue IV fluids, monitor electrolytes. -Possible malignant ascites with peritoneal carcinomatosis -Protein calorie severe malnutrition, nutritional consult. -Leukopenia and anemia most likely secondary to chemotherapy. Further recommendations based on clinical course. Plan of care discussed with Dr. Garner. Problems: Exam/Review of Systems Vital Signs Vitals Vital Signs Date Time Temp Pulse Resp B/P Pulse Ox O2 Delivery O2 Flow Rate FiO2 04/09/17 16:08 81 04/09/17 15:25 97.5 16 116/73 100 04/09/17 13:30 Nasal Cannula 3.0 Intake and Output 04/08/17 04/08/17 04/09/17 15:00 23:00 07:00 Intake Total 600 ml 1460 ml 900 ml Balance 600 ml 1460 ml 900 ml Exam Constitutional: alert, frail, oriented, other (Cachectic) Neck: supple Respiratory: normal air movement Cardiovascular: nl pulses Gastrointestinal: distended, soft, tender Musculoskeletal: nl extremities to inspection Extremities: edema 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: nl mental status Skin: nl turgor Results Result Diagram: 04/09/17 0708 04/09/17 0708 Results 24 hrs Laboratory Tests Test 04/09/17 07:08 04/09/17 10:22 White Blood Count 12.9 #H Red Blood Count 3.36 L Hemoglobin 9.3 L Hematocrit 28.7 L Mean Corpuscular Volume 85.4 Mean Corpuscular Hemoglobin 27.7 L Mean Corpuscular Hemoglobin Concent 32.4 Red Cell Distribution Width 16.6 H Platelet Count 177 Mean Platelet Volume 9.4 Neutrophils % 93.5 H Lymphocytes % 2.6 L Monocytes % 0.7 Eosinophils % 0.0 Basophils % 0.2 Nucleated Red Blood Cells % 0.2 H Neutrophils # 12.1 H Lymphocytes # 0.3 L Monocytes # 0.1 L Eosinophils # 0.0 Basophils # 0.0 Nucleated Red Blood Cells # 0.0 Sodium Level 128 L Potassium Level 3.2 L Chloride Level 87 L Carbon Dioxide Level 36 H Anion Gap 8 Blood Urea Nitrogen 22 #H Creatinine 0.58 Glucose Level 83 Calcium Level 7.1 L Urine Color YELLOW Urine Clarity CLEAR Urine pH 6.0 Urine Specific [place] 1.025 Urine Ketones TRACE A Urine Nitrite NEGATIVE Urine Bilirubin NEGATIVE Urine Urobilinogen 1+ H Urine Leukocyte Esterase NEGATIVE Urine Microscopic RBC 1 Urine Microscopic WBC 4 Urine Squamous Epithelial Cells FEW Urine Hemoglobin NEGATIVE Urine Random Creatinine 105.39 Urine Random Sodium < 13 L Urine Glucose NEGATIVE Urine Total Protein 9.0 Medications Medications Current Medications Ceftriaxone Sodium 50 ml @ 100 mls/hr Q24H IVPB Last administered on 22:30; Admin Dose 100 MLS/HR; Start 04/07/17 at 23:00 Potassium Chloride/Sodium Chloride (NS-KCl 20 Meq) 1,000 ml @ 75 mls/hr [id number] IV Last administered on 04/09/17 14:16; Admin Dose 75 MLS/HR; Start at 23:00 Ondansetron HCl (Zofran Inj) 4 mg Q6H PRN IV NAUSEA AND/OR VOMITING Last administered on 04/09/17 13:03; Admin Dose 4 MG; Start 04/07/17 at 23:00 Morphine Sulfate (morphine) 2 mg Q4H PRN IV PAIN Last administered on 08:25; Admin Dose 2 MG; Start 04/07/17 at 23:00 Filgrastim (Neupogen) 300 mcg DAILY@17 SC Last administered on 04/08/17 16:56 ; Admin Dose 300 MCG; Start 04/08/17 at 17:00 GHAZLAA HORNE Apr 09, 2017 17:19
[2017-04-09] MEDS ORDERED: POTASSIUM CHLORIDE 30 MEQ in DEXTROSE 5% 250 ML IVPB ONE (17:30)
--- NOTE | 2017-04-09 17:59 | CONS ---
Date/Time of Note Date/Time of Note DATE: 04/09/17 TIME: 17:59 Assessment/Plan Assessment/Plan Chief Complaint/Hosp Course Alert looks comfortable, complaining of abdominal pain, no diarrhea no vomiting , family at bedside Temperature 97.7 pulse 71 respirations 20 blood pressure 112/75 saturation 100 on 3 L WBC 12.9 H&H 9.3 and 28.7 platelets 177 neutrophils 93.5 BN 22 creatinine 0.58, lactic acid 1.2 Microbiology blood cultures remain negative urine culture consistent with contaminant Antimicrobials: Rocephin Physical examination: Cachectic well-developed elderly woman who is alert in no distress. Head atraumatic, normocephalic. Sclera nonicteric. Neck is supple. Chest rise symmetrical, breath sounds clear. Heart: S1-S2. Abdomen distended , soft bowel tones present. Extremities no cyanosis Assessment: 1. Abdominal pain with nausea nausea and vomiting likely secondary to #2 2. Metastatic gastric CA with malignant ascites and peritoneal carcinomatosis 3. Leukocytosis, status post Neupogen 4. Right chest Port-A-Cath 5. Cachexia 6. Moderate right pleural effusion and mild pericardial effusion Plan: Remains stable, followed by gastroenterology and oncology, no evidence of active infectious process, will discontinue antibiotics and observe, patient may need EGD as per GI recommendations Problems: Consultation Date/Type/Reason Admit Date/Time Apr 07, 2017 at 19:17 Initial Consult Date Type of Consultation: ID Referring Provider: CINDY ESTRELLA MD Exam/Review of Systems Vital Signs Vitals Vital Signs Date Time Temp Pulse Resp B/P Pulse Ox O2 Delivery O2 Flow Rate FiO2 04/09/17 16:08 81 04/09/17 15:25 97.5 16 116/73 100 04/09/17 13:30 Nasal Cannula 3.0 Intake and Output 04/08/17 04/08/17 04/09/17 15:00 23:00 07:00 Intake Total 600 ml 1460 ml 900 ml Balance 600 ml 1460 ml 900 ml Results Result Diagram: 04/09/17 0708 04/09/17 0708 Results 24 hrs Laboratory Tests Test 04/09/17 07:08 04/09/17 10:22 White Blood Count 12.9 #H Red Blood Count 3.36 L Hemoglobin 9.3 L Hematocrit 28.7 L Mean Corpuscular Volume 85.4 Mean Corpuscular Hemoglobin 27.7 L Mean Corpuscular Hemoglobin Concent 32.4 Red Cell Distribution Width 16.6 H Platelet Count 177 Mean Platelet Volume 9.4 Neutrophils % 93.5 H Lymphocytes % 2.6 L Monocytes % 0.7 Eosinophils % 0.0 Basophils % 0.2 Nucleated Red Blood Cells % 0.2 H Neutrophils # 12.1 H Lymphocytes # 0.3 L Monocytes # 0.1 L Eosinophils # 0.0 Basophils # 0.0 Nucleated Red Blood Cells # 0.0 Sodium Level 128 L Potassium Level 3.2 L Chloride Level 87 L Carbon Dioxide Level 36 H Anion Gap 8 Blood Urea Nitrogen 22 #H Creatinine 0.58 Glucose Level 83 Calcium Level 7.1 L Urine Color YELLOW Urine Clarity CLEAR Urine pH 6.0 Urine Specific [place] 1.025 Urine Ketones TRACE A Urine Nitrite NEGATIVE Urine Bilirubin NEGATIVE Urine Urobilinogen 1+ H Urine Leukocyte Esterase NEGATIVE Urine Microscopic RBC 1 Urine Microscopic WBC 4 Urine Squamous Epithelial Cells FEW Urine Hemoglobin NEGATIVE Urine Random Creatinine 105.39 Urine Random Sodium < 13 L Urine Glucose NEGATIVE Urine Total Protein 9.0 Medications Medications Current Medications Ceftriaxone Sodium 50 ml @ 100 mls/hr Q24H IVPB Last administered on 22:30; Admin Dose 100 MLS/HR; Start 04/07/17 at 23:00 Potassium Chloride/Sodium Chloride (NS-KCl 20 Meq) 1,000 ml @ 75 mls/hr [id number] IV Last administered on 04/09/17 14:16; Admin Dose 75 MLS/HR; Start at 23:00 Ondansetron HCl (Zofran Inj) 4 mg Q6H PRN IV NAUSEA AND/OR VOMITING Last administered on 04/09/17 13:03; Admin Dose 4 MG; Start 04/07/17 at 23:00 Morphine Sulfate (morphine) 2 mg Q4H PRN IV PAIN Last administered on 08:25; Admin Dose 2 MG; Start 04/07/17 at 23:00 Filgrastim 300 mcg 300 mcg DAILY@17 SC Last administered on 04/08/17 16:56; Admin Dose 300 MCG; Start 04/08/17 at 17:00 Potassium Chloride/Dextrose (KCl/D5W) 265 ml @ 88.333 mls/ hr ONCE ONCE IVPB ; Start 04/09/17 at 17:30; Stop 04/09/17 at 20:29 JANELLE ALANIZ NP Apr 09, 2017 17:59
[2017-04-09] MEDS: FILGRASTIM 300 MCG INJ SC SCH (18:03)
--- NOTE | 2017-04-09 22:44 | CONS ---
Date/Time of Note Date/Time of Note DATE: 04/09/17 TIME: 22:41 Assessment/Plan Assessment/Plan Chief Complaint/Hosp Course Metastatic gastric adenocarcinoma with peritoneal carcinomatosis. POST CHEMO Abdominopelvic ascites - malignant LEUKOPENIA POST CHEMO DC NEUPOGEN, monitor blood count ANEMIA POST CHEMO MONITOR Intractable nausea, vomiting, dehydration ANTIEMETICS, IVF POST EGD- REPORT - P Moderate right pleural effusion. Mild pericardial effusion. Diffuse subcutaneous edema. Abdominal pain. PAIN CONTROL hx Left lower extremity edema.- better HYPONATREMIA NEPHRO Problems: Consultation Date/Type/Reason Admit Date/Time Apr 07, 2017 at 19:17 [facility] Referring Provider: CINDY ESTRELLA MD 24 HR Interval Summary Free Text/Dictation ALL NOTED WBC- IMPROVED ON NEUPOGEN FELLING BETTER Exam/Review of Systems Vital Signs Vitals Vital Signs Date Time Temp Pulse Resp B/P Pulse Ox O2 Delivery O2 Flow Rate FiO2 04/09/17 20:26 91 04/09/17 20:16 97.8 16 105/70 100 04/09/17 13:30 Nasal Cannula 3.0 Intake and Output 04/08/17 04/08/17 04/09/17 15:00 23:00 07:00 Intake Total 600 ml 1460 ml 900 ml Balance 600 ml 1460 ml 900 ml Exam Const: [] WEAK Head: Atraumatic Eyes: Normal Conjunctiva, EOMI, PRL ENT: Normal External Ears, Nose and Mouth. Neck: Full range of motion..~ No meningismus. Resp: Clear to auscultation bilaterally Cardio: Regular tachycardia m, no murmurs Abd: Soft, moderate upper abdominal tenderness without guarding or rebound, + ASCITES. Normal bowel sounds Skin: No petechiae or rashes Back: No midline or flank tenderness Ext: No cyanosis, or edema Neur: Awake and alert and oriented 3, no focal deficits Psych: Normal Mood and Affect Results Result Diagram: 04/09/17 0708 04/09/17 0708 Results 24 hrs Laboratory Tests Test 04/09/17 07:08 04/09/17 10:22 White Blood Count 12.9 #H Red Blood Count 3.36 L Hemoglobin 9.3 L Hematocrit 28.7 L Mean Corpuscular Volume 85.4 Mean Corpuscular Hemoglobin 27.7 L Mean Corpuscular Hemoglobin Concent 32.4 Red Cell Distribution Width 16.6 H Platelet Count 177 Mean Platelet Volume 9.4 Neutrophils % 93.5 H Lymphocytes % 2.6 L Monocytes % 0.7 Eosinophils % 0.0 Basophils % 0.2 Nucleated Red Blood Cells % 0.2 H Neutrophils # 12.1 H Lymphocytes # 0.3 L Monocytes # 0.1 L Eosinophils # 0.0 Basophils # 0.0 Nucleated Red Blood Cells # 0.0 Sodium Level 128 L Potassium Level 3.2 L Chloride Level 87 L Carbon Dioxide Level 36 H Anion Gap 8 Blood Urea Nitrogen 22 #H Creatinine 0.58 Glucose Level 83 Calcium Level 7.1 L Urine Color YELLOW Urine Clarity CLEAR Urine pH 6.0 Urine Specific [place] 1.025 Urine Ketones TRACE A Urine Nitrite NEGATIVE Urine Bilirubin NEGATIVE Urine Urobilinogen 1+ H Urine Leukocyte Esterase NEGATIVE Urine Microscopic RBC 1 Urine Microscopic WBC 4 Urine Squamous Epithelial Cells FEW Urine Hemoglobin NEGATIVE Urine Random Creatinine 105.39 Urine Random Sodium < 13 L Urine Glucose NEGATIVE Urine Total Protein 9.0 Medications Medications Current Medications Potassium Chloride/Sodium Chloride (NS-KCl 20 Meq) 1,000 ml @ 75 mls/hr [id number] IV Last administered on 04/09/17 14:16; Admin Dose 75 MLS/HR; Start at 23:00 Ondansetron HCl (Zofran Inj) 4 mg Q6H PRN IV NAUSEA AND/OR VOMITING Last administered on 04/09/17 13:03; Admin Dose 4 MG; Start 04/07/17 at 23:00 Morphine Sulfate (morphine) 2 mg Q4H PRN IV PAIN Last administered on 22:00; Admin Dose 2 MG; Start 04/07/17 at 23:00 Filgrastim (Neupogen) 300 mcg DAILY@17 SC Last administered on 04/09/17 18:03 ; Admin Dose 300 MCG; Start 04/08/17 at 17:00 GRETEL LITTLEJOHN MD Apr 09, 2017 22:43
[2017-04-10] VITALS (11 sets, daily range): BP systolic 103–138; BP diastolic 69–86; PULSE 66–84; RESP 16–18
[2017-04-10] MEDS: NS + KCL 20 MEQ 1,000 ML IV SCH ×3 (04:20→21:29)
[2017-04-10 07:40] LABS: ADD SCAN DIFF NO
[2017-04-10 07:48] LABS: ABNORMAL IP MESSAGE 1; HEMATOCRIT 27.8 % (37.0-47.0); HEMOGLOBIN 9.1 g/dl (12.0-16.0); MEAN CORPUSCULAR HEMOGLOBIN 28.2 pg (29.0-33.0); MEAN CORPUSCULAR HGB CONC 32.7 g/dl (32.0-37.0); MEAN CORPUSCULAR VOLUME 86.1 fl (82.0-101.0); MEAN PLATELET VOLUME 9.3 fl (7.4-10.4); PLATELET COUNT 120 10^3/UL (140-415); RED BLOOD COUNT 3.23 10^6/ul (4.20-5.40); RED CELL DISTRIBUTION WIDTH 16.7 % (11.5-14.5)
[2017-04-10] MEDS: morphine 2 MG INJ IV PRN ×2 (07:56→15:18)
[2017-04-10 08:17] LABS: CALCIUM 7.4 mg/dl (8.4-10.2); CREATININE 0.48 mg/dl (0.44-1.00); MAGNESIUM 2.1 mg/dl (1.7-2.5); PHOSPHORUS 2.3 mg/dl (2.5-4.9); POTASSIUM 3.9 mmol/L (3.5-5.1)
[2017-04-10] MEDS ORDERED: NEUTRA-PHOS 250 MG PACKET PO SCH (10:00)
[2017-04-10 10:23] LABS: LYMPHOCYTES # 0.3 10^3/ul (0.8-2.9); NEUTROPHIL # 26.8 10^3/ul (1.6-7.5)
--- NOTE | 2017-04-10 13:57 | CONS ---
Date/Time of Note Date/Time of Note DATE: 04/10/17 TIME: 13:56 Assessment/Plan Assessment/Plan Chief Complaint/Hosp Course AAlert, feels better no vomiting diarrhea abdominal pain improving Temperature 98.5 pulse 74 respirations 16 blood pressure 99% on room air WBC 27.6 H&H 9.1 and 27.8 platelets 120 neutrophils 97 BN 19 creatinine 0.40 Physical examination: Cachectic well-developed elderly woman who is alert in no distress. Head atraumatic, normocephalic. Sclera nonicteric. Neck is supple. Chest rise symmetrical, breath sounds clear. Heart: S1-S2. Abdomen distended , soft bowel tones present. Extremities no cyanosis Assessment: 1. Abdominal pain with nausea nausea and vomiting likely secondary to #2 2. Metastatic gastric CA with malignant ascites and peritoneal carcinomatosis 3. Leukocytosis secondary to Neupogen 4. Right chest Port-A-Cath 5. Cachexia 6. Moderate right pleural effusion and mild pericardial effusion Plan: Remains stable, followed by gastroenterology and oncology, no evidence of active infectious process, continue present care as per primary team and consultants, reculture as needed Problems: Consultation Date/Type/Reason Admit Date/Time Apr 07, 2017 at 19:17 Type of Consultation: id Referring Provider: CINDY ESTRELLA MD Exam/Review of Systems Vital Signs Vitals Vital Signs Date Time Temp Pulse Resp B/P Pulse Ox O2 Delivery O2 Flow Rate FiO2 04/10/17 12:23 75 04/10/17 11:25 98.5 16 106/71 99 04/09/17 20:20 Nasal Cannula 2.0 Intake and Output 04/09/17 04/09/17 04/10/17 15:00 23:00 07:00 Intake Total 550 ml 500 ml 300 ml Balance 550 ml 500 ml 300 ml Results Result Diagram: 04/10/17 0710 04/10/17 0710 Results 24 hrs Laboratory Tests Test 04/10/17 07:10 White Blood Count 27.6 #H Red Blood Count 3.23 L Hemoglobin 9.1 L Hematocrit 27.8 L Mean Corpuscular Volume 86.1 Mean Corpuscular Hemoglobin 28.2 L Mean Corpuscular Hemoglobin Concent 32.7 Red Cell Distribution Width 16.7 H Platelet Count 120 #L Mean Platelet Volume 9.3 Neutrophils % 97.0 H Band Neutrophils % 2.0 Lymphocytes % 1.0 L Eosinophils % Basophils % Neutrophils # 26.8 H Lymphocytes # 0.3 L Eosinophils # Basophils # Sodium Level 131 L Potassium Level 3.9 Chloride Level 88 L Carbon Dioxide Level 34 H Anion Gap 13 Blood Urea Nitrogen 19 Creatinine 0.48 Glucose Level 110 Calcium Level 7.4 L Phosphorus Level 2.3 L Magnesium Level 2.1 Medications Medications Current Medications Potassium Chloride/Sodium Chloride (NS-KCl 20 Meq) 1,000 ml @ 75 mls/hr [id number] IV Last administered on 04/10/17 07:54; Admin Dose 75 MLS/HR; Start at 23:00 Ondansetron HCl (Zofran Inj) 4 mg Q6H PRN IV NAUSEA AND/OR VOMITING Last administered on 04/09/17 13:03; Admin Dose 4 MG; Start 04/07/17 at 23:00 Morphine Sulfate (morphine) 2 mg Q4H PRN IV PAIN Last administered on 07:56; Admin Dose 2 MG; Start 04/07/17 at 23:00 Filgrastim (Neupogen) 300 mcg DAILY@17 SC Last administered on 04/09/17 18:03 ; Admin Dose 300 MCG; Start 04/08/17 at 17:00 JANELLE ALANIZ NP Apr 10, 2017 13:57
[2017-04-10] MEDS: ONDANSETRON 4 MG INJ IV PRN (15:22)
--- NOTE | 2017-04-10 15:29 | PN ---
Date/Time of Note Date/Time of Note DATE: 04/10/17 TIME: 15:23 Assessment/Plan VTE Prophylaxis VTE Prophylaxis Intervention: SCD's Lines/Catheters [facility] Portha cath Urinary Cath still in place: No Assessment/Plan Chief Complaint/Hosp Course Patient continues to have poor appetite, pain is well controlled, denies nausea , able to tolerate liquid diet Assessment/Plan -Status post EGD yesterday with notion of extreme esophagitis, follow-up gastroenterology recommendations. -Metastatic gastric adenocarcinoma, status post chemotherapy by Dr. Ford, oncology. -Nausea and vomiting, rule out gastric outlet obstruction. Dr. Millan is following in gastroenterology consultation. Continue Zofran for for nausea and morphine as needed for pain. -Hyponatremia secondary to dehydration, continue IV fluids, monitor electrolytes. -Possible malignant ascites with peritoneal carcinomatosis -Protein calorie severe malnutrition, nutritional consult. -Leukopenia and anemia most likely secondary to chemotherapy. Patient currently has leukocytosis, started on Neupogen on the . Further recommendations based on clinical course. Plan of care discussed with Dr. Garner. Problems: Exam/Review of Systems Vital Signs Vitals Vital Signs Date Time Temp Pulse Resp B/P Pulse Ox O2 Delivery O2 Flow Rate FiO2 04/10/17 15:13 98.5 77 16 118/70 100 04/09/17 20:20 Nasal Cannula 2.0 Intake and Output 04/09/17 04/09/17 04/10/17 15:00 23:00 07:00 Intake Total 550 ml 500 ml 300 ml Balance 550 ml 500 ml 300 ml Exam Constitutional: alert, frail, oriented, other (Cachectic) Neck: supple Respiratory: normal air movement Cardiovascular: nl pulses Gastrointestinal: distended, soft, tender Musculoskeletal: nl extremities to inspection Extremities: edema 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: nl mental status Skin: nl turgor Results Result Diagram: 04/10/17 0710 04/10/17 0710 Results 24 hrs Laboratory Tests Test 04/10/17 07:10 White Blood Count 27.6 #H Red Blood Count 3.23 L Hemoglobin 9.1 L Hematocrit 27.8 L Mean Corpuscular Volume 86.1 Mean Corpuscular Hemoglobin 28.2 L Mean Corpuscular Hemoglobin Concent 32.7 Red Cell Distribution Width 16.7 H Platelet Count 120 #L Mean Platelet Volume 9.3 Neutrophils % 97.0 H Band Neutrophils % 2.0 Lymphocytes % 1.0 L Eosinophils % Basophils % Neutrophils # 26.8 H Lymphocytes # 0.3 L Eosinophils # Basophils # Sodium Level 131 L Potassium Level 3.9 Chloride Level 88 L Carbon Dioxide Level 34 H Anion Gap 13 Blood Urea Nitrogen 19 Creatinine 0.48 Glucose Level 110 Calcium Level 7.4 L Phosphorus Level 2.3 L Magnesium Level 2.1 Medications Medications Current Medications Potassium Chloride/Sodium Chloride (NS-KCl 20 Meq) 1,000 ml @ 75 mls/hr [id number] IV Last administered on 04/10/17 07:54; Admin Dose 75 MLS/HR; Start at 23:00 Ondansetron HCl (Zofran Inj) 4 mg Q6H PRN IV NAUSEA AND/OR VOMITING Last administered on 04/09/17 13:03; Admin Dose 4 MG; Start 04/07/17 at 23:00 Morphine Sulfate (morphine) 2 mg Q4H PRN IV PAIN Last administered on 15:18; Admin Dose 2 MG; Start 04/07/17 at 23:00 Filgrastim (Neupogen) 300 mcg DAILY@17 SC Last administered on 04/09/17 18:03 ; Admin Dose 300 MCG; Start 04/08/17 at 17:00 GHAZALA HORNE Apr 10, 2017 15:29
[2017-04-10 16:38] LABS: MICROALBUMIN 2.2 mg/dL
[2017-04-10] MEDS: SUCRALFATE 1 GM TAB PO SCH ×2 (17:22→20:10)
[2017-04-10] MEDS: PANTOPRAZOLE 40 MG INJ IV SCH (17:22)
[2017-04-10] MEDS: FILGRASTIM 300 MCG INJ SC SCH (17:23)
--- NOTE | 2017-04-10 17:36 | CONS ---
Date/Time of Note Date/Time of Note DATE: 04/10/17 TIME: 17:35 Assessment/Plan Assessment/Plan Additional Assessment/Plan Additional Assessment/Plan 1. 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 Intractable nausea vomiting 3. Dysphagia 4. Hypertension 5. Cachexia 6. Extensive esophageal ulceration Plan Continue PPI 40 mg twice daily Carafate suspension Reglan Self-expanding metallic stent on Saturday Consultation Date/Type/Reason Admit Date/Time Apr 07, 2017 at 19:17 Type of Consultation: id Referring Provider: CINDY ESTRELLA MD 24 HR Interval Summary Free Text/Dictation Nausea vomiting Exam/Review of Systems Vital Signs Vitals Vital Signs Date Time Temp Pulse Resp B/P Pulse Ox O2 Delivery O2 Flow Rate FiO2 04/10/17 16:16 66 04/10/17 15:13 98.5 16 118/70 100 04/09/17 20:20 Nasal Cannula 2.0 Intake and Output 04/09/17 04/09/17 04/10/17 15:00 23:00 07:00 Intake Total 550 ml 500 ml 300 ml Balance 550 ml 500 ml 300 ml Exam Constitutional: alert, oriented, well developed Psych: nl mood/affect, no complaints Head: atraumatic, normocephalic Eyes: EOMI, PERRL, nl conjunctiva, nl lids, nl sclera ENMT: nl external ears & nose, nl lips & teeth, nl nasal mucosa & septum Neck: non-tender, supple Respiratory: clear to auscultation, normal air movement Cardiovascular: nl pulses, regular rate and rhythm Gastrointestinal: nl liver, spleen, non-tender, soft Musculoskeletal: nl extremities to inspection, nl gait and stance Extremities: normal pulses 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: FREIGHT SERVICE INSPECTOR II-XII intact, nl mental status, nl speech, nl strength Skin: nl turgor, No rash or lesions Lymph: nl lymph nodes Results Result Diagram: 04/10/17 0710 04/10/17 0710 Results 24 hrs Laboratory Tests Test 04/10/17 07:10 White Blood Count 27.6 #H Red Blood Count 3.23 L Hemoglobin 9.1 L Hematocrit 27.8 L Mean Corpuscular Volume 86.1 Mean Corpuscular Hemoglobin 28.2 L Mean Corpuscular Hemoglobin Concent 32.7 Red Cell Distribution Width 16.7 H Platelet Count 120 #L Mean Platelet Volume 9.3 Neutrophils % 97.0 H Band Neutrophils % 2.0 Lymphocytes % 1.0 L Eosinophils % Basophils % Neutrophils # 26.8 H Lymphocytes # 0.3 L Eosinophils # Basophils # Sodium Level 131 L Potassium Level 3.9 Chloride Level 88 L Carbon Dioxide Level 34 H Anion Gap 13 Blood Urea Nitrogen 19 Creatinine 0.48 Glucose Level 110 Calcium Level 7.4 L Phosphorus Level 2.3 L Magnesium Level 2.1 Medications Medications Current Medications Potassium Chloride/Sodium Chloride (NS-KCl 20 Meq) 1,000 ml @ 75 mls/hr [id number] IV Last administered on 04/10/17 07:54; Admin Dose 75 MLS/HR; Start at 23:00 Ondansetron HCl (Zofran Inj) 4 mg Q6H PRN IV NAUSEA AND/OR VOMITING Last administered on 04/10/17 15:22; Admin Dose 4 MG; Start 04/07/17 at 23:00 Morphine Sulfate (morphine) 2 mg Q4H PRN IV PAIN Last administered on 15:18; Admin Dose 2 MG; Start 04/07/17 at 23:00 Filgrastim (Neupogen) 300 mcg DAILY@17 SC Last administered on 04/10/17 17:23 ; Admin Dose 300 MCG; Start 04/08/17 at 17:00 Pantoprazole (Protonix Iv) 40 mg BID@06,18 IV Last administered on 04/10/17 17 :22; Admin Dose 40 MG; Start 04/10/17 at 18:00 Sucralfate (Carafate) 1 gm QID PO Last administered on 04/10/17 17:22; Admin Dose 1 GM; Start 04/10/17 at 17:00 Metoclopramide HCl (Reglan) 5 mg TID PO ; Start 04/10/17 at 21:00 GIANNA CHANEL MD Apr 10, 2017 17:36
[2017-04-10] MEDS: METOCLOPRAMIDE 5 MG TAB PO SCH (20:10)
--- NOTE | 2017-04-10 21:12 | CONS ---
Date/Time of Note Date/Time of Note DATE: 04/10/17 TIME: 21:11 Assessment/Plan Assessment/Plan Chief Complaint/Hosp Course Metastatic gastric adenocarcinoma with peritoneal carcinomatosis. POST CHEMO Abdominopelvic ascites - malignant LEUKOPENIA POST CHEMO DC NEUPOGEN, monitor blood count ANEMIA POST CHEMO MONITOR Intractable nausea, vomiting, dehydration ANTIEMETICS, IVF POST EGD- REPORT - P Moderate right pleural effusion. Mild pericardial effusion. Diffuse subcutaneous edema. Abdominal pain. PAIN CONTROL hx Left lower extremity edema.- better HYPONATREMIA NEPHRO Problems: Consultation Date/Type/Reason Admit Date/Time Apr 07, 2017 at 19:17 Type of Consultation: HEMEON Referring Provider: CINDY ESTRELLA MD 24 HR Interval Summary Free Text/Dictation ALL NOTED FELLING BETTER Exam/Review of Systems Vital Signs Vitals Vital Signs Date Time Temp Pulse Resp B/P Pulse Ox O2 Delivery O2 Flow Rate FiO2 04/10/17 20:21 77 04/10/17 19:57 98.2 18 103/69 99 04/10/17 19:44 Nasal Cannula 2.0 Intake and Output 04/09/17 04/09/17 04/10/17 15:00 23:00 07:00 Intake Total 550 ml 500 ml 300 ml Balance 550 ml 500 ml 300 ml Exam Const: [] WEAK Head: Atraumatic Eyes: Normal Conjunctiva, EOMI, PRL ENT: Normal External Ears, Nose and Mouth. Neck: Full range of motion..~ No meningismus. Resp: Clear to auscultation bilaterally Cardio: Regular tachycardia m, no murmurs Abd: Soft, moderate upper abdominal tenderness without guarding or rebound, + ASCITES. Normal bowel sounds Skin: No petechiae or rashes Back: No midline or flank tenderness Ext: No cyanosis, or edema Neur: Awake and alert and oriented 3, no focal deficits Psych: Normal Mood and Affect Results Result Diagram: 04/10/17 0710 04/10/17 0710 Results 24 hrs Laboratory Tests Test 04/10/17 07:10 White Blood Count 27.6 #H Red Blood Count 3.23 L Hemoglobin 9.1 L Hematocrit 27.8 L Mean Corpuscular Volume 86.1 Mean Corpuscular Hemoglobin 28.2 L Mean Corpuscular Hemoglobin Concent 32.7 Red Cell Distribution Width 16.7 H Platelet Count 120 #L Mean Platelet Volume 9.3 Neutrophils % 97.0 H Band Neutrophils % 2.0 Lymphocytes % 1.0 L Eosinophils % Basophils % Neutrophils # 26.8 H Lymphocytes # 0.3 L Eosinophils # Basophils # Sodium Level 131 L Potassium Level 3.9 Chloride Level 88 L Carbon Dioxide Level 34 H Anion Gap 13 Blood Urea Nitrogen 19 Creatinine 0.48 Glucose Level 110 Calcium Level 7.4 L Phosphorus Level 2.3 L Magnesium Level 2.1 Medications Medications Current Medications Potassium Chloride/Sodium Chloride (NS-KCl 20 Meq) 1,000 ml @ 75 mls/hr [id number] IV Last administered on 04/10/17 07:54; Admin Dose 75 MLS/HR; Start at 23:00 Ondansetron HCl (Zofran Inj) 4 mg Q6H PRN IV NAUSEA AND/OR VOMITING Last administered on 04/10/17 15:22; Admin Dose 4 MG; Start 04/07/17 at 23:00 Morphine Sulfate (morphine) 2 mg Q4H PRN IV PAIN Last administered on 15:18; Admin Dose 2 MG; Start 04/07/17 at 23:00 Filgrastim (Neupogen) 300 mcg DAILY@17 SC Last administered on 04/10/17 17:23 ; Admin Dose 300 MCG; Start 04/08/17 at 17:00 Pantoprazole (Protonix Iv) 40 mg BID@06,18 IV Last administered on 04/10/17 17 :22; Admin Dose 40 MG; Start 04/10/17 at 18:00 Sucralfate (Carafate) 1 gm QID PO Last administered on 04/10/17 20:10; Admin Dose 1 GM; Start 04/10/17 at 17:00 Metoclopramide HCl (Reglan) 5 mg TID PO Last administered on 04/10/17 20:10; Admin Dose 5 MG; Start 04/10/17 at 21:00 GRETEL LITTLEJOHN MD Apr 10, 2017 21:12
[2017-04-11] VITALS (13 sets, daily range): BP systolic 99–138; BP diastolic 56–71; PULSE 73–85; RESP 16–20
[2017-04-11] MEDS: PANTOPRAZOLE 40 MG INJ IV SCH ×2 (05:30→16:58)
[2017-04-11] MEDS: SUCRALFATE 1 GM TAB PO SCH ×4 (07:56→22:29)
[2017-04-11] MEDS: METOCLOPRAMIDE 5 MG TAB PO SCH ×3 (07:56→22:29)
[2017-04-11 08:06] LABS: ADD SCAN DIFF NO
[2017-04-11 08:14] LABS: ABNORMAL IP MESSAGE 1; HEMATOCRIT 25.3 % (37.0-47.0); HEMOGLOBIN 8.3 g/dl (12.0-16.0); MEAN CORPUSCULAR HEMOGLOBIN 28.5 pg (29.0-33.0); MEAN CORPUSCULAR HGB CONC 32.8 g/dl (32.0-37.0); MEAN CORPUSCULAR VOLUME 86.9 fl (82.0-101.0); PLATELET COUNT 108 10^3/UL (140-415); RED BLOOD COUNT 2.91 10^6/ul (4.20-5.40); WHITE BLOOD COUNT 31.4 10^3/ul (4.8-10.8)
[2017-04-11 08:36] LABS: CALCIUM 7.1 mg/dl (8.4-10.2); CREATININE 0.45 mg/dl (0.44-1.00); MAGNESIUM 1.9 mg/dl (1.7-2.5); PHOSPHORUS 2.1 mg/dl (2.5-4.9); POTASSIUM 3.8 mmol/L (3.5-5.1)
--- NOTE | 2017-04-11 09:06 | PN ---
Date/Time of Note Date/Time of Note DATE: 04/11/17 TIME: 09:02 Assessment/Plan VTE Prophylaxis VTE Prophylaxis Intervention: other Lines/Catheters [facility]from [facility] alex cath Urinary Cath still in place: No Assessment/Plan Chief Complaint/Hosp Course 1. Hyponatremia Etiology secondary volume depletion Sodium levels improved with IV fluids Continue to monitor Hypokalemia Improved continue potassium supplementation Hypophosphatemia Replete with sodium phosphate Metastatic gastric carcinoma with peritoneal carcinomatosis Follow-up with oncology Anemia Monitor H&H levels Nausea vomiting Continue antiemetics Problems: Subjective 24 Hr Interval Summary Free Text/Dictation Patient seen and examined Exam/Review of Systems Vital Signs Vitals Vital Signs Date Time Temp Pulse Resp B/P Pulse Ox O2 Delivery O2 Flow Rate FiO2 04/11/17 08:11 80 04/11/17 07:09 98.2 19 100/67 98 04/10/17 19:44 Nasal Cannula 2.0 Intake and Output 04/10/17 04/10/17 04/11/17 15:00 23:00 07:00 Intake Total 300 ml 300 ml Output Total 2 ml Balance 298 ml 300 ml Exam Constitutional: alert, oriented, well developed Psych: nl mood/affect, no complaints Head: atraumatic, normocephalic Eyes: EOMI, PERRL, nl conjunctiva, nl lids, nl sclera ENMT: nl external ears & nose, nl lips & teeth, nl nasal mucosa & septum Neck: non-tender, supple Respiratory: clear to auscultation, normal air movement Cardiovascular: nl pulses, regular rate and rhythm Gastrointestinal: nl liver, spleen, non-tender, soft Musculoskeletal: nl extremities to inspection, nl gait and stance Extremities: normal pulses 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: INTERMODAL TRUCK DRIVER II-XII intact, nl mental status, nl speech, nl strength Skin: nl turgor, No rash or lesions Lymph: nl lymph nodes Results Result Diagram: 04/11/1770304/11/17 0704 Results 24 hrs Laboratory Tests Test 04/11/17 07:04 White Blood Count 31.4 H Red Blood Count 2.91 L Hemoglobin 8.3 L Hematocrit 25.3 L Mean Corpuscular Volume 86.9 Mean Corpuscular Hemoglobin 28.5 L Mean Corpuscular Hemoglobin Concent 32.8 Red Cell Distribution Width 17.0 H Platelet Count 108 L Mean Platelet Volume 10.0 Neutrophils % Eosinophils % Basophils % Neutrophils # Eosinophils # Basophils # Sodium Level 132 L Potassium Level 3.8 Chloride Level 94 L Carbon Dioxide Level 31 Anion Gap 11 Blood Urea Nitrogen 15 Creatinine 0.45 Glucose Level 88 Calcium Level 7.1 L Phosphorus Level 2.1 L Magnesium Level 1.9 Medications Medications Current Medications Potassium Chloride/Sodium Chloride (NS-KCl 20 Meq) 1,000 ml @ 75 mls/hr [id number] IV Last administered on 04/10/17 21:29; Admin Dose 75 MLS/HR; Start at 23:00 Ondansetron HCl (Zofran Inj) 4 mg Q6H PRN IV NAUSEA AND/OR VOMITING Last administered on 04/10/17 15:22; Admin Dose 4 MG; Start 04/07/17 at 23:00 Morphine Sulfate (morphine) 2 mg Q4H PRN IV PAIN Last administered on 15:18; Admin Dose 2 MG; Start 04/07/17 at 23:00 Filgrastim (Neupogen) 300 mcg DAILY@17 SC Last administered on 04/10/17 17:23 ; Admin Dose 300 MCG; Start 04/08/17 at 17:00 Pantoprazole (Protonix Iv) 40 mg BID@06,18 IV Last administered on 04/11/17 05 :30; Admin Dose 40 MG; Start 04/10/17 at 18:00 Sucralfate (Carafate) 1 gm QID PO Last administered on 04/11/17 07:56; Admin Dose 1 GM; Start 04/10/17 at 17:00 Metoclopramide HCl (Reglan) 5 mg TID PO Last administered on 04/11/17 07:56; Admin Dose 5 MG; Start 04/10/17 at 21:00 FORTUNATO MUÑIZ DO Apr 11, 2017 09:06
[2017-04-11 10:49] LABS: WHITE BLOOD COUNT 27.6 10^3/ul (4.8-10.8)
--- NOTE | 2017-04-11 10:49 | CONS ---
DATE OF ADMISSION: 04/07/2017 DATE OF CONSULTATION: REASON FOR CONSULTATION: Hyponatremia, hypokalemia. REQUESTING PHYSICIAN: . HISTORY OF PRESENT ILLNESS: This is a 61-year-old female with a past medical history of gastric cancer diagnosed in July 2016. Patient is undergoing chemotherapy, being followed by her primary oncologist, . Patient has received chemotherapy 4 days ago. Then she developed dysphagia, unable to tolerate any p.o.'s with increasing abdominal pain, nausea, and vomiting. As a result, she came in to [facility] Emergency Room and was subsequently admitted to telemetry for evaluation. In terms of the patient's renal history, upon arrival the patient was noted to be hyponatremic with a sodium level 125. The patient has been receiving IV fluids and had steady increase in sodium level to 128 mEq/L. There have been no reports of rashes, hematemesis, or hematochezia. PAST MEDICAL HISTORY: 1. Above history of cancer. 2. Hypertension. PAST SURGICAL HISTORY: Status post colonoscopy. FAMILY HISTORY: Noncontributory. SOCIAL HISTORY: Does not drink, smoke, or do drugs. MEDICATIONS: The patient's medications have been reviewed. REVIEW OF SYSTEMS: A 14-point review of systems conducted. Pertinent positives stated in HPI, otherwise negative. PHYSICAL EXAMINATION: VITALS: Blood pressure 103/74, respirations 18, pulse 74, temperature 98.4. HEENT: Head is normocephalic. NECK: Supple. HEART: Regular rate. LUNGS: Diminished breath sounds at the bases. ABDOMEN: Soft. No tenderness to palpation, rebound, or guarding. EXTREMITIES: Negative for clubbing, cyanosis. No edema. DERMATOLOGIC: No rashes. MUSCULOSKELETAL: No joint effusion. NEUROLOGIC: No change in exam. LABORATORY DATA: White count 12.9, hemoglobin 9.3, hematocrit of 20.7, platelet count of 177. Sodium 128, potassium 3.2, chloride 87, bicarb 36. BUN 2, creatinine 0.58. is 1.2. ASSESSMENT AND PLAN: This is a 61-year-old female who presents with: 1. Hyponatremia. Etiology is multifactorial secondary to volume depletion, hypokalemia. Patient's sodium levels have improved with IV fluids. Continue current treatment plan using gentle hydration. Will check urine electrolytes, urine sodium, urine osmolarity. Will continue to replete potassium chloride. Will monitor serial sodium levels closely. 2. Hypokalemia. Replete potassium chloride. 3. Hypochloremia. Etiology is secondary to volume depletion. Continue IV fluids. 4. Alkalosis, likely secondary to chloride deficiency and hypokalemia. Continue IV fluids. 5. Persistent nausea and vomiting. Continue antiemetics. Continue IV fluids. Follow up with GI. 6. History of gastric cancer. Follow up with Dr . 7. Possible malignant ascites with peritoneal carcinomatosis. Continue to monitor. 8. Leukopenia/anemia possibly due to related chemotherapy. Continue to observe. Thank you, Dr , for this interesting consult. Will be a pleasure to follow patient with you throughout the hospital course. Dictated By: Kulwinder Ji DO /madalyn/wilber /Document#: [id number]
[2017-04-11] MEDS: NEUTRA-PHOS 250 MG PACKET PO SCH ×2 (11:12→22:29)
[2017-04-11] MEDS: NS + KCL 20 MEQ 1,000 ML IV SCH (11:13)
[2017-04-11 11:22] LABS: LYMPHOCYTES # 0.6 10^3/ul (0.8-2.9); NEUTROPHIL # 24.5 10^3/ul (1.6-7.5)
--- NOTE | 2017-04-11 15:24 | PN ---
Date/Time of Note Date/Time of Note DATE: 04/11/17 TIME: 15:21 Assessment/Plan VTE Prophylaxis VTE Prophylaxis Intervention: other Lines/Catheters IV Catheter Type (from [facility]): porth a cath Urinary Cath still in place: No Assessment/Plan Assessment/Plan -Leukocytosis-per ID, patient is afebrile, bp stable. -Status post EGD yesterday with notion of extreme esophagitis, follow-up gastroenterology recommendations. -Metastatic gastric adenocarcinoma, status post chemotherapy by Dr. Ford, oncology. -Nausea and vomiting, rule out gastric outlet obstruction. Dr. Millan is following in gastroenterology consultation. Continue Zofran for for nausea and morphine as needed for pain. -Hyponatremia secondary to dehydration, continue IV fluids, monitor electrolytes. -Possible malignant ascites with peritoneal carcinomatosis -Protein calorie severe malnutrition, nutritional consult. -Leukopenia and anemia most likely secondary to chemotherapy. Patient currently has leukocytosis, started on Neupogen on the . Further recommendations based on clinical course. Plan of care discussed with Dr. Garner. Subjective 24 Hr Interval Summary Free Text/Dictation alert. awake, afebrile, c/o nausea at times, dw staff Exam/Review of Systems Vital Signs Vitals Vital Signs Date Time Temp Pulse Resp B/P Pulse Ox O2 Delivery O2 Flow Rate FiO2 04/11/17 12:34 78 04/11/17 11:19 98.4 18 138/64 94 04/10/17 19:44 Nasal Cannula 2.0 Intake and Output 04/10/17 04/10/17 04/11/17 15:00 23:00 07:00 Intake Total 300 ml 300 ml Output Total 2 ml Balance 298 ml 300 ml Exam Constitutional: alert, well developed Respiratory: clear to auscultation, normal air movement Cardiovascular: nl pulses, regular rate and rhythm Gastrointestinal: distended Musculoskeletal: nl extremities to inspection Extremities: normal pulses Results Result Diagram: 04/11/17 0704 04/11/17 0704 Results 24 hrs Laboratory Tests Test 04/11/17 07:04 White Blood Count 31.4 H Red Blood Count 2.91 L Hemoglobin 8.3 L Hematocrit 25.3 L Mean Corpuscular Volume 86.9 Mean Corpuscular Hemoglobin 28.5 L Mean Corpuscular Hemoglobin Concent 32.8 Red Cell Distribution Width 17.0 H Platelet Count 108 L Mean Platelet Volume 10.0 Neutrophils % 78.0 H Band Neutrophils % 20.0 H Lymphocytes % 2.0 L Eosinophils % Basophils % Neutrophils # 24.5 H Lymphocytes # 0.6 L Eosinophils # Basophils # Sodium Level 132 L Potassium Level 3.8 Chloride Level 94 L Carbon Dioxide Level 31 Anion Gap 11 Blood Urea Nitrogen 15 Creatinine 0.45 Glucose Level 88 Calcium Level 7.1 L Phosphorus Level 2.1 L Magnesium Level 1.9 Medications Medications Current Medications Potassium Chloride/Sodium Chloride (NS-KCl 20 Meq) 1,000 ml @ 75 mls/hr [id number] IV Last administered on 04/11/17 11:13; Admin Dose 75 MLS/HR; Start at 23:00 Ondansetron HCl (Zofran Inj) 4 mg Q6H PRN IV NAUSEA AND/OR VOMITING Last administered on 04/10/17 15:22; Admin Dose 4 MG; Start 04/07/17 at 23:00 Morphine Sulfate (morphine) 2 mg Q4H PRN IV PAIN Last administered on 15:18; Admin Dose 2 MG; Start 04/07/17 at 23:00 Filgrastim (Neupogen) 300 mcg DAILY@17 SC Last administered on 04/10/17 17:23 ; Admin Dose 300 MCG; Start 04/08/17 at 17:00 Pantoprazole (Protonix Iv) 40 mg BID@06,18 IV Last administered on 04/11/17 05 :30; Admin Dose 40 MG; Start 04/10/17 at 18:00 Sucralfate (Carafate) 1 gm QID PO Last administered on 04/11/17 12:58; Admin Dose 1 GM; Start 04/10/17 at 17:00 Metoclopramide HCl (Reglan) 5 mg TID PO Last administered on 04/11/17 12:58; Admin Dose 5 MG; Start 04/10/17 at 21:00 Sodium Phosphate (Neutra-Phos) 250 mg BID PO Last administered on 04/11/17 11: 12; Admin Dose 250 MG; Start 04/11/17 at 10:30 EDILSON ADEN Apr 11, 2017 15:24
[2017-04-11] MEDS: FILGRASTIM 300 MCG INJ SC SCH (16:54)
--- NOTE | 2017-04-11 19:14 | CONS ---
Date/Time of Note Date/Time of Note DATE: 04/11/17 TIME: 19:13 Assessment/Plan Assessment/Plan Additional Assessment/Plan Additional Assessment/Plan Additional Assessment/Plan 1. 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 Intractable nausea vomiting 3. Dysphagia 4. Hypertension 5. Cachexia 6. Extensive esophageal ulceration Plan Continue PPI 40 mg twice daily Carafate suspension Reglan Self-expanding metallic stent on Saturday Consultation Date/Type/Reason Admit Date/Time Apr 07, 2017 at 19:17 [facility] Referring Provider: CINDY ESTRELLA MD 24 HR Interval Summary Constitutional: improved Exam/Review of Systems Vital Signs Vitals Vital Signs Date Time Temp Pulse Resp B/P Pulse Ox O2 Delivery O2 Flow Rate FiO2 04/11/17 16:09 85 04/11/17 15:19 98.3 18 119/63 92 04/10/17 19:44 Nasal Cannula 2.0 Intake and Output 04/10/17 04/10/17 04/11/17 15:00 23:00 07:00 Intake Total 300 ml 300 ml Output Total 2 ml Balance 298 ml 300 ml Exam Constitutional: alert, oriented, well developed Psych: nl mood/affect, no complaints Head: atraumatic, normocephalic Eyes: EOMI, PERRL, nl conjunctiva, nl lids, nl sclera ENMT: nl external ears & nose, nl lips & teeth, nl nasal mucosa & septum Neck: non-tender, supple Respiratory: clear to auscultation, normal air movement Cardiovascular: nl pulses, regular rate and rhythm Gastrointestinal: nl liver, spleen, non-tender, soft Musculoskeletal: nl extremities to inspection, nl gait and stance Extremities: normal pulses 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: STUDIO DIRECTOR II-XII intact, nl mental status, nl speech, nl strength Skin: nl turgor, No rash or lesions Lymph: nl lymph nodes Results Result Diagram: 04/11/1704 04/11/17 0704 Results 24 hrs Laboratory Tests Test 04/11/17 07:04 White Blood Count 31.4 H Red Blood Count 2.91 L Hemoglobin 8.3 L Hematocrit 25.3 L Mean Corpuscular Volume 86.9 Mean Corpuscular Hemoglobin 28.5 L Mean Corpuscular Hemoglobin Concent 32.8 Red Cell Distribution Width 17.0 H Platelet Count 108 L Mean Platelet Volume 10.0 Neutrophils % 78.0 H Band Neutrophils % 20.0 H Lymphocytes % 2.0 L Eosinophils % Basophils % Neutrophils # 24.5 H Lymphocytes # 0.6 L Eosinophils # Basophils # Sodium Level 132 L Potassium Level 3.8 Chloride Level 94 L Carbon Dioxide Level 31 Anion Gap 11 Blood Urea Nitrogen 15 Creatinine 0.45 Glucose Level 88 Calcium Level 7.1 L Phosphorus Level 2.1 L Magnesium Level 1.9 Medications Medications Current Medications Potassium Chloride/Sodium Chloride (NS-KCl 20 Meq) 1,000 ml @ 75 mls/hr [id number] IV Last administered on 04/11/17 11:13; Admin Dose 75 MLS/HR; Start at 23:00 Ondansetron HCl (Zofran Inj) 4 mg Q6H PRN IV NAUSEA AND/OR VOMITING Last administered on 04/10/17 15:22; Admin Dose 4 MG; Start 04/07/17 at 23:00 Morphine Sulfate (morphine) 2 mg Q4H PRN IV PAIN Last administered on 15:18; Admin Dose 2 MG; Start 04/07/17 at 23:00 Filgrastim (Neupogen) 300 mcg DAILY@17 SC Last administered on 04/11/17 16:54 ; Admin Dose 300 MCG; Start 04/08/17 at 17:00 Pantoprazole (Protonix Iv) 40 mg BID@06,18 IV Last administered on 04/11/17 16 :58; Admin Dose 40 MG; Start 04/10/17 at 18:00 Sucralfate (Carafate) 1 gm QID PO Last administered on 04/11/17 16:55; Admin Dose 1 GM; Start 04/10/17 at 17:00 Metoclopramide HCl (Reglan) 5 mg TID PO Last administered on 04/11/17 12:58; Admin Dose 5 MG; Start 04/10/17 at 21:00 Sodium Phosphate (Neutra-Phos) 250 mg BID PO Last administered on 04/11/17 11: 12; Admin Dose 250 MG; Start 04/11/17 at 10:30 GIANNA CHANEL MD Apr 11, 2017 19:14
[2017-04-11] MEDS: ONDANSETRON 4 MG INJ IV PRN (20:09)
--- NOTE | 2017-04-11 21:31 | CONS ---
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 POST CHEMO Abdominopelvic ascites - malignant LEUKOPENIA- RESOLVED POST CHEMO DC NEUPOGEN, monitor blood count LEUKOCYTOSIS- 2 TO NEUPOGEN ANEMIA POST CHEMO MONITOR Intractable nausea, vomiting, dehydration ANTIEMETICS, IVF POST EGD- REPORT - P Moderate right pleural effusion. Mild pericardial effusion. Diffuse subcutaneous edema. Abdominal pain. PAIN CONTROL hx Left lower extremity edema.- better HYPONATREMIA NEPHRO Problems: Consultation Date/Type/Reason Admit Date/Time Apr 07, 2017 at 19:17 Type of Consultation: [facility] Referring Provider: CINDY ESTRELLA MD 24 HR Interval Summary Free Text/Dictation ALL NOTED Exam/Review of Systems Vital Signs Vitals Vital Signs Date Time Temp Pulse Resp B/P Pulse Ox O2 Delivery O2 Flow Rate FiO2 04/11/17 21:07 73 04/11/17 20:02 98.1 16 101/65 100 04/10/17 19:44 Nasal Cannula 2.0 Intake and Output 04/10/17 04/10/17 04/11/17 15:00 23:00 07:00 Intake Total 300 ml 300 ml Output Total 2 ml Balance 298 ml 300 ml Exam Const: [] WEAK Head: Atraumatic Eyes: Normal Conjunctiva, EOMI, PRL ENT: Normal External Ears, Nose and Mouth. Neck: Full range of motion..~ No meningismus. Resp: Clear to auscultation bilaterally Cardio: Regular tachycardia m, no murmurs Abd: Soft, moderate upper abdominal tenderness without guarding or rebound, + ASCITES. Normal bowel sounds Skin: No petechiae or rashes Back: No midline or flank tenderness Ext: No cyanosis, or edema Neur: Awake and alert and oriented 3, no focal deficits Psych: Normal Mood and Affect Results Result Diagram: 04/11/17 0704 04/11/17 0704 Results 24 hrs Laboratory Tests Test 04/11/17 07:04 White Blood Count 31.4 H Red Blood Count 2.91 L Hemoglobin 8.3 L Hematocrit 25.3 L Mean Corpuscular Volume 86.9 Mean Corpuscular Hemoglobin 28.5 L Mean Corpuscular Hemoglobin Concent 32.8 Red Cell Distribution Width 17.0 H Platelet Count 108 L Mean Platelet Volume 10.0 Neutrophils % 78.0 H Band Neutrophils % 20.0 H Lymphocytes % 2.0 L Eosinophils % Basophils % Neutrophils # 24.5 H Lymphocytes # 0.6 L Eosinophils # Basophils # Sodium Level 132 L Potassium Level 3.8 Chloride Level 94 L Carbon Dioxide Level 31 Anion Gap 11 Blood Urea Nitrogen 15 Creatinine 0.45 Glucose Level 88 Calcium Level 7.1 L Phosphorus Level 2.1 L Magnesium Level 1.9 Medications Medications Current Medications Potassium Chloride/Sodium Chloride (NS-KCl 20 Meq) 1,000 ml @ 75 mls/hr [id number] IV Last administered on 04/11/17 11:13; Admin Dose 75 MLS/HR; Start at 23:00 Ondansetron HCl (Zofran Inj) 4 mg Q6H PRN IV NAUSEA AND/OR VOMITING Last administered on 04/11/17 20:09; Admin Dose 4 MG; Start 04/07/17 at 23:00 Morphine Sulfate (morphine) 2 mg Q4H PRN IV PAIN Last administered on 15:18; Admin Dose 2 MG; Start 04/07/17 at 23:00 Filgrastim (Neupogen) 300 mcg DAILY@17 SC Last administered on 04/11/17 16:54 ; Admin Dose 300 MCG; Start 04/08/17 at 17:00 Pantoprazole (Protonix Iv) 40 mg BID@06,18 IV Last administered on 04/11/17 16 :58; Admin Dose 40 MG; Start 04/10/17 at 18:00 Sucralfate (Carafate) 1 gm QID PO Last administered on 04/11/17 16:55; Admin Dose 1 GM; Start 04/10/17 at 17:00 Metoclopramide HCl (Reglan) 5 mg TID PO Last administered on 04/11/17 12:58; Admin Dose 5 MG; Start 04/10/17 at 21:00 Sodium Phosphate (Neutra-Phos) 250 mg BID PO Last administered on 04/11/17 11: 12; Admin Dose 250 MG; Start 04/11/17 at 10:30 GRETEL LITTLEJOHN MD Apr 11, 2017 21:31
--- NOTE | 2017-04-11 21:39 | CONS ---
Date/Time of Note Date/Time of Note DATE: 04/11/17 TIME: 21:38 Assessment/Plan Assessment/Plan Chief Complaint/Hosp Course AAlert, feels better, no fevers Physical examination: Cachectic well-developed elderly woman who is alert in no distress. Head atraumatic, normocephalic. Sclera nonicteric. Neck is supple. Chest rise symmetrical, breath sounds clear. Heart: S1-S2. Abdomen distended , soft bowel tones present. Extremities no cyanosis Assessment: 1. Abdominal pain with nausea nausea and vomiting likely secondary to #2 2. Metastatic gastric CA with malignant ascites and peritoneal carcinomatosis 3. Leukocytosis secondary to Neupogen 4. Right chest Port-A-Cath 5. Cachexia 6. Moderate right pleural effusion and mild pericardial effusion Plan: Remains stable, followed by gastroenterology and oncology, no evidence of active infectious process, continue present care as per primary team and consultants, reculture as needed Problems: Consultation Date/Type/Reason Admit Date/Time Apr 07, 2017 at 19:17 Type of Consultation: id Referring Provider: CINDY ESTRELLA MD Exam/Review of Systems Vital Signs Vitals Vital Signs Date Time Temp Pulse Resp B/P Pulse Ox O2 Delivery O2 Flow Rate FiO2 04/11/17 21:07 73 04/11/17 20:02 98.1 16 101/65 100 04/10/17 19:44 Nasal Cannula 2.0 Intake and Output 04/10/17 04/10/17 04/11/17 15:00 23:00 07:00 Intake Total 300 ml 300 ml Output Total 2 ml Balance 298 ml 300 ml Results Result Diagram: 04/11/17 0704 04/11/17 0704 Results 24 hrs Laboratory Tests Test 04/11/17 07:04 White Blood Count 31.4 H Red Blood Count 2.91 L Hemoglobin 8.3 L Hematocrit 25.3 L Mean Corpuscular Volume 86.9 Mean Corpuscular Hemoglobin 28.5 L Mean Corpuscular Hemoglobin Concent 32.8 Red Cell Distribution Width 17.0 H Platelet Count 108 L Mean Platelet Volume 10.0 Neutrophils % 78.0 H Band Neutrophils % 20.0 H Lymphocytes % 2.0 L Eosinophils % Basophils % Neutrophils # 24.5 H Lymphocytes # 0.6 L Eosinophils # Basophils # Sodium Level 132 L Potassium Level 3.8 Chloride Level 94 L Carbon Dioxide Level 31 Anion Gap 11 Blood Urea Nitrogen 15 Creatinine 0.45 Glucose Level 88 Calcium Level 7.1 L Phosphorus Level 2.1 L Magnesium Level 1.9 Medications Medications Current Medications Potassium Chloride/Sodium Chloride (NS-KCl 20 Meq) 1,000 ml @ 75 mls/hr [id number] IV Last administered on 04/11/17 11:13; Admin Dose 75 MLS/HR; Start at 23:00 Ondansetron HCl (Zofran Inj) 4 mg Q6H PRN IV NAUSEA AND/OR VOMITING Last administered on 04/11/17 20:09; Admin Dose 4 MG; Start 04/07/17 at 23:00 Morphine Sulfate (morphine) 2 mg Q4H PRN IV PAIN Last administered on 15:18; Admin Dose 2 MG; Start 04/07/17 at 23:00 Pantoprazole (Protonix Iv) 40 mg BID@06,18 IV Last administered on 04/11/17 16 :58; Admin Dose 40 MG; Start 04/10/17 at 18:00 Sucralfate (Carafate) 1 gm QID PO Last administered on 04/11/17 16:55; Admin Dose 1 GM; Start 04/10/17 at 17:00 Metoclopramide HCl (Reglan) 5 mg TID PO Last administered on 04/11/17 12:58; Admin Dose 5 MG; Start 04/10/17 at 21:00 Sodium Phosphate (Neutra-Phos) 250 mg BID PO Last administered on 04/11/17 11: 12; Admin Dose 250 MG; Start 04/11/17 at 10:30 JANELLE ALANIZ NP Apr 11, 2017 21:39
[2017-04-12] VITALS (12 sets, daily range): BP systolic 100–118; BP diastolic 55–81; PULSE 68–81; RESP 17–20
[2017-04-12] MEDS: PANTOPRAZOLE 40 MG INJ IV SCH ×2 (06:43→17:12)
[2017-04-12] MEDS: NS + KCL 20 MEQ 1,000 ML IV SCH ×3 (07:37→23:00)
[2017-04-12 08:24] LABS: CALCIUM 7.3 mg/dl (8.4-10.2); CREATININE 0.4 mg/dl (0.44-1.00); MAGNESIUM 1.9 mg/dl (1.7-2.5); PHOSPHORUS 2.2 mg/dl (2.5-4.9)
[2017-04-12] MEDS: METOCLOPRAMIDE 5 MG TAB PO SCH ×3 (08:33→21:27)
[2017-04-12] MEDS: SUCRALFATE 1 GM TAB PO SCH ×4 (08:33→21:27)
[2017-04-12] MEDS: NEUTRA-PHOS 250 MG PACKET PO SCH ×2 (08:33→21:27)
--- NOTE | 2017-04-12 09:47 | PN ---
Date/Time of Note Date/Time of Note DATE: 04/12/17 TIME: 09:42 Assessment/Plan VTE Prophylaxis VTE Prophylaxis Intervention: other Lines/Catheters IV C[facility] Type (from [facility] port-a-cath Urinary Cath still in place: No Assessment/Plan Chief Complaint/Hosp Course 1. Hyponatremia Etiology secondary volume depletion Sodium levels improved with IV fluids Continue to monitor Hypokalemia Improved continue potassium supplementation Hypophosphatemia Replete with sodium phosphate Metastatic gastric carcinoma with peritoneal carcinomatosis Follow-up with oncology Anemia Monitor H&H levels Nausea vomiting Continue antiemetics Problems: Subjective 24 Hr Interval Summary Free Text/Dictation Patient seen and examined No acute events overnight Exam/Review of Systems Vital Signs Vitals Vital Signs Date Time Temp Pulse Resp B/P Pulse Ox O2 Delivery O2 Flow Rate FiO2 04/12/17 08:26 72 04/12/17 07:16 97.2 19 118/81 100 04/11/17 20:00 Nasal Cannula 2.0 Intake and Output 04/11/17 04/11/17 04/12/17 15:00 23:00 07:00 Intake Total 1600 ml 1120 ml Balance 1600 ml 1120 ml Exam HEENT: Head is normocephalic. NECK: Supple. HEART: Regular rate LUNGS: Show diminished breath sounds at base. ABDOMEN: Soft, nontender to palpation without rebound or guarding. EXTREMITIES: Negative for clubbing, cyanosis. DERMATOLOGIC: No rashes. MUSCULOSKELETAL: No joint effusions, NEUROLOGIC: No change in exam. Results Result Diagram: 04/11/17 0704 04/12/17 0740 Results 24 hrs Laboratory Tests Test 04/12/17 07:40 Sodium Level 134 L Potassium Level 4.0 Chloride Level 98 Carbon Dioxide Level 29 Anion Gap 11 Blood Urea Nitrogen 11 Creatinine 0.40 L Glucose Level 83 Calcium Level 7.3 L Phosphorus Level 2.2 L Magnesium Level 1.9 Medications Medications Current Medications Potassium Chloride/Sodium Chloride (NS-KCl 20 Meq) 1,000 ml @ 75 mls/hr [id number] IV Last administered on 04/12/17 07:37; Admin Dose 75 MLS/HR; Start at 23:00 Ondansetron HCl (Zofran Inj) 4 mg Q6H PRN IV NAUSEA AND/OR VOMITING Last administered on 7/20/17at 20:09; Admin Dose 4 MG; Start 04/07/17 at 23:00 Morphine Sulfate (morphine) 2 mg Q4H PRN IV PAIN Last administered on 15:18; Admin Dose 2 MG; Start 04/07/17 at 23:00 Pantoprazole (Protonix Iv) 40 mg BID@18 IV Last administered on 04/12/17 06 :43; Admin Dose 40 MG; Start 04/10/17 at 18:00 Sucralfate (Carafate) 1 gm QID PO Last administered on 04/12/17 08:33; Admin Dose 1 GM; Start 04/10/17 at 17:00 Metoclopramide HCl (Reglan) 5 mg TID PO Last administered on 04/12/17 08:33; Admin Dose 5 MG; Start 04/10/17 at 21:00 Sodium Phosphate (Neutra-Phos) 250 mg BID PO Last administered on 04/12/17 08: 33; Admin Dose 250 MG; Start 04/11/17 at 10:30 FORTUNATO MUÑIZ DO Apr 12, 2017 09:46
--- NOTE | 2017-04-12 12:06 | PN ---
Date/Time of Note Date/Time of Note DATE: 04/12/17 TIME: 12:02 Assessment/Plan VTE Prophylaxis VTE Prophylaxis Intervention: SCD's Lines/Catheters [facility] Type (from [facility] port-a-cath Urinary Cath still in place: No Assessment/Plan Chief Complaint/Hosp Course Patient denies any nausea and vomiting, pain is well controlled, pending stent placed placement on Saturday. Plan of care discussed with patient and patient daughter at the bedside. Assessment/Plan -Status post EGD yesterday with notion of extreme esophagitis, follow-up gastroenterology recommendations. Continue Protonix, Carafate, and Reglan. -Metastatic gastric adenocarcinoma, status post chemotherapy by Dr. Ford, oncology. Plan for stent placement on Saturday by Dr. Millan, GI. -Nausea and vomiting, resolved. Continue Zofran for for nausea and morphine as needed for pain. -Hyponatremia secondary to dehydration, continue IV fluids, monitor electrolytes. 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 Nutritional consult is appreciated. -Leukopenia and anemia most likely secondary to chemotherapy on admission, patient currently has leukocytosis, started on Neupogen on the . Further recommendations based on clinical course. Plan of care discussed with Dr. Garner. Problems: Exam/Review of Systems Vital Signs Vitals Vital Signs Date Time Temp Pulse Resp B/P Pulse Ox O2 Delivery O2 Flow Rate FiO2 04/12/17 11:25 98.2 81 19 100/65 100 04/11/17 20:00 Nasal Cannula 2.0 Intake and Output 04/11/17 04/11/17 04/12/17 15:00 23:00 07:00 Intake Total 1600 ml 1120 ml Balance 1600 ml 1120 ml Exam Constitutional: alert, frail, oriented, other (Cachectic) Neck: supple Respiratory: normal air movement Cardiovascular: nl pulses Gastrointestinal: distended, soft, tender Musculoskeletal: nl extremities to inspection Extremities: edema 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: nl mental status Skin: nl turgor Results Result Diagram: 04/11/17 0704 04/12/17 0740 Results 24 hrs Laboratory Tests Test 04/12/17 07:40 Sodium Level 134 L Potassium Level 4.0 Chloride Level 98 Carbon Dioxide Level 29 Anion Gap 11 Blood Urea Nitrogen 11 Creatinine 0.40 L Glucose Level 83 Calcium Level 7.3 L Phosphorus Level 2.2 L Magnesium Level 1.9 Medications Medications Current Medications Potassium Chloride/Sodium Chloride (NS-KCl 20 Meq) 1,000 ml @ 75 mls/hr [id number] IV Last administered on 04/12/17 07:37; Admin Dose 75 MLS/HR; Start at 23:00 Ondansetron HCl (Zofran Inj) 4 mg Q6H PRN IV NAUSEA AND/OR VOMITING Last administered on 04/11/17 20:09; Admin Dose 4 MG; Start 04/07/17 at 23:00 Morphine Sulfate (morphine) 2 mg Q4H PRN IV PAIN Last administered on 15:18; Admin Dose 2 MG; Start 04/07/17 at 23:00 Pantoprazole (Protonix Iv) 40 mg BID@06,18 IV Last administered on 04/12/17 06 :43; Admin Dose 40 MG; Start 04/10/17 at 18:00 Sucralfate (Carafate) 1 gm QID PO Last administered on 04/12/17 08:33; Admin Dose 1 GM; Start 04/10/17 at 17:00 Metoclopramide HCl (Reglan) 5 mg TID PO Last administered on 04/12/17 08:33; Admin Dose 5 MG; Start 04/10/17 at 21:00 Sodium Phosphate (Neutra-Phos) 250 mg BID PO Last administered on 04/12/17 08: 33; Admin Dose 250 MG; Start 04/11/17 at 10:30 GHAZALA HORNE Apr 12, 2017 12:06
--- NOTE | 2017-04-12 14:26 | CONS ---
Date/Time of Note Date/Time of Note DATE: 04/12/17 TIME: 14:25 Assessment/Plan Assessment/Plan Chief Complaint/Hosp Course Metastatic gastric adenocarcinoma with peritoneal carcinomatosis. POST CHEMO Abdominopelvic ascites - malignant LEUKOPENIA- RESOLVED POST CHEMO DC NEUPOGEN, monitor blood count LEUKOCYTOSIS- 2 TO NEUPOGEN ANEMIA POST CHEMO MONITOR Intractable nausea, vomiting, dehydration ANTIEMETICS, IVF POST EGD- REPORT - P Moderate right pleural effusion. Mild pericardial effusion. Diffuse subcutaneous edema. Abdominal pain. PAIN CONTROL hx Left lower extremity edema.- better HYPONATREMIA NEPHRO Problems: Consultation Date/Type/Reason Admit Date/Time Apr 07, 2017 at 19:17 Type of Consultation: [facility] Referring Provider: CINDY ESTRELLA MD 24 HR Interval Summary Free Text/Dictation ALL NOTED FELLING BETTER Exam/Review of Systems Vital Signs Vitals Vital Signs Date Time Temp Pulse Resp B/P Pulse Ox O2 Delivery O2 Flow Rate FiO2 04/12/17 12:17 81 04/12/17 11:25 98.2 19 100/65 100 04/11/17 20:00 Nasal Cannula 2.0 Intake and Output 04/11/17 04/11/17 04/12/17 15:00 23:00 07:00 Intake Total 1600 ml 1120 ml Balance 1600 ml 1120 ml Exam Const: [] WEAK Head: Atraumatic Eyes: Normal Conjunctiva, EOMI, PRL ENT: Normal External Ears, Nose and Mouth. Neck: Full range of motion..~ No meningismus. Resp: Clear to auscultation bilaterally Cardio: Regular tachycardia m, no murmurs Abd: Soft, moderate upper abdominal tenderness without guarding or rebound, + ASCITES. Normal bowel sounds Skin: No petechiae or rashes Back: No midline or flank tenderness Ext: No cyanosis, or edema Neur: Awake and alert and oriented 3, no focal deficits Psych: Normal Mood and Affect Results Result Diagram: 04/11/17 0704 04/12/17 0740 Results 24 hrs Laboratory Tests Test 04/12/17 07:40 Sodium Level 134 L Potassium Level 4.0 Chloride Level 98 Carbon Dioxide Level 29 Anion Gap 11 Blood Urea Nitrogen 11 Creatinine 0.40 L Glucose Level 83 Calcium Level 7.3 L Phosphorus Level 2.2 L Magnesium Level 1.9 Medications Medications Current Medications Potassium Chloride/Sodium Chloride (NS-KCl 20 Meq) 1,000 ml @ 75 mls/hr [id number] IV Last administered on 04/12/17 07:37; Admin Dose 75 MLS/HR; Start at 23:00 Ondansetron HCl (Zofran Inj) 4 mg Q6H PRN IV NAUSEA AND/OR VOMITING Last administered on 04/11/17 20:09; Admin Dose 4 MG; Start 04/07/17 at 23:00 Morphine Sulfate (morphine) 2 mg Q4H PRN IV PAIN Last administered on 15:18; Admin Dose 2 MG; Start 04/07/17 at 23:00 Pantoprazole (Protonix Iv) 40 mg BID@06,18 IV Last administered on 04/12/17 06 :43; Admin Dose 40 MG; Start 04/10/17 at 18:00 Sucralfate (Carafate) 1 gm QID PO Last administered on 04/12/17 12:09; Admin Dose 1 GM; Start 04/10/17 at 17:00 Metoclopramide HCl (Reglan) 5 mg TID PO Last administered on 04/12/17 12:09; Admin Dose 5 MG; Start 04/10/17 at 21:00 Sodium Phosphate (Neutra-Phos) 250 mg BID PO Last administered on 04/12/17 08: 33; Admin Dose 250 MG; Start 04/11/17 at 10:30 GRETEL LITTLEJOHN MD Apr 12, 2017 14:26
--- NOTE | 2017-04-12 17:11 | CONS ---
Date/Time of Note Date/Time of Note DATE: 04/12/17 TIME: 17:10 Assessment/Plan Assessment/Plan Additional Assessment/Plan Additional Assessment/Plan 1. 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 Intractable nausea vomiting 3. Dysphagia 4. Hypertension 5. Cachexia 6. Extensive esophageal ulceration 7. Leukocytosis secondary to Neupogen Plan Continue PPI 40 mg twice daily Carafate suspension Reglan Self-expanding metallic stent on Saturday Consultation Date/Type/Reason Admit Date/Time Apr 07, 2017 at 19:17 [facility] Referring Provider: CINDY ESTRELLA MD 24 HR Interval Summary Constitutional: improved Exam/Review of Systems Vital Signs Vitals Vital Signs Date Time Temp Pulse Resp B/P Pulse Ox O2 Delivery O2 Flow Rate FiO2 04/12/17 16:46 78 04/12/17 15:48 98.0 19 100/55 100 04/11/17 20:00 Nasal Cannula 2.0 Intake and Output 04/11/17 04/11/17 04/12/17 15:00 23:00 07:00 Intake Total 1600 ml 1120 ml Balance 1600 ml 1120 ml Exam Constitutional: alert, oriented, well developed Psych: nl mood/affect, no complaints Head: atraumatic, normocephalic Eyes: EOMI, PERRL, nl conjunctiva, nl lids, nl sclera ENMT: nl external ears & nose, nl lips & teeth, nl nasal mucosa & septum Neck: non-tender, supple Respiratory: clear to auscultation, normal air movement Cardiovascular: nl pulses, regular rate and rhythm Gastrointestinal: nl liver, spleen, non-tender, soft Musculoskeletal: nl extremities to inspection, nl gait and stance Extremities: normal pulses 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: AQUARIUM TANK ATTENDANT II-XII intact, nl mental status, nl speech, nl strength Skin: nl turgor, No rash or lesions Lymph: nl lymph nodes Results Result Diagram: 04/11/17 0704 04/12/17 0740 Results 24 hrs Laboratory Tests Test 04/12/17 07:40 Sodium Level 134 L Potassium Level 4.0 Chloride Level 98 Carbon Dioxide Level 29 Anion Gap 11 Blood Urea Nitrogen 11 Creatinine 0.40 L Glucose Level 83 Calcium Level 7.3 L Phosphorus Level 2.2 L Magnesium Level 1.9 Medications Medications Current Medications Potassium Chloride/Sodium Chloride (NS-KCl 20 Meq) 1,000 ml @ 75 mls/hr [id number] IV Last administered on 04/12/17 15:10; Admin Dose 75 MLS/HR; Start at 23:00 Ondansetron HCl (Zofran Inj) 4 mg Q6H PRN IV NAUSEA AND/OR VOMITING Last administered on 04/11/17 20:09; Admin Dose 4 MG; Start 04/07/17 at 23:00 Morphine Sulfate (morphine) 2 mg Q4H PRN IV PAIN Last administered on 15:18; Admin Dose 2 MG; Start 04/07/17 at 23:00 Pantoprazole (Protonix Iv) 40 mg BID@06,18 IV Last administered on 04/12/17 06 :43; Admin Dose 40 MG; Start 04/10/17 at 18:00 Sucralfate (Carafate) 1 gm QID PO Last administered on 04/12/17 12:09; Admin Dose 1 GM; Start 04/10/17 at 17:00 Metoclopramide HCl (Reglan) 5 mg TID PO Last administered on 04/12/17 12:09; Admin Dose 5 MG; Start 04/10/17 at 21:00 Sodium Phosphate (Neutra-Phos) 250 mg BID PO Last administered on 04/12/17 08: 33; Admin Dose 250 MG; Start 04/11/17 at 10:30 GIANNA CHANEL MD Apr 12, 2017 17:11
[2017-04-13] VITALS (11 sets, daily range): BP systolic 101–136; BP diastolic 66–85; PULSE 72–83; RESP 17–19
[2017-04-13] MEDS: morphine 2 MG INJ IV PRN (04:02)
[2017-04-13] MEDS: ONDANSETRON 4 MG INJ IV PRN (04:03)
[2017-04-13] MEDS: NS + KCL 20 MEQ 1,000 ML IV SCH ×3 (06:07→19:23)
[2017-04-13] MEDS: PANTOPRAZOLE 40 MG INJ IV SCH ×2 (06:07→17:07)
[2017-04-13 08:02] LABS: CALCIUM 7.2 mg/dl (8.4-10.2); CREATININE 0.37 mg/dl (0.44-1.00); MAGNESIUM 1.7 mg/dl (1.7-2.5); PHOSPHORUS 2.5 mg/dl (2.5-4.9); POTASSIUM 3.8 mmol/L (3.5-5.1)
[2017-04-13] MEDS: METOCLOPRAMIDE 5 MG TAB PO SCH ×3 (08:23→21:20)
[2017-04-13] MEDS: NEUTRA-PHOS 250 MG PACKET PO SCH ×2 (08:23→21:20)
[2017-04-13] MEDS: SUCRALFATE 1 GM TAB PO SCH ×4 (08:23→21:20)
[2017-04-13 09:16] LABS: HEMATOCRIT 26.3 % (37.0-47.0); HEMOGLOBIN 8.2 g/dl (12.0-16.0); MEAN CORPUSCULAR HEMOGLOBIN 27.2 pg (29.0-33.0); MEAN CORPUSCULAR HGB CONC 31.2 g/dl (32.0-37.0); MEAN CORPUSCULAR VOLUME 87.4 fl (82.0-101.0); MEAN PLATELET VOLUME 10.5 fl (7.4-10.4); PLATELET COUNT 98 10^3/UL (140-415); RED BLOOD COUNT 3.01 10^6/ul (4.20-5.40); RED CELL DISTRIBUTION WIDTH 17.5 % (11.5-14.5); WHITE BLOOD COUNT 1.6 10^3/ul (4.8-10.8)
[2017-04-13 09:17] LABS: ABNORMAL IP MESSAGE 1
[2017-04-13 09:24] LABS: POSITIVE DIFF @See below
--- NOTE | 2017-04-13 09:41 | GILP ---
DATE OF PROCEDURE: 04/07/2017 PROCEDURE PERFORMED: Esophagogastroduodenoscopy. SURGEON: Minh Millan MD INDICATION: This 61-year-old female undergoing this procedure for intractable nausea, vomiting and abdominal pain. The risks of the procedure, related complications, anesthetic risks and alternatives were discussed and informed consent was obtained. DESCRIPTION OF PROCEDURE: Patient was brought to the GI lab, sedated by the HAT TRIMMER. After optimal sedation scope was passed as much into esophagus. She was refluxing the gastric contents all the way into the proximal esophagus. We aspirated making sure that it was not going into the lungs. The patient had extensive reflux esophagitis with erosions and ulceration. The scope was passed further down into the stomach from the mid body of the stomach to the antrum, though it was infiltrated with tumor, managed to go into the second part of the duodenal bulb, which appeared normal. No biopsy was taken because the diagnosis was already made and she is on chemo. Scope was thus removed with good patient tolerance. IMPRESSION: 1. Extensive involvement of the antrum and the distal part of the body of the stomach. 2. Extensive esophagitis with ulceration. PLAN: To keep the patient on Reglan and double the dose of PPI. I do not know whether stent will work or not because most of the stomach is involved. Will discuss with the family. Dictated By: Minh Millan MD /madalyn/steph /Document#: [id number]
--- NOTE | 2017-04-13 09:50 | PN ---
Date/Time of Note Date/Time of Note DATE: 04/13/17 TIME: 09:48 Assessment/Plan VTE Prophylaxis VTE Prophylaxis Intervention: other Lines/Catheters IV Catheter Type (from Nrs): PORTACATH Urinary Cath still in place: No Assessment/Plan Chief Complaint/Hosp Course 1. Hyponatremia Etiology secondary volume depletion Resolved We will DC IV fluids Hypokalemia Improved continue potassium supplementation Hypophosphatemia Replete with sodium phosphate Metastatic gastric carcinoma with peritoneal carcinomatosis Follow-up with oncology Anemia Monitor H&H levels Nausea vomiting Continue antiemetics Bilateral lower extremity edema Etiology may be secondary to IV fluids, need to rule out DVT Get a Doppler ultrasound lower extremity Give 1 dose of IV Lasix Problems: Subjective 24 Hr Interval Summary Free Text/Dictation Patient seen and examined Complaining of increased lower extremity swelling Exam/Review of Systems Vital Signs Vitals Vital Signs Date Time Temp Pulse Resp B/P Pulse Ox O2 Delivery O2 Flow Rate FiO2 04/13/17 08:27 83 04/13/17 07:26 98.4 18 118/85 97 04/12/17 20:00 Nasal Cannula 2.0 Intake and Output 04/12/17 04/12/17 04/13/17 15:00 23:00 07:00 Intake Total 1750 ml Balance 1750 ml Exam HEENT: Head is normocephalic. NECK: Supple. HEART: Regular rate LUNGS: Show diminished breath sounds at base. ABDOMEN: Soft, nontender to palpation without rebound or guarding. EXTREMITIES: Negative for clubbing, cyanosis. DERMATOLOGIC: No rashes. MUSCULOSKELETAL: No joint effusions, NEUROLOGIC: No change in exam. Results Result Diagram: 04/13/17 0830 04/13/17 0710 Results 24 hrs Laboratory Tests Test 04/13/17 07:10 04/13/17 08:30 Sodium Level 135 Potassium Level 3.8 Chloride Level 101 Carbon Dioxide Level 26 Anion Gap 12 Blood Urea Nitrogen 9 Creatinine 0.37 L Glucose Level 80 Calcium Level 7.2 L Phosphorus Level 2.5 Magnesium Level 1.7 White Blood Count 1.6 #L Red Blood Count 3.01 L Hemoglobin 8.2 L Hematocrit 26.3 L Mean Corpuscular Volume 87.4 Mean Corpuscular Hemoglobin 27.2 L Mean Corpuscular Hemoglobin Concent 31.2 L Red Cell Distribution Width 17.5 H Platelet Count 98 L Mean Platelet Volume 10.5 H Neutrophils % Lymphocytes % Monocytes % Eosinophils % Basophils % Nucleated Red Blood Cells % 0.0 Neutrophils # Lymphocytes # Monocytes # Eosinophils # Basophils # Nucleated Red Blood Cells # Medications Medications Current Medications Potassium Chloride/Sodium Chloride (NS-KCl 20 Meq) 1,000 ml @ 75 mls/hr [id number] IV Last administered on 04/13/17 06:07; Admin Dose 75 MLS/HR; Start at 23:00 Ondansetron HCl (Zofran Inj) 4 mg Q6H PRN IV NAUSEA AND/OR VOMITING Last administered on 04/13/17 04:03; Admin Dose 4 MG; Start 04/07/17 at 23:00 Morphine Sulfate (morphine) 2 mg Q4H PRN IV PAIN Last administered on 04:02; Admin Dose 2 MG; Start 04/07/17 at 23:00 Pantoprazole (Protonix Iv) 40 mg BID@06,18 IV Last administered on 04/13/17 06 :07; Admin Dose 40 MG; Start 04/10/17 at 18:00 Sucralfate (Carafate) 1 gm QID PO Last administered on 04/13/17 08:23; Admin Dose 1 GM; Start 04/10/17 at 17:00 Metoclopramide HCl (Reglan) 5 mg TID PO Last administered on 04/13/17 08:23; Admin Dose 5 MG; Start 04/10/17 at 21:00 Sodium Phosphate (Neutra-Phos) 250 mg BID PO Last administered on 04/13/17 08: 23; Admin Dose 250 MG; Start 04/11/17 at 10:30 FORTUNATO MUÑIZ DO Apr 13, 2017 09:50
[2017-04-13] MEDS ORDERED: FUROSEMIDE 20 MG INJ IV ONE (10:00)
[2017-04-13 10:22] LABS: LYMPHOCYTES # 0.4 10^3/ul (0.8-2.9); MONOCYTE # 0.2 10^3/ul (0.3-0.9); NEUTROPHIL # 0.9 10^3/ul (1.6-7.5)
--- NOTE | 2017-04-13 13:22 | CONS ---
Date/Time of Note Date/Time of Note DATE: 04/13/17 TIME: 13:22 Assessment/Plan Assessment/Plan Additional Assessment/Plan 1. 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 Intractable nausea vomiting, resolved 3. Dysphagia 4. Hypertension 5. Cachexia 6. Extensive esophageal ulceration 7. Leukocytosis secondary to Neupogen Plan Continue PPI 40 mg twice daily Carafate suspension Reglan Self-expanding metallic stent on Saturday Discussed the patient and the family member and is agreed for the stent Consultation Date/Type/Reason Admit Date/Time Apr 07, 2017 at 19:17 [facility] Referring Provider: CINDY ESTRELLA MD 24 HR Interval Summary Constitutional: improved, no complaints Exam/Review of Systems Vital Signs Vitals Vital Signs Date Time Temp Pulse Resp B/P Pulse Ox O2 Delivery O2 Flow Rate FiO2 04/13/17 12:29 73 04/13/17 11:06 98.6 19 110/74 100 04/12/17 20:00 Nasal Cannula 2.0 Intake and Output 04/12/17 04/12/17 04/13/17 15:00 23:00 07:00 Intake Total 1750 ml Balance 1750 ml Exam Constitutional: alert, oriented, well developed Psych: nl mood/affect, no complaints Head: atraumatic, normocephalic Eyes: EOMI, PERRL, nl conjunctiva, nl lids, nl sclera ENMT: nl external ears & nose, nl lips & teeth, nl nasal mucosa & septum Neck: non-tender, supple Respiratory: clear to auscultation, normal air movement Cardiovascular: nl pulses, regular rate and rhythm Gastrointestinal: nl liver, spleen, non-tender, soft Musculoskeletal: nl extremities to inspection, nl gait and stance Extremities: normal pulses 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: [employer] II-XII intact, nl mental status, nl speech, nl strength Skin: nl turgor, No rash or lesions Lymph: nl lymph nodes Results Result Diagram: 04/13/17 0830 04/13/17 0710 Results 24 hrs Laboratory Tests Test 04/13/17 07:10 04/13/17 08:30 Sodium Level 135 Potassium Level 3.8 Chloride Level 101 Carbon Dioxide Level 26 Anion Gap 12 Blood Urea Nitrogen 9 Creatinine 0.37 L Glucose Level 80 Calcium Level 7.2 L Phosphorus Level 2.5 Magnesium Level 1.7 White Blood Count 1.6 #L Red Blood Count 3.01 L Hemoglobin 8.2 L Hematocrit 26.3 L Mean Corpuscular Volume 87.4 Mean Corpuscular Hemoglobin 27.2 L Mean Corpuscular Hemoglobin Concent 31.2 L Red Cell Distribution Width 17.5 H Platelet Count 98 L Mean Platelet Volume 10.5 H Neutrophils % 59.0 Lymphocytes % 22.0 Monocytes % 10.0 Eosinophils % 1.0 Basophils % Nucleated Red Blood Cells % 0.0 Neutrophils # 0.9 L Band Neutrophils # 0.9 H Lymphocytes # 0.4 L Monocytes # 0.2 L Eosinophils # 0.0 Basophils # Nucleated Red Blood Cells # Medications Medications Current Medications Potassium Chloride/Sodium Chloride (NS-KCl 20 Meq) 1,000 ml @ 20 mls/hr Q24H IV Last administered on 04/13/17 11:37; Admin Dose 20 MLS/HR; Start 04/07/17 at 23:00 Ondansetron HCl (Zofran Inj) 4 mg Q6H PRN IV NAUSEA AND/OR VOMITING Last administered on 04/13/17 04:03; Admin Dose 4 MG; Start 04/07/17 at 23:00 Morphine Sulfate (morphine) 2 mg Q4H PRN IV PAIN Last administered on 04:02; Admin Dose 2 MG; Start 04/07/17 at 23:00 Pantoprazole (Protonix Iv) 40 mg BID@06,18 IV Last administered on 04/13/17 06 :07; Admin Dose 40 MG; Start 04/10/17 at 18:00 Sucralfate (Carafate) 1 gm QID PO Last administered on 04/13/17 12:48; Admin Dose 1 GM; Start 04/10/17 at 17:00 Metoclopramide HCl (Reglan) 5 mg TID PO Last administered on 04/13/17 12:48; Admin Dose 5 MG; Start 04/10/17 at 21:00 Sodium Phosphate (Neutra-Phos) 250 mg BID PO Last administered on 04/13/17 08: 23; Admin Dose 250 MG; Start 04/11/17 at 10:30 GIANNA CHANEL MD Apr 13, 2017 13:22
--- NOTE | 2017-04-13 13:50 | RADRPT ---
PROCEDURE: US bilateral lower extremity veins. CLINICAL INDICATION: Bilateral leg pain and swelling. TECHNIQUE: Multiple longitudinal and transverse images of the bilateral lower extremity veins were obtained with [place] scale and color Doppler imaging. The common femoral vein, femoral vein, and popl iteal vein were evaluated. 2D grayscale measurements with compression sonography, color Doppler, and pulsed Doppler with augmentation. COMPARISON: No prior studies are available for comparison. FINDINGS: The bilateral common femoral, femoral and popliteal veins are normally compressible throughout. Col or flow demonstrates normal filling of the vessels. Normal waveforms are visualized and there is no rmal response to augmentation. There is diffuse edema of the subcutaneous tissues bilaterally. IMPRESSION: 1. No evidence of deep vein thrombosis involving either lower extremity. 2. Diffuse edema of the subcutaneous tissues bilaterally. RPTAT: QQ .Jeison White MD, Date Time Electronically viewed and signed by .Jeison White MD, MD on 04/13/2017 13:49 .R/
--- NOTE | 2017-04-13 14:46 | PN ---
Date/Time of Note Date/Time of Note DATE: 04/13/17 TIME: 14:43 Assessment/Plan VTE Prophylaxis VTE Prophylaxis Intervention: other Lines/Catheters [facility] port-a-cath Urinary Cath still in place: No Assessment/Plan Assessment/Plan -Status post EGD yesterday with notion of extreme esophagitis, follow-up gastroenterology recommendations. Continue Protonix, Carafate, and Reglan. -Metastatic gastric adenocarcinoma, status post chemotherapy by Dr. Ford, oncology. Plan for stent placement on Saturday by Dr. Millan, GI. -Nausea and vomiting, resolved. Continue Zofran for for nausea and morphine as needed for pain. -Hyponatremia secondary to dehydration, continue IV fluids, monitor electrolytes. 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 Nutritional consult is appreciated. -Leukopenia and anemia most likely secondary to chemotherapy on admission, patient currently has leukocytosis, started on Neupogen on the . Further recommendations based on clinical course. Plan of care discussed with Dr. Garner. Subjective 24 Hr Interval Summary Free Text/Dictation sp EGD, denies any nausea and vomiting, pain is well controlled, pending stent placed placement on Saturday. Plan of care discussed with patient and patient daughter at the bedside. dw staffSelf-expanding metallic stent on Saturday per GI ENT: no complaints Respiratory: no complaints Cardiovascular: no complaints Gastrointestinal: nausea Genitourinary: no complaints Musculoskeletal: no complaints Exam/Review of Systems Vital Signs Vitals Vital Signs Date Time Temp Pulse Resp B/P Pulse Ox O2 Delivery O2 Flow Rate FiO2 04/13/17 12:29 73 04/13/17 11:06 98.6 19 110/74 100 04/12/17 20:00 Nasal Cannula 2.0 Intake and Output 04/12/17 04/12/17 04/13/17 15:00 23:00 07:00 Intake Total 1750 ml Balance 1750 ml Exam Constitutional: alert, oriented, other (cachectic) Respiratory: diminished breath sounds Cardiovascular: nl pulses, regular rate and rhythm Gastrointestinal: soft Extremities: normal pulses 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: nl mental status, nl speech Results Result Diagram: 04/13/17 0830 04/13/17 0710 Results 24 hrs Laboratory Tests Test 04/13/17 07:10 04/13/17 08:30 Sodium Level 135 Potassium Level 3.8 Chloride Level 101 Carbon Dioxide Level 26 Anion Gap 12 Blood Urea Nitrogen 9 Creatinine 0.37 L Glucose Level 80 Calcium Level 7.2 L Phosphorus Level 2.5 Magnesium Level 1.7 White Blood Count 1.6 #L Red Blood Count 3.01 L Hemoglobin 8.2 L Hematocrit 26.3 L Mean Corpuscular Volume 87.4 Mean Corpuscular Hemoglobin 27.2 L Mean Corpuscular Hemoglobin Concent 31.2 L Red Cell Distribution Width 17.5 H Platelet Count 98 L Mean Platelet Volume 10.5 H Neutrophils % 59.0 Lymphocytes % 22.0 Monocytes % 10.0 Eosinophils % 1.0 Basophils % Nucleated Red Blood Cells % 0.0 Neutrophils # 0.9 L Band Neutrophils # 0.9 H Lymphocytes # 0.4 L Monocytes # 0.2 L Eosinophils # 0.0 Basophils # Nucleated Red Blood Cells # Medications Medications Current Medications Potassium Chloride/Sodium Chloride (NS-KCl 20 Meq) 1,000 ml @ 20 mls/hr Q24H IV Last administered on 04/13/17 11:37; Admin Dose 20 MLS/HR; Start 04/07/17 at 23:00 Ondansetron HCl (Zofran Inj) 4 mg Q6H PRN IV NAUSEA AND/OR VOMITING Last administered on 04/13/17 04:03; Admin Dose 4 MG; Start 04/07/17 at 23:00 Morphine Sulfate (morphine) 2 mg Q4H PRN IV PAIN Last administered on 04:02; Admin Dose 2 MG; Start 04/07/17 at 23:00 Pantoprazole (Protonix Iv) 40 mg BID@06,18 IV Last administered on 04/13/17 06 :07; Admin Dose 40 MG; Start 04/10/17 at 18:00 Sucralfate (Carafate) 1 gm QID PO Last administered on 04/13/17 12:48; Admin Dose 1 GM; Start 04/10/17 at 17:00 Metoclopramide HCl (Reglan) 5 mg TID PO Last administered on 04/13/17 12:48; Admin Dose 5 MG; Start 04/10/17 at 21:00 Sodium Phosphate (Neutra-Phos) 250 mg BID PO Last administered on 04/13/17 08: 23; Admin Dose 250 MG; Start 04/11/17 at 10:30 EDILSON ADEN Apr 13, 2017 14:46
[2017-04-13 16:46] LABS: ABNORMAL IP MESSAGE 1; HEMATOCRIT 24.7 % (37.0-47.0); MEAN CORPUSCULAR HEMOGLOBIN 28.5 pg (29.0-33.0); MEAN CORPUSCULAR HGB CONC 32.4 g/dl (32.0-37.0); MEAN CORPUSCULAR VOLUME 87.9 fl (82.0-101.0); MEAN PLATELET VOLUME 10.5 fl (7.4-10.4); PLATELET COUNT 112 10^3/UL (140-415); RED BLOOD COUNT 2.81 10^6/ul (4.20-5.40); RED CELL DISTRIBUTION WIDTH 17.3 % (11.5-14.5); WHITE BLOOD COUNT 1.2 10^3/ul (4.8-10.8)
[2017-04-13 16:47] LABS: POSITIVE DIFF @See below
[2017-04-13 17:54] LABS: EOSINOPHILS % (M) 2 % (0-7); GIANT THROMBO% (M) 1 % (0-0); MONOCYTES % (M) 11 % (0-11); PLATELET ESTIMATE NORMAL
--- NOTE | 2017-04-13 21:39 | CONS ---
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 POST CHEMO Abdominopelvic ascites - malignant LEUKOPENIA- RESOLVED POST CHEMO DC NEUPOGEN, monitor blood count LEUKOCYTOSIS- 2 TO NEUPOGEN ANEMIA POST CHEMO MONITOR Intractable nausea, vomiting, dehydration ANTIEMETICS, IVF POST EGD- REPORT - P Moderate right pleural effusion. Mild pericardial effusion. Diffuse subcutaneous edema. Abdominal pain. PAIN CONTROL hx Left lower extremity edema.- better HYPONATREMIA NEPHRO Problems: Consultation Date/Type/Reason Admit Date/Time Apr 07, 2017 at 19:17 Type of Consultation: [facility] Referring Provider: CINDY ESTRELLA MD 24 HR Interval Summary Free Text/Dictation ALL NOTED Exam/Review of Systems Vital Signs Vitals Vital Signs Date Time Temp Pulse Resp B/P Pulse Ox O2 Delivery O2 Flow Rate FiO2 04/13/17 20:08 77 04/13/17 15:54 97.9 19 101/72 100 04/12/17 20:00 Nasal Cannula 2.0 Intake and Output 04/12/17 04/12/17 04/13/17 15:00 23:00 07:00 Intake Total 1750 ml Balance 1750 ml Exam Constitutional: alert, oriented, well developed Psych: nl mood/affect, no complaints Head: atraumatic, normocephalic Eyes: EOMI, PERRL, nl conjunctiva, nl lids, nl sclera ENMT: nl external ears & nose, nl lips & teeth, nl nasal mucosa & septum Neck: non-tender, supple Respiratory: clear to auscultation, normal air movement Cardiovascular: nl pulses, regular rate and rhythm Gastrointestinal: nl liver, spleen, non-tender, soft Musculoskeletal: nl extremities to inspection, nl gait and stance Extremities: normal pulses 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: [employer]BER II-XII intact, nl mental status, nl speech, nl strength Skin: nl turgor, No rash or lesions Lymph: nl lymph nodes Results Result Diagram: 04/13/17 1615 04/13/17 0710 Results 24 hrs Laboratory Tests Test 04/13/17 07:10 04/13/17 08:30 04/13/17 16:15 Sodium Level 135 Potassium Level 3.8 Chloride Level 101 Carbon Dioxide Level 26 Anion Gap 12 Blood Urea Nitrogen 9 Creatinine 0.37 L Glucose Level 80 Calcium Level 7.2 L Phosphorus Level 2.5 Magnesium Level 1.7 White Blood Count 1.6 #L 1.2 #L Red Blood Count 3.01 L 2.81 L Hemoglobin 8.2 L 8.0 L Hematocrit 26.3 L 24.7 L Mean Corpuscular Volume 87.4 87.9 Mean Corpuscular Hemoglobin 27.2 L 28.5 L Mean Corpuscular Hemoglobin Concent 31.2 L 32.4 Red Cell Distribution Width 17.5 H 17.3 H Platelet Count 98 L 112 L Mean Platelet Volume 10.5 H 10.5 H Neutrophils % 59.0 Lymphocytes % 22.0 Monocytes % 10.0 Eosinophils % 1.0 Basophils % Nucleated Red Blood Cells % 0.0 0.0 Neutrophils # 0.9 L Band Neutrophils # 0.9 H Lymphocytes # 0.4 L Monocytes # 0.2 L Eosinophils # 0.0 Basophils # Nucleated Red Blood Cells # Segmented Neutrophils % (Manual) 75 Lymphocytes % (Manual) 13 L Monocytes % (Manual) 11 Eosinophils % (Manual) 2 Absolute Lymphocytes (Manual) 0.1 L Absolute Monocytes (Manual) 0.1 L Smudge Cells % 27 H Thrombocytosis 1 H Platelet Estimate NORMAL Medications Medications Current Medications Potassium Chloride/Sodium Chloride (NS-KCl 20 Meq) 1,000 ml @ 20 mls/hr Q24H IV Last administered on 04/13/17 11:37; Admin Dose 20 MLS/HR; Start 04/07/17 at 23:00 Ondansetron HCl (Zofran Inj) 4 mg Q6H PRN IV NAUSEA AND/OR VOMITING Last administered on 04/13/17 04:03; Admin Dose 4 MG; Start 04/07/17 at 23:00 Morphine Sulfate (morphine) 2 mg Q4H PRN IV PAIN Last administered on 04:02; Admin Dose 2 MG; Start 04/07/17 at 23:00 Pantoprazole (Protonix Iv) 40 mg BID@06,18 IV Last administered on 04/13/17 17 :07; Admin Dose 40 MG; Start 04/10/17 at 18:00 Sucralfate (Carafate) 1 gm QID PO Last administered on 04/13/17 21:20; Admin Dose 1 GM; Start 04/10/17 at 17:00 Metoclopramide HCl (Reglan) 5 mg TID PO Last administered on 04/13/17 21:20; Admin Dose 5 MG; Start 04/10/17 at 21:00 Sodium Phosphate (Neutra-Phos) 250 mg BID PO Last administered on 04/13/17 21: 20; Admin Dose 250 MG; Start 04/11/17 at 10:30 GRETEL LITTLEJOHN MD Apr 13, 2017 21:39
[2017-04-14 00:25] VITALS: BP 94/62; PULSE 85; RESP 18
[2017-04-14 01:22] VITALS: BP 103/69; RESP 18
[2017-04-14] MEDS: PANTOPRAZOLE 40 MG INJ IV SCH ×2 (05:38→21:22)
[2017-04-14 06:53] LABS: ABNORMAL IP MESSAGE 1; HEMATOCRIT 24.7 % (37.0-47.0); HEMOGLOBIN 7.9 g/dl (12.0-16.0); MEAN CORPUSCULAR HEMOGLOBIN 27.6 pg (29.0-33.0); MEAN CORPUSCULAR VOLUME 86.4 fl (82.0-101.0); PLATELET COUNT 125 10^3/UL (140-415); RED BLOOD COUNT 2.86 10^6/ul (4.20-5.40); RED CELL DISTRIBUTION WIDTH 17.7 % (11.5-14.5)
[2017-04-14 06:57] LABS: POSITIVE DIFF @See below
[2017-04-14 07:20] VITALS: BP 104/69; RESP 18
[2017-04-14 07:20] LABS: CALCIUM 7.2 mg/dl (8.4-10.2); CREATININE 0.44 mg/dl (0.44-1.00); MAGNESIUM 1.6 mg/dl (1.7-2.5); PHOSPHORUS 2.6 mg/dl (2.5-4.9); POTASSIUM 3.8 mmol/L (3.5-5.1)
[2017-04-14] MEDS: morphine 2 MG INJ IV PRN ×2 (07:45→12:04)
[2017-04-14] MEDS: SUCRALFATE 1 GM TAB PO SCH ×4 (09:36→21:23)
[2017-04-14] MEDS: NEUTRA-PHOS 250 MG PACKET PO SCH ×2 (09:36→21:23)
[2017-04-14] MEDS: METOCLOPRAMIDE 5 MG TAB PO SCH ×3 (09:36→21:23)
[2017-04-14] MEDS ORDERED: MAGNESIUM SULFATE 2 GM/50 ML 50 ML IVPB ONE (10:30)
--- NOTE | 2017-04-14 11:08 | PN ---
Date/Time of Note Date/Time of Note DATE: 04/14/17 TIME: 10:56 Assessment/Plan VTE Prophylaxis VTE Prophylaxis Intervention: other Lines/Catheters [facility] portacath Urinary Cath still in place: No Assessment/Plan Assessment/Plan -Status post EGD yesterday with notion of extreme esophagitis, follow-up gastroenterology recommendations. Continue Protonix, Carafate, and Reglan. -Metastatic gastric adenocarcinoma, status post chemotherapy by Dr. Ford, oncology. Plan for stent placement on Saturday by Dr. Millan, GI. -Nausea and vomiting, resolved. Continue Zofran for for nausea and morphine as needed for pain. -Hyponatremia secondary to dehydration, continue IV fluids, monitor electrolytes. 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 Nutritional consult is appreciated. -Leukopenia and anemia most likely secondary to chemotherapy on admission, patient currently has leukocytosis, started on Neupogen on the . Further recommendations based on clinical course. Plan of care discussed with Dr. Garner. Subjective 24 Hr Interval Summary Respiratory: no complaints Cardiovascular: no complaints Gastrointestinal: nausea Genitourinary: no complaints Musculoskeletal: no complaints Skin: no complaints Neurologic: no complaints Exam/Review of Systems Vital Signs Vitals Vital Signs Date Time Temp Pulse Resp B/P Pulse Ox O2 Delivery O2 Flow Rate FiO2 04/14/17 07:20 98.2 87 18 104/69 98 04/14/17 00:25 Room Air 04/12/17 20:00 2.0 Intake and Output 04/13/17 04/13/17 04/14/17 15:00 23:00 07:00 Intake Total 1430 ml 240 ml Balance 1430 ml 240 ml Exam afebrile, low WBC- oncology follows, low H/H- hematology, GI follows, alert, responsive, dw staff Constitutional: alert, frail, oriented, other (Cackexia) Respiratory: clear to auscultation, normal air movement Cardiovascular: nl pulses, regular rate and rhythm Gastrointestinal: non-tender, soft Musculoskeletal: nl extremities to inspection Extremities: normal pulses 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: nl mental status, nl speech Results Result Diagram: 04/14/17 0548 04/14/17 0548 Results 24 hrs Laboratory Tests Test 04/13/17 16:15 04/14/17 05:48 White Blood Count 1.2 #L 1.0 L Red Blood Count 2.81 L 2.86 L Hemoglobin 8.0 L 7.9 L Hematocrit 24.7 L 24.7 L Mean Corpuscular Volume 87.9 86.4 Mean Corpuscular Hemoglobin 28.5 L 27.6 L Mean Corpuscular Hemoglobin Concent 32.4 32.0 Red Cell Distribution Width 17.3 H 17.7 H Platelet Count 112 L 125 L Mean Platelet Volume 10.5 H 10.0 Neutrophils % Segmented Neutrophils % (Manual) 75 Lymphocytes % (Manual) 13 L Monocytes % (Manual) 11 Eosinophils % Eosinophils % (Manual) 2 Nucleated Red Blood Cells % 0.0 0.0 Neutrophils # Absolute Lymphocytes (Manual) 0.1 L Absolute Monocytes (Manual) 0.1 L Eosinophils # Smudge Cells % 27 H Thrombocytosis 1 H Platelet Estimate NORMAL Lymphocytes % Monocytes % Basophils % Lymphocytes # Monocytes # Basophils # Nucleated Red Blood Cells # Sodium Level 136 Potassium Level 3.8 Chloride Level 103 Carbon Dioxide Level 27 Anion Gap 10 Blood Urea Nitrogen 9 Creatinine 0.44 Glucose Level 80 Calcium Level 7.2 L Phosphorus Level 2.6 Magnesium Level 1.6 L Medications Medications Current Medications Potassium Chloride/Sodium Chloride (NS-KCl 20 Meq) 1,000 ml @ 20 mls/hr Q24H IV Last administered on 04/13/17 11:37; Admin Dose 20 MLS/HR; Start 04/07/17 at 23:00 Ondansetron HCl (Zofran Inj) 4 mg Q6H PRN IV NAUSEA AND/OR VOMITING Last administered on 04/13/17 04:03; Admin Dose 4 MG; Start 04/07/17 at 23:00 Morphine Sulfate (morphine) 2 mg Q4H PRN IV PAIN Last administered on 07:45; Admin Dose 2 MG; Start 04/07/17 at 23:00 Pantoprazole (Protonix Iv) 40 mg BID@06,18 IV Last administered on 04/14/17 05 :38; Admin Dose 40 MG; Start 04/10/17 at 18:00 Sucralfate (Carafate) 1 gm QID PO Last administered on 04/14/17 09:36; Admin Dose 1 GM; Start 04/10/17 at 17:00 Metoclopramide HCl (Reglan) 5 mg TID PO Last administered on 04/14/17 09:36; Admin Dose 5 MG; Start 04/10/17 at 21:00 Sodium Phosphate 250 mg 250 mg BID PO Last administered on 04/14/17 09:36; Admin Dose 250 MG; Start 04/11/17 at 10:30 Magnesium Sulfate (Magnesium Sulfate 2 Gm/50 ml) 50 ml @ 25 mls/hr ONCE ONCE IVPB ; Start 04/14/17 at 10:30; Stop 04/14/17 at 12:29 EDILSON ADEN Apr 14, 2017 11:07
[2017-04-14 11:15] LABS: ANISOCYTOSIS 1+ (0-0); BASOPHILS % (M) 2 % (0-2); EOSINOPHILS % (M) 3 % (0-7); ERYTHROBLAST% (NRBC) (M) 2 % (0-0); GIANT THROMBO% (M) 9 % (0-0); METAMYELOCYTES %M 1 % (0-0); MONOCYTES % (M) 28 % (0-11); POLYCHROMASIA 3+ (0-0); PROMYELOCYTES #M 0 # (0-0); PROMYELOCYTES % (M) 1 % (0-0)
[2017-04-14 14:03] VITALS: BP 105/75; RESP 20
--- NOTE | 2017-04-14 14:09 | CONS ---
Date/Time of Note Date/Time of Note DATE: 04/14/17 TIME: 14:06 Assessment/Plan Assessment/Plan Additional Assessment/Plan Additional Assessment/Plan 1. 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 Intractable nausea vomiting, resolved 3. Dysphagia 4. Hypertension 5. Cachexia 6. Extensive esophageal ulceration 7. Leukocytosis secondary to Neupogen 8. Ascites Plan Continue PPI 40 mg twice daily Carafate suspension Reglan Self-expanding metallic stent on Saturday Discussed the patient and the family member and is agreed for the stent Paracentesis Consultation Date/Type/Reason Admit Date/Time Apr 07, 2017 at 19:17 [facility] Referring Provider: CINDY ESTRELLA MD 24 HR Interval Summary Free Text/Dictation Patient complains of abdominal distention Exam/Review of Systems Vital Signs Vitals Vital Signs Date Time Temp Pulse Resp B/P Pulse Ox O2 Delivery O2 Flow Rate FiO2 04/14/17 14:03 97.0 86 20 105/75 99 04/14/17 00:25 Room Air 04/12/17 20:00 2.0 Intake and Output 04/13/17 04/13/17 04/14/17 15:00 23:00 07:00 Intake Total 1430 ml 240 ml Balance 1430 ml 240 ml Exam Constitutional: alert, oriented, well developed Psych: nl mood/affect, no complaints Head: atraumatic, normocephalic Eyes: EOMI, PERRL, nl conjunctiva, nl lids, nl sclera ENMT: nl external ears & nose, nl lips & teeth, nl nasal mucosa & septum Neck: non-tender, supple Respiratory: clear to auscultation, normal air movement Cardiovascular: nl pulses, regular rate and rhythm Gastrointestinal: nl liver, spleen, non-tender, soft Musculoskeletal: nl extremities to inspection, nl gait and stance Extremities: normal pulses 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: 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 intact, nl mental status, nl speech, nl strength Skin: nl turgor, No rash or lesions Lymph: nl lymph nodes Results Result Diagram: 04/14/17 0548 04/14/17 0548 Results 24 hrs Laboratory Tests Test 04/13/17 16:15 04/14/17 05:48 White Blood Count 1.2 #L 1.0 L Red Blood Count 2.81 L 2.86 L Hemoglobin 8.0 L 7.9 L Hematocrit 24.7 L 24.7 L Mean Corpuscular Volume 87.9 86.4 Mean Corpuscular Hemoglobin 28.5 L 27.6 L Mean Corpuscular Hemoglobin Concent 32.4 32.0 Red Cell Distribution Width 17.3 H 17.7 H Platelet Count 112 L 125 L Mean Platelet Volume 10.5 H 10.0 Neutrophils % Segmented Neutrophils % (Manual) 75 36 L Lymphocytes % (Manual) 13 L 27 Monocytes % (Manual) 11 28 H Eosinophils % Eosinophils % (Manual) 2 3 Nucleated Red Blood Cells % 0.0 2 H Neutrophils # Absolute Lymphocytes (Manual) 0.1 L 0.2 L Absolute Monocytes (Manual) 0.1 L 0.2 L Eosinophils # Smudge Cells % 27 H 28 H Thrombocytosis 1 H 9 H Platelet Estimate NORMAL Band Neutrophils % (Manual) 1 Lymphocytes % Monocytes % Basophils % Basophils % (Manual) 2 Metamyelocytes % (manual) 1 H Promyelocytes % (Manual) 1 H Neutrophils # (Manual) 0.4 L Band Neutrophils # 0.0 Lymphocytes # Monocytes # Basophils # Basophils # (Manual) 0.0 Metamyelocytes # 0.0 Promyelocytes # 0 Nucleated Red Blood Cells # Polychromasia 3+ Anisocytosis 1+ Macrocytosis 1+ Sodium Level 136 Potassium Level 3.8 Chloride Level 103 Carbon Dioxide Level 27 Anion Gap 10 Blood Urea Nitrogen 9 Creatinine 0.44 Glucose Level 80 Calcium Level 7.2 L Phosphorus Level 2.6 Magnesium Level 1.6 L Medications Medications Current Medications Potassium Chloride/Sodium Chloride (NS-KCl 20 Meq) 1,000 ml @ 20 mls/hr Q24H IV Last administered on 04/13/17 11:37; Admin Dose 20 MLS/HR; Start 04/07/17 at 23:00 Ondansetron HCl (Zofran Inj) 4 mg Q6H PRN IV NAUSEA AND/OR VOMITING Last administered on 04/13/17 04:03; Admin Dose 4 MG; Start 04/07/17 at 23:00 Morphine Sulfate (morphine) 2 mg Q4H PRN IV PAIN Last administered on 12:04; Admin Dose 2 MG; Start 04/07/17 at 23:00 Pantoprazole (Protonix Iv) 40 mg BID@06,18 IV Last administered on 7/23/17at 05 :38; Admin Dose 40 MG; Start 04/10/17 at 18:00 Sucralfate (Carafate) 1 gm QID PO Last administered on 04/14/17 09:36; Admin Dose 1 GM; Start 04/10/17 at 17:00 Metoclopramide HCl (Reglan) 5 mg TID PO Last administered on 04/14/17 09:36; Admin Dose 5 MG; Start 04/10/17 at 21:00 Sodium Phosphate (Neutra-Phos) 250 mg BID PO Last administered on 04/14/17 09: 36; Admin Dose 250 MG; Start 04/11/17 at 10:30 GIANNA CHANEL MD Apr 14, 2017 14:09
[2017-04-14 16:23] LABS: INR 1.24; PROTIME 15.7 Sec (12.2-14.2); PT RATIO 1.2
[2017-04-14] MEDS: ONDANSETRON 4 MG INJ IV PRN (18:01)
[2017-04-14] MEDS: HEPARIN (100 UNITS/ML) 5 ML SYG CATHETER ONE (18:30)
[2017-04-14] MEDS ORDERED: LIDOCAINE 1% (MPF) 5 ML VIAL ONE (18:42)
--- NOTE | 2017-04-14 19:13 | RADRPT ---
PROCEDURE: Ultrasound guided paracentesis CLINICAL INDICATION: Ascites TECHNIQUE: The risks, benefits, and alternatives were explained to the patient, including but not limited to bleeding, infection, pain, visceral or vascular damage, shock, and . The patient und erstood the risks and the alternatives and wished to proceed with the procedure. Informed written co nsent was obtained. A procedural time out was performed. The patient's name, date of , and proc edure to be performed were verified. Preliminary level vial marker ultrasound of the abdomen was performed. Fluid was identified in the right lower quadrant. The overlying skin of the right lower quadrant was prepped and draped in the usual steril e fashion. Under ultrasound guidance, an 8-[place] catheter was introduced into the right lower quad rant peritoneal cavity after 10 ml of 1% lidocaine was injected for pain control. 5000 ml of clear y ellow fluid was obtained without difficulty. The fluid was then discarded. The patient tolerated p rocedure well without complication. COMPARISON: 03/27/2017 FINDINGS: Initial ultrasound images demonstrate a moderate amount of ascites. Approximately 5000 ml of clear yellow fluid was obtained and then discarded. RPTAT: QQ IMPRESSION: 1. Successful ultrasound-guided paracentesis. .Jessica Camargo MD, Date Time Electronically viewed and signed by .Jessica Camargo MD, MD on 04/14/2017 19:13 .T/
[2017-04-14] MEDS: NS + KCL 20 MEQ 1,000 ML IV SCH ×2 (19:23→21:41)
--- NOTE | 2017-04-14 19:56 | CONS ---
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 ON CHEMO Abdominopelvic ascites - malignant Self-expanding metallic stent on Saturday Paracentesis LEUKOPENIA- RESOLVED POST CHEMO DC NEUPOGEN, monitor blood count LEUKOCYTOSIS- 2 TO NEUPOGEN ANEMIA POST CHEMO MONITOR Intractable nausea, vomiting, dehydration ANTIEMETICS, IVF POST EGD- REPORT - P Moderate right pleural effusion. Mild pericardial effusion. Diffuse subcutaneous edema. Abdominal pain. PAIN CONTROL hx Left lower extremity edema.- better HYPONATREMIA NEPHRO Problems: Consultation Date/Type/Reason Admit Date/Time Apr 07, 2017 at 19:17 Type of Consultation: [facility] Referring Provider: CINDY ESTRELLA MD 24 HR Interval Summary Free Text/Dictation ALL NOTED STENT ON SATURDAY Exam/Review of Systems Vital Signs Vitals Vital Signs Date Time Temp Pulse Resp B/P Pulse Ox O2 Delivery O2 Flow Rate FiO2 04/14/17 14:03 97.0 86 20 105/75 99 04/14/17 00:25 Room Air 04/12/17 20:00 2.0 Intake and Output 04/13/17 04/13/17 04/14/17 15:00 23:00 07:00 Intake Total 1430 ml 240 ml Balance 1430 ml 240 ml Exam Constitutional: alert, oriented, well developed Psych: nl mood/affect, no complaints Head: atraumatic, normocephalic Eyes: EOMI, PERRL, nl conjunctiva, nl lids, nl sclera ENMT: nl external ears & nose, nl lips & teeth, nl nasal mucosa & septum Neck: non-tender, supple Respiratory: clear to auscultation, normal air movement Cardiovascular: nl pulses, regular rate and rhythm Gastrointestinal: nl liver, spleen, non-tender, soft Musculoskeletal: nl extremities to inspection, nl gait and stance Extremities: normal pulses 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: 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 GLUER II-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 intact, nl mental status, nl speech, nl strength Skin: nl turgor, No rash or lesions Lymph: nl lymph nodes Results Result Diagram: 04/14/17 0548 04/14/17 0548 Results 24 hrs Laboratory Tests Test 04/14/17 05:48 04/14/17 15:55 White Blood Count 1.0 L Red Blood Count 2.86 L Hemoglobin 7.9 L Hematocrit 24.7 L Mean Corpuscular Volume 86.4 Mean Corpuscular Hemoglobin 27.6 L Mean Corpuscular Hemoglobin Concent 32.0 Red Cell Distribution Width 17.7 H Platelet Count 125 L Mean Platelet Volume 10.0 Neutrophils % Segmented Neutrophils % (Manual) 36 L Band Neutrophils % (Manual) 1 Lymphocytes % Lymphocytes % (Manual) 27 Monocytes % Monocytes % (Manual) 28 H Eosinophils % Eosinophils % (Manual) 3 Basophils % Basophils % (Manual) 2 Metamyelocytes % (manual) 1 H Promyelocytes % (Manual) 1 H Nucleated Red Blood Cells % 2 H Neutrophils # Neutrophils # (Manual) 0.4 L Band Neutrophils # 0.0 Absolute Lymphocytes (Manual) 0.2 L Lymphocytes # Monocytes # Absolute Monocytes (Manual) 0.2 L Eosinophils # Basophils # Basophils # (Manual) 0.0 Metamyelocytes # 0.0 Promyelocytes # 0 Nucleated Red Blood Cells # Smudge Cells % 28 H Thrombocytosis 9 H Polychromasia 3+ Anisocytosis 1+ Macrocytosis 1+ Sodium Level 136 Potassium Level 3.8 Chloride Level 103 Carbon Dioxide Level 27 Anion Gap 10 Blood Urea Nitrogen 9 Creatinine 0.44 Glucose Level 80 Calcium Level 7.2 L Phosphorus Level 2.6 Magnesium Level 1.6 L Prothrombin Time 15.7 H Prothrombin Time Ratio 1.2 INR International Normalized Ratio 1.24 Medications Medications Current Medications Potassium Chloride/Sodium Chloride (NS-KCl 20 Meq) 1,000 ml @ 20 mls/hr Q24H IV Last administered on 04/13/17 11:37; Admin Dose 20 MLS/HR; Start 04/07/17 at 23:00 Ondansetron HCl (Zofran Inj) 4 mg Q6H PRN IV NAUSEA AND/OR VOMITING Last administered on 04/14/17 18:01; Admin Dose 4 MG; Start 04/07/17 at 23:00 Morphine Sulfate (morphine) 2 mg Q4H PRN IV PAIN Last administered on 12:04; Admin Dose 2 MG; Start 04/07/17 at 23:00 Pantoprazole (Protonix Iv) 40 mg BID@06,18 IV Last administered on 04/14/17 05 :38; Admin Dose 40 MG; Start 04/10/17 at 18:00 Sucralfate (Carafate) 1 gm QID PO Last administered on 04/14/17 15:12; Admin Dose 1 GM; Start 04/10/17 at 17:00 Metoclopramide HCl (Reglan) 5 mg TID PO Last administered on 04/14/17 15:12; Admin Dose 5 MG; Start 04/10/17 at 21:00 Sodium Phosphate (Neutra-Phos) 250 mg BID PO Last administered on 04/14/17 09: 36; Admin Dose 250 MG; Start 04/11/17 at 10:30 GRETEL LITTLEJOHN MD Apr 14, 2017 19:56
--- NOTE | 2017-04-14 20:05 | CONS ---
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 ON CHEMO Abdominopelvic ascites - malignant Paracentesis LEUKOPENIA- MONITOR NEUPOGEN ANEMIA POST CHEMO MONITOR Intractable nausea, vomiting, dehydration ANTIEMETICS, IVF POST EGD- REPORT - P Moderate right pleural effusion. Mild pericardial effusion. Diffuse subcutaneous edema. Abdominal pain. PAIN CONTROL hx Left lower extremity edema.- better HYPONATREMIA NEPHRO Problems: Consultation Date/Type/Reason Admit Date/Time Apr 07, 2017 at 19:17 Date of Consultation: Apr 07, 2017 Type of Consultation: [facility] Reason for Consultation GASTRIC CANCER Referring Provider: CINDY ESTRELLA MD Hx of Present Illness This 61-year-old female presents for nausea and vomiting with mid and upper abdominal pain. She has stomach cancer and received chemotherapy on which was 4 days ago. Last 2 days she has had increasing abdominal pain nausea and vomiting. She is also had chills. No fevers. Denies specific chest pain shortness of breath. Feels profound generalized weakness without any focal weakness. ROS All systems reviewed and are negative except as per history of present illness. Allergies Allergies: Coded Allergies: No Known Allergy (Unverified , 04/07/17) Physical Exam Vitals Vital Signs Date Time Temp Pulse Resp B/P Pulse Ox O2 Delivery O2 Flow Rate FiO2 04/07/17 18:06 97.3 97 16 117/94 100 Room Air 04/07/17 17:03 98.3 103 20 108/86 100 Physical Exam Const: [] Moderate distress, vomiting appears to be in pain Head: Atraumatic Eyes: Normal Conjunctiva, EOMI, PRL ENT: Normal External Ears, Nose and Mouth. Neck: Full range of motion..~ No meningismus. Resp: Clear to auscultation bilaterally Cardio: Regular tachycardia m, no murmurs Abd: Soft, moderate upper abdominal tenderness without guarding or rebound, non distended. Normal bowel sounds Skin: No petechiae or rashes Back: No midline or flank tenderness Ext: No cyanosis, or edema Neur: Awake and alert and oriented 3, no focal deficits Psych: Normal Mood and Affect Result Diagram: 04/07/17 1745 04/07/17 1745 Results 24 hrs Laboratory Tests Test 04/07/17 17:45 White Blood Count 2.510^3/ul Red Blood Count 4.0910^6/ul Hemoglobin 11.5g/dl Hematocrit 34.3% Mean Corpuscular Volume 83.9fl Mean Corpuscular Hemoglobin 28.1pg Mean Corpuscular Hemoglobin Concent 33.5g/dl Red Cell Distribution Width 16.5% Platelet Count 36173^3/UL Mean Platelet Volume 8.7fl Neutrophils % 86.0% Band Neutrophils % 1.0% Lymphocytes % 12.0% Monocytes % 1.0% Neutrophils # 2.210^3/ul Lymphocytes # 0.310^3/ul Monocytes # 0.010^3/ul Prothrombin Time 13.5Sec Prothrombin Time Ratio 1.1 INR International Normalized Ratio 1.03 Activated Partial Thromboplast Time 24.0Sec Sodium Level 125mmol/L Potassium Level 3.7mmol/L Chloride Level 77mmol/L Carbon Dioxide Level 36mmol/L Anion Gap 16 Blood Urea Nitrogen 36mg/dl Creatinine 0.73mg/dl Glucose Level 135mg/dl Lactic Acid Level 1.5mmol/L Calcium Level 8.0mg/dl Total Bilirubin 0.3mg/dl Direct Bilirubin 0.00mg/dl Indirect Bilirubin 0.3mg/dl Aspartate Amino Transf (AST/SGOT) 27IU/L Alanine Aminotransferase (ALT/SGPT) 31IU/L Alkaline Phosphatase 153IU/L Troponin I 0.013ng/ml Total Protein 5.0g/dl Albumin 2.6g/dl Globulin 2.40g/dl Albumin/Globulin Ratio 1.08 Lipase 76U/L Current Medications Medications (Trade) Dose Ordered Sig/Deon Route PRN Reason Start Time Stop Time Status Last Admin Dose Admin Ondansetron HCl (Zofran Inj) 4 mg ONCE STAT IV 04/07/17 17:04 04/07/17 17:10 DC 04/07/17 17:21 Ondansetron HCl (Zofran Inj) 4 mg ONCE STAT IV 04/07/17 17:04 04/07/17 17:10 DC 04/07/17 17:58 Morphine Sulfate 6 mg 6 mg ONCE ONCE IV 04/07/17 17:30 04/07/17 17:31 DC 04/07/17 17:21 Cefepime HCl (Maxipime 1gm/50 ml (Pmx)) 50 ml @ 100 mls/hr ONCE ONCE IVPB 04/07/17 19:00 04/07/17 19:29 Constitutional: improved, no complaints ENT: no complaints Respiratory: no complaints Cardiovascular: no complaints Gastrointestinal: nausea Genitourinary: no complaints Musculoskeletal: no complaints Skin: no complaints Neurologic: no complaints Psychological: nl mood/affect, no complaints Past Medical History Medical History: hypertension Past Surgical History Past Surgical Hx: other Social History Alcohol Use: none Smoking Status: Never smoker Drug Use: none Exam/Review of Systems Vital Signs Vitals Vital Signs Date Time Temp Pulse Resp B/P Pulse Ox O2 Delivery O2 Flow Rate FiO2 04/14/17 14:03 97.0 86 20 105/75 99 04/14/17 00:25 Room Air 04/12/17 20:00 2.0 Intake and Output 04/13/17 04/13/17 04/14/17 15:00 23:00 07:00 Intake Total 1430 ml 240 ml Balance 1430 ml 240 ml Results Result Diagram: 04/14/17 0548 04/14/17 0548 Results 24 hrs Laboratory Tests Test 04/14/17 05:48 04/14/17 15:55 White Blood Count 1.0 L Red Blood Count 2.86 L Hemoglobin 7.9 L Hematocrit 24.7 L Mean Corpuscular Volume 86.4 Mean Corpuscular Hemoglobin 27.6 L Mean Corpuscular Hemoglobin Concent 32.0 Red Cell Distribution Width 17.7 H Platelet Count 125 L Mean Platelet Volume 10.0 Neutrophils % Segmented Neutrophils % (Manual) 36 L Band Neutrophils % (Manual) 1 Lymphocytes % Lymphocytes % (Manual) 27 Monocytes % Monocytes % (Manual) 28 H Eosinophils % Eosinophils % (Manual) 3 Basophils % Basophils % (Manual) 2 Metamyelocytes % (manual) 1 H Promyelocytes % (Manual) 1 H Nucleated Red Blood Cells % 2 H Neutrophils # Neutrophils # (Manual) 0.4 L Band Neutrophils # 0.0 Absolute Lymphocytes (Manual) 0.2 L Lymphocytes # Monocytes # Absolute Monocytes (Manual) 0.2 L Eosinophils # Basophils # Basophils # (Manual) 0.0 Metamyelocytes # 0.0 Promyelocytes # 0 Nucleated Red Blood Cells # Smudge Cells % 28 H Thrombocytosis 9 H Polychromasia 3+ Anisocytosis 1+ Macrocytosis 1+ Sodium Level 136 Potassium Level 3.8 Chloride Level 103 Carbon Dioxide Level 27 Anion Gap 10 Blood Urea Nitrogen 9 Creatinine 0.44 Glucose Level 80 Calcium Level 7.2 L Phosphorus Level 2.6 Magnesium Level 1.6 L Prothrombin Time 15.7 H Prothrombin Time Ratio 1.2 INR International Normalized Ratio 1.24 Medications Medications Current Medications Potassium Chloride/Sodium Chloride (NS-KCl 20 Meq) 1,000 ml @ 20 mls/hr Q24H IV Last administered on 04/13/17 11:37; Admin Dose 20 MLS/HR; Start 04/07/17 at 23:00 Ondansetron HCl (Zofran Inj) 4 mg Q6H PRN IV NAUSEA AND/OR VOMITING Last administered on 04/14/17 18:01; Admin Dose 4 MG; Start 04/07/17 at 23:00 Morphine Sulfate (morphine) 2 mg Q4H PRN IV PAIN Last administered on 12:04; Admin Dose 2 MG; Start 04/07/17 at 23:00 Pantoprazole (Protonix Iv) 40 mg BID@06,18 IV Last administered on 04/14/17 05 :38; Admin Dose 40 MG; Start 04/10/17 at 18:00 Sucralfate (Carafate) 1 gm QID PO Last administered on 04/14/17 15:12; Admin Dose 1 GM; Start 04/10/17 at 17:00 Metoclopramide HCl (Reglan) 5 mg TID PO Last administered on 04/14/17 15:12; Admin Dose 5 MG; Start 04/10/17 at 21:00 Sodium Phosphate (Neutra-Phos) 250 mg BID PO Last administered on 04/14/17 09: 36; Admin Dose 250 MG; Start 04/11/17 at 10:30 GRETEL LITTLEJOHN MD Apr 14, 2017 20:05
[2017-04-14 21:10] VITALS: BP 99/67; RESP 18
[2017-04-14] MEDS: FILGRASTIM 300 MCG INJ SC SCH (21:24)
[2017-04-15 02:21] VITALS: BP 96/63; RESP 18
[2017-04-15] MEDS: PANTOPRAZOLE 40 MG INJ IV SCH ×2 (05:26→17:47)
[2017-04-15 05:55] LABS: ABNORMAL IP MESSAGE 1; HEMATOCRIT 23.5 % (37.0-47.0); HEMOGLOBIN 7.6 g/dl (12.0-16.0); MEAN CORPUSCULAR HEMOGLOBIN 28.3 pg (29.0-33.0); MEAN CORPUSCULAR HGB CONC 32.3 g/dl (32.0-37.0); MEAN CORPUSCULAR VOLUME 87.4 fl (82.0-101.0); MEAN PLATELET VOLUME 9.5 fl (7.4-10.4); NUCLEATED RED BLOOD CELLS% 2.2 /100WBC (0.0-0.0); PLATELET COUNT 149 10^3/UL (140-415); RED BLOOD COUNT 2.69 10^6/ul (4.20-5.40); RED CELL DISTRIBUTION WIDTH 17.9 % (11.5-14.5); WHITE BLOOD COUNT 1.4 10^3/ul (4.8-10.8)
[2017-04-15 06:32] LABS: POSITIVE DIFF @See below
[2017-04-15 06:41] LABS: CALCIUM 6.2 mg/dl (8.4-10.2); CREATININE 0.34 mg/dl (0.44-1.00); POTASSIUM 5.4 mmol/L (3.5-5.1)
[2017-04-15 07:18] VITALS: BP 95/61; RESP 18
[2017-04-15] MEDS: NEUTRA-PHOS 250 MG PACKET PO SCH ×2 (08:52→21:00)
[2017-04-15] MEDS: SUCRALFATE 1 GM TAB PO SCH ×4 (08:52→21:00)
[2017-04-15] MEDS: METOCLOPRAMIDE 5 MG TAB PO SCH ×3 (08:52→21:00)
[2017-04-15] MEDS: ONDANSETRON 4 MG INJ IV PRN ×2 (09:20→20:45)
[2017-04-15 09:37] LABS: ANISOCYTOSIS 1+ (0-0); BASOPHILS % (M) 13 % (0-2); EOSINOPHILS % (M) 4 % (0-7); ERYTHROBLAST% (NRBC) (M) 1 % (0-0); GIANT THROMBO% (M) 21 % (0-0); METAMYELOCYTES %M 4 % (0-0); MICROCYTOSIS 1+ (0-0); MONOCYTES % (M) 31 % (0-11); PLATELET ESTIMATE DECREASED; POIKILOCYTOSIS 2+ (0-0); POLYCHROMASIA 3+ (0-0)
[2017-04-15 09:45] LABS: CALCIUM 6.7 mg/dl (8.4-10.2); CREATININE 0.43 mg/dl (0.44-1.00); POTASSIUM 3.7 mmol/L (3.5-5.1)
--- NOTE | 2017-04-15 10:13 | PN ---
Date/Time of Note Date/Time of Note DATE: 04/15/17 TIME: 10:12 Assessment/Plan VTE Prophylaxis VTE Prophylaxis Intervention: other Lines/Catheters IV Catheter Type (from [facility]): port-a-cath Urinary Cath still in place: No Assessment/Plan Chief Complaint/Hosp Course 1. Hyponatremia Etiology secondary volume depletion Improved, monitor on fluids Hypokalemia Improved continue potassium supplementation Hypophosphatemia Replete with sodium phosphate Metastatic gastric carcinoma with peritoneal carcinomatosis Follow-up with oncology Anemia Monitor H&H levels Nausea vomiting Continue antiemetics Bilateral lower extremity edema Etiology may be secondary to IV fluids, Doppler ultrasound negative for DVT Give intermittent diuretics as needed Problems: Subjective 24 Hr Interval Summary Free Text/Dictation Patient seen and examined No other events noted Exam/Review of Systems Vital Signs Vitals Vital Signs Date Time Temp Pulse Resp B/P Pulse Ox O2 Delivery O2 Flow Rate FiO2 04/15/17 07:18 98.5 78 18 95/61 99 04/14/17 00:25 Room Air 04/12/17 20:00 2.0 Intake and Output 04/14/17 04/14/17 04/15/17 15:00 23:00 07:00 Intake Total 50 ml 1780 ml 420 ml Output Total 0 ml Balance 50 ml 1780 ml 420 ml Exam HEENT: Head is normocephalic. NECK: Supple. HEART: Regular rate LUNGS: Show diminished breath sounds at base. ABDOMEN: Soft, nontender to palpation without rebound or guarding. EXTREMITIES: Negative for clubbing, cyanosis. Positive edema DERMATOLOGIC: No rashes. MUSCULOSKELETAL: No joint effusions, NEUROLOGIC: No change in exam. Results Result Diagram: 04/15/17 0532 04/15/17 0905 Results 24 hrs Laboratory Tests Test 04/14/17 15:55 04/15/17 05:32 04/15/17 09:05 Prothrombin Time 15.7 H Prothrombin Time Ratio 1.2 INR International Normalized Ratio 1.24 White Blood Count 1.4 #L Red Blood Count 2.69 L Hemoglobin 7.6 L Hematocrit 23.5 L Mean Corpuscular Volume 87.4 Mean Corpuscular Hemoglobin 28.3 L Mean Corpuscular Hemoglobin Concent 32.3 Red Cell Distribution Width 17.9 H Platelet Count 149 Mean Platelet Volume 9.5 Neutrophils % Segmented Neutrophils % (Manual) 27 L Band Neutrophils % (Manual) 6 H Lymphocytes % (Manual) 14 L Monocytes % (Manual) 31 H Eosinophils % Eosinophils % (Manual) 4 Basophils % (Manual) 13 H Metamyelocytes % (manual) 4 H Nucleated Red Blood Cells % 1 H Neutrophils # Neutrophils # (Manual) 0.4 L Band Neutrophils # 0.0 Absolute Lymphocytes (Manual) 0.1 L Absolute Monocytes (Manual) 0.4 Eosinophils # Basophils # (Manual) 0.1 H Metamyelocytes # 0.0 Smudge Cells % 49 H Thrombocytosis 21 H Platelet Estimate DECREASED Polychromasia 3+ Poikilocytosis 2+ Anisocytosis 1+ Microcytosis 1+ Sodium Level 134 L 133 L Potassium Level 5.4 H 3.7 Chloride Level 107 103 Carbon Dioxide Level 24 24 Anion Gap 8 10 Blood Urea Nitrogen 8 9 Creatinine 0.34 L 0.43 L Glucose Level 71 85 Calcium Level 6.2 L 6.7 L Medications Medications Current Medications Potassium Chloride/Sodium Chloride (NS-KCl 20 Meq) 1,000 ml @ 20 mls/hr Q24H IV Last administered on 04/14/17 21:41; Admin Dose 20 MLS/HR; Start 04/07/17 at 23:00 Ondansetron HCl (Zofran Inj) 4 mg Q6H PRN IV NAUSEA AND/OR VOMITING Last administered on 04/15/17 09:20; Admin Dose 4 MG; Start 04/07/17 at 23:00 Morphine Sulfate (morphine) 2 mg Q4H PRN IV PAIN Last administered on 12:04; Admin Dose 2 MG; Start 04/07/17 at 23:00 Pantoprazole (Protonix Iv) 40 mg BID@06,18 IV Last administered on 04/15/17 05 :26; Admin Dose 40 MG; Start 04/10/17 at 18:00 Sucralfate (Carafate) 1 gm QID PO Last administered on 04/15/17 08:52; Admin Dose 1 GM; Start 04/10/17 at 17:00 Metoclopramide HCl (Reglan) 5 mg TID PO Last administered on 04/15/17 08:52; Admin Dose 5 MG; Start 04/10/17 at 21:00 Sodium Phosphate (Neutra-Phos) 250 mg BID PO Last administered on 04/15/17 08: 52; Admin Dose 250 MG; Start 04/11/17 at 10:30 Filgrastim (Neupogen) 300 mcg DAILY@17 SC Last administered on 04/14/17 21:24 ; Admin Dose 300 MCG; Start 04/14/17 at 20:00 FORTUNATO MUÑIZ DO Apr 15, 2017 10:13
[2017-04-15 14:47] VITALS: BP 99/68; RESP 20
--- NOTE | 2017-04-15 15:22 | PN ---
Date/Time of Note Date/Time of Note DATE: 04/15/17 TIME: 15:20 Assessment/Plan VTE Prophylaxis VTE Prophylaxis Intervention: SCD's Lines/Catheters IV [facility] Type [facility]from [facility] Port-a-cath Urinary Cath still in place: No Assessment/Plan Chief Complaint/Hosp Course Patient denies any nausea vomiting, pending stent placement tomorrow. Assessment/Plan -Extreme esophagitis per EGD, follow-up gastroenterology recommendations. Continue Protonix, Carafate, and Reglan. -Metastatic gastric adenocarcinoma, status post chemotherapy by Dr. Ford, oncology. Plan for stent placement tomorrow by Dr. Millan, GI. -Nausea and vomiting, resolved. Continue Zofran for for nausea and morphine as needed for pain. -Hyponatremia secondary to dehydration, resolved, Dr. Ji is following in nephrology consultation. 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 Nutritional consult is appreciated. -Leukopenia and anemia most likely secondary to chemotherapy. Further recommendations based on clinical course. Plan of care discussed with Dr. Garner. Problems: Exam/Review of Systems Vital Signs Vitals Vital Signs Date Time Temp Pulse Resp B/P Pulse Ox O2 Delivery O2 Flow Rate FiO2 04/15/17 14:47 97.5 71 20 99/68 98 04/14/17 00:25 Room Air 04/12/17 20:00 2.0 Intake and Output 04/14/17 04/14/17 04/15/17 15:00 23:00 07:00 Intake Total 50 ml 1780 ml 420 ml Output Total 0 ml Balance 50 ml 1780 ml 420 ml Exam Constitutional: alert, frail, oriented, other (Cachectic) Neck: supple Respiratory: normal air movement Cardiovascular: nl pulses Gastrointestinal: distended, soft, tender Musculoskeletal: nl extremities to inspection Extremities: edema 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: nl mental status Skin: nl turgor Results Result Diagram: 04/15/17 0532 04/15/17 0905 Results 24 hrs Laboratory Tests Test 04/14/17 15:55 04/15/17 05:32 04/15/17 09:05 Prothrombin Time 15.7 H Prothrombin Time Ratio 1.2 INR International Normalized Ratio 1.24 White Blood Count 1.4 #L Red Blood Count 2.69 L Hemoglobin 7.6 L Hematocrit 23.5 L Mean Corpuscular Volume 87.4 Mean Corpuscular Hemoglobin 28.3 L Mean Corpuscular Hemoglobin Concent 32.3 Red Cell Distribution Width 17.9 H Platelet Count 149 Mean Platelet Volume 9.5 Neutrophils % Segmented Neutrophils % (Manual) 27 L Band Neutrophils % (Manual) 6 H Lymphocytes % (Manual) 14 L Monocytes % (Manual) 31 H Eosinophils % Eosinophils % (Manual) 4 Basophils % (Manual) 13 H Metamyelocytes % (manual) 4 H Nucleated Red Blood Cells % 1 H Neutrophils # Neutrophils # (Manual) 0.4 L Band Neutrophils # 0.0 Absolute Lymphocytes (Manual) 0.1 L Absolute Monocytes (Manual) 0.4 Eosinophils # Basophils # (Manual) 0.1 H Metamyelocytes # 0.0 Smudge Cells % 49 H Thrombocytosis 21 H Platelet Estimate DECREASED Polychromasia 3+ Poikilocytosis 2+ Anisocytosis 1+ Microcytosis 1+ Sodium Level 134 L 133 L Potassium Level 5.4 H 3.7 Chloride Level 107 103 Carbon Dioxide Level 24 24 Anion Gap 8 10 Blood Urea Nitrogen 8 9 Creatinine 0.34 L 0.43 L Glucose Level 71 85 Calcium Level 6.2 L 6.7 L Medications Medications Current Medications Potassium Chloride/Sodium Chloride (NS-KCl 20 Meq) 1,000 ml @ 20 mls/hr Q24H IV Last administered on 04/14/17 21:41; Admin Dose 20 MLS/HR; Start 04/07/17 at 23:00 Ondansetron HCl (Zofran Inj) 4 mg Q6H PRN IV NAUSEA AND/OR VOMITING Last administered on 04/15/17 09:20; Admin Dose 4 MG; Start 04/07/17 at 23:00 Morphine Sulfate (morphine) 2 mg Q4H PRN IV PAIN Last administered on 12:04; Admin Dose 2 MG; Start 04/07/17 at 23:00 Pantoprazole (Protonix Iv) 40 mg BID@06,18 IV Last administered on 04/15/17 05 :26; Admin Dose 40 MG; Start 04/10/17 at 18:00 Sucralfate (Carafate) 1 gm QID PO Last administered on 04/15/17 13:50; Admin Dose 1 GM; Start 04/10/17 at 17:00 Metoclopramide HCl (Reglan) 5 mg TID PO Last administered on 04/15/17 13:50; Admin Dose 5 MG; Start 04/10/17 at 21:00 Sodium Phosphate (Neutra-Phos) 250 mg BID PO Last administered on 04/15/17 08: 52; Admin Dose 250 MG; Start 04/11/17 at 10:30 Filgrastim (Neupogen) 300 mcg DAILY@17 SC Last administered on 04/14/17 21:24 ; Admin Dose 300 MCG; Start 04/14/17 at 20:00 GHAZALA HORNE Apr 15, 2017 15:22
--- NOTE | 2017-04-15 16:04 | CONS ---
Date/Time of Note Date/Time of Note DATE: 04/15/17 TIME: 16:03 Assessment/Plan Assessment/Plan Additional Assessment/Plan Additional Assessment/Plan Additional Assessment/Plan 1. 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 Intractable nausea vomiting, resolved 3. Dysphagia 4. Hypertension 5. Cachexia 6. Extensive esophageal ulceration 7. Leukocytosis secondary to Neupogen 8. Ascites Plan Continue PPI 40 mg twice daily Carafate suspension Reglan Self-expanding metallic stent on Saturday Discussed the patient and the family member and is agreed for the stent Paracentesis, 5 L of fluid was removed today Consultation Date/Type/Reason Admit Date/Time Apr 07, 2017 at 19:17 [facility] Referring Provider: CINDY ESTRELLA MD 24 HR Interval Summary Constitutional: improved Exam/Review of Systems Vital Signs Vitals Vital Signs Date Time Temp Pulse Resp B/P Pulse Ox O2 Delivery O2 Flow Rate FiO2 04/15/17 14:47 97.5 71 20 99/68 98 04/14/17 00:25 Room Air 04/12/17 20:00 2.0 Intake and Output 04/14/17 04/14/17 04/15/17 15:00 23:00 07:00 Intake Total 50 ml 1780 ml 420 ml Output Total 0 ml Balance 50 ml 1780 ml 420 ml Exam Constitutional: alert, oriented, well developed Psych: nl mood/affect, no complaints Head: atraumatic, normocephalic Eyes: EOMI, PERRL, nl conjunctiva, nl lids, nl sclera ENMT: nl external ears & nose, nl lips & teeth, nl nasal mucosa & septum Neck: non-tender, supple Respiratory: clear to auscultation, normal air movement Cardiovascular: nl pulses, regular rate and rhythm Gastrointestinal: nl liver, spleen, non-tender, soft Musculoskeletal: nl extremities to inspection, nl gait and stance Extremities: normal pulses 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: 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, nl mental status, nl speech, nl strength Skin: nl turgor, No rash or lesions Lymph: nl lymph nodes Results Result Diagram: 04/15/17 0532 04/15/17 0905 Results 24 hrs Laboratory Tests Test 04/15/17 05:32 04/15/17 09:05 White Blood Count 1.4 #L Red Blood Count 2.69 L Hemoglobin 7.6 L Hematocrit 23.5 L Mean Corpuscular Volume 87.4 Mean Corpuscular Hemoglobin 28.3 L Mean Corpuscular Hemoglobin Concent 32.3 Red Cell Distribution Width 17.9 H Platelet Count 149 Mean Platelet Volume 9.5 Neutrophils % Segmented Neutrophils % (Manual) 27 L Band Neutrophils % (Manual) 6 H Lymphocytes % (Manual) 14 L Monocytes % (Manual) 31 H Eosinophils % Eosinophils % (Manual) 4 Basophils % (Manual) 13 H Metamyelocytes % (manual) 4 H Nucleated Red Blood Cells % 1 H Neutrophils # Neutrophils # (Manual) 0.4 L Band Neutrophils # 0.0 Absolute Lymphocytes (Manual) 0.1 L Absolute Monocytes (Manual) 0.4 Eosinophils # Basophils # (Manual) 0.1 H Metamyelocytes # 0.0 Smudge Cells % 49 H Thrombocytosis 21 H Platelet Estimate DECREASED Polychromasia 3+ Poikilocytosis 2+ Anisocytosis 1+ Microcytosis 1+ Sodium Level 134 L 133 L Potassium Level 5.4 H 3.7 Chloride Level 107 103 Carbon Dioxide Level 24 24 Anion Gap 8 10 Blood Urea Nitrogen 8 9 Creatinine 0.34 L 0.43 L Glucose Level 71 85 Calcium Level 6.2 L 6.7 L Medications Medications Current Medications Potassium Chloride/Sodium Chloride (NS-KCl 20 Meq) 1,000 ml @ 20 mls/hr Q24H IV Last administered on 04/14/17 21:41; Admin Dose 20 MLS/HR; Start 04/07/17 at 23:00 Ondansetron HCl (Zofran Inj) 4 mg Q6H PRN IV NAUSEA AND/OR VOMITING Last administered on 04/15/17 09:20; Admin Dose 4 MG; Start 04/07/17 at 23:00 Morphine Sulfate (morphine) 2 mg Q4H PRN IV PAIN Last administered on 12:04; Admin Dose 2 MG; Start 04/07/17 at 23:00 Pantoprazole (Protonix Iv) 40 mg BID@06,18 IV Last administered on 04/15/17 05 :26; Admin Dose 40 MG; Start 04/10/17 at 18:00 Sucralfate (Carafate) 1 gm QID PO Last administered on 04/15/17 13:50; Admin Dose 1 GM; Start 04/10/17 at 17:00 Metoclopramide HCl (Reglan) 5 mg TID PO Last administered on 04/15/17 13:50; Admin Dose 5 MG; Start 04/10/17 at 21:00 Sodium Phosphate (Neutra-Phos) 250 mg BID PO Last administered on 04/15/17 08: 52; Admin Dose 250 MG; Start 04/11/17 at 10:30 Filgrastim (Neupogen) 300 mcg DAILY@17 SC Last administered on 04/14/17 21:24 ; Admin Dose 300 MCG; Start 04/14/17 at 20:00 GIANNA CHANEL MD Apr 15, 2017 16:04
--- NOTE | 2017-04-15 17:20 | CONS ---
Date/Time of Note Date/Time of Note DATE: 04/15/17 TIME: 17:20 Assessment/Plan Assessment/Plan Chief Complaint/Hosp Course Metastatic gastric adenocarcinoma with peritoneal carcinomatosis. ON CHEMO Abdominopelvic ascites - malignant Paracentesis LEUKOPENIA- MONITOR NEUPOGEN ANEMIA POST CHEMO MONITOR Intractable nausea, vomiting, dehydration ANTIEMETICS, IVF POST EGD- REPORT - P Moderate right pleural effusion. Mild pericardial effusion. Diffuse subcutaneous edema. Abdominal pain. PAIN CONTROL hx Left lower extremity edema.- better HYPONATREMIA NEPHRO Problems: Consultation Date/Type/Reason Admit Date/Time Apr 07, 2017 at 19:17 Type of Consultation: [facility] Referring Provider: CINDY ESTRELLA MD 24 HR Interval Summary Free Text/Dictation ALL NOTED WBC- IMPROVING Exam/Review of Systems Vital Signs Vitals Vital Signs Date Time Temp Pulse Resp B/P Pulse Ox O2 Delivery O2 Flow Rate FiO2 04/15/17 14:47 97.5 71 20 99/68 98 04/14/17 00:25 Room Air 04/12/17 20:00 2.0 Intake and Output 04/14/17 04/14/17 04/15/17 15:00 23:00 07:00 Intake Total 50 ml 1780 ml 420 ml Output Total 0 ml Balance 50 ml 1780 ml 420 ml Exam Const: [] Moderate distress, vomiting appears to be in pain Head: Atraumatic Eyes: Normal Conjunctiva, EOMI, PRL ENT: Normal External Ears, Nose and Mouth. Neck: Full range of motion..~ No meningismus. Resp: Clear to auscultation bilaterally Cardio: Regular tachycardia m, no murmurs Abd: Soft, moderate upper abdominal tenderness without guarding or rebound, non distended. Normal bowel sounds Skin: No petechiae or rashes Back: No midline or flank tenderness Ext: No cyanosis, or edema Neur: Awake and alert and oriented 3, no focal deficits Psych: Normal Mood and Affect Results Result Diagram: 04/15/17 0532 04/15/17 0905 Results 24 hrs Laboratory Tests Test 04/15/17 05:32 04/15/17 09:05 White Blood Count 1.4 #L Red Blood Count 2.69 L Hemoglobin 7.6 L Hematocrit 23.5 L Mean Corpuscular Volume 87.4 Mean Corpuscular Hemoglobin 28.3 L Mean Corpuscular Hemoglobin Concent 32.3 Red Cell Distribution Width 17.9 H Platelet Count 149 Mean Platelet Volume 9.5 Neutrophils % Segmented Neutrophils % (Manual) 27 L Band Neutrophils % (Manual) 6 H Lymphocytes % (Manual) 14 L Monocytes % (Manual) 31 H Eosinophils % Eosinophils % (Manual) 4 Basophils % (Manual) 13 H Metamyelocytes % (manual) 4 H Nucleated Red Blood Cells % 1 H Neutrophils # Neutrophils # (Manual) 0.4 L Band Neutrophils # 0.0 Absolute Lymphocytes (Manual) 0.1 L Absolute Monocytes (Manual) 0.4 Eosinophils # Basophils # (Manual) 0.1 H Metamyelocytes # 0.0 Smudge Cells % 49 H Thrombocytosis 21 H Platelet Estimate DECREASED Polychromasia 3+ Poikilocytosis 2+ Anisocytosis 1+ Microcytosis 1+ Sodium Level 134 L 133 L Potassium Level 5.4 H 3.7 Chloride Level 107 103 Carbon Dioxide Level 24 24 Anion Gap 8 10 Blood Urea Nitrogen 8 9 Creatinine 0.34 L 0.43 L Glucose Level 71 85 Calcium Level 6.2 L 6.7 L Medications Medications Current Medications Potassium Chloride/Sodium Chloride (NS-KCl 20 Meq) 1,000 ml @ 20 mls/hr Q24H IV Last administered on 04/14/17 21:41; Admin Dose 20 MLS/HR; Start 04/07/17 at 23:00 Ondansetron HCl (Zofran Inj) 4 mg Q6H PRN IV NAUSEA AND/OR VOMITING Last administered on 04/15/17 09:20; Admin Dose 4 MG; Start 04/07/17 at 23:00 Morphine Sulfate (morphine) 2 mg Q4H PRN IV PAIN Last administered on 12:04; Admin Dose 2 MG; Start 04/07/17 at 23:00 Pantoprazole (Protonix Iv) 40 mg BID@06,18 IV Last administered on 04/15/17 05 :26; Admin Dose 40 MG; Start 04/10/17 at 18:00 Sucralfate (Carafate) 1 gm QID PO Last administered on 04/15/17 13:50; Admin Dose 1 GM; Start 04/10/17 at 17:00 Metoclopramide HCl (Reglan) 5 mg TID PO Last administered on 04/15/17 13:50; Admin Dose 5 MG; Start 04/10/17 at 21:00 Sodium Phosphate (Neutra-Phos) 250 mg BID PO Last administered on 04/15/17 08: 52; Admin Dose 250 MG; Start 04/11/17 at 10:30 Filgrastim (Neupogen) 300 mcg DAILY@17 SC Last administered on 04/14/17 21:24 ; Admin Dose 300 MCG; Start 04/14/17 at 20:00 GRETEL LITTLEJOHN MD Apr 15, 2017 17:20
[2017-04-15] MEDS: FILGRASTIM 300 MCG INJ SC SCH (17:48)
[2017-04-15] MEDS: NS + KCL 20 MEQ 1,000 ML IV SCH (19:23)
[2017-04-15 19:32] VITALS: BP 91/57; RESP 20
[2017-04-15] MEDS: morphine 2 MG INJ IV PRN (20:45)
[2017-04-16] VITALS (12 sets, daily range): BP systolic 95–131; BP diastolic 56–97; PULSE 82–90; RESP 13–22
[2017-04-16] MEDS: morphine 2 MG INJ IV PRN ×2 (01:00→05:39)
[2017-04-16] MEDS: ONDANSETRON 4 MG INJ IV PRN ×2 (01:47→09:39)
[2017-04-16] MEDS: ALBUTEROL/IPRATROPIUM (NEB) 3 ML AMP HHN PRN (03:36)
[2017-04-16] MEDS: PANTOPRAZOLE 40 MG INJ IV SCH ×2 (05:30→17:58)
[2017-04-16 06:16] LABS: ABNORMAL IP MESSAGE 1; HEMATOCRIT 24.6 % (37.0-47.0); HEMOGLOBIN 7.8 g/dl (12.0-16.0); MEAN CORPUSCULAR HGB CONC 31.7 g/dl (32.0-37.0); MEAN CORPUSCULAR VOLUME 85.1 fl (82.0-101.0); MEAN PLATELET VOLUME 9.6 fl (7.4-10.4); NUCLEATED RED BLOOD CELLS% 0.4 /100WBC (0.0-0.0); PLATELET COUNT 161 10^3/UL (140-415); RED BLOOD COUNT 2.89 10^6/ul (4.20-5.40); RED CELL DISTRIBUTION WIDTH 17.9 % (11.5-14.5)
[2017-04-16 06:57] LABS: POSITIVE DIFF @See below
[2017-04-16 07:05] LABS: CALCIUM 6.9 mg/dl (8.4-10.2); CREATININE 0.48 mg/dl (0.44-1.00); POTASSIUM 3.9 mmol/L (3.5-5.1)
--- NOTE | 2017-04-16 07:54 | CONS ---
Date/Time of Note Date/Time of Note DATE: 04/16/17 TIME: 07:53 Assessment/Plan Assessment/Plan Chief Complaint/Hosp Course Metastatic gastric adenocarcinoma with peritoneal carcinomatosis. ON CHEMO Abdominopelvic ascites - malignant POST Paracentesis LEUKOPENIA- MONITOR NEUPOGEN- WILL DC TOMORROW ANEMIA POST CHEMO MONITOR Intractable nausea, vomiting, dehydration ANTIEMETICS, IVF POST EGD- REPORT - P Moderate right pleural effusion. Mild pericardial effusion. Diffuse subcutaneous edema. Abdominal pain. PAIN CONTROL hx Left lower extremity edema.- better HYPONATREMIA NEPHRO Problems: Consultation Date/Type/Reason Admit Date/Time Apr 07, 2017 at 19:17 [facility] Referring Provider: CINDY ESTRELLA MD 24 HR Interval Summary Free Text/Dictation ALL NOTED WBC IMPROVING Exam/Review of Systems Vital Signs Vitals Vital Signs Date Time Temp Pulse Resp B/P Pulse Ox O2 Delivery O2 Flow Rate FiO2 04/16/17 07:14 97.4 75 20 104/63 99 04/16/17 03:46 28 04/16/17 03:44 2.0 04/14/17 00:25 Room Air Intake and Output 04/15/17 04/15/17 04/16/17 15:00 23:00 07:00 Intake Total 1200 ml 1140 ml Output Total 0 ml Balance 1200 ml 1140 ml Exam Const: [] Moderate distress, vomiting appears to be in pain Head: Atraumatic Eyes: Normal Conjunctiva, EOMI, PRL ENT: Normal External Ears, Nose and Mouth. Neck: Full range of motion..~ No meningismus. Resp: Clear to auscultation bilaterally Cardio: Regular tachycardia m, no murmurs Abd: Soft, moderate upper abdominal tenderness without guarding or rebound, non distended. Normal bowel sounds Skin: No petechiae or rashes Back: No midline or flank tenderness Ext: No cyanosis, or edema Neur: Awake and alert and oriented 3, no focal deficits Psych: Normal Mood and Affect Results Result Diagram: 04/16/17 0546 04/16/17 0546 Results 24 hrs Laboratory Tests Test 04/15/17 09:05 04/16/17 05:46 Sodium Level 133 L 134 L Potassium Level 3.7 3.9 Chloride Level 103 103 Carbon Dioxide Level 24 24 Anion Gap 10 11 Blood Urea Nitrogen 9 11 Creatinine 0.43 L 0.48 Glucose Level 85 69 #L Calcium Level 6.7 L 6.9 L White Blood Count 10.0 # Red Blood Count 2.89 L Hemoglobin 7.8 L Hematocrit 24.6 L Mean Corpuscular Volume 85.1 Mean Corpuscular Hemoglobin 27.0 L Mean Corpuscular Hemoglobin Concent 31.7 L Red Cell Distribution Width 17.9 H Platelet Count 161 Mean Platelet Volume 9.6 Neutrophils % Lymphocytes % Monocytes % Eosinophils % Basophils % Nucleated Red Blood Cells % 0.4 H Neutrophils # Lymphocytes # Monocytes # Eosinophils # Basophils # Nucleated Red Blood Cells # Medications Medications Current Medications Potassium Chloride/Sodium Chloride (NS-KCl 20 Meq) 1,000 ml @ 20 mls/hr Q24H IV Last administered on 04/14/17 21:41; Admin Dose 20 MLS/HR; Start 04/07/17 at 23:00 Ondansetron HCl (Zofran Inj) 4 mg Q6H PRN IV NAUSEA AND/OR VOMITING Last administered on 04/15/17 20:45; Admin Dose 4 MG; Start 04/07/17 at 23:00 Morphine Sulfate (morphine) 2 mg Q4H PRN IV PAIN Last administered on 05:39; Admin Dose 2 MG; Start 04/07/17 at 23:00 Pantoprazole (Protonix Iv) 40 mg BID@06,18 IV Last administered on 04/16/17 05 :30; Admin Dose 40 MG; Start 04/10/17 at 18:00 Sucralfate (Carafate) 1 gm QID PO Last administered on 04/15/17 21:00; Admin Dose 1 GM; Start 04/10/17 at 17:00 Metoclopramide HCl (Reglan) 5 mg TID PO Last administered on 04/15/17 21:00; Admin Dose 5 MG; Start 04/10/17 at 21:00 Sodium Phosphate (Neutra-Phos) 250 mg BID PO Last administered on 04/15/17 21: 00; Admin Dose 250 MG; Start 04/11/17 at 10:30 Filgrastim (Neupogen) 300 mcg DAILY@17 SC Last administered on 04/15/17 17:48 ; Admin Dose 300 MCG; Start 04/14/17 at 20:00 GRETEL LITTLEJOHN MD Apr 16, 2017 07:54
[2017-04-16] MEDS ORDERED: EPHEDrine SULFATE 50 MG/5 ML SYG IV PRN (09:00)
[2017-04-16] MEDS ORDERED: DIPHENHYDRAMINE 50 MG INJ IV PRN (09:00)
[2017-04-16] MEDS ORDERED: MEPERIDINE 25 MG INJ IV PRN (09:00)
[2017-04-16] MEDS ORDERED: ONDANSETRON 4 MG INJ IV PRN (09:00)
[2017-04-16] MEDS ORDERED: ATROPINE 1 MG/10 ML SYRINGE IV PRN (09:00)
[2017-04-16] MEDS ORDERED: HYDROmorphONE (0.2 MG/ML) 10ML SYG IV PRN ×3 (09:00)
[2017-04-16] MEDS: METOCLOPRAMIDE 5 MG TAB PO SCH ×3 (09:00→21:12)
[2017-04-16] MEDS: NEUTRA-PHOS 250 MG PACKET PO SCH ×2 (09:00→21:12)
[2017-04-16] MEDS ORDERED: hydrALAzine 20 MG INJ IV PRN (09:00)
[2017-04-16] MEDS ORDERED: FENTAnyl 50 MCG/ML VIAL IV PRN ×2 (09:00)
[2017-04-16] MEDS ORDERED: OXYCODONE/ACETAMINOPHEN (5/325) TAB PO PRN ×2 (09:00)
[2017-04-16] MEDS ORDERED: LABETALOL HCL 20MG INJ IV PRN (09:00)
[2017-04-16] MEDS: SUCRALFATE 1 GM TAB PO SCH ×2 (09:00→12:32)
[2017-04-16] MEDS ORDERED: MIDAZOLAM 1 MG/ML 2 ML INJ IV PRN ×2 (09:00→13:30)
[2017-04-16] MEDS ORDERED: morphine (1 MG/ML) 10ML SYRINGE IV PRN ×3 (09:00)
--- NOTE | 2017-04-16 13:51 | PN ---
Date/Time of Note Date/Time of Note DATE: 04/16/17 TIME: 13:49 Assessment/Plan VTE Prophylaxis VTE Prophylaxis Intervention: SCD's Lines/Catheters [facility]from [facility] port-a-cath Urinary Cath still in place: No Assessment/Plan Chief Complaint/Hosp Course Patient is currently in OR for stent placement, no acute events reported per RN. Assessment/Plan -Extreme esophagitis per EGD, follow-up gastroenterology recommendations. Continue Protonix, Carafate, and Reglan. -Metastatic gastric adenocarcinoma, status post chemotherapy by Dr. Ford, oncology. Stent placement by Dr. Millan, GI. -Nausea and vomiting, resolved. Continue Zofran for for nausea and morphine as needed for pain. -Hyponatremia secondary to dehydration, resolved, Dr. Ji is following in nephrology consultation. 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 Nutritional consult is appreciated. -Leukopenia and anemia most likely secondary to chemotherapy. Further recommendations based on clinical course. Plan of care discussed with Dr. Garner. Problems: Exam/Review of Systems Vital Signs Vitals Vital Signs Date Time Temp Pulse Resp B/P Pulse Ox O2 Delivery O2 Flow Rate FiO2 04/16/17 13:31 86 17 109/75 100 Nasal Cannula 2.0 04/16/17 13:01 98.3 04/16/17 03:46 28 Intake and Output 04/15/17 04/15/17 04/16/17 15:00 23:00 07:00 Intake Total 1200 ml 1140 ml Output Total 0 ml Balance 1200 ml 1140 ml Results Result Diagram: 04/16/17 0546 04/16/17 0546 Results 24 hrs Laboratory Tests Test 04/16/17 05:46 White Blood Count 10.0 # Red Blood Count 2.89 L Hemoglobin 7.8 L Hematocrit 24.6 L Mean Corpuscular Volume 85.1 Mean Corpuscular Hemoglobin 27.0 L Mean Corpuscular Hemoglobin Concent 31.7 L Red Cell Distribution Width 17.9 H Platelet Count 161 Mean Platelet Volume 9.6 Neutrophils % Lymphocytes % Monocytes % Eosinophils % Basophils % Nucleated Red Blood Cells % 0.4 H Neutrophils # Lymphocytes # Monocytes # Eosinophils # Basophils # Nucleated Red Blood Cells # Sodium Level 134 L Potassium Level 3.9 Chloride Level 103 Carbon Dioxide Level 24 Anion Gap 11 Blood Urea Nitrogen 11 Creatinine 0.48 Glucose Level 69 #L Calcium Level 6.9 L Medications Medications Current Medications Potassium Chloride/Sodium Chloride (NS-KCl 20 Meq) 1,000 ml @ 20 mls/hr Q24H IV Last administered on 04/14/17 21:41; Admin Dose 20 MLS/HR; Start 04/07/17 at 23:00 Ondansetron HCl (Zofran Inj) 4 mg Q6H PRN IV NAUSEA AND/OR VOMITING Last administered on 04/16/17 09:39; Admin Dose 4 MG; Start 04/07/17 at 23:00 Morphine Sulfate (morphine) 2 mg Q4H PRN IV PAIN Last administered on 05:39; Admin Dose 2 MG; Start 04/07/17 at 23:00 Pantoprazole (Protonix Iv) 40 mg BID@06,18 IV Last administered on 04/16/17 05 :30; Admin Dose 40 MG; Start 04/10/17 at 18:00 Metoclopramide HCl (Reglan) 5 mg TID PO Last administered on 04/15/17 21:00; Admin Dose 5 MG; Start 04/10/17 at 21:00 Sodium Phosphate (Neutra-Phos) 250 mg BID PO Last administered on 04/15/17 21: 00; Admin Dose 250 MG; Start 04/11/17 at 10:30 Filgrastim (Neupogen) 300 mcg DAILY@17 SC Last administered on 04/15/17 17:48 ; Admin Dose 300 MCG; Start 04/14/17 at 20:00 Metoclopramide HCl (Reglan) 10 mg Q6 IV ; Start 04/16/17 at 18:00 GHAZALA HORNE Apr 16, 2017 13:51
--- NOTE | 2017-04-16 14:27 | RADRPT ---
PROCEDURE: Chest Radiograph. CLINICAL INDICATION: Postop TECHNIQUE: Single frontal chest radiograph. COMPARISON: Chest radiograph 04/02/2017 FINDINGS: A right chest wall port infusion catheter remains in place. Heart size is at the upper limits of no rmal. There is new mild to moderate central vascular congestion.. There are new bibasilar opacitie s consistent with small to moderate pleural effusions and adjacent atelectasis/infiltrate. The bone s are intact. IMPRESSION: 1. New bibasilar pleural / parenchymal disease. 2. New mild to moderate central vascular congestion. RPTAT: KK .Angelo Curtis MD, MD Date Time Electronically viewed and signed by .Angelo Curtis MD, on 04/16/2017 14:27 .B/
[2017-04-16] MEDS: METOCLOPRAMIDE 10 MG INJ IV SCH (17:58)
[2017-04-16] MEDS: FILGRASTIM 300 MCG INJ SC SCH (17:59)
[2017-04-16] MEDS: NS + KCL 20 MEQ 1,000 ML IV SCH (19:23)
[2017-04-17] MEDS: METOCLOPRAMIDE 10 MG INJ IV SCH ×5 (00:13→23:45)
[2017-04-17 02:35] VITALS: BP 86/52; RESP 19
[2017-04-17] MEDS: NS + KCL 20 MEQ 1,000 ML IV SCH (05:30)
[2017-04-17] MEDS: PANTOPRAZOLE 40 MG INJ IV SCH ×2 (05:30→18:08)
[2017-04-17 05:47] LABS: ABNORMAL IP MESSAGE 1; BASOPHIL # 0.1 10^3/ul (0.0-0.1); BASOPHILS % 0.6 % (0.0-2.0); EOSINOPHILS % 0.1 % (0.0-7.0); HEMATOCRIT 25.4 % (37.0-47.0); HEMOGLOBIN 8.2 g/dl (12.0-16.0); LYMPHOCYTES # 0.6 10^3/ul (0.8-2.9); LYMPHOCYTES % 2.6 % (15.0-51.0); MEAN CORPUSCULAR HEMOGLOBIN 27.5 pg (29.0-33.0); MEAN CORPUSCULAR HGB CONC 32.3 g/dl (32.0-37.0); MEAN CORPUSCULAR VOLUME 85.2 fl (82.0-101.0); MEAN PLATELET VOLUME 9.6 fl (7.4-10.4); MONOCYTE # 0.9 10^3/ul (0.3-0.9); MONOCYTES % 4.1 % (0.0-11.0); NEUTROPHIL # 19.7 10^3/ul (1.6-7.5); NEUTROPHILS % 86.2 % (39.0-77.0); NUCLEATED RED BLOOD CELLS% 0.1 /100WBC (0.0-0.0); PLATELET COUNT 200 10^3/UL (140-415); RED BLOOD COUNT 2.98 10^6/ul (4.20-5.40); WHITE BLOOD COUNT 22.8 10^3/ul (4.8-10.8)
[2017-04-17 06:09] LABS: CREATININE 0.52 mg/dl (0.44-1.00); POTASSIUM 3.9 mmol/L (3.5-5.1)
[2017-04-17 06:57] LABS: POSITIVE DIFF @See below
[2017-04-17] MEDS: D5W-0.45 NACL + KCL 20 MEQ 1,000 ML IV SCH (07:05)
[2017-04-17 07:12] VITALS: BP 96/67; RESP 18
[2017-04-17] MEDS: METOCLOPRAMIDE 5 MG TAB PO SCH (10:25)
[2017-04-17] MEDS: NEUTRA-PHOS 250 MG PACKET PO SCH ×2 (10:26→21:47)
--- NOTE | 2017-04-17 12:06 | PN ---
Date/Time of Note Date/Time of Note DATE: 04/17/17 TIME: 11:59 Assessment/Plan VTE Prophylaxis VTE Prophylaxis Intervention: SCD's Lines/Catheters IV Catheter Type (from Nrs): PICC Line Central line still needed: Yes Urinary Cath still in place: No Assessment/Plan Chief Complaint/Hosp Course Patient is status post EGD yesterday, pain is well controlled, patient was episodes of hypoglycemia, will start gentle hydration with D5. Assessment/Plan -Extreme esophagitis per EGD, follow-up gastroenterology recommendations. Continue Protonix, Carafate, and Reglan. -Metastatic gastric adenocarcinoma, status post chemotherapy by Dr. Ford, oncology. Status post EGD with stent placement on04/[address] Millan, GI. -Nausea and vomiting, resolved. Continue Zofran for for nausea and morphine as needed for pain. -Hyponatremia secondary to dehydration, resolved, Dr. Ji is following in nephrology consultation. 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 -Protein calorie severe malnutrition. Nutritional consult is appreciated. -Leukopenia and anemia most likely secondary to chemotherapy. Restarted on Neupogen. Further recommendations based on clinical course. Plan of care discussed with Dr. Garner. Problems: Exam/Review of Systems Vital Signs Vitals Vital Signs Date Time Temp Pulse Resp B/P Pulse Ox O2 Delivery O2 Flow Rate FiO2 04/17/17 07:12 97.7 56 18 96/67 100 04/16/17 13:31 Nasal Cannula 2.0 04/16/17 03:46 28 Intake and Output 04/16/17 04/16/17 04/17/17 15:00 23:00 07:00 Intake Total 160 ml 180 ml Output Total 0 ml Balance 160 ml 180 ml Exam Constitutional: alert, frail, oriented, other (Cachectic) Neck: supple Respiratory: normal air movement Cardiovascular: nl pulses Gastrointestinal: distended, soft, tender Musculoskeletal: nl extremities to inspection Extremities: edema 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: nl mental status Skin: nl turgor Results Result Diagram: 04/17/17 0513 04/17/17 0513 Results 24 hrs Laboratory Tests Test 04/17/17 05:13 04/17/17 06:36 04/17/17 06:51 04/17/17 08:06 White Blood Count 22.8 #H Red Blood Count 2.98 L Hemoglobin 8.2 L Hematocrit 25.4 L Mean Corpuscular Volume 85.2 Mean Corpuscular Hemoglobin 27.5 L Mean Corpuscular Hemoglobin Concent 32.3 Red Cell Distribution Width 18.0 H Platelet Count 200 # Mean Platelet Volume 9.6 Neutrophils % 86.2 H Lymphocytes % 2.6 L Monocytes % 4.1 Eosinophils % 0.1 Basophils % 0.6 Nucleated Red Blood Cells % 0.1 H Neutrophils # 19.7 H Lymphocytes # 0.6 L Monocytes # 0.9 Eosinophils # 0.0 Basophils # 0.1 Nucleated Red Blood Cells # 0.0 Sodium Level 134 L Potassium Level 3.9 Chloride Level 105 Carbon Dioxide Level 23 Anion Gap 10 Blood Urea Nitrogen 13 Creatinine 0.52 Glucose Level 48 #*L Calcium Level 7.0 L Bedside Glucose 49 *L 60 L 104 Medications Medications Current Medications Ondansetron HCl (Zofran Inj) 4 mg Q6H PRN IV NAUSEA AND/OR VOMITING Last administered on 04/16/17 09:39; Admin Dose 4 MG; Start 04/07/17 at 23:00 Morphine Sulfate (morphine) 2 mg Q4H PRN IV PAIN Last administered on 05:39; Admin Dose 2 MG; Start 04/07/17 at 23:00 Pantoprazole (Protonix Iv) 40 mg BID@06,18 IV Last administered on 04/17/17 05 :30; Admin Dose 40 MG; Start 04/10/17 at 18:00 Metoclopramide HCl (Reglan) 5 mg TID PO Last administered on 04/17/17 10:25; Admin Dose 5 MG; Start 04/10/17 at 21:00 Sodium Phosphate (Neutra-Phos) 250 mg BID PO Last administered on 04/17/17 10: 26; Admin Dose 250 MG; Start 04/11/17 at 10:30 Filgrastim (Neupogen) 300 mcg DAILY@17 SC Last administered on 04/16/17 17:59 ; Admin Dose 300 MCG; Start 04/14/17 at 20:00; Stop 04/17/17 at 19:59 Metoclopramide HCl 10 mg 10 mg Q6 IV Last administered on 04/17/17 05:30; Admin Dose 10 MG; Start 04/16/17 at 18:00 Potassium Chloride/Dextrose/ Sod Cl (D5-1/2ns + KCl 20 Meq) 1,000 ml @ 50 mls/ hr Q20H IV Last administered on 04/17/17t 07:05; Admin Dose 50 MLS/HR; Start at 07:00 GHAZALA HORNE Apr 17, 2017 12:06
--- NOTE | 2017-04-17 12:18 | PN ---
DATE: 04/10/2017 SUBJECTIVE DATA: The patient is stable. She continues to complain of abdominal pain. There is no significant change. No other acute symptoms noted. OBJECTIVE DATA: VITAL SIGNS: Blood pressure 119/86, respiration 18, pulse 86, temperature 98.6. HEENT:: Normocephalic. Neck supple. CARDIAC: Heart has a regular rate. RESPIRATORY: Lungs show diminished breath sounds at the base. ABDOMEN: Soft, nontender to palpation, no rebound or guarding. EXTREMITIES: No clubbing, cyanosis or edema. DERMATOLOGY: Skin without rashes. NEUROLOGIC: No focal deficits. LABORATORY AND DIAGNOSTIC DATA: Laboratory data shows a white count of 27.6, , platelet count is 120. Sodium 131, , BUN 19, creatinine 0.48. The patient's urinalysis shows less than 1 percent and phosphorous 2.3. ASSESSMENT AND PLAN: This is a 61-year-old female who presents with: 1. Hypernatremia. Etiology is secondary to . 2. Hypokalemia. The patient's sodium levels have improved with IV fluids. At this point, continue current treatment plan. Continue IV hydration. We will continue to monitor sodium levels. 3. Hypokalemia improved. Continue potassium supplementation. 4. Metabolic alkalosis. The etiology is multi-factorial secondary to hypokalemia, chloride deficiency. The patient's alkalosis is improving. Continue IV fluids and sodium chloride. 5. Middle bone disorder. The patient is hypophosphatemic. We will treat with sodium phosphate. 6. Metastatic gastric adenocarcinoma. The patient starts with chemotherapy. Continue to monitor and follow up with Dr. Sands. 7. Nausea and vomiting, possibly due to gastric outlet syndrome. The patient is pending GI evaluation. Continue medical management. 8. Leukopenia, improved. The patient is status post Neupogen. Dictated By: Kulwinder Ji DO /[email or web address] /Document#: [id number]
[2017-04-17] MEDS: SUCRALFATE 1 GM TAB PO SCH ×3 (12:53→21:47)
[2017-04-17 13:10] VITALS: BP 101/72; RESP 18
--- NOTE | 2017-04-17 18:01 | CONS ---
Date/Time of Note Date/Time of Note DATE: 04/17/17 TIME: 18:00 Assessment/Plan Assessment/Plan Additional Assessment/Plan Additional Assessment/Plan Additional Assessment/Plan 1. 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 Intractable nausea vomiting, resolved 3. Dysphagia 4. Hypertension 5. Cachexia 6. Extensive esophageal ulceration 7. Leukocytosis secondary to Neupogen 8. Ascites Plan Continue PPI 40 mg twice daily Carafate suspension Reglan Self-expanding metallic stent on Saturday Discussed the patient and the family member and has agreed for the stent Stent will be placed on Saturday Increase the dose of Reglan as a prokinetic agent Patient is placed on a clear liquid diet Consultation Date/Type/Reason Admit Date/Time Apr 07, 2017 at 19:17 Type of Consultation: [facility] Referring Provider: CINDY ESTRELLA MD 24 HR Interval Summary Free Text/Dictation Patient is hungry and wants to eat solid food Exam/Review of Systems Vital Signs Vitals Vital Signs Date Time Temp Pulse Resp B/P Pulse Ox O2 Delivery O2 Flow Rate FiO2 04/17/17 13:10 97.8 88 18 101/72 100 04/16/17 13:31 Nasal Cannula 2.0 04/16/17 03:46 28 Intake and Output 04/16/17 04/16/17 04/17/17 15:00 23:00 07:00 Intake Total 160 ml 180 ml Output Total 0 ml Balance 160 ml 180 ml Exam Constitutional: alert, oriented, well developed Psych: nl mood/affect, no complaints Head: atraumatic, normocephalic Eyes: EOMI, PERRL, nl conjunctiva, nl lids, nl sclera ENMT: nl external ears & nose, nl lips & teeth, nl nasal mucosa & septum Neck: non-tender, supple Respiratory: clear to auscultation, normal air movement Cardiovascular: nl pulses, regular rate and rhythm Gastrointestinal: nl liver, spleen, non-tender, soft Musculoskeletal: nl extremities to inspection, nl gait and stance Extremities: normal pulses 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: SAFETY AND OCCUPATIONAL HEALTH MANAGER II-XII intact, nl mental status, nl speech, nl strength Skin: nl turgor, No rash or lesions Lymph: nl lymph nodes Results Result Diagram: 04/17/17 0513 04/17/17 0513 Results 24 hrs Laboratory Tests Test 04/17/17 05:13 04/17/17 06:36 04/17/17 06:51 04/17/17 08:06 White Blood Count 22.8 #H Red Blood Count 2.98 L Hemoglobin 8.2 L Hematocrit 25.4 L Mean Corpuscular Volume 85.2 Mean Corpuscular Hemoglobin 27.5 L Mean Corpuscular Hemoglobin Concent 32.3 Red Cell Distribution Width 18.0 H Platelet Count 200 # Mean Platelet Volume 9.6 Neutrophils % 86.2 H Lymphocytes % 2.6 L Monocytes % 4.1 Eosinophils % 0.1 Basophils % 0.6 Nucleated Red Blood Cells % 0.1 H Neutrophils # 19.7 H Lymphocytes # 0.6 L Monocytes # 0.9 Eosinophils # 0.0 Basophils # 0.1 Nucleated Red Blood Cells # 0.0 Sodium Level 134 L Potassium Level 3.9 Chloride Level 105 Carbon Dioxide Level 23 Anion Gap 10 Blood Urea Nitrogen 13 Creatinine 0.52 Glucose Level 48 #*L Calcium Level 7.0 L Bedside Glucose 49 *L 60 L 104 Test 04/17/17 12:34 04/17/17 17:42 Bedside Glucose 89 97 Medications Medications Current Medications Ondansetron HCl (Zofran Inj) 4 mg Q6H PRN IV NAUSEA AND/OR VOMITING Last administered on 04/16/17 09:39; Admin Dose 4 MG; Start 04/07/17 at 23:00 Morphine Sulfate (morphine) 2 mg Q4H PRN IV PAIN Last administered on 05:39; Admin Dose 2 MG; Start 04/07/17 at 23:00 Pantoprazole (Protonix Iv) 40 mg BID@06,18 IV Last administered on 04/17/17 05 :30; Admin Dose 40 MG; Start 04/10/17 at 18:00 Sodium Phosphate (Neutra-Phos) 250 mg BID PO Last administered on 04/17/17 10: 26; Admin Dose 250 MG; Start 04/11/17 at 10:30 Metoclopramide HCl 10 mg 10 mg Q6 IV Last administered on 04/17/17 12:52; Admin Dose 10 MG; Start 04/16/17 at 18:00 Potassium Chloride/Dextrose/ Sod Cl (D5-1/2ns + KCl 20 Meq) 1,000 ml @ 50 mls/ hr Q20H IV Last administered on 04/17/17 07:05; Admin Dose 50 MLS/HR; Start at 07:00 Sucralfate (Carafate) 1 gm QID PO Last administered on 04/17/17 12:53; Admin Dose 1 GM; Start 04/17/17 at 12:30 GIANNA CHANEL MD Apr 17, 2017 18:01
[2017-04-17] MEDS ORDERED: LIDOCAINE 100 MG SYRINGE ONE (18:02)
[2017-04-17] MEDS ORDERED: MIDAZOLAM 1 MG/ML 2 ML INJ ONE ×2 (18:02)
[2017-04-17] MEDS ORDERED: PROPOFOL 20 ML ONE (18:02)
[2017-04-17] MEDS ORDERED: FLUMAZENIL 0.5 MG INJ ONE ×2 (18:02)
[2017-04-17] MEDS ORDERED: KETAMINE 500 MG INJ ONE (18:02)
--- NOTE | 2017-04-17 18:57 | CONS ---
Date/Time of Note Date/Time of Note DATE: 04/17/17 TIME: 18:55 Assessment/Plan Assessment/Plan Chief Complaint/Hosp Course Metastatic gastric adenocarcinoma with peritoneal carcinomatosis. ON CHEMO Abdominopelvic ascites - malignant POST Paracentesis LEUKOPENIA- MONITOR NEUPOGEN- WILL DC ANEMIA POST CHEMO MONITOR Intractable nausea, vomiting, dehydration ANTIEMETICS, IVF POST EGD- REPORT - NOTED Extreme esophagitis per EGD, PER GI Moderate right pleural effusion. Mild pericardial effusion. Diffuse subcutaneous edema. Abdominal pain. PAIN CONTROL hx Left lower extremity edema.- better HYPONATREMIA NEPHRO Problems: Consultation Date/Type/Reason Admit Date/Time Apr 07, 2017 at 19:17 Type of Consultation: [facility] Referring Provider: CINDY ESTRELLA MD 24 HR Interval Summary Free Text/Dictation ALL NOTED NO NEW EVENTS WANT TO EAT Patient is status post EGD yesterday, pain is well controlled, patient was episodes of hypoglycemia, will start gentle hydration with D5. Exam/Review of Systems Vital Signs Vitals Vital Signs Date Time Temp Pulse Resp B/P Pulse Ox O2 Delivery O2 Flow Rate FiO2 04/17/17 13:10 97.8 88 18 101/72 100 04/16/17 13:31 Nasal Cannula 2.0 04/16/17 03:46 28 Intake and Output 04/16/17 04/16/17 04/17/17 15:00 23:00 07:00 Intake Total 160 ml 180 ml Output Total 0 ml Balance 160 ml 180 ml Exam Constitutional: alert, oriented, well developed Psych: nl mood/affect, no complaints Head: atraumatic, normocephalic Eyes: EOMI, PERRL, nl conjunctiva, nl lids, nl sclera ENMT: nl external ears & nose, nl lips & teeth, nl nasal mucosa & septum Neck: non-tender, supple Respiratory: clear to auscultation, normal air movement Cardiovascular: nl pulses, regular rate and rhythm Gastrointestinal: nl liver, spleen, non-tender, soft Musculoskeletal: nl extremities to inspection, nl gait and stance Extremities: normal pulses 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: LAST REMODELER REPAIRER II-XII intact, nl mental status, nl speech, nl strength Skin: nl turgor, No rash or lesions Lymph: nl lymph nodes Results Result Diagram: 04/17/17 0513 04/17/17 0513 Results 24 hrs Laboratory Tests Test 04/17/17 05:13 04/17/17 06:36 04/17/17 06:51 04/17/17 08:06 White Blood Count 22.8 #H Red Blood Count 2.98 L Hemoglobin 8.2 L Hematocrit 25.4 L Mean Corpuscular Volume 85.2 Mean Corpuscular Hemoglobin 27.5 L Mean Corpuscular Hemoglobin Concent 32.3 Red Cell Distribution Width 18.0 H Platelet Count 200 # Mean Platelet Volume 9.6 Neutrophils % 86.2 H Lymphocytes % 2.6 L Monocytes % 4.1 Eosinophils % 0.1 Basophils % 0.6 Nucleated Red Blood Cells % 0.1 H Neutrophils # 19.7 H Lymphocytes # 0.6 L Monocytes # 0.9 Eosinophils # 0.0 Basophils # 0.1 Nucleated Red Blood Cells # 0.0 Sodium Level 134 L Potassium Level 3.9 Chloride Level 105 Carbon Dioxide Level 23 Anion Gap 10 Blood Urea Nitrogen 13 Creatinine 0.52 Glucose Level 48 #*L Calcium Level 7.0 L Bedside Glucose 49 *L 60 L 104 Test 04/17/17 12:34 04/17/17 17:42 Bedside Glucose 89 97 Medications Medications Current Medications Ondansetron HCl (Zofran Inj) 4 mg Q6H PRN IV NAUSEA AND/OR VOMITING Last administered on 04/16/17 09:39; Admin Dose 4 MG; Start 04/07/17 at 23:00 Morphine Sulfate (morphine) 2 mg Q4H PRN IV PAIN Last administered on 05:39; Admin Dose 2 MG; Start 04/07/17 at 23:00 Pantoprazole (Protonix Iv) 40 mg BID@06,18 IV Last administered on 04/17/17 18 :08; Admin Dose 40 MG; Start 04/10/17 at 18:00 Sodium Phosphate (Neutra-Phos) 250 mg BID PO Last administered on 04/17/17 10: 26; Admin Dose 250 MG; Start 04/11/17 at 10:30 Metoclopramide HCl 10 mg 10 mg Q6 IV Last administered on 04/17/17 18:08; Admin Dose 10 MG; Start 04/16/17 at 18:00 Potassium Chloride/Dextrose/ Sod Cl (D5-1/2ns + KCl 20 Meq) 1,000 ml @ 50 mls/ hr Q20H IV Last administered on 04/17/17 07:05; Admin Dose 50 MLS/HR; Start at 07:00 Sucralfate (Carafate) 1 gm QID PO Last administered on 04/17/17 18:05; Admin Dose 1 GM; Start 04/17/17 at 12:30 GRETEL LITTLEJOHN MD Apr 17, 2017 18:57
[2017-04-17 19:20] VITALS: BP 114/70; RESP 18
[2017-04-17] MEDS: morphine 2 MG INJ IV PRN (22:51)
[2017-04-17] MEDS: PROMETHAZINE/CODEINE 5ML CUP PO PRN (23:53)
[2017-04-18 01:49] VITALS: BP 95/57; RESP 18
[2017-04-18] MEDS: D5W-0.45 NACL + KCL 20 MEQ 1,000 ML IV SCH ×3 (03:00→23:00)
[2017-04-18] MEDS: PROMETHAZINE/CODEINE 5ML CUP PO PRN ×4 (04:34→23:49)
[2017-04-18] MEDS: PANTOPRAZOLE 40 MG INJ IV SCH ×2 (05:16→17:45)
[2017-04-18] MEDS: METOCLOPRAMIDE 10 MG INJ IV SCH ×4 (05:17→23:13)
[2017-04-18 07:33] VITALS: BP 91/56; RESP 16
[2017-04-18] MEDS: SUCRALFATE 1 GM TAB PO SCH ×4 (08:57→21:46)
[2017-04-18] MEDS: NEUTRA-PHOS 250 MG PACKET PO SCH ×2 (08:57→21:46)
[2017-04-18] MEDS: morphine 2 MG INJ IV PRN ×2 (09:38→23:13)
--- NOTE | 2017-04-18 11:57 | PN ---
Date/Time of Note Date/Time of Note DATE: 04/18/17 TIME: 11:56 Assessment/Plan VTE Prophylaxis VTE Prophylaxis Intervention: other Lines/Catheters IV Catheter Type (from [facility]): Port-A-Cath Urinary Cath still in place: No Assessment/Plan Chief Complaint/Hosp Course -Extreme esophagitis per EGD, follow-up gastroenterology recommendations. Continue Protonix, Carafate, and Reglan. -Metastatic gastric adenocarcinoma, status post chemotherapy by Dr. Ford, oncology. Status post EGD with stent placement on04/[address] Millan, GI. -Nausea and vomiting, resolved. Continue Zofran for for nausea and morphine as needed for pain. -Hyponatremia secondary to dehydration, resolved, Dr. Ji is following in nephrology consultation. 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 -Protein calorie severe malnutrition. Nutritional consult is appreciated. -Leukopenia and anemia most likely secondary to chemotherapy. Restarted on Neupogen. Problems: Subjective 24 Hr Interval Summary Free Text/Dictation Patient has no complaints, currently no nausea or vomiting Exam/Review of Systems Vital Signs Vitals Vital Signs Date Time Temp Pulse Resp B/P Pulse Ox O2 Delivery O2 Flow Rate FiO2 04/18/17 07:33 98.6 80 16 91/56 97 04/16/17 13:31 Nasal Cannula 2.0 04/16/17 03:46 28 Intake and Output 04/17/17 04/17/17 04/18/17 15:00 23:00 07:00 Intake Total 100 ml 600 ml 1480 ml Balance 100 ml 600 ml 1480 ml Exam Constitutional: well developed Head: atraumatic, normocephalic Neck: supple Respiratory: clear to auscultation Cardiovascular: regular rate and rhythm Gastrointestinal: non-tender, soft Extremities: normal pulses Results Result Diagram: 04/17/17 0513 04/17/17 0513 Results 24 hrs Laboratory Tests Test 04/17/17 12:34 04/17/17 17:42 Bedside Glucose 89 97 Medications Medications Current Medications Ondansetron HCl (Zofran Inj) 4 mg Q6H PRN IV NAUSEA AND/OR VOMITING Last administered on 04/16/17t 09:39; Admin Dose 4 MG; Start 04/07/17 at 23:00 Morphine Sulfate (morphine) 2 mg Q4H PRN IV PAIN Last administered on 09:38; Admin Dose 2 MG; Start 04/07/17 at 23:00 Pantoprazole (Protonix Iv) 40 mg BID@06,18 IV Last administered on 04/18/17 05 :16; Admin Dose 40 MG; Start 04/10/17 at 18:00 Sodium Phosphate (Neutra-Phos) 250 mg BID PO Last administered on 04/18/17 08: 57; Admin Dose 250 MG; Start 04/11/17 at 10:30 Metoclopramide HCl 10 mg 10 mg Q6 IV Last administered on 04/18/17 05:17; Admin Dose 10 MG; Start 04/16/17 at 18:00 Potassium Chloride/Dextrose/ Sod Cl (D5-1/2ns + KCl 20 Meq) 1,000 ml @ 50 mls/ hr Q20H IV Last administered on 04/18/17 05:18; Admin Dose 50 MLS/HR; Start at 07:00 Sucralfate (Carafate) 1 gm QID PO Last administered on 04/18/17 08:57; Admin Dose 1 GM; Start 04/17/17 at 12:30 Promethazine HCl/ Codeine (Phenergan/ Codeine) 5 ml Q4H PRN PO COUGH Last administered on 04/18/17 09:41; Admin Dose 5 ML; Start 04/17/17 at 23:30 MOE UMANA Apr 18, 2017 11:57
[2017-04-18 14:57] VITALS: BP 107/74; RESP 16
--- NOTE | 2017-04-18 15:10 | PN ---
DATE: 04/17/2017 SUBJECTIVE DATA: The patient is stable with no events overnight. No fevers, chills, nausea or vomiting. OBJECTIVE DATA: VITAL SIGNS: Blood pressure 96/67, respirations 18, pulse 57, temperature 97.7. HEENT: Head is normocephalic. NECK: Supple. HEART: Regular rate. LUNGS: Diminished breath sounds at the base. ABDOMEN: Soft, nontender to palpation. No rebound or guarding. EXTREMITIES: Negative for clubbing or cyanosis. Trace edema. DERMATOLOGIC: No rashes. MUSCULOSKELETAL: No joint effusion. NEUROLOGIC: No change in exam. MEDICATIONS: Reviewed. LABORATORY AND DIAGNOSTIC DATA: Sodium 134, potassium 3.9, BUN 13, creatinine 0.52. White count 22.8, hemoglobin 8.2, platelet count 200,000. ASSESSMENT AND PLAN: 1. Hyponatremia. Will continue to monitor closely. The patient is on hypertonic fluids. 2. Hypokalemia. Continue potassium supplementation. 3. Metabolic bone disorder. Continue to monitor calcium and phosphorus levels. 4. Metastatic gastric carcinoma with peritoneal carcinomatosis. 5. Anemia. Continue to monitor hemoglobin and hematocrit levels. 6. Nausea and vomiting. Continue antiemetics. 7. Esophagitis. The patient is status post stent placement. 8. Lower extremity edema. Continue to monitor and give intermittent diuretic therapy as needed. Dictated By: Kulwinder Ji DO /[email or web address]/steph /Document#: [id number]
[2017-04-18] MEDS: metroNIDAZOLE 500 MG TAB PO SCH ×2 (17:45→23:49)
--- NOTE | 2017-04-18 19:29 | CONS ---
Date/Time of Note Date/Time of Note DATE: 04/18/17 TIME: 19:29 Assessment/Plan Assessment/Plan Chief Complaint/Hosp Course Metastatic gastric adenocarcinoma with peritoneal carcinomatosis. ON CHEMO Abdominopelvic ascites - malignant POST Paracentesis LEUKOPENIA- MONITOR NEUPOGEN- WILL DC ANEMIA POST CHEMO MONITOR Intractable nausea, vomiting, dehydration ANTIEMETICS, IVF POST EGD- REPORT - NOTED Extreme esophagitis per EGD, PER GI Moderate right pleural effusion. Mild pericardial effusion. Diffuse subcutaneous edema. Abdominal pain. PAIN CONTROL hx Left lower extremity edema.- better HYPONATREMIA NEPHRO Problems: Consultation Date/Type/Reason Admit Date/Time Apr 07, 2017 at 19:17 Type of Consultation: [facility] Referring Provider: CINDY ESTRELLA MD 24 HR Interval Summary Free Text/Dictation + N Exam/Review of Systems Vital Signs Vitals Vital Signs Date Time Temp Pulse Resp B/P Pulse Ox O2 Delivery O2 Flow Rate FiO2 04/18/17 14:57 98.4 97 16 107/74 98 04/16/17 13:31 Nasal Cannula 2.0 04/16/17 03:46 28 Intake and Output 04/17/17 04/17/17 04/18/17 15:00 23:00 07:00 Intake Total 100 ml 600 ml 1480 ml Balance 100 ml 600 ml 1480 ml Exam Constitutional: alert, oriented, well developed Psych: nl mood/affect, no complaints Head: atraumatic, normocephalic Eyes: EOMI, PERRL, nl conjunctiva, nl lids, nl sclera ENMT: nl external ears & nose, nl lips & teeth, nl nasal mucosa & septum Neck: non-tender, supple Respiratory: clear to auscultation, normal air movement Cardiovascular: nl pulses, regular rate and rhythm Gastrointestinal: nl liver, spleen, non-tender, soft Musculoskeletal: nl extremities to inspection, nl gait and stance Extremities: normal pulses 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: WOMENS HEALTH NURSE PRACTITIONER II-XII intact, nl mental status, nl speech, nl strength Skin: nl turgor, No rash or lesions Lymph: nl lymph nodes Results Result Diagram: 04/17/1713 04/17/17512 Medications Medications Current Medications Ondansetron HCl (Zofran Inj) 4 mg Q6H PRN IV NAUSEA AND/OR VOMITING Last administered on 04/16/17t 09:39; Admin Dose 4 MG; Start 04/07/17 at 23:00 Morphine Sulfate (morphine) 2 mg Q4H PRN IV PAIN Last administered on 09:38; Admin Dose 2 MG; Start 04/07/17 at 23:00 Pantoprazole (Protonix Iv) 40 mg BID@06,18 IV Last administered on 04/18/17 17 :45; Admin Dose 40 MG; Start 04/10/17 at 18:00 Sodium Phosphate (Neutra-Phos) 250 mg BID PO Last administered on 04/18/17 08: 57; Admin Dose 250 MG; Start 04/11/17 at 10:30 Metoclopramide HCl 10 mg 10 mg Q6 IV Last administered on 04/18/17 17:45; Admin Dose 10 MG; Start 04/16/17 at 18:00 Potassium Chloride/Dextrose/ Sod Cl (D5-1/2ns + KCl 20 Meq) 1,000 ml @ 50 mls/ hr Q20H IV Last administered on 04/18/17 05:18; Admin Dose 50 MLS/HR; Start at 07:00 Sucralfate (Carafate) 1 gm QID PO Last administered on 04/18/17 17:45; Admin Dose 1 GM; Start 04/17/17 at 12:30 Promethazine HCl/ Codeine (Phenergan/ Codeine) 5 ml Q4H PRN PO COUGH Last administered on 04/18/17 09:41; Admin Dose 5 ML; Start 04/17/17 at 23:30 Metronidazole (Flagyl) 500 mg Q6 PO Last administered on 04/18/17 17:45; Admin Dose 500 MG; Start 04/18/17 at 18:00 GRETEL LITTLEJOHN MD Apr 18, 2017 19:29
[2017-04-18 19:45] VITALS: BP 97/59; RESP 16
[2017-04-19] VITALS (23 sets, daily range): BP systolic 100–126; BP diastolic 51–76; PULSE 86–99; RESP 14–20
[2017-04-19] MEDS: D5W-0.45 NACL + KCL 20 MEQ 1,000 ML IV SCH (02:18)
[2017-04-19] MEDS: METOCLOPRAMIDE 10 MG INJ IV SCH ×4 (06:02→23:52)
[2017-04-19] MEDS: PANTOPRAZOLE 40 MG INJ IV SCH ×2 (06:02→18:00)
[2017-04-19] MEDS: PROMETHAZINE/CODEINE 5ML CUP PO PRN (06:05)
[2017-04-19] MEDS: metroNIDAZOLE 500 MG TAB PO SCH ×3 (06:29→18:00)
--- NOTE | 2017-04-19 06:56 | PN ---
DATE: 04/16/2017 SUBJECTIVE DATA: The patient is stable. No events overnight. No fevers, chills, nausea or vomiting. OBJECTIVE DATA: VITAL SIGNS: Blood pressure 104/63, respirations 20, pulse 75, temperature 97.4. HEENT: Head is normocephalic. NECK: Supple. HEART: Regular rate. LUNGS: Diminished breath sounds at the base. ABDOMEN: Soft, nontender to palpation. No rebound or guarding. EXTREMITIES: Negative for clubbing or cyanosis. No edema. DERMATOLOGIC: No rashes. MUSCULOSKELETAL: No joint effusions. NEUROLOGIC: No change in exam. MEDICATIONS: Reviewed. LABORATORY AND DIAGNOSTIC DATA: Sodium 134, potassium 3.9, BUN 11, creatinine 0.48. White count 10.9, hemoglobin 7.8, hematocrit 24.6, platelet count 151,000. ASSESSMENT AND PLAN: 1. Hyponatremia. Etiology secondary to volume depletion. The patient's sodium level is improved with IV fluids. Continue to monitor closely. 2. Hypokalemia. Continue to monitor and replete. Metastatic gastric carcinoma with peritoneal carcinomatosis. The patient is status post 3. paracentesis. Follow up with oncology. 4. Anemia. Continue to monitor H and H levels. 5. No symptoms of nausea or vomiting. Continue to monitor. Dictated By: Kulwinder Ji DO /[email or web address]/ec /Document#: [id number]
[2017-04-19] MEDS ORDERED: EPHEDrine SULFATE 50 MG/5 ML SYG ONE (07:00)
--- NOTE | 2017-04-19 07:14 | PN ---
Date/Time of Note Date/Time of Note DATE: 04/19/17 TIME: 07:13 Assessment/Plan VTE Prophylaxis VTE Prophylaxis Intervention: other Lines/Catheters IV Catheter Type (from [facility]): Port-A-Cath Urinary Cath still in place: No Assessment/Plan Chief Complaint/Hosp Course -Extreme esophagitis per EGD, follow-up gastroenterology recommendations. Continue Protonix, Carafate, and Reglan. -Metastatic gastric adenocarcinoma, status post chemotherapy by Dr. Ford, oncology. Status post EGD with stent placement on04/[address] Millan, GI. -Nausea and vomiting, resolved. Continue Zofran for for nausea and morphine as needed for pain. -Hyponatremia secondary to dehydration, resolved, Dr. Ji is following in nephrology consultation. 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 -Protein calorie severe malnutrition. Nutritional consult is appreciated. -Leukopenia and anemia most likely secondary to chemotherapy. Restarted on Neupogen. Problems: Subjective 24 Hr Interval Summary Free Text/Dictation Patient has no complaints Exam/Review of Systems Vital Signs Vitals Vital Signs Date Time Temp Pulse Resp B/P Pulse Ox O2 Delivery O2 Flow Rate FiO2 04/19/17 02:00 98.5 82 16 100/61 96 04/18/17 21:03 2.0 04/16/17 13:31 Nasal Cannula 04/16/17 03:46 28 Intake and Output 04/18/17 04/18/17 04/19/17 15:00 23:00 07:00 Intake Total 2580 ml 850 ml Output Total 350 ml 250 ml Balance 2230 ml 600 ml Exam Constitutional: frail Head: atraumatic, normocephalic Neck: supple Respiratory: clear to auscultation Cardiovascular: regular rate and rhythm Gastrointestinal: non-tender, soft Extremities: normal pulses Results Result Diagram: 04/17/1751204/17/17512 Medications Medications Current Medications Ondansetron HCl (Zofran Inj) 4 mg Q6H PRN IV NAUSEA AND/OR VOMITING Last administered on 04/16/17 09:39; Admin Dose 4 MG; Start 04/07/17 at 23:00 Morphine Sulfate (morphine) 2 mg Q4H PRN IV PAIN Last administered on 23:13; Admin Dose 2 MG; Start 04/07/17 at 23:00 Pantoprazole (Protonix Iv) 40 mg BID@06,18 IV Last administered on 04/19/17 06 :02; Admin Dose 40 MG; Start 04/10/17 at 18:00 Sodium Phosphate (Neutra-Phos) 250 mg BID PO Last administered on 04/18/17 21: 46; Admin Dose 250 MG; Start 04/11/17 at 10:30 Metoclopramide HCl 10 mg 10 mg Q6 IV Last administered on 04/19/17 06:02; Admin Dose 10 MG; Start 04/16/17 at 18:00 Potassium Chloride/Dextrose/ Sod Cl (D5-1/2ns + KCl 20 Meq) 1,000 ml @ 50 mls/ hr Q20H IV Last administered on 04/19/17 02:18; Admin Dose 50 MLS/HR; Start at 07:00 Sucralfate (Carafate) 1 gm QID PO Last administered on 04/18/17 21:46; Admin Dose 1 GM; Start 04/17/17 at 12:30 Promethazine HCl/ Codeine (Phenergan/ Codeine) 5 ml Q4H PRN PO COUGH Last administered on 04/19/17 06:05; Admin Dose 5 ML; Start 04/17/17 at 23:30 Metronidazole (Flagyl) 500 mg Q6 PO Last administered on 04/19/17 06:29; Admin Dose 500 MG; Start 04/18/17 at 18:00 MOE UMANA Apr 19, 2017 07:14
[2017-04-19] MEDS: SUCRALFATE 1 GM TAB PO SCH ×4 (08:29→21:00)
[2017-04-19] MEDS: NEUTRA-PHOS 250 MG PACKET PO SCH ×2 (08:30→21:00)
--- NOTE | 2017-04-19 09:58 | GILP ---
DATE OF PROCEDURE: 04/16/2017 INDICATION: Gastric outlet obstruction. Placement of self expanding metallic stent across the obstructing lesion in the antrum of the stomach. The risks of the procedure, related complications, anesthetic results, alternate day aspiration, admitting perforation are all totally explained, including the migration of the stent. The patient understood and agreed consent for it. DESCRIPTION OF PROCEDURE: The patient was brought to the OR, sedated by Dr. Gallardo, placed in a prone position. After optimum sedation, scope was passed as much into the esophagus and in the proximal part of the fundus. Undigested food material was refluxing into the midportion of the esophagus. Scope was advanced further down. No further food was seen in the antrum or body. All food was in the fundal area. Because of the fear of aspiration, decided not to descent, and scope was removed with good patient tolerance. IMPRESSION: 1. Undigested food in the fundal area. High risk for aspiration. 2. Gastric cancer. PLAN: 1. Start the patient on high dose of Reglan for gastroparesis, worsened by the narcotic. 2. Liquid diet. 3. We will make [____] for the stent after 48 hours, making sure the patient is not aspirating. Dictated By: Minh Millan MD /[email or web address] /Document#: [id number] CC: Randal Garner MD;*[facility]*
[2017-04-19] MEDS ORDERED: FENTAnyl 50 MCG/ML VIAL ONE (17:17)
[2017-04-19] MEDS ORDERED: PHENYLephrine (100 MCG/ML) 5ML SYG ONE (17:17)
[2017-04-19] MEDS ORDERED: PROPOFOL 20 ML ONE (17:17)
[2017-04-19] MEDS ORDERED: LIDOCAINE 2% (SDV) 5 ML INJ ONE (17:17)
[2017-04-19] MEDS ORDERED: MIDAZOLAM 1 MG/ML 2 ML INJ ONE (17:17)
[2017-04-19] MEDS ORDERED: SUGAMMADEX SODIUM 200 MG/2 ML VIAL IV ONE (18:24)
[2017-04-19] MEDS ORDERED: FENTAnyl 50 MCG/ML VIAL IV PRN ×3 (19:00)
[2017-04-19] MEDS ORDERED: EPHEDrine SULFATE 50 MG/5 ML SYG IV PRN (19:00)
[2017-04-19] MEDS ORDERED: ALBUTEROL 0.083% (NEB) 2.5 MG/3 ML AMP HHN PRN (19:00)
[2017-04-19] MEDS ORDERED: hydrALAzine 20 MG INJ IV PRN (19:00)
[2017-04-19] MEDS ORDERED: ONDANSETRON 4 MG INJ IV PRN (19:00)
[2017-04-19] MEDS ORDERED: METOCLOPRAMIDE 10 MG INJ IV PRN (19:00)
[2017-04-19] MEDS ORDERED: HYDROmorphONE (0.2 MG/ML) 10ML SYG IV PRN ×3 (19:00)
--- NOTE | 2017-04-19 20:46 | CONS ---
Date/Time of Note Date/Time of Note DATE: 04/19/17 TIME: 20:46 Assessment/Plan Assessment/Plan Chief Complaint/Hosp Course Metastatic gastric adenocarcinoma with peritoneal carcinomatosis. ON CHEMO Abdominopelvic ascites - malignant POST Paracentesis LEUKOPENIA- MONITOR NEUPOGEN- WILL DC ANEMIA POST CHEMO MONITOR Intractable nausea, vomiting, dehydration ANTIEMETICS, IVF POST EGD- REPORT - NOTED Extreme esophagitis per EGD, PER GI Moderate right pleural effusion. Mild pericardial effusion. Diffuse subcutaneous edema. Abdominal pain. PAIN CONTROL hx Left lower extremity edema.- better HYPONATREMIA NEPHRO Problems: Consultation Date/Type/Reason Admit Date/Time Apr 07, 2017 at 19:17 Type of Consultation: HEMEON Referring Provider: CINDY ESTRELLA MD 24 HR Interval Summary Free Text/Dictation + N Exam/Review of Systems Vital Signs Vitals Vital Signs Date Time Temp Pulse Resp B/P Pulse Ox O2 Delivery O2 Flow Rate FiO2 04/19/17 20:02 98.5 90 17 121/76 94 04/19/17 19:11 Nasal Cannula 2.0 04/16/17 03:46 28 Intake and Output 04/18/17 04/18/17 04/19/17 15:00 23:00 07:00 Intake Total 2580 ml 850 ml Output Total 350 ml 250 ml Balance 2230 ml 600 ml Exam Constitutional: alert, oriented, well developed Psych: nl mood/affect, no complaints Head: atraumatic, normocephalic Eyes: EOMI, PERRL, nl conjunctiva, nl lids, nl sclera ENMT: nl external ears & nose, nl lips & teeth, nl nasal mucosa & septum Neck: non-tender, supple Respiratory: clear to auscultation, normal air movement Cardiovascular: nl pulses, regular rate and rhythm Gastrointestinal: nl liver, spleen, non-tender, soft Musculoskeletal: nl extremities to inspection, nl gait and stance Extremities: normal pulses 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: SEGMENT PRODUCER II-XII intact, nl mental status, nl speech, nl strength Skin: nl turgor, No rash or lesions Lymph: nl lymph nodes Results Result Diagram: 04/17/1751204/17/17512 Medications Medications Current Medications Ondansetron HCl (Zofran Inj) 4 mg Q6H PRN IV NAUSEA AND/OR VOMITING Last administered on 04/16/17t 09:39; Admin Dose 4 MG; Start 04/07/17 at 23:00 Morphine Sulfate (morphine) 2 mg Q4H PRN IV PAIN Last administered on 23:13; Admin Dose 2 MG; Start 04/07/17 at 23:00 Pantoprazole (Protonix Iv) 40 mg BID@06,18 IV Last administered on 04/19/17 06 :02; Admin Dose 40 MG; Start 04/10/17 at 18:00 Sodium Phosphate (Neutra-Phos) 250 mg BID PO Last administered on 04/18/17 21: 46; Admin Dose 250 MG; Start 04/11/17 at 10:30 Metoclopramide HCl 10 mg 10 mg Q6 IV Last administered on 04/19/17 12:30; Admin Dose 10 MG; Start 04/16/17 at 18:00 Potassium Chloride/Dextrose/ Sod Cl (D5-1/2ns + KCl 20 Meq) 1,000 ml @ 50 mls/ hr Q20H IV Last administered on 04/19/17 02:18; Admin Dose 50 MLS/HR; Start at 07:00 Sucralfate (Carafate) 1 gm QID PO Last administered on 04/18/17 21:46; Admin Dose 1 GM; Start 04/17/17 at 12:30 Promethazine HCl/ Codeine 5 ml 5 ml Q4H PRN PO COUGH Last administered on 06:05; Admin Dose 5 ML; Start 04/17/17 at 23:30 Metronidazole (Flagyl 500 Mg (Pmx)) 100 ml @ 100 mls/hr Q6 IVPB ; Start at 00:00 GRETEL LITTLEJOHN MD Apr 19, 2017 20:46
[2017-04-19] MEDS: metroNIDAZOLE 500 MG/NS (PMX) 100 ML IVPB SCH (23:51)
[2017-04-20] VITALS: BP 110/78; PULSE 106; RESP 20
[2017-04-20 02:00] VITALS: BP 105/62; RESP 18
[2017-04-20] MEDS: ALBUTEROL/IPRATROPIUM (NEB) 3 ML AMP HHN PRN ×2 (03:34→20:20)
[2017-04-20] MEDS: D5W-0.45 NACL + KCL 20 MEQ 1,000 ML IV SCH (03:38)
[2017-04-20 04:00] VITALS: BP 118/76; PULSE 105; RESP 20
[2017-04-20] MEDS: metroNIDAZOLE 500 MG/NS (PMX) 100 ML IVPB SCH ×3 (05:52→17:44)
[2017-04-20] MEDS: PANTOPRAZOLE 40 MG INJ IV SCH ×2 (05:53→17:44)
[2017-04-20] MEDS: METOCLOPRAMIDE 10 MG INJ IV SCH ×3 (05:53→17:44)
[2017-04-20 06:04] LABS: ABNORMAL IP MESSAGE 1; HEMATOCRIT 29.5 % (37.0-47.0); HEMOGLOBIN 9.4 g/dl (12.0-16.0); MEAN CORPUSCULAR HGB CONC 31.9 g/dl (32.0-37.0); MEAN CORPUSCULAR VOLUME 84.8 fl (82.0-101.0); MEAN PLATELET VOLUME 9.9 fl (7.4-10.4); NUCLEATED RED BLOOD CELLS% 0.1 /100WBC (0.0-0.0); PLATELET COUNT 218 10^3/UL (140-415); RED BLOOD COUNT 3.48 10^6/ul (4.20-5.40); RED CELL DISTRIBUTION WIDTH 18.4 % (11.5-14.5); WHITE BLOOD COUNT 40.1 10^3/ul (4.8-10.8)
[2017-04-20 06:11] LABS: POSITIVE DIFF @See below
[2017-04-20 06:26] LABS: CALCIUM 7.1 mg/dl (8.4-10.2); CREATININE 0.52 mg/dl (0.44-1.00); POTASSIUM 3.8 mmol/L (3.5-5.1)
[2017-04-20 07:32] VITALS: BP 93/59; RESP 23
[2017-04-20 08:18] LABS: ANISOCYTOSIS 1+ (0-0); BURR CELLS 1+ (0-0); METAMYELOCYTES %M 4 % (0-0); MICROCYTOSIS 1+ (0-0); MONOCYTES % (M) 3 % (0-11); PLATELET ESTIMATE NORMAL; POIKILOCYTOSIS 2+ (0-0); POLYCHROMASIA 2+ (0-0)
[2017-04-20] MEDS: morphine 2 MG INJ IV PRN ×2 (08:51→17:46)
[2017-04-20] MEDS: NEUTRA-PHOS 250 MG PACKET PO SCH ×3 (09:00→20:50)
[2017-04-20] MEDS: SUCRALFATE 1 GM TAB PO SCH ×4 (09:00→20:50)
--- NOTE | 2017-04-20 09:16 | RADRPT ---
PROCEDURE: XR Chest. CLINICAL INDICATION: chest pain TECHNIQUE: Single frontal view of the chest was obtained COMPARISON: None FINDINGS: The heart and mediastinum are within normal limits. There is a right chest wall port in place. There are extensive bilateral upper lobe and lower lobe infiltrates. There is no pneumothorax. RPTAT: AA IMPRESSION: Extensive bilateral upper lobe and lower lobe infiltrates. .Alfredo Escalona MD, MD Date Time Electronically viewed and signed by .Alfredo Escalona MD, on 04/20/2017 09:16 .S/
[2017-04-20] MEDS ORDERED: NS + KCL 20 MEQ 1,000 ML IV SCH (09:30)
--- NOTE | 2017-04-20 10:00 | PN ---
Date/Time of Note Date/Time of Note DATE: 04/20/17 TIME: 09:59 Assessment/Plan VTE Prophylaxis VTE Prophylaxis Intervention: other Lines/Catheters [facility] DILIP CATH Urinary Cath still in place: No Assessment/Plan Chief Complaint/Hosp Course -Extreme esophagitis per EGD, follow-up gastroenterology recommendations. Continue Protonix, Carafate, and Reglan. -Metastatic gastric adenocarcinoma, status post chemotherapy by Dr. Ford, oncology. Status post EGD with stent placement on04/[address] Millan, GI. -Nausea and vomiting, resolved. Continue Zofran for for nausea and morphine as needed for pain. -Hyponatremia secondary to dehydration, resolved, Dr. Ji is following in nephrology consultation. 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 -Protein calorie severe malnutrition. Nutritional consult is appreciated. -Leukopenia and anemia most likely secondary to chemotherapy. Restarted on Neupogen. Problems: Subjective 24 Hr Interval Summary Free Text/Dictation Patient notes more weakness and congestion. Her WBC increased to 40 but patient does not have appreciable fever. Patient started on PO vancomycin Exam/Review of Systems Vital Signs Vitals Vital Signs Date Time Temp Pulse Resp B/P Pulse Ox O2 Delivery O2 Flow Rate FiO2 04/20/17 09:00 2.0 28 04/20/17 07:32 99.3 98 23 93/59 99 04/20/17 04:00 Nasal Cannula Intake and Output 04/19/17 04/19/17 04/20/17 15:00 23:00 07:00 Intake Total 400 ml 750 ml Balance 400 ml 750 ml Exam Constitutional: frail Head: atraumatic, normocephalic Neck: supple Respiratory: diminished breath sounds Cardiovascular: regular rate and rhythm Gastrointestinal: non-tender, soft Extremities: normal pulses Results Result Diagram: 04/20/17 0520 04/20/17 0520 Results 24 hrs Laboratory Tests Test 04/20/17 05:20 White Blood Count 40.1 #H Red Blood Count 3.48 L Hemoglobin 9.4 L Hematocrit 29.5 L Mean Corpuscular Volume 84.8 Mean Corpuscular Hemoglobin 27.0 L Mean Corpuscular Hemoglobin Concent 31.9 L Red Cell Distribution Width 18.4 H Platelet Count 218 Mean Platelet Volume 9.9 Neutrophils % Segmented Neutrophils % (Manual) 77 Band Neutrophils % (Manual) 15 H Lymphocytes % Monocytes % Monocytes % (Manual) 3 Eosinophils % Basophils % Metamyelocytes % (manual) 4 H Nucleated Red Blood Cells % 0.1 H Neutrophils # Neutrophils # (Manual) 33.3 H Band Neutrophils # 6.0 H Lymphocytes # Monocytes # Absolute Monocytes (Manual) 1.2 H Eosinophils # Basophils # Metamyelocytes # 1.6 H Nucleated Red Blood Cells # Smudge Cells % 5 H Platelet Estimate NORMAL Polychromasia 2+ Poikilocytosis 2+ Anisocytosis 1+ Microcytosis 1+ Sodium Level 134 L Potassium Level 3.8 Chloride Level 106 Carbon Dioxide Level 21 Anion Gap 11 Blood Urea Nitrogen 11 Creatinine 0.52 Glucose Level 101 Calcium Level 7.1 L Medications Medications Current Medications Ondansetron HCl (Zofran Inj) 4 mg Q6H PRN IV NAUSEA AND/OR VOMITING Last administered on 04/16/17 09:39; Admin Dose 4 MG; Start 04/07/17 at 23:00 Morphine Sulfate (morphine) 2 mg Q4H PRN IV PAIN Last administered on 08:51; Admin Dose 2 MG; Start 04/07/17 at 23:00 Pantoprazole (Protonix Iv) 40 mg BID@06,18 IV Last administered on 04/20/17 05 :53; Admin Dose 40 MG; Start 04/10/17 at 18:00 Sodium Phosphate (Neutra-Phos) 250 mg BID PO Last administered on 04/18/17 21: 46; Admin Dose 250 MG; Start 04/11/17 at 10:30 Metoclopramide HCl (Reglan) 10 mg Q6 IV Last administered on 04/20/17 05:53; Admin Dose 10 MG; Start 04/16/17 at 18:00 Sucralfate (Carafate) 1 gm QID PO Last administered on 04/18/17 21:46; Admin Dose 1 GM; Start 04/17/17 at 12:30 Promethazine HCl/ Codeine 5 ml 5 ml Q4H PRN PO COUGH Last administered on 06:05; Admin Dose 5 ML; Start 04/17/17 at 23:30 Metronidazole (Flagyl 500 Mg (Pmx)) 100 ml @ 100 mls/hr Q6 IVPB Last administered on 04/20/17 05:52; Admin Dose 100 MLS/HR; Start 04/20/17 at 00:00 Vancomycin HCl 125 mg 125 mg Q6 PO ; Start 04/20/17 at 12:00 Sodium Chloride (1/2 NS) 1,000 ml @ 40 mls/hr Q24H IV ; Start 04/20/17 at 09:30 MOE UMANA Apr 20, 2017 10:00
[2017-04-20] MEDS: SOD CHLORIDE 0.45% 1,000 ML IV SCH (10:15)
[2017-04-20 10:55] LABS: ALBUMIN 1.4 g/dl (3.3-4.9); TOTAL PROTEIN 3.3 g/dl (6.1-8.1)
--- NOTE | 2017-04-20 11:21 | RADRPT ---
PROCEDURE: Intraoperative imaging for endoscopic stent placement with fluoroscopy. CLINICAL INDICATION: Gastric outlet obstruction. Intraoperative. TECHNIQUE: 9 images of the right upper quadrant of the abdomen were obtained in the operating room with an image intensifier. No radiologist was in attendance. 7.3 seconds of fluoroscopy time was used. COMPARISON: No prior study is available for comparison. FINDINGS: Images demonstrate the endoscope in position and placement of a guidewire through the stomach, and i nto the duodenum. Subsequent images demonstrate deployment of a metallic stent traversing the pylor us and first and second parts of the duodenum. IMPRESSION: 1. Endoscopic placement of stent in the gastric outlet and duodenum as described above. RPTAT: QQ .Jeison White MD, MD Date Time Electronically viewed and signed by .Jeison White MD, on 04/20/2017 11:21 .R/
[2017-04-20] MEDS ORDERED: VANCOMYCIN HCL 250 MG/5ML POSYG PO SCH (12:00)
[2017-04-20] MEDS ORDERED: FOSFOMYCIN 3 GM PACKET PO ONE (12:00)
--- NOTE | 2017-04-20 12:00 | CONS ---
Date/Time of Note Date/Time of Note DATE: 04/20/17 TIME: 10:33 Assessment/Plan Assessment/Plan Chief Complaint/Hosp Course ID PROGRESS NOTE CURRENT ABX: Flagyl IV#1 + Vanco liq po #1 + Start Rifampin 24H INTERVAL SUMMARY * Awake, alert, generalized weakness, cachexia w/massive ascites, pulmonary congestion without dyspnea * (+)Diarrhea w/9 BMs recorded single day this week * No fevers, VSS, WBC rising to 40. w/15% BANDS = (+)C.Diff 04/17 C DIFFICILE DNA AMPLIFICATION Final CYTOTOXIGENIC C DIFFICILE POSITIVE (Ref Range Neg) * 04/20/17 CXR: FINDINGS: * The heart and mediastinum are within normal limits. * There is a right chest wall port in place. * There are extensive bilateral upper lobe and lower lobe infiltrates. * There is no pneumothorax. Exam Constitutional: alert, oriented, cachetic, generalized weakness Psych: nl mood/affect, no complaints Head: atraumatic, normocephalic Eyes: EOMI, nl conjunctiva, nl lids, nl sclera ENMT: Unremarkable Neck: non-tender, supple Respiratory: (+)Rales, no wheezing, equal chest rise bilaterally Cardiovascular: nl pulses, regular rate and rhythm Gastrointestinal: Ascites Musculoskeletal: nl extremities to inspection Extremities: normal pulses 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: PHARMACY RESIDENT II-XII intact, nl mental status, nl speech Skin: No diaphoresis, N rash or lesions Lymph: nl lymph nodes ID ASSESSMENT 61 yo F w/Metastatic gastric CA -> status post chemotherapy by Dr. Ford. 1. SEPSIS per (+) rising leukocytosis 10.0(04/16) -> 22.8 (04/17)-> now 40.1 (04/20 ) w/15% BANDS => Plus below: * No fevers, mild intermittent tachycardia 90-110, B/P 93/59 * (+)C.Diff Colitis 04/17/17 C DIFFICILE DNA AMPLIFICATION Final CYTOTOXIGENIC C DIFFICILE POSITIVE (Ref Range Neg) * DDx: spontaneous bacterial peritonitis * DDx: UT * DDx: Aspiration Pneumonitis 2. Metastatic gastric CA with suspected malignant abdominopelvic ascites and peritoneal carcinomatosis * s/p PARA 04/14-> ~5000 ml of clear yellow fluid was obtained and then discarded. * DDx: spontaneous bacterial peritonitis 3. Leukopenia and anemia 2/2 chemotherapy. Restarted on Neupogen. 4. GERD, extreme esophagitis and severe reflux w/undigested food in the esophagus * s/p 04/16/17 EGD with stent placement on04/[address] Millan, GI. 5. Abdominal pain with nausea and vomiting 2/2 massive ascites pressure volume = > due to #2 & #4 * N/V/ABD Pain resolved w/Zofran and Morphine 6. Possible aspiration pneumonia 7. Pulmonary congestion w/ extensive bilateral upper lobe and lower lobe infiltrates on CXR 04/20 * Multifactorial due to severe ascites fluid back up, low colloid pressure 3rd spacing, malignancy * Moderate right pleural effusion on admission 8. Hx of CHF * 2D ECHO SEP 2016, normal LVFx w/EF~60% * 2D ECHO 2015 preserved systolic LVFx w/STG I diastolic dysfunction 9. Cachexia w/severe protein calorie deficiency 10. Low normal B/P w/transient hypotension due to low colloid pressure 3rd spacing, malignancy, SIRS, sepsis 11. Contaminated Urine culture vs early GNR UTI on 04/07/17 URINE CULTURE Final Organism 1 ESCHERICHIA COLI COLONY COUNT <10,000 CFU/ml Organism 2 LACTOBACILLUS SPECIES COLONY COUNT >100,000 CFU/ml MRSA Nares -> Screening ordered today INVASIVES: Right chest Port-A-Cath ABX ALLERGY: KNDA CURRENT ABX: Flagyl IV#1 + Vanco liq po #1 ID RECOMMENDATIONS 1. Rising WBC w/bandemia is due to (+)C.Diff colitis, she is s/p ABX * Flagy IV + Vanco liquid initiated 2. Give Fosfomycin 3gm po x1 empiric cystitis vs bladder sepsis w/hx of GNR bacteruria 3. Start Rifampin 600mg po daily for concern risk of spontaneous bacterial peritonitis due to massive ascites + s/p paracentesis 4. Aspiration precautions -> AVOID empiric IV ABX for concern possible aspiration pneumonitis * Obtain sputum culture 5. For Temp >101.0 send blood cultures via Port-A-Cath, no compelling evidence septicemia at this time. 6. Check MRSA Nares * Thank you for PRN notice - ID will continue to follow Problems: Consultation Date/Type/Reason Admit Date/Time Apr 07, 2017 at 19:17 Initial Consult Date 04/07/17 Type of Consultation: ID Referring Provider: CINDY ESTRELLA MD Exam/Review of Systems Vital Signs Vitals Vital Signs Date Time Temp Pulse Resp B/P Pulse Ox O2 Delivery O2 Flow Rate FiO2 04/20/17 09:00 2.0 28 04/20/17 07:32 99.3 98 23 93/59 99 04/20/17 04:00 Nasal Cannula Intake and Output 04/19/17 04/19/17 04/20/17 15:00 23:00 07:00 Intake Total 400 ml 750 ml Balance 400 ml 750 ml Results Result Diagram: 04/20/17 0520 04/20/17 0520 Results 24 hrs Laboratory Tests Test 04/20/17 05:20 White Blood Count 40.1 #H Red Blood Count 3.48 L Hemoglobin 9.4 L Hematocrit 29.5 L Mean Corpuscular Volume 84.8 Mean Corpuscular Hemoglobin 27.0 L Mean Corpuscular Hemoglobin Concent 31.9 L Red Cell Distribution Width 18.4 H Platelet Count 218 Mean Platelet Volume 9.9 Neutrophils % Segmented Neutrophils % (Manual) 77 Band Neutrophils % (Manual) 15 H Lymphocytes % Monocytes % Monocytes % (Manual) 3 Eosinophils % Basophils % Metamyelocytes % (manual) 4 H Nucleated Red Blood Cells % 0.1 H Neutrophils # Neutrophils # (Manual) 33.3 H Band Neutrophils # 6.0 H Lymphocytes # Monocytes # Absolute Monocytes (Manual) 1.2 H Eosinophils # Basophils # Metamyelocytes # 1.6 H Nucleated Red Blood Cells # Smudge Cells % 5 H Platelet Estimate NORMAL Polychromasia 2+ Poikilocytosis 2+ Anisocytosis 1+ Microcytosis 1+ Sodium Level 134 L Potassium Level 3.8 Chloride Level 106 Carbon Dioxide Level 21 Anion Gap 11 Blood Urea Nitrogen 11 Creatinine 0.52 Glucose Level 101 Calcium Level 7.1 L Medications Medications Current Medications Ondansetron HCl (Zofran Inj) 4 mg Q6H PRN IV NAUSEA AND/OR VOMITING Last administered on 04/16/17 09:39; Admin Dose 4 MG; Start 04/07/17 at 23:00 Morphine Sulfate (morphine) 2 mg Q4H PRN IV PAIN Last administered on 08:51; Admin Dose 2 MG; Start 04/07/17 at 23:00 Pantoprazole (Protonix Iv) 40 mg BID@,18 IV Last administered on 04/20/17 05 :53; Admin Dose 40 MG; Start 04/10/17 at 18:00 Sodium Phosphate (Neutra-Phos) 250 mg BID PO Last administered on 04/18/17 21: 46; Admin Dose 250 MG; Start 04/11/17 at 10:30 Metoclopramide HCl (Reglan) 10 mg Q6 IV Last administered on 04/20/17 05:53; Admin Dose 10 MG; Start 04/16/17 at 18:00 Sucralfate (Carafate) 1 gm QID PO Last administered on 04/18/17 21:46; Admin Dose 1 GM; Start 04/17/17 at 12:30 Promethazine HCl/ Codeine 5 ml 5 ml Q4H PRN PO COUGH Last administered on 06:05; Admin Dose 5 ML; Start 04/17/17 at 23:30 Metronidazole (Flagyl 500 Mg (Pmx)) 100 ml @ 100 mls/hr Q6 IVPB Last administered on 04/20/17 05:52; Admin Dose 100 MLS/HR; Start 04/20/17 at 00:00 Vancomycin HCl 125 mg 125 mg Q6 PO ; Start 04/20/17 at 12:00 Sodium Chloride (1/2 NS) 1,000 ml @ 40 mls/hr Q24H IV Last administered on 10:15; Admin Dose 40 MLS/HR; Start 04/20/17 at 09:30 GENESIS MESSER NP Apr 20, 2017 10:45
--- NOTE | 2017-04-20 12:17 | CONS ---
Date/Time of Note Date/Time of Note DATE: 04/20/17 TIME: 12:15 Assessment/Plan Assessment/Plan Additional Assessment/Plan Additional Assessment/Plan 1. 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 Intractable nausea vomiting, resolved 3. Dysphagia 4. Hypertension 5. Cachexia 6. Extensive esophageal ulceration 7. Leukocytosis secondary to Neupogen 8. Ascites 9. C. difficile colitis 10. Aspiration pneumonia Plan Continue PPI 40 mg twice daily Carafate suspension Reglan Self-expanding metallic stent on Saturday Discussed the patient and the family member and has agreed for the stent Stent successfully deployed across pyloric channel Increase the dose of Reglan as a prokinetic agent Will add p.o. vancomycin IV antibiotic as per ID We will monitor WBC count We will start her on a clear liquid diet and get extra abdomen to make sure that the stent is expanding. Clinically patient looks much better Consultation Date/Type/Reason Admit Date/Time Apr 07, 2017 at 19:17 Type of Consultation: ID Referring Provider: CINYD ESTRELLA MD 24 HR Interval Summary Constitutional: no complaints Exam/Review of Systems Vital Signs Vitals Vital Signs Date Time Temp Pulse Resp B/P Pulse Ox O2 Delivery O2 Flow Rate FiO2 04/20/17 09:00 2.0 28 04/20/17 07:32 99.3 98 23 93/59 99 04/20/17 04:00 Nasal Cannula Intake and Output 04/19/17 04/19/17 04/20/17 15:00 23:00 07:00 Intake Total 400 ml 750 ml Balance 400 ml 750 ml Exam Respiratory: clear to auscultation, normal air movement Cardiovascular: nl pulses, regular rate and rhythm Gastrointestinal: ascites Musculoskeletal: nl extremities to inspection, nl gait and stance Extremities: normal pulses 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: HOME SERVICE DIRECTOR II-XII intact, nl mental status, nl speech, nl strength Results Result Diagram: 04/20/17 0520 04/20/17 0520 Results 24 hrs Laboratory Tests Test 04/20/17 05:20 04/20/17 09:58 White Blood Count 40.1 #H Red Blood Count 3.48 L Hemoglobin 9.4 L Hematocrit 29.5 L Mean Corpuscular Volume 84.8 Mean Corpuscular Hemoglobin 27.0 L Mean Corpuscular Hemoglobin Concent 31.9 L Red Cell Distribution Width 18.4 H Platelet Count 218 Mean Platelet Volume 9.9 Neutrophils % Segmented Neutrophils % (Manual) 77 Band Neutrophils % (Manual) 15 H Lymphocytes % Monocytes % Monocytes % (Manual) 3 Eosinophils % Basophils % Metamyelocytes % (manual) 4 H Nucleated Red Blood Cells % 0.1 H Neutrophils # Neutrophils # (Manual) 33.3 H Band Neutrophils # 6.0 H Lymphocytes # Monocytes # Absolute Monocytes (Manual) 1.2 H Eosinophils # Basophils # Metamyelocytes # 1.6 H Nucleated Red Blood Cells # Smudge Cells % 5 H Platelet Estimate NORMAL Polychromasia 2+ Poikilocytosis 2+ Anisocytosis 1+ Microcytosis 1+ Sodium Level 134 L Potassium Level 3.8 Chloride Level 106 Carbon Dioxide Level 21 Anion Gap 11 Blood Urea Nitrogen 11 Creatinine 0.52 Glucose Level 101 Calcium Level 7.1 L Lactic Acid Level 1.7 Total Protein 3.3 L Albumin 1.4 L Medications Medications Current Medications Ondansetron HCl (Zofran Inj) 4 mg Q6H PRN IV NAUSEA AND/OR VOMITING Last administered on 04/16/17 09:39; Admin Dose 4 MG; Start 04/07/17 at 23:00 Morphine Sulfate (morphine) 2 mg Q4H PRN IV PAIN Last administered on 08:51; Admin Dose 2 MG; Start 04/07/17 at 23:00 Pantoprazole (Protonix Iv) 40 mg BID@06,18 IV Last administered on 04/20/17 05 :53; Admin Dose 40 MG; Start 04/10/17 at 18:00 Sodium Phosphate (Neutra-Phos) 250 mg BID PO Last administered on 04/18/17 21: 46; Admin Dose 250 MG; Start 04/11/17 at 10:30 Metoclopramide HCl (Reglan) 10 mg Q6 IV Last administered on 04/20/17 05:53; Admin Dose 10 MG; Start 04/16/17 at 18:00 Sucralfate (Carafate) 1 gm QID PO Last administered on 04/18/17 21:46; Admin Dose 1 GM; Start 04/17/17 at 12:30 Promethazine HCl/ Codeine 5 ml 5 ml Q4H PRN PO COUGH Last administered on 06:05; Admin Dose 5 ML; Start 04/17/17 at 23:30 Metronidazole 100 ml @ 100 mls/hr Q6 IVPB Last administered on 04/20/17 05:52 ; Admin Dose 100 MLS/HR; Start 04/20/17 at 00:00 Sodium Chloride (1/2 NS) 1,000 ml @ 40 mls/hr Q24H IV Last administered on 10:15; Admin Dose 40 MLS/HR; Start 04/20/17 at 09:30 Vancomycin HCl (Vancomycin Oral Syringe) 250 mg Q6 PO ; Start 04/20/17 at 12:00 Rifampin (Rifampin) 600 mg DAILY PO ; Start 04/20/17 at 12:00 GIANNA CHANEL MD Apr 20, 2017 12:17
[2017-04-20] MEDS ORDERED: LIDOCAINE 1% (MPF) 5 ML VIAL ONE (12:22)
[2017-04-20] MEDS: VANCOMYCIN HCL 250 MG/5ML POSYG PO SCH ×2 (13:00→17:44)
[2017-04-20] MEDS: RIFAMPIN 300 MG CAP PO SCH (13:03)
--- NOTE | 2017-04-20 13:20 | RADRPT ---
PROCEDURE: XR Abdomen. CLINICAL INDICATION: Abdominal pain. Duodenal stent. TECHNIQUE: AP supine abdomen x-ray. COMPARISON: Intraoperative imaging dated 04/19/2017. FINDINGS: The bowel gas pattern is normal. There is no evidence of obstruction. There are no abnormal calcifications overlying the urinary tracts. There is a metallic duodenal stent traversing the pylorus and first and second part of the duodenum as seen previously. This is in satisfactory position and the stent is now fully expanded. IMPRESSION: 1. Metallic stent noted in satisfactory position and the stent is fully expanded. RPTAT: QQ .Jeison White MD, MD Date Time Electronically viewed and signed by .Jeison White MD, on 04/20/2017 13:20 .R/
--- NOTE | 2017-04-20 14:12 | RADRPT ---
PROCEDURE: Ultrasound guided paracentesis CLINICAL INDICATION: Ascites TECHNIQUE: The risks benefits and alternatives of the procedure were explained to the patient. In formed written consent was obtained. The patient understood the risks benefits and alternatives and wished to proceed with the procedure. A time out was performed. The overlying skin of the right lower quadrant of the abdomen was prepped and draped in the usual sterile fashion. Approximately 10 cc of lidocaine was injected locally for pain control. Utilizing ultrasound guidance, an 6-Spanish p aracentesis catheter was placed into the peritoneal cavity without difficulty. Fluid was drained i nto vacuum bottles. After completion of draining fluid, the catheter was removed and direct pressur e was applied to the puncture site. A compression bandage was then placed at the puncture site. e patient tolerated the procedure well without complication. The fluid was not sent to the lab fo r further analysis. COMPARISON: Of 12/24/2016 FINDINGS: Surgeon: Felipe FRAZIER. Preprocedural diagnosis: Ascites. Postprocedural diagnosis: Ascites. Samples removed: 2800 cc of clear yellow fluid was obtained. Complications: None. Estimated blood loss: 0 cc. Condition: Stable and unchanged. IMPRESSION: 1. Successful ultrasound-guided paracentesis. RPTAT: QQ .Goran Wang MD, MD Date Time Electronically viewed and signed by .Goran Wang MD, on 04/20/2017 14:12 .M/
[2017-04-20 14:23] VITALS: BP 92/57; RESP 22
--- NOTE | 2017-04-20 16:18 | PN ---
DATE: 04/20/2017 SUBJECTIVE DATA: The patient is noted to be tachypneic in respiratory distress. The patient is pending a chest x-ray, and paracentesis. No other events noted. OBJECTIVE DATA: VITAL SIGNS: Blood pressure 92/57, respirations 20, pulse 86, temperature 99.4. HEENT: Head is normocephalic. NECK: Supple. HEART: Regular rate. LUNGS: Diminished breath sounds at the base. ABDOMEN: Soft, nontender to palpation. Positive ascites with positive fluid wave. EXTREMITIES: Negative for clubbing, cyanosis, no edema. DERMATOLOGIC: No rashes. MUSCULOSKELETAL: No joint effusion. NEUROLOGIC: No change in examination. MEDICATIONS: Medications have been reviewed. LABORATORY DATA: Lab data has been reviewed and shows sodium 134, BUN 11, creatinine 0.52. White count 40.1, hemoglobin 9.4, and platelet count is 218. ASSESSMENT AND PLAN: 1. Hyponatremia, improved. Will continue to monitor closely. Continue IV fluids. 2. Hypokalemia, resolved. 3. Anemia. Monitor hemoglobin and hematocrit levels. 4. Acute respiratory failure. Etiology may be secondary to underlying pneumonia versus volume overload. The patient has pending chest x-ray. Will monitor closely. 5. Gastric cancer with peritoneal carcinomatosis. The patient has noted abdominal distention pending paracentesis. Will follow up with oncology for further recommendations. 6. Nausea and vomiting. Continue to monitor. 7. Systemic inflammatory response syndrome. The patient has elevated white count. Possible sources include BLOW MACHINE TENDER STARCH SPRAYING, possible pneumonia. Will follow up chest x-ray. Continue current medical management. Continue antibiotics per primary team. 8. Esophagitis, status post endoscopy with stent placement. Dictated By: Kulwinder Ji DO /madalyn/shannan /Document#: [id number]
--- NOTE | 2017-04-20 17:07 | CONS ---
Date/Time of Note Date/Time of Note DATE: 04/20/17 TIME: 17:04 Assessment/Plan Assessment/Plan Chief Complaint/Hosp Course Metastatic gastric adenocarcinoma with peritoneal carcinomatosis. ON CHEMO Abdominopelvic ascites - malignant POST Paracentesis LEUKOPENIA, POST CHEMO, WITH SUBSEQUENT LEUKOCYTOSIS 2 TO NEUPOGEN MONITOR NEUPOGEN- DC ANEMIA POST CHEMO MONITOR Intractable nausea, vomiting, dehydration ANTIEMETICS, IVF POST EGD- REPORT - NOTED Extreme esophagitis per EGD, PER GI Moderate right pleural effusion. Mild pericardial effusion. Diffuse subcutaneous edema. Abdominal pain. PAIN CONTROL hx Left lower extremity edema.- better HYPONATREMIA NEPHRO Problems: Consultation Date/Type/Reason Admit Date/Time Apr 07, 2017 at 19:17 Type of Consultation: HEMEON Referring Provider: CINDY ESTRELLA MD 24 HR Interval Summary Free Text/Dictation ALL NOTED Exam/Review of Systems Vital Signs Vitals Vital Signs Date Time Temp Pulse Resp B/P Pulse Ox O2 Delivery O2 Flow Rate FiO2 04/20/17 14:23 99.4 86 22 92/57 100 04/20/17 13:58 2.0 28 04/20/17 09:00 Nasal Cannula Intake and Output 04/19/17 04/19/17 04/20/17 15:00 23:00 07:00 Intake Total 400 ml 750 ml Balance 400 ml 750 ml Exam Constitutional: alert, oriented, well developed Psych: nl mood/affect, no complaints Head: atraumatic, normocephalic Eyes: EOMI, PERRL, nl conjunctiva, nl lids, nl sclera ENMT: nl external ears & nose, nl lips & teeth, nl nasal mucosa & septum Neck: non-tender, supple Respiratory: clear to auscultation, normal air movement Cardiovascular: nl pulses, regular rate and rhythm Gastrointestinal: nl liver, spleen, non-tender, soft Musculoskeletal: nl extremities to inspection, nl gait and stance Extremities: normal pulses 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: FLASH DESIGNER II-XII intact, nl mental status, nl speech, nl strength Skin: nl turgor, No rash or lesions Lymph: nl lymph nodes Results Result Diagram: 04/20/17 0520 04/20/17 0520 Results 24 hrs Laboratory Tests Test 04/20/17 05:20 04/20/17 09:58 White Blood Count 40.1 #H Red Blood Count 3.48 L Hemoglobin 9.4 L Hematocrit 29.5 L Mean Corpuscular Volume 84.8 Mean Corpuscular Hemoglobin 27.0 L Mean Corpuscular Hemoglobin Concent 31.9 L Red Cell Distribution Width 18.4 H Platelet Count 218 Mean Platelet Volume 9.9 Neutrophils % Segmented Neutrophils % (Manual) 77 Band Neutrophils % (Manual) 15 H Lymphocytes % Monocytes % Monocytes % (Manual) 3 Eosinophils % Basophils % Metamyelocytes % (manual) 4 H Nucleated Red Blood Cells % 0.1 H Neutrophils # Neutrophils # (Manual) 33.3 H Band Neutrophils # 6.0 H Lymphocytes # Monocytes # Absolute Monocytes (Manual) 1.2 H Eosinophils # Basophils # Metamyelocytes # 1.6 H Nucleated Red Blood Cells # Smudge Cells % 5 H Platelet Estimate NORMAL Polychromasia 2+ Poikilocytosis 2+ Anisocytosis 1+ Microcytosis 1+ Sodium Level 134 L Potassium Level 3.8 Chloride Level 106 Carbon Dioxide Level 21 Anion Gap 11 Blood Urea Nitrogen 11 Creatinine 0.52 Glucose Level 101 Calcium Level 7.1 L Lactic Acid Level 1.7 Total Protein 3.3 L Albumin 1.4 L Medications Medications Current Medications Ondansetron HCl (Zofran Inj) 4 mg Q6H PRN IV NAUSEA AND/OR VOMITING Last administered on 04/16/17 09:39; Admin Dose 4 MG; Start 04/07/17 at 23:00 Morphine Sulfate (morphine) 2 mg Q4H PRN IV PAIN Last administered on 08:51; Admin Dose 2 MG; Start 04/07/17 at 23:00 Pantoprazole (Protonix Iv) 40 mg BID@,18 IV Last administered on 04/20/17 05 :53; Admin Dose 40 MG; Start 04/10/17 at 18:00 Sodium Phosphate (Neutra-Phos) 250 mg BID PO Last administered on 04/20/17 12: 58; Admin Dose 250 MG; Start 04/11/17 at 10:30 Metoclopramide HCl (Reglan) 10 mg Q6 IV Last administered on 04/20/17 12:57; Admin Dose 10 MG; Start 04/16/17 at 18:00 Sucralfate (Carafate) 1 gm QID PO Last administered on 04/20/17 12:57; Admin Dose 1 GM; Start 04/17/17 at 12:30 Promethazine HCl/ Codeine 5 ml 5 ml Q4H PRN PO COUGH Last administered on 06:05; Admin Dose 5 ML; Start 04/17/17 at 23:30 Metronidazole 100 ml @ 100 mls/hr Q6 IVPB Last administered on 04/20/17 12:58 ; Admin Dose 100 MLS/HR; Start 04/20/17 at 00:00 Sodium Chloride (1/2 NS) 1,000 ml @ 40 mls/hr Q24H IV Last administered on 10:15; Admin Dose 40 MLS/HR; Start 04/20/17 at 09:30 Vancomycin HCl (Vancomycin Oral Syringe) 250 mg Q6 PO Last administered on 04/20 13:00; Admin Dose 250 MG; Start 04/20/17 at 12:00 Rifampin (Rifampin) 600 mg DAILY PO Last administered on 04/20/17 13:03; Admin Dose 600 MG; Start 04/20/17 at 12:00 GRETEL LITTLEJOHN MD Apr 20, 2017 17:07
[2017-04-20 19:28] VITALS: BP 99/66; RESP 18
[2017-04-21] MEDS: METOCLOPRAMIDE 10 MG INJ IV SCH ×5 (00:01→23:44)
[2017-04-21] MEDS: VANCOMYCIN HCL 250 MG/5ML POSYG PO SCH ×5 (00:02→23:44)
[2017-04-21] MEDS: metroNIDAZOLE 500 MG/NS (PMX) 100 ML IVPB SCH ×5 (00:02→23:45)
[2017-04-21 01:48] VITALS: BP 99/68; RESP 18
[2017-04-21] MEDS: ALBUTEROL/IPRATROPIUM (NEB) 3 ML AMP HHN PRN ×2 (02:05→21:50)
[2017-04-21] MEDS: PANTOPRAZOLE 40 MG INJ IV SCH ×2 (05:46→17:36)
[2017-04-21 06:04] LABS: ABNORMAL IP MESSAGE 1; HEMATOCRIT 24.4 % (37.0-47.0); HEMOGLOBIN 8.1 g/dl (12.0-16.0); MEAN CORPUSCULAR HEMOGLOBIN 27.7 pg (29.0-33.0); MEAN CORPUSCULAR HGB CONC 33.2 g/dl (32.0-37.0); MEAN CORPUSCULAR VOLUME 83.6 fl (82.0-101.0); MEAN PLATELET VOLUME 9.8 fl (7.4-10.4); NUCLEATED RED BLOOD CELLS% 0.1 /100WBC (0.0-0.0); PLATELET COUNT 184 10^3/UL (140-415); RED BLOOD COUNT 2.92 10^6/ul (4.20-5.40); RED CELL DISTRIBUTION WIDTH 18.6 % (11.5-14.5); WHITE BLOOD COUNT 30.7 10^3/ul (4.8-10.8)
[2017-04-21 06:24] LABS: CALCIUM 7.1 mg/dl (8.4-10.2); CREATININE 0.51 mg/dl (0.44-1.00); MAGNESIUM 1.6 mg/dl (1.7-2.5); PHOSPHORUS 3.1 mg/dl (2.5-4.9); POTASSIUM 3.6 mmol/L (3.5-5.1)
[2017-04-21 06:47] LABS: POSITIVE DIFF @See below
[2017-04-21 08:14] VITALS: BP 89/60; RESP 20
[2017-04-21] MEDS: RIFAMPIN 300 MG CAP PO SCH (09:03)
[2017-04-21] MEDS: SUCRALFATE 1 GM TAB PO SCH ×4 (09:03→20:45)
[2017-04-21] MEDS: NEUTRA-PHOS 250 MG PACKET PO SCH ×2 (09:03→20:45)
[2017-04-21] MEDS: SOD CHLORIDE 0.45% 1,000 ML IV SCH ×2 (09:30→22:34)
[2017-04-21 09:40] LABS: ANISOCYTOSIS 1+ (0-0); MONOCYTES % (M) 4 % (0-11); PLATELET ESTIMATE NORMAL; POIKILOCYTOSIS 3+ (0-0); POLYCHROMASIA 3+ (0-0); PROMYELOCYTES #M 0 # (0-0); PROMYELOCYTES % (M) 1 % (0-0)
[2017-04-21] MEDS ORDERED: MAGNESIUM SULFATE 2 GM/50 ML 50 ML IVPB SCH (10:30)
--- NOTE | 2017-04-21 11:17 | PN ---
Date/Time of Note Date/Time of Note DATE: 04/21/17 TIME: 11:17 Assessment/Plan VTE Prophylaxis VTE Prophylaxis Intervention: other Lines/Catheters IV [facility] alex cath Urinary Cath still in place: No Assessment/Plan Chief Complaint/Hosp Course -Extreme esophagitis per EGD, follow-up gastroenterology recommendations. Continue Protonix, Carafate, and Reglan. -Metastatic gastric adenocarcinoma, status post chemotherapy by Dr. Ford, oncology. Status post EGD with stent placement on04/[address] Millan, GI. -Nausea and vomiting, resolved. Continue Zofran for for nausea and morphine as needed for pain. -Hyponatremia secondary to dehydration, resolved, Dr. Ji is following in nephrology consultation. 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 -Protein calorie severe malnutrition. Nutritional consult is appreciated. -Leukopenia and anemia most likely secondary to chemotherapy. Restarted on Neupogen. Problems: Subjective 24 Hr Interval Summary Free Text/Dictation Patient complain of diarrhea Exam/Review of Systems Vital Signs Vitals Vital Signs Date Time Temp Pulse Resp B/P Pulse Ox O2 Delivery O2 Flow Rate FiO2 04/21/17 08:14 98.3 89 20 89/60 98 04/21/17 02:10 2.0 04/21/17 02:08 21 04/20/17 22:48 Nasal Cannula Intake and Output 04/20/17 04/20/17 04/21/17 15:00 23:00 07:00 Intake Total 250 ml 940 ml 1040 ml Output Total 150 ml 1240 ml Balance 250 ml 790 ml -200 ml Exam Constitutional: frail Head: atraumatic, normocephalic Neck: supple Respiratory: clear to auscultation Cardiovascular: regular rate and rhythm Gastrointestinal: non-tender, soft Extremities: normal pulses Results Result Diagram: 04/21/17 0507 04/21/17 0507 Results 24 hrs Laboratory Tests Test 04/21/17 05:07 White Blood Count 30.7 #H Red Blood Count 2.92 L Hemoglobin 8.1 L Hematocrit 24.4 L Mean Corpuscular Volume 83.6 Mean Corpuscular Hemoglobin 27.7 L Mean Corpuscular Hemoglobin Concent 33.2 Red Cell Distribution Width 18.6 H Platelet Count 184 Mean Platelet Volume 9.8 Neutrophils % Segmented Neutrophils % (Manual) 91 H Band Neutrophils % (Manual) 3 Lymphocytes % Monocytes % Monocytes % (Manual) 4 Eosinophils % Basophils % Promyelocytes % (Manual) 1 H Nucleated Red Blood Cells % 0.1 H Neutrophils # Neutrophils # (Manual) 28.2 H Band Neutrophils # 0.9 H Lymphocytes # Monocytes # Absolute Monocytes (Manual) 1.2 H Eosinophils # Basophils # Promyelocytes # 0 Nucleated Red Blood Cells # Smudge Cells % 6 H Platelet Estimate NORMAL Polychromasia 3+ Poikilocytosis 3+ Anisocytosis 1+ Sodium Level 136 Potassium Level 3.6 Chloride Level 106 Carbon Dioxide Level 22 Anion Gap 12 Blood Urea Nitrogen 14 Creatinine 0.51 Glucose Level 108 Calcium Level 7.1 L Phosphorus Level 3.1 Magnesium Level 1.6 L Medications Medications Current Medications Ondansetron HCl (Zofran Inj) 4 mg Q6H PRN IV NAUSEA AND/OR VOMITING Last administered on 04/16/17 09:39; Admin Dose 4 MG; Start 04/07/17 at 23:00 Morphine Sulfate (morphine) 2 mg Q4H PRN IV PAIN Last administered on 17:46; Admin Dose 2 MG; Start 04/07/17 at 23:00 Pantoprazole (Protonix Iv) 40 mg BID@06,18 IV Last administered on 04/21/17 05 :46; Admin Dose 40 MG; Start 04/10/17 at 18:00 Sodium Phosphate (Neutra-Phos) 250 mg BID PO Last administered on 04/21/17 09: 03; Admin Dose 250 MG; Start 04/11/17 at 10:30 Metoclopramide HCl (Reglan) 10 mg Q6 IV Last administered on 04/21/17 05:46; Admin Dose 10 MG; Start 04/16/17 at 18:00 Sucralfate (Carafate) 1 gm QID PO Last administered on 04/21/17 09:03; Admin Dose 1 GM; Start 04/17/17 at 12:30 Promethazine HCl/ Codeine 5 ml 5 ml Q4H PRN PO COUGH Last administered on 06:05; Admin Dose 5 ML; Start 04/17/17 at 23:30 Metronidazole 100 ml @ 100 mls/hr Q6 IVPB Last administered on 04/21/17 05:46 ; Admin Dose 100 MLS/HR; Start 04/20/17 at 00:00 Sodium Chloride (1/2 NS) 1,000 ml @ 40 mls/hr Q24H IV Last administered on 10:15; Admin Dose 40 MLS/HR; Start 04/20/17 at 09:30 Vancomycin HCl (Vancomycin Oral Syringe) 250 mg Q6 PO Last administered on 04/21 05:46; Admin Dose 250 MG; Start 04/20/17 at 12:00 Rifampin 600 mg 600 mg DAILY PO Last administered on 04/21/17 09:03; Admin Dose 600 MG; Start 04/20/17 at 12:00 Magnesium Sulfate (Magnesium Sulfate 2 Gm/50 ml) 50 ml @ 25 mls/hr ONCE IVPB ; Start 04/21/17 at 10:30; Stop 04/21/17 at 12:29 MOE UMANA Apr 21, 2017 11:17
[2017-04-21] MEDS: morphine 2 MG INJ IV PRN (11:30)
[2017-04-21] MEDS: PROMETHAZINE/CODEINE 5ML CUP PO PRN ×2 (11:30→11:59)
[2017-04-21] MEDS: ONDANSETRON 4 MG INJ IV PRN (11:43)
--- NOTE | 2017-04-21 12:57 | CONS ---
Date/Time of Note Date/Time of Note DATE: 04/21/17 TIME: 12:51 Assessment/Plan Assessment/Plan Chief Complaint/Hosp Course Assessment/Plan Chief Complaint/Hosp Course ID PROGRESS NOTE CURRENT ABX: Flagyl IV#1 + Vanco liq po #1 + Start Rifampin 24H INTERVAL SUMMARY * Awake. Alert. Denies Pain. * 04/20/17 CXR: FINDINGS: * The heart and mediastinum are within normal limits. * There is a right chest wall port in place. * There are extensive bilateral upper lobe and lower lobe infiltrates. * There is no pneumothorax. Exam Constitutional: alert, oriented, cachetic, generalized weakness Psych: nl mood/affect, no complaints Head: atraumatic, normocephalic Eyes: EOMI, nl conjunctiva, nl lids, nl sclera ENMT: Unremarkable Neck: non-tender, supple Respiratory: (+)Rales, no wheezing, equal chest rise bilaterally Cardiovascular: nl pulses, regular rate and rhythm Gastrointestinal: Ascites Musculoskeletal: nl extremities to inspection Extremities: normal pulses 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: LEGAL MEDIATOR II-XII intact, nl mental status, nl speech Skin: No diaphoresis, N rash or lesions Lymph: nl lymph nodes ID ASSESSMENT 61 yo F w/Metastatic gastric CA -> status post chemotherapy by Dr. Ford. 1. SEPSIS per (+) rising leukocytosis 10.0(04/16) -> 22.8 (04/17)-> now 40.1 (04/20 ) w/15% BANDS => Plus below: * No fevers, mild intermittent tachycardia 90-110, B/P 93/59 * (+)C.Diff Colitis 04/17/17 C DIFFICILE DNA AMPLIFICATION Final CYTOTOXIGENIC C DIFFICILE POSITIVE (Ref Range Neg) * DDx: spontaneous bacterial peritonitis * DDx: UT * DDx: Aspiration Pneumonitis 2. Metastatic gastric CA with suspected malignant abdominopelvic ascites and peritoneal carcinomatosis * s/p PARA 04/14-> ~5000 ml of clear yellow fluid was obtained and then discarded. * DDx: spontaneous bacterial peritonitis 3. Leukopenia and anemia 2/2 chemotherapy. Restarted on Neupogen. 4. GERD, extreme esophagitis and severe reflux w/undigested food in the esophagus * s/p 04/16/17 EGD with stent placement on04/[address] Jogani, GI. 5. Abdominal pain with nausea and vomiting 2/2 massive ascites pressure volume = > due to #2 & #4 * N/V/ABD Pain resolved w/Zofran and Morphine 6. Possible aspiration pneumonia 7. Pulmonary congestion w/ extensive bilateral upper lobe and lower lobe infiltrates on CXR 04/20 * Multifactorial due to severe ascites fluid back up, low colloid pressure 3rd spacing, malignancy * Moderate right pleural effusion on admission 8. Hx of CHF * 2D ECHO SEP 2016, normal LVFx w/EF~60% * 2D ECHO 2015 preserved systolic LVFx w/STG I diastolic dysfunction 9. Cachexia w/severe protein calorie deficiency 10. Low normal B/P w/transient hypotension due to low colloid pressure 3rd spacing, malignancy, SIRS, sepsis 11. Contaminated Urine culture vs early GNR UTI on 04/07/17 URINE CULTURE Final Organism 1 ESCHERICHIA COLI COLONY COUNT <10,000 CFU/ml Organism 2 LACTOBACILLUS SPECIES COLONY COUNT >100,000 CFU/ml MRSA Nares -> Screening ordered today INVASIVES: Right chest Port-A-Cath ABX ALLERGY: KNDA CURRENT ABX: Flagyl IV#1 + Vanco liq po #1 ID RECOMMENDATIONS 1. Rising WBC w/bandemia is due to (+)C.Diff colitis, she is s/p ABX * Flagy IV + Vanco liquid initiated 2. Give Fosfomycin 3gm po x1 empiric cystitis vs bladder sepsis w/hx of GNR bacteruria 3. Start Rifampin 600mg po daily for concern risk of spontaneous bacterial peritonitis due to massive ascites + s/p paracentesis 4. Aspiration precautions -> AVOID empiric IV ABX for concern possible aspiration pneumonitis * Obtain sputum culture 5. For Temp >101.0 send blood cultures via Port-A-Cath, no compelling evidence septicemia at this time. 6. Check MRSA Nares. Monitor Labs. Problems: Consultation Date/Type/Reason Admit Date/Time Apr 07, 2017 at 19:17 Initial Consult Date 04/07/17 Type of Consultation: id Referring Provider: CINDY ESTRELLA MD Exam/Review of Systems Vital Signs Vitals Vital Signs Date Time Temp Pulse Resp B/P Pulse Ox O2 Delivery O2 Flow Rate FiO2 04/21/17 08:14 98.3 89 20 89/60 98 04/21/17 08:00 Nasal Cannula 3.0 04/21/17 02:08 21 Intake and Output 04/20/17 04/20/17 04/21/17 15:00 23:00 07:00 Intake Total 250 ml 940 ml 1040 ml Output Total 150 ml 1240 ml Balance 250 ml 790 ml -200 ml Results Result Diagram: 04/21/17 0507 04/21/17 0507 Results 24 hrs Laboratory Tests Test 04/21/17 05:07 White Blood Count 30.7 #H Red Blood Count 2.92 L Hemoglobin 8.1 L Hematocrit 24.4 L Mean Corpuscular Volume 83.6 Mean Corpuscular Hemoglobin 27.7 L Mean Corpuscular Hemoglobin Concent 33.2 Red Cell Distribution Width 18.6 H Platelet Count 184 Mean Platelet Volume 9.8 Neutrophils % Segmented Neutrophils % (Manual) 91 H Band Neutrophils % (Manual) 3 Lymphocytes % Monocytes % Monocytes % (Manual) 4 Eosinophils % Basophils % Promyelocytes % (Manual) 1 H Nucleated Red Blood Cells % 0.1 H Neutrophils # Neutrophils # (Manual) 28.2 H Band Neutrophils # 0.9 H Lymphocytes # Monocytes # Absolute Monocytes (Manual) 1.2 H Eosinophils # Basophils # Promyelocytes # 0 Nucleated Red Blood Cells # Smudge Cells % 6 H Platelet Estimate NORMAL Polychromasia 3+ Poikilocytosis 3+ Anisocytosis 1+ Sodium Level 136 Potassium Level 3.6 Chloride Level 106 Carbon Dioxide Level 22 Anion Gap 12 Blood Urea Nitrogen 14 Creatinine 0.51 Glucose Level 108 Calcium Level 7.1 L Phosphorus Level 3.1 Magnesium Level 1.6 L Medications Medications Current Medications Ondansetron HCl (Zofran Inj) 4 mg Q6H PRN IV NAUSEA AND/OR VOMITING Last administered on 04/21/17 11:43; Admin Dose 4 MG; Start 04/07/17 at 23:00 Morphine Sulfate (morphine) 2 mg Q4H PRN IV PAIN Last administered on 11:30; Admin Dose 2 MG; Start 04/07/17 at 23:00 Pantoprazole (Protonix Iv) 40 mg BID@06,18 IV Last administered on 04/21/17 05 :46; Admin Dose 40 MG; Start 04/10/17 at 18:00 Sodium Phosphate (Neutra-Phos) 250 mg BID PO Last administered on 04/21/17 09: 03; Admin Dose 250 MG; Start 04/11/17 at 10:30 Metoclopramide HCl (Reglan) 10 mg Q6 IV Last administered on 04/21/17 12:00; Admin Dose 10 MG; Start 04/16/17 at 18:00 Sucralfate (Carafate) 1 gm QID PO Last administered on 04/21/17 12:10; Admin Dose 1 GM; Start 04/17/17 at 12:30 Promethazine HCl/ Codeine 5 ml 5 ml Q4H PRN PO COUGH Last administered on 11:59; Admin Dose 5 ML; Start 04/17/17 at 23:30 Metronidazole 100 ml @ 100 mls/hr Q6 IVPB Last administered on 04/21/17 12:00 ; Admin Dose 100 MLS/HR; Start 04/20/17 at 00:00 Sodium Chloride (1/2 NS) 1,000 ml @ 40 mls/hr Q24H IV Last administered on 10:15; Admin Dose 40 MLS/HR; Start 04/20/17 at 09:30 Vancomycin HCl (Vancomycin Oral Syringe) 250 mg Q6 PO Last administered on 04/21 12:01; Admin Dose 250 MG; Start 04/20/17 at 12:00 Rifampin (Rifampin) 600 mg DAILY PO Last administered on 04/21/17 09:03; Admin Dose 600 MG; Start 04/20/17 at 12:00 ABBEY CUH NP Apr 21, 2017 12:57
--- NOTE | 2017-04-21 13:39 | CONS ---
Date/Time of Note Date/Time of Note DATE: 04/21/17 TIME: 13:38 Assessment/Plan Assessment/Plan Additional Assessment/Plan 1. 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 Intractable nausea vomiting, resolved 3. Dysphagia 4. Hypertension 5. Cachexia 6. Extensive esophageal ulceration 7. Leukocytosis secondary to Neupogen 8. Ascites 9. C. difficile colitis 10. Aspiration pneumonia 11. Status post placement of self-expanding metallic stent across the obstructing lesion in the antrum Plan Continue PPI 40 mg twice daily Carafate suspension Reglan Self-expanding metallic stent on Saturday Discussed the patient and the family member and has agreed for the stent Stent successfully deployed across pyloric channel Increase the dose of Reglan as a prokinetic agent Will add p.o. vancomycin IV antibiotic as per ID We will monitor WBC count We will start her on a clear liquid diet and get extra abdomen to make sure that the stent is expanding. Clinically patient looks much better Consultation Date/Type/Reason Admit Date/Time Apr 07, 2017 at 19:17 Type of Consultation: id Referring Provider: CINDY ESTRELLA MD 24 HR Interval Summary Constitutional: improved, no complaints Exam/Review of Systems Vital Signs Vitals Vital Signs Date Time Temp Pulse Resp B/P Pulse Ox O2 Delivery O2 Flow Rate FiO2 04/21/17 08:14 98.3 89 20 89/60 98 04/21/17 08:00 Nasal Cannula 3.0 04/21/17 02:08 21 Intake and Output 04/20/17 04/20/17 04/21/17 15:00 23:00 07:00 Intake Total 250 ml 940 ml 1040 ml Output Total 150 ml 1240 ml Balance 250 ml 790 ml -200 ml Exam Constitutional: alert, oriented, well developed Psych: nl mood/affect, no complaints Head: atraumatic, normocephalic Eyes: EOMI, PERRL, nl conjunctiva, nl lids, nl sclera ENMT: nl external ears & nose, nl lips & teeth, nl nasal mucosa & septum Neck: non-tender, supple Respiratory: clear to auscultation, normal air movement Cardiovascular: nl pulses, regular rate and rhythm Gastrointestinal: nl liver, spleen, non-tender, soft Musculoskeletal: nl extremities to inspection, nl gait and stance Extremities: normal pulses 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: 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 II-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 intact, nl mental status, nl speech, nl strength Skin: nl turgor, No rash or lesions Lymph: nl lymph nodes Results Result Diagram: 04/21/17 0507 04/21/17 0507 Results 24 hrs Laboratory Tests Test 04/21/17 05:07 White Blood Count 30.7 #H Red Blood Count 2.92 L Hemoglobin 8.1 L Hematocrit 24.4 L Mean Corpuscular Volume 83.6 Mean Corpuscular Hemoglobin 27.7 L Mean Corpuscular Hemoglobin Concent 33.2 Red Cell Distribution Width 18.6 H Platelet Count 184 Mean Platelet Volume 9.8 Neutrophils % Segmented Neutrophils % (Manual) 91 H Band Neutrophils % (Manual) 3 Lymphocytes % Monocytes % Monocytes % (Manual) 4 Eosinophils % Basophils % Promyelocytes % (Manual) 1 H Nucleated Red Blood Cells % 0.1 H Neutrophils # Neutrophils # (Manual) 28.2 H Band Neutrophils # 0.9 H Lymphocytes # Monocytes # Absolute Monocytes (Manual) 1.2 H Eosinophils # Basophils # Promyelocytes # 0 Nucleated Red Blood Cells # Smudge Cells % 6 H Platelet Estimate NORMAL Polychromasia 3+ Poikilocytosis 3+ Anisocytosis 1+ Sodium Level 136 Potassium Level 3.6 Chloride Level 106 Carbon Dioxide Level 22 Anion Gap 12 Blood Urea Nitrogen 14 Creatinine 0.51 Glucose Level 108 Calcium Level 7.1 L Phosphorus Level 3.1 Magnesium Level 1.6 L Medications Medications Current Medications Ondansetron HCl (Zofran Inj) 4 mg Q6H PRN IV NAUSEA AND/OR VOMITING Last administered on 04/21/17 11:43; Admin Dose 4 MG; Start 04/07/17 at 23:00 Morphine Sulfate (morphine) 2 mg Q4H PRN IV PAIN Last administered on 11:30; Admin Dose 2 MG; Start 04/07/17 at 23:00 Pantoprazole (Protonix Iv) 40 mg BID@06,18 IV Last administered on 04/21/17 05 :46; Admin Dose 40 MG; Start 04/10/17 at 18:00 Sodium Phosphate (Neutra-Phos) 250 mg BID PO Last administered on 04/21/17 09: 03; Admin Dose 250 MG; Start 04/11/17 at 10:30 Metoclopramide HCl (Reglan) 10 mg Q6 IV Last administered on 04/21/17 12:00; Admin Dose 10 MG; Start 04/16/17 at 18:00 Sucralfate (Carafate) 1 gm QID PO Last administered on 04/21/17 12:10; Admin Dose 1 GM; Start 04/17/17 at 12:30 Promethazine HCl/ Codeine 5 ml 5 ml Q4H PRN PO COUGH Last administered on 11:59; Admin Dose 5 ML; Start 04/17/17 at 23:30 Metronidazole 100 ml @ 100 mls/hr Q6 IVPB Last administered on 04/21/17 12:00 ; Admin Dose 100 MLS/HR; Start 04/20/17 at 00:00 Sodium Chloride (1/2 NS) 1,000 ml @ 40 mls/hr Q24H IV Last administered on 10:15; Admin Dose 40 MLS/HR; Start 04/20/17 at 09:30 Vancomycin HCl (Vancomycin Oral Syringe) 250 mg Q6 PO Last administered on 04/21 12:01; Admin Dose 250 MG; Start 04/20/17 at 12:00 Rifampin (Rifampin) 600 mg DAILY PO Last administered on 04/21/17 09:03; Admin Dose 600 MG; Start 04/20/17 at 12:00 GIANNA CHANEL MD Apr 21, 2017 13:39
[2017-04-21 14:57] VITALS: BP 85/56; RESP 22
[2017-04-21] MEDS: morphine 4 MG/ML VIAL IV PRN (16:39)
--- NOTE | 2017-04-21 17:08 | CONS ---
Date/Time of Note Date/Time of Note DATE: 04/21/17 TIME: 17:07 Assessment/Plan Assessment/Plan Chief Complaint/Hosp Course Metastatic gastric adenocarcinoma with peritoneal carcinomatosis. ON CHEMO Abdominopelvic ascites - malignant POST Paracentesis LEUKOPENIA, POST CHEMO, WITH SUBSEQUENT LEUKOCYTOSIS 2 TO NEUPOGEN and c diff MONITOR NEUPOGEN- DC ANEMIA POST CHEMO MONITOR prbc today Intractable nausea, vomiting, dehydration ANTIEMETICS, IVF POST EGD- REPORT - NOTED Extreme esophagitis per EGD, PER GI Moderate right pleural effusion. Mild pericardial effusion. Diffuse subcutaneous edema. Abdominal pain. PAIN CONTROL hx Left lower extremity edema.- better HYPONATREMIA NEPHRO Problems: Consultation Date/Type/Reason Admit Date/Time Apr 07, 2017 at 19:17 Type of Consultation: hemeon Referring Provider: CINDY ESTRELLA MD 24 HR Interval Summary Free Text/Dictation all noted Exam/Review of Systems Vital Signs Vitals Vital Signs Date Time Temp Pulse Resp B/P Pulse Ox O2 Delivery O2 Flow Rate FiO2 04/21/17 14:57 98.4 81 22 85/56 91 04/21/17 08:00 Nasal Cannula 3.0 04/21/17 02:08 21 Intake and Output 04/20/17 04/20/17 04/21/17 15:00 23:00 07:00 Intake Total 250 ml 940 ml 1140 ml Output Total 150 ml 1240 ml Balance 250 ml 790 ml -100 ml Exam Constitutional: alert, oriented, well developed Psych: nl mood/affect, no complaints Head: atraumatic, normocephalic Eyes: EOMI, PERRL, nl conjunctiva, nl lids, nl sclera ENMT: nl external ears & nose, nl lips & teeth, nl nasal mucosa & septum Neck: non-tender, supple Respiratory: clear to auscultation, normal air movement Cardiovascular: nl pulses, regular rate and rhythm Gastrointestinal: nl liver, spleen, non-tender, soft Musculoskeletal: nl extremities to inspection, nl gait and stance Extremities: normal pulses 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: BLOCK TRIMMER II-XII intact, nl mental status, nl speech, nl strength Skin: nl turgor, No rash or lesions Lymph: nl lymph nodes Results Result Diagram: 04/21/17 0507 04/21/17 0507 Results 24 hrs Laboratory Tests Test 04/21/17 05:07 White Blood Count 30.7 #H Red Blood Count 2.92 L Hemoglobin 8.1 L Hematocrit 24.4 L Mean Corpuscular Volume 83.6 Mean Corpuscular Hemoglobin 27.7 L Mean Corpuscular Hemoglobin Concent 33.2 Red Cell Distribution Width 18.6 H Platelet Count 184 Mean Platelet Volume 9.8 Neutrophils % Segmented Neutrophils % (Manual) 91 H Band Neutrophils % (Manual) 3 Lymphocytes % Monocytes % Monocytes % (Manual) 4 Eosinophils % Basophils % Promyelocytes % (Manual) 1 H Nucleated Red Blood Cells % 0.1 H Neutrophils # Neutrophils # (Manual) 28.2 H Band Neutrophils # 0.9 H Lymphocytes # Monocytes # Absolute Monocytes (Manual) 1.2 H Eosinophils # Basophils # Promyelocytes # 0 Nucleated Red Blood Cells # Smudge Cells % 6 H Platelet Estimate NORMAL Polychromasia 3+ Poikilocytosis 3+ Anisocytosis 1+ Sodium Level 136 Potassium Level 3.6 Chloride Level 106 Carbon Dioxide Level 22 Anion Gap 12 Blood Urea Nitrogen 14 Creatinine 0.51 Glucose Level 108 Calcium Level 7.1 L Phosphorus Level 3.1 Magnesium Level 1.6 L Medications Medications Current Medications Ondansetron HCl (Zofran Inj) 4 mg Q6H PRN IV NAUSEA AND/OR VOMITING Last administered on 04/21/17 11:43; Admin Dose 4 MG; Start 04/07/17 at 23:00 Morphine Sulfate (morphine) 2 mg Q4H PRN IV PAIN Last administered on 11:30; Admin Dose 2 MG; Start 04/07/17 at 23:00; Status Future Hold Pantoprazole (Protonix Iv) 40 mg BID@,18 IV Last administered on 04/21/17 05 :46; Admin Dose 40 MG; Start 04/10/17 at 18:00 Sodium Phosphate (Neutra-Phos) 250 mg BID PO Last administered on 04/21/17 09: 03; Admin Dose 250 MG; Start 04/11/17 at 10:30 Metoclopramide HCl (Reglan) 10 mg Q6 IV Last administered on 04/21/17 12:00; Admin Dose 10 MG; Start 04/16/17 at 18:00 Sucralfate (Carafate) 1 gm QID PO Last administered on 04/21/17 12:10; Admin Dose 1 GM; Start 04/17/17 at 12:30 Promethazine HCl/ Codeine 5 ml 5 ml Q4H PRN PO COUGH Last administered on 11:59; Admin Dose 5 ML; Start 04/17/17 at 23:30 Metronidazole 100 ml @ 100 mls/hr Q6 IVPB Last administered on 04/21/17 12:00 ; Admin Dose 100 MLS/HR; Start 04/20/17 at 00:00 Sodium Chloride (1/2 NS) 1,000 ml @ 40 mls/hr Q24H IV Last administered on 10:15; Admin Dose 40 MLS/HR; Start 04/20/17 at 09:30 Vancomycin HCl (Vancomycin Oral Syringe) 250 mg Q6 PO Last administered on 04/21 12:01; Admin Dose 250 MG; Start 04/20/17 at 12:00 Rifampin (Rifampin) 600 mg DAILY PO Last administered on 04/21/17 09:03; Admin Dose 600 MG; Start 04/20/17 at 12:00 Morphine Sulfate (morphine) 2 mg Q4H PRN IV PAIN Last administered on 16:39; Admin Dose 2 MG; Start 04/21/17 at 17:00 GRETEL LITTLEJOHN MD Apr 21, 2017 17:08
[2017-04-21 19:27] VITALS: BP 104/61; RESP 18
[2017-04-22 02:07] VITALS: BP 86/56; PULSE 87; RESP 19
[2017-04-22] MEDS: ALBUTEROL/IPRATROPIUM (NEB) 3 ML AMP HHN PRN (02:49)
[2017-04-22] MEDS: ONDANSETRON 4 MG INJ IV PRN (03:02)
[2017-04-22] MEDS: PROMETHAZINE/CODEINE 5ML CUP PO PRN ×4 (03:02→21:23)
[2017-04-22] MEDS: METOCLOPRAMIDE 10 MG INJ IV SCH ×4 (05:37→23:51)
[2017-04-22] MEDS: PANTOPRAZOLE 40 MG INJ IV SCH ×2 (05:37→17:05)
[2017-04-22] MEDS: metroNIDAZOLE 500 MG/NS (PMX) 100 ML IVPB SCH ×4 (05:37→23:51)
[2017-04-22] MEDS: VANCOMYCIN HCL 250 MG/5ML POSYG PO SCH ×4 (06:17→23:51)
--- NOTE | 2017-04-22 06:48 | GILP ---
DATE OF PROCEDURE: 04/19/2017 INDICATION: Elderly female with a history of cancer of the stomach involving the entire antrum and the distal part of the body of the stomach, as well as gastric outlet obstruction. The purpose is to put a stent to close to the obstructing area. DESCRIPTION OF PROCEDURE: The risks of the procedure, related complications, anesthetic risks were all discussed and informed consent was obtained. The patient was brought to the OR room number 2 and intubated by the anesthesiologist. After that, the intubation scope was as much into the esophagus. The tumor was identified involving the entire distal part of the body of the stomach and antrum. The scope was passed through the narrowed opening into the duodenal. Even in the duodenal apex, also a tumor growth. Scope was advanced further down deeper. Diverticulum identified in the 3rd part of the duodenum. Beyond that, the lumen was collapsed and the proximal part of the duodenum or duodenal sweep, appeared to be dilated. So at this point, a guidewire was successfully placed. Endoscope was removed. Over the guidewire, we passed the colonoscope in order to stabilize the guidewire so that it does not buckle up in the stomach. Stent was passed over the guidewire and appropriately position and deployed. On fluoro, acute angulation and narrowing was seen, and this should open up over a period of 24-48 hours. I just want to make a note also patient had some formula in the fundal area and she was also refluxing the formula in the proximal esophagus, indicating despite being NPO or on a clear liquid diet for 48 hours, the patient still had some undigested formula in the fundal area. PLAN: Wait for 24 hours. Once the self expanding uncoiled metallic stent opens up, we will started on a clear liquid diet. We will get a KUB to confirm that and also she needs abdominal paracentesis. Dictated By: Minh Millan MD /madalyn/perlita /Document#: [id number]
--- NOTE | 2017-04-22 07:36 | PN ---
DATE: 04/21/2017 SUBJECTIVE: The patient was noted to have stools positive for C diff. Patient is on oral vancomycin. Patient had paracentesis yesterday. No other events noted. OBJECTIVE DATA: VITAL SIGNS: Blood pressure 99/67, respirations 20, pulse 89, temperature 98.3. HEENT: Normocephalic. NECK: Supple. HEART: Regular rate. LUNGS: Diminished breath sounds at the base. ABDOMEN: Soft, nontender to palpation. No rebound or guarding. EXTREMITIES: Negative for clubbing, cyanosis, no edema. DERMATOLOGIC: No rashes musculoskeletal joint effusion. NEUROLOGIC: No change in exam. MEDICATIONS: Reviewed. LABORATORY DATA: Shows a BNP within normal limits. Magnesium 1.6. White count 30.7, hemoglobin 8.1, hematocrit 34.4, platelet count is 184. ASSESSMENT AND PLAN: 1. Hyponatremia, improved. Continue to monitor. 2. Hypomagnesemia. We will replete magnesium sulfate. 3. Anemia. Monitor H and H levels. 4. Acute respiratory failure secondary to pneumonia. The patient is clinically improving. Continue to monitor. 5. C diff colitis. Continue current medical management. Gastric cancer, peritoneal carcinomatosis. The patient is status post paracentesis. Follow up with 6. oncology for further recommendations. 7. Nausea vomiting improved. 8. Esophagitis status post endoscopy with stent. Dictated By: Kulwinder Ji DO /madalyn/marta /Document#: [id number]
[2017-04-22 08:06] VITALS: BP 81/56; RESP 22
[2017-04-22] MEDS: SUCRALFATE 1 GM TAB PO SCH ×4 (08:22→21:06)
[2017-04-22] MEDS: NEUTRA-PHOS 250 MG PACKET PO SCH ×2 (08:22→21:06)
[2017-04-22] MEDS: RIFAMPIN 300 MG CAP PO SCH (08:22)
--- NOTE | 2017-04-22 10:40 | PN ---
DATE: 04/14/2017 SUBJECTIVE DATA: The patient is stable. No events overnight. OBJECTIVE DATA: VITAL SIGNS: Blood pressure 140/69, respiration 18, pulse 87, temperature 98.2 degrees. HEENT: Head is normocephalic. NECK: Supple. CARDIAC: Regular rate. RESPIRATORY: Diminished breath sounds at the bases. ABDOMEN: Soft, nontender to palpation. No rebound or guarding. EXTREMITIES: Negative for clubbing, cyanosis. No edema. SKIN: No rashes. MUSCULOSKELETAL: No joint effusion. NEUROLOGIC: No change in exam. The patient's medications were reviewed. LABORATORY AND DIAGNOSTIC DATA: White count 11, hemoglobin 7.9, hematocrit 24.7, platelet count 125,000. Sodium 136, potassium 3.8, BUN 9.44, magnesium 1.6. ASSESSMENT AND PLAN: 1. Hyponatremia. Etiology was initially secondary to volume depletion, resolved. The patient's IV fluids were held. Continue to monitor sodium levels. 2. Hypoxemia. Continue to monitor and replete. 3. Hypomagnesemia. Replete with magnesium sulfate. 4. Lower extremity edema. The patient is status post Doppler ultrasound, negative for deep venous thrombosis. Continue intermittent diuretic therapy. 5. Nausea and vomiting. Continue antiemetics. 6. Metastatic gastric carcinoma with peritoneal carcinomatosis. Continue to monitor. Follow up with Oncology. 7. Anemia. Monitor hemoglobin and hematocrit. Dictated By: Kulwinder Ji DO /madalyn/arturo /Document#: [id number]
[2017-04-22] MEDS: morphine 4 MG/ML VIAL IV PRN (12:24)
[2017-04-22 14:12] VITALS: BP 94/69; RESP 20
--- NOTE | 2017-04-22 14:22 | PN ---
Date/Time of Note Date/Time of Note DATE: 04/22/17 TIME: 14:21 Assessment/Plan VTE Prophylaxis VTE Prophylaxis Intervention: other Lines/Catheters IV Catheter Type (from [facility]): port a cath Urinary Cath still in place: No Assessment/Plan Chief Complaint/Hosp Course -Extreme esophagitis per EGD, follow-up gastroenterology recommendations. Continue Protonix, Carafate, and Reglan. -Metastatic gastric adenocarcinoma, status post chemotherapy by Dr. Ford, oncology. Status post EGD with stent placement on04/[address] Millan, GI. -Nausea and vomiting, resolved. Continue Zofran for for nausea and morphine as needed for pain. -Hyponatremia secondary to dehydration, resolved, Dr. Ji is following in nephrology consultation. 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 -Protein calorie severe malnutrition. Nutritional consult is appreciated. -Leukopenia and anemia most likely secondary to chemotherapy. Restarted on Neupogen. Problems: Subjective 24 Hr Interval Summary Free Text/Dictation Patient continues to be nauseous, unable to take much in by mouth Exam/Review of Systems Vital Signs Vitals Vital Signs Date Time Temp Pulse Resp B/P Pulse Ox O2 Delivery O2 Flow Rate FiO2 04/22/17 14:12 98.2 83 20 94/69 100 04/22/17 08:00 Nasal Cannula 2.0 04/21/17 21:52 Intake and Output 04/21/17 04/21/17 04/22/17 15:00 23:00 07:00 Intake Total 150 ml 1010 ml 760 ml Output Total 250 ml 100 ml Balance 150 ml 760 ml 660 ml Exam Constitutional: frail Head: atraumatic, normocephalic Neck: supple Respiratory: diminished breath sounds Cardiovascular: regular rate and rhythm Gastrointestinal: non-tender, soft Extremities: normal pulses Results Result Diagram: 04/21/17 0507 04/21/17 0507 Results 24 hrs Laboratory Tests Test 04/22/17 06:23 Lab Scanned Report BLOOD TRANSFUSION Medications Medications Current Medications Ondansetron HCl (Zofran Inj) 4 mg Q6H PRN IV NAUSEA AND/OR VOMITING Last administered on 04/22/17t 03:02; Admin Dose 4 MG; Start 04/07/17 at 23:00 Pantoprazole (Protonix Iv) 40 mg BID@06,18 IV Last administered on 04/22/17 05 :37; Admin Dose 40 MG; Start 04/10/17 at 18:00 Sodium Phosphate (Neutra-Phos) 250 mg BID PO Last administered on 04/22/17 08: 22; Admin Dose 250 MG; Start 04/11/17 at 10:30 Metoclopramide HCl (Reglan) 10 mg Q6 IV Last administered on 04/22/17 12:18; Admin Dose 10 MG; Start 04/16/17 at 18:00 Sucralfate (Carafate) 1 gm QID PO Last administered on 04/22/17 12:18; Admin Dose 1 GM; Start 04/17/17 at 12:30 Promethazine HCl/ Codeine 5 ml 5 ml Q4H PRN PO COUGH Last administered on 12:23; Admin Dose 5 ML; Start 04/17/17 at 23:30 Metronidazole 100 ml @ 100 mls/hr Q6 IVPB Last administered on 04/22/17 12:19 ; Admin Dose 100 MLS/HR; Start 04/20/17 at 00:00 Sodium Chloride (1/2 NS) 1,000 ml @ 40 mls/hr Q24H IV Last administered on 22:34; Admin Dose 40 MLS/HR; Start 04/20/17 at 09:30 Vancomycin HCl (Vancomycin Oral Syringe) 250 mg Q6 PO Last administered on 04/22 12:18; Admin Dose 250 MG; Start 04/20/17 at 12:00 Rifampin (Rifampin) 600 mg DAILY PO Last administered on 04/22/17 08:22; Admin Dose 600 MG; Start 04/20/17 at 12:00 Morphine Sulfate (morphine) 2 mg Q4H PRN IV PAIN Last administered on 12:24; Admin Dose 2 MG; Start 04/21/17 at 17:00 MOE UMANA Apr 22, 2017 14:22
--- NOTE | 2017-04-22 16:54 | CONS ---
Date/Time of Note Date/Time of Note DATE: 04/22/17 TIME: 16:31 Assessment/Plan Assessment/Plan Chief Complaint/Hosp Course ID PROGRESS NOTE CURRENT ABX: DAY #3 => Flagyl IV #3 + Vanco liq po #3 + Rifampin #3 + Diflucan 100mg IV #1 s/p Fosfomycin po x1 04/20 (Enterococcal UTI) 24H INTERVAL SUMMARY * Sitting up in chair - daughter present * No fevers, (+)Nausea == Flagyl is running IV --she is on po ABX for severe diarrhea, and concern at risk aspiration pneumonitis * WBC down today after initiating ABX for C.Diff colitis, (+)Diarrhea w/9 BMs recorded single day this past week-> resolving with ABX * No fevers, VSS, WBC rising to 40. w/15% BANDS = (+)C.Diff 04/17 C DIFFICILE DNA AMPLIFICATION Final CYTOTOXIGENIC C DIFFICILE POSITIVE (Ref Range Neg) * 04/20/17 CXR: FINDINGS: * The heart and mediastinum are within normal limits. * There is a right chest wall port in place. * There are extensive bilateral upper lobe and lower lobe infiltrates. * There is no pneumothorax. 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 Ford. 1. SEPSIS per (+) rising leukocytosis 10.0(04/16) -> 22.8 (04/17)-> now 40.1 (04/20 ) w/15% BANDS => IMPROVING: * No fevers, mild intermittent tachycardia 90-110, B/P 93/59 * (+)C.Diff Colitis 04/17/17 C DIFFICILE DNA AMPLIFICATION Final CYTOTOXIGENIC C DIFFICILE POSITIVE (Ref Range Neg) * DDx: spontaneous bacterial peritonitis=> D/W Dr. Orozco -- Rx Rifampin onboard * DDx: UTI 04/20 Urine Cx (+) URINE CULTURE Preliminary ==> she was treated empirically w/Fosfomycin po x1 Organism 1 ENTEROCOCCUS SPECIES COLONY COUNT 70,000 - 80,000 CFU/ml Organism 2 CHAPARRITA ALBICANS COLONY COUNT 30,000 - 40,000 CFU/ml * DDx: Aspiration Pneumonitis => Lungs w/increase fluid likely 2. Metastatic gastric CA with suspected malignant abdominopelvic ascites and peritoneal carcinomatosis * s/p PARA 04/14-> ~5000 ml of clear yellow fluid was obtained and then discarded. * DDx: spontaneous bacterial peritonitis => Rifampin 600mg PO daily onboard 3. Leukopenia and anemia 2/2 chemotherapy. Restarted on Neupogen. 4. GERD, extreme esophagitis and severe reflux w/undigested food in the esophagus => risk factor for silent aspiration syndrome * s/p 04/16/17 EGD with stent placement on04/[address] Millan, GI. * Sputum (+)Chaparrita albicans -> Start Nystatin 5mL QIC swish/swallow 5. Abdominal pain with nausea and vomiting 2/2 massive ascites pressure volume = > due to #2 & #4 * N/V/ABD Pain resolved w/Zofran and Morphine 6. Possible aspiration pneumonia => Rifampin onboard * Respiratory culture grew (+)Yeast == Oral Candidiasis likely * RESPIRATORY CULTURE Final Organism 1 CHAPARRITA ALBICANS QUANTITY 1+ Organism 2 NORMAL RESPIRATORY STEFANIA QUANTITY 1+ 7. Pulmonary congestion w/ extensive bilateral upper lobe and lower lobe infiltrates on CXR 04/20 * Multifactorial due to severe ascites fluid back up, low colloid pressure 3rd spacing, malignancy * Moderate right pleural effusion on admission 8. Hx of CHF * 2D ECHO SEP 2016, normal LVFx w/EF~60% * 2D ECHO 2015 preserved systolic LVFx w/STG I diastolic dysfunction 9. Cachexia w/severe protein calorie deficiency 10. Low normal B/P w/transient hypotension due to low colloid pressure 3rd spacing, malignancy, SIRS, sepsis 11. Contaminated Urine culture vs early GNR UTI on 04/07/17 URINE CULTURE Final Organism 1 ESCHERICHIA COLI COLONY COUNT <10,000 CFU/ml Organism 2 LACTOBACILLUS SPECIES COLONY COUNT >100,000 CFU/ml MRSA Nares -> Screening ordered today INVASIVES: Right chest Port-A-Cath ABX ALLERGY: KNDA CURRENT ABX: Flagyl IV #3 + Vanco liq po #3 + Rifampin #3 + Diflucan 100mg IV #1 + Nystatin 5mL po Swish/Swallow s/p Fosfomycin po x1 04/20 (Enterococcal UTI) ID RECOMMENDATIONS 1. Rising WBC w/bandemia is due to (+)C.Diff colitis =IMPROVING CONTINUE ABX * Flagyl IV + Vanco liquid initiated => 9BMs/day -> down to 1-2 BMs/day after 3 days ABX 2. UTI ENTEROCOCCUS => s/p TREATED w/Fosfomycin 3gm po x1 on 04/20 * empiric cystitis vs bladder sepsis w/hx of GNR bacteruria 3. Started Rifampin 600mg po daily for concern risk of spontaneous bacterial peritonitis due to massive ascites + s/p paracentesis * This was discussed w/Dr. Orozco who concurs 4. Aspiration precautions -> AVOID empiric IV ABX for concern possible aspiration pneumonitis * (+)YEAST sputum = (+) esophagitis /oral candidiasis > Start Diflucan IV + Nystatin PO swish/swallow 5. PRN For Temp >101.0 send blood cultures via Port-A-Cath, no compelling evidence infected Port septicemia at this time. 6. Check MRSA Nares Problems: Consultation Date/Type/Reason Admit Date/Time Apr 07, 2017 at 19:17 Initial Consult Date 04/07/17 Type of Consultation: ID Referring Provider: CINDY ESTRELLA MD Exam/Review of Systems Vital Signs Vitals Vital Signs Date Time Temp Pulse Resp B/P Pulse Ox O2 Delivery O2 Flow Rate FiO2 04/22/17 14:12 98.2 83 20 94/69 100 04/22/17 08:00 Nasal Cannula 2.0 04/21/17 21:52 Intake and Output 04/21/17 04/21/17 04/22/17 15:00 23:00 07:00 Intake Total 150 ml 1010 ml 760 ml Output Total 250 ml 100 ml Balance 150 ml 760 ml 660 ml Results Result Diagram: 04/21/17 0507 04/21/17 0507 Results 24 hrs Laboratory Tests Test 04/22/17 06:23 Lab Scanned Report BLOOD TRANSFUSION Medications Medications Current Medications Ondansetron HCl (Zofran Inj) 4 mg Q6H PRN IV NAUSEA AND/OR VOMITING Last administered on 04/22/17 03:02; Admin Dose 4 MG; Start 04/07/17 at 23:00 Pantoprazole (Protonix Iv) 40 mg BID@06,18 IV Last administered on 04/22/17 05 :37; Admin Dose 40 MG; Start 04/10/17 at 18:00 Sodium Phosphate (Neutra-Phos) 250 mg BID PO Last administered on 04/22/17 08: 22; Admin Dose 250 MG; Start 04/11/17 at 10:30 Metoclopramide HCl (Reglan) 10 mg Q6 IV Last administered on 04/22/17 12:18; Admin Dose 10 MG; Start 04/16/17 at 18:00 Sucralfate (Carafate) 1 gm QID PO Last administered on 04/22/17 12:18; Admin Dose 1 GM; Start 04/17/17 at 12:30 Promethazine HCl/ Codeine 5 ml 5 ml Q4H PRN PO COUGH Last administered on 12:23; Admin Dose 5 ML; Start 04/17/17 at 23:30 Metronidazole 100 ml @ 100 mls/hr Q6 IVPB Last administered on 04/22/17 12:19 ; Admin Dose 100 MLS/HR; Start 04/20/17 at 00:00 Sodium Chloride (1/2 NS) 1,000 ml @ 40 mls/hr Q24H IV Last administered on 22:34; Admin Dose 40 MLS/HR; Start 04/20/17 at 09:30 Vancomycin HCl (Vancomycin Oral Syringe) 250 mg Q6 PO Last administered on 04/22 12:18; Admin Dose 250 MG; Start 04/20/17 at 12:00 Rifampin (Rifampin) 600 mg DAILY PO Last administered on 04/22/17 08:22; Admin Dose 600 MG; Start 04/20/17 at 12:00 Morphine Sulfate (morphine) 2 mg Q4H PRN IV PAIN Last administered on 12:24; Admin Dose 2 MG; Start 04/21/17 at 17:00 GENESIS MESSER NP Apr 22, 2017 16:44
[2017-04-22] MEDS: NYSTATIN SUSP 5 ML CUP PO SCH ×2 (17:05→21:06)
--- NOTE | 2017-04-22 17:15 | CONS ---
Date/Time of Note Date/Time of Note DATE: 04/22/17 TIME: 17:15 Assessment/Plan Assessment/Plan Chief Complaint/Hosp Course Metastatic gastric adenocarcinoma with peritoneal carcinomatosis. ON CHEMO Abdominopelvic ascites - malignant POST Paracentesis LEUKOPENIA, POST CHEMO, WITH SUBSEQUENT LEUKOCYTOSIS 2 TO NEUPOGEN and c diff MONITOR NEUPOGEN- DC ANEMIA POST CHEMO MONITOR prbc today Intractable nausea, vomiting, dehydration ANTIEMETICS, IVF POST EGD- REPORT - NOTED Extreme esophagitis per EGD, PER GI Moderate right pleural effusion. Mild pericardial effusion. Diffuse subcutaneous edema. Abdominal pain. PAIN CONTROL hx Left lower extremity edema.- better HYPONATREMIA NEPHRO Problems: Consultation Date/Type/Reason Admit Date/Time Apr 07, 2017 at 19:17 Type of Consultation: [facility] Referring Provider: CINDY ESTRELLA MD 24 HR Interval Summary Free Text/Dictation all noted felling better Exam/Review of Systems Vital Signs Vitals Vital Signs Date Time Temp Pulse Resp B/P Pulse Ox O2 Delivery O2 Flow Rate FiO2 04/22/17 14:12 98.2 83 20 94/69 100 04/22/17 08:00 Nasal Cannula 2.0 04/21/17 21:52 Intake and Output 04/21/17 04/21/17 04/22/17 15:00 23:00 07:00 Intake Total 150 ml 1010 ml 760 ml Output Total 250 ml 100 ml Balance 150 ml 760 ml 660 ml Exam Constitutional: alert, oriented, cachetic, generalized weakness Psych: nl mood/affect, no complaints Head: atraumatic, normocephalic Eyes: EOMI, nl conjunctiva, nl lids, nl sclera ENMT: Unremarkable Neck: non-tender, supple Respiratory: (+)Rales, no wheezing, equal chest rise bilaterally Cardiovascular: nl pulses, regular rate and rhythm Gastrointestinal: Ascites Musculoskeletal: nl extremities to inspection Extremities: normal pulses 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: ROTOR PILOT II-XII intact, nl mental status, nl speech Skin: No diaphoresis, N rash or lesions Lymph: nl lymph nodes Results Result Diagram: 04/21/17 0507 04/21/17 0507 Results 24 hrs Laboratory Tests Test 04/22/17 06:23 Lab Scanned Report BLOOD TRANSFUSION Medications Medications Current Medications Ondansetron HCl (Zofran Inj) 4 mg Q6H PRN IV NAUSEA AND/OR VOMITING Last administered on 04/22/17 03:02; Admin Dose 4 MG; Start 04/07/17 at 23:00 Pantoprazole (Protonix Iv) 40 mg BID@06,18 IV Last administered on 04/22/17 17 :05; Admin Dose 40 MG; Start 04/10/17 at 18:00 Sodium Phosphate (Neutra-Phos) 250 mg BID PO Last administered on 04/22/17 08: 22; Admin Dose 250 MG; Start 04/11/17 at 10:30 Metoclopramide HCl (Reglan) 10 mg Q6 IV Last administered on 04/22/17 16:42; Admin Dose 10 MG; Start 04/16/17 at 18:00 Sucralfate (Carafate) 1 gm QID PO Last administered on 04/22/17 16:41; Admin Dose 1 GM; Start 04/17/17 at 12:30 Promethazine HCl/ Codeine 5 ml 5 ml Q4H PRN PO COUGH Last administered on 12:23; Admin Dose 5 ML; Start 04/17/17 at 23:30 Metronidazole 100 ml @ 100 mls/hr Q6 IVPB Last administered on 04/22/17 17:06 ; Admin Dose 100 MLS/HR; Start 04/20/17 at 00:00 Sodium Chloride (1/2 NS) 1,000 ml @ 40 mls/hr Q24H IV Last administered on 22:34; Admin Dose 40 MLS/HR; Start 04/20/17 at 09:30 Vancomycin HCl (Vancomycin Oral Syringe) 250 mg Q6 PO Last administered on 04/22 17:05; Admin Dose 250 MG; Start 04/20/17 at 12:00 Rifampin (Rifampin) 600 mg DAILY PO Last administered on 04/22/17 08:22; Admin Dose 600 MG; Start 04/20/17 at 12:00 Morphine Sulfate 2 mg 2 mg Q4H PRN IV PAIN Last administered on 04/22/17 12:24 ; Admin Dose 2 MG; Start 04/21/17 at 17:00 Fluconazole/ Sodium Chloride (Diflucan 100 Mg/ NS (Pmx)) 50 ml @ 50 mls/hr Q24H IVPB ; Start 7/31/17 at 18:00 Nystatin (Nystatin Susp) 5 ml QID PO Last administered on 04/22/17t 17:05; Admin Dose 5 ML; Start 04/22/17 at 17:00 GRETEL LITTLEJOHN MD Apr 22, 2017 17:15
[2017-04-22] MEDS: FLUCONAZOLE 100 MG/NS (PMX) 50 ML IVPB SCH (18:27)
[2017-04-22 19:33] VITALS: BP 96/65; RESP 18
--- NOTE | 2017-04-22 22:28 | CONS ---
Date/Time of Note Date/Time of Note DATE: 04/22/17 TIME: 22:27 Assessment/Plan Assessment/Plan Additional Assessment/Plan Additional Assessment/Plan 1. 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 Intractable nausea vomiting, resolved 3. Dysphagia 4. Hypertension 5. Cachexia 6. Extensive esophageal ulceration 7. Leukocytosis secondary to Neupogen 8. Ascites 9. C. difficile colitis 10. Aspiration pneumonia 11. Status post placement of self-expanding metallic stent across the obstructing lesion in the antrum Plan Continue PPI 40 mg twice daily Carafate suspension Reglan Self-expanding metallic stent on Saturday Discussed the patient and the family member and has agreed for the stent Stent successfully deployed across pyloric channel Increase the dose of Reglan as a prokinetic agent Will add p.o. vancomycin IV antibiotic as per ID We will monitor WBC count We will start her on a clear liquid diet and get extra abdomen to make sure that the stent is expanding. Clinically patient looks much better megace Consultation Date/Type/Reason Admit Date/Time Apr 07, 2017 at 19:17 [facility]erring Provider: CINDY ESTRELLA MD 24 HR Interval Summary Free Text/Dictation poor appetite Exam/Review of Systems Vital Signs Vitals Vital Signs Date Time Temp Pulse Resp B/P Pulse Ox O2 Delivery O2 Flow Rate FiO2 04/22/17 19:33 98.1 77 18 96/65 100 04/22/17 08:00 Nasal Cannula 2.0 04/21/17 21:52 Intake and Output 04/21/17 04/21/17 04/22/17 15:00 23:00 07:00 Intake Total 150 ml 1010 ml 760 ml Output Total 250 ml 100 ml Balance 150 ml 760 ml 660 ml Exam Constitutional: alert, oriented, well developed Psych: nl mood/affect, no complaints Head: atraumatic, normocephalic Eyes: EOMI, PERRL, nl conjunctiva, nl lids, nl sclera ENMT: nl external ears & nose, nl lips & teeth, nl nasal mucosa & septum Neck: non-tender, supple Respiratory: clear to auscultation, normal air movement Cardiovascular: nl pulses, regular rate and rhythm Gastrointestinal: nl liver, spleen, non-tender, soft Musculoskeletal: nl extremities to inspection, nl gait and stance Extremities: normal pulses 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: MEDICAL CSR II-XII intact, nl mental status, nl speech, nl strength Skin: nl turgor, No rash or lesions Lymph: nl lymph nodes Results Result Diagram: 04/21/17 0507 04/21/17 0507 Results 24 hrs Laboratory Tests Test 04/22/17 06:23 Lab Scanned Report BLOOD TRANSFUSION Medications Medications Current Medications Ondansetron HCl (Zofran Inj) 4 mg Q6H PRN IV NAUSEA AND/OR VOMITING Last administered on 04/22/17 03:02; Admin Dose 4 MG; Start 04/07/17 at 23:00 Pantoprazole (Protonix Iv) 40 mg BID@06,18 IV Last administered on 04/22/17 17 :05; Admin Dose 40 MG; Start 04/10/17 at 18:00 Sodium Phosphate (Neutra-Phos) 250 mg BID PO Last administered on 04/22/17 21: 06; Admin Dose 250 MG; Start 04/11/17 at 10:30 Metoclopramide HCl (Reglan) 10 mg Q6 IV Last administered on 04/22/17 16:42; Admin Dose 10 MG; Start 04/16/17 at 18:00 Sucralfate (Carafate) 1 gm QID PO Last administered on 04/22/17 21:06; Admin Dose 1 GM; Start 04/17/17 at 12:30 Promethazine HCl/ Codeine 5 ml 5 ml Q4H PRN PO COUGH Last administered on 21:23; Admin Dose 5 ML; Start 04/17/17 at 23:30 Metronidazole 100 ml @ 100 mls/hr Q6 IVPB Last administered on 04/22/17 17:06 ; Admin Dose 100 MLS/HR; Start 04/20/17 at 00:00 Sodium Chloride (1/2 NS) 1,000 ml @ 40 mls/hr Q24H IV Last administered on 22:34; Admin Dose 40 MLS/HR; Start 04/20/17 at 09:30 Vancomycin HCl (Vancomycin Oral Syringe) 250 mg Q6 PO Last administered on 04/22 17:05; Admin Dose 250 MG; Start 04/20/17 at 12:00 Rifampin (Rifampin) 600 mg DAILY PO Last administered on 04/22/17 08:22; Admin Dose 600 MG; Start 04/20/17 at 12:00 Morphine Sulfate 2 mg 2 mg Q4H PRN IV PAIN Last administered on 04/22/17 12:24 ; Admin Dose 2 MG; Start 04/21/17 at 17:00 Fluconazole/ Sodium Chloride (Diflucan 100 Mg/ NS (Pmx)) 50 ml @ 50 mls/hr Q24H IVPB Last administered on 04/22/17 18:27; Admin Dose 50 MLS/HR; Start at 18:00 Nystatin (Nystatin Susp) 5 ml QID PO Last administered on 04/22/17 21:06; Admin Dose 5 ML; Start 04/22/17 at 17:00 GIANNA CHANEL MD Apr 22, 2017 22:28
[2017-04-23] MEDS: ONDANSETRON 4 MG INJ IV PRN (01:46)
[2017-04-23] MEDS: PROMETHAZINE/CODEINE 5ML CUP PO PRN ×5 (01:53→21:20)
[2017-04-23 02:00] VITALS: BP 103/70; RESP 18
[2017-04-23] MEDS: SOD CHLORIDE 0.45% 1,000 ML IV SCH ×2 (05:08→08:53)
[2017-04-23 05:40] LABS: ABNORMAL IP MESSAGE 1; HEMATOCRIT 29.7 % (37.0-47.0); HEMOGLOBIN 10.1 g/dl (12.0-16.0); MEAN CORPUSCULAR VOLUME 82.3 fl (82.0-101.0); MEAN PLATELET VOLUME 9.7 fl (7.4-10.4); NUCLEATED RED BLOOD CELLS% 0.2 /100WBC (0.0-0.0); PLATELET COUNT 173 10^3/UL (140-415); RED BLOOD COUNT 3.61 10^6/ul (4.20-5.40); RED CELL DISTRIBUTION WIDTH 18.5 % (11.5-14.5); WHITE BLOOD COUNT 26.8 10^3/ul (4.8-10.8)
[2017-04-23 05:56] LABS: POTASSIUM 3.5 mmol/L (3.5-5.1)
[2017-04-23 05:57] LABS: CREATININE 0.4 mg/dl (0.44-1.00)
[2017-04-23 06:20] LABS: POSITIVE DIFF @See below
[2017-04-23] MEDS: PANTOPRAZOLE 40 MG INJ IV SCH ×2 (06:20→17:06)
[2017-04-23] MEDS: METOCLOPRAMIDE 10 MG INJ IV SCH ×4 (06:20→23:47)
[2017-04-23] MEDS: metroNIDAZOLE 500 MG/NS (PMX) 100 ML IVPB SCH ×4 (06:21→23:48)
[2017-04-23] MEDS: VANCOMYCIN HCL 250 MG/5ML POSYG PO SCH ×4 (06:29→23:47)
[2017-04-23] MEDS: ALBUTEROL/IPRATROPIUM (NEB) 3 ML AMP HHN PRN (06:42)
[2017-04-23 07:51] VITALS: BP 90/60; RESP 20
[2017-04-23] MEDS: SUCRALFATE 1 GM TAB PO SCH (08:54)
[2017-04-23] MEDS: RIFAMPIN 300 MG CAP PO SCH (08:54)
[2017-04-23] MEDS: NEUTRA-PHOS 250 MG PACKET PO SCH ×2 (08:54→21:20)
[2017-04-23] MEDS: NYSTATIN SUSP 5 ML CUP PO SCH ×4 (08:54→21:19)
[2017-04-23 09:57] LABS: ANISOCYTOSIS 2+ (0-0); METAMYELOCYTES %M 2 % (0-0); MICROCYTOSIS 1+ (0-0); MONOCYTES % (M) 5 % (0-11); PLATELET ESTIMATE NORMAL; POIKILOCYTOSIS 3+ (0-0); POLYCHROMASIA 3+ (0-0); PROMYELOCYTES #M 0 # (0-0); PROMYELOCYTES % (M) 1 % (0-0)
[2017-04-23] MEDS: SOD CHLORIDE 0.9% 1,000 ML IV SCH (10:06)
--- NOTE | 2017-04-23 10:42 | CONS ---
Date/Time of Note Date/Time of Note DATE: 04/23/17 TIME: 10:41 Assessment/Plan Assessment/Plan Additional Assessment/Plan Additional Assessment/Plan 1. 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 Intractable nausea vomiting, resolved, patient is able to tolerate p.o. feeding 3. Dysphagia 4. Hypertension 5. Cachexia 6. Extensive esophageal ulceration 7. Leukocytosis secondary to Neupogen 8. Ascites 9. C. difficile colitis 10. Aspiration pneumonia Chaparrita in the sputum and also in the urine 11. Status post placement of self-expanding metallic stent across the obstructing lesion in the antrum Plan Continue PPI 40 mg twice daily Carafate suspension Reglan Self-expanding metallic stent on Saturday Discussed the patient and the family member and has agreed for the stent Stent successfully deployed across pyloric channel Increase the dose of Reglan as a prokinetic agent Will add p.o. vancomycin IV antibiotic as per ID We will monitor WBC count We will start her on a clear liquid diet and get extra abdomen to make sure that the stent is expanding. Clinically patient looks much better megace Consultation Date/Type/Reason Admit Date/Time Apr 07, 2017 at 19:17 Type of Consultation: [facility] Referring Provider: CINDY ESTRELLA MD 24 HR Interval Summary Constitutional: improved, no complaints Exam/Review of Systems Vital Signs Vitals Vital Signs Date Time Temp Pulse Resp B/P Pulse Ox O2 Delivery O2 Flow Rate FiO2 04/23/17 07:51 98.9 79 20 90/60 98 04/23/17 07:38 Nasal Cannula 2.0 04/21/17 21:52 Intake and Output 04/22/17 04/22/17 04/23/17 15:00 23:00 07:00 Intake Total 100 ml 910 ml 790 ml Output Total 160 ml Balance 100 ml 750 ml 790 ml Exam Constitutional: alert, oriented, well developed Psych: nl mood/affect, no complaints Head: atraumatic, normocephalic Eyes: EOMI, PERRL, nl conjunctiva, nl lids, nl sclera ENMT: nl external ears & nose, nl lips & teeth, nl nasal mucosa & septum Neck: non-tender, supple Respiratory: clear to auscultation, normal air movement Cardiovascular: nl pulses, regular rate and rhythm Gastrointestinal: nl liver, spleen, non-tender, soft Musculoskeletal: nl extremities to inspection, nl gait and stance Extremities: normal pulses 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: COMPOSITION MOLDER II-XII intact, nl mental status, nl speech, nl strength Skin: nl turgor, No rash or lesions Lymph: nl lymph nodes Results Result Diagram: 04/23/17 0519 04/23/17 0518 Results 24 hrs Laboratory Tests Test 04/23/17 05:18 04/23/17 05:19 Sodium Level 133 L Potassium Level 3.5 Chloride Level 102 Carbon Dioxide Level 22 Anion Gap 13 Blood Urea Nitrogen 12 Creatinine 0.40 L Glucose Level 85 Calcium Level 7.0 L White Blood Count 26.8 H Red Blood Count 3.61 #L Hemoglobin 10.1 #L Hematocrit 29.7 #L Mean Corpuscular Volume 82.3 Mean Corpuscular Hemoglobin 28.0 L Mean Corpuscular Hemoglobin Concent 34.0 Red Cell Distribution Width 18.5 H Platelet Count 173 Mean Platelet Volume 9.7 Neutrophils % Segmented Neutrophils % (Manual) 87 H Band Neutrophils % (Manual) 3 Lymphocytes % Lymphocytes % (Manual) 3 L Monocytes % Monocytes % (Manual) 5 Eosinophils % Basophils % Metamyelocytes % (manual) 2 H Promyelocytes % (Manual) 1 H Nucleated Red Blood Cells % 0.2 H Neutrophils # Neutrophils # (Manual) 23.5 H Band Neutrophils # 0.8 H Absolute Lymphocytes (Manual) 0.8 Lymphocytes # Monocytes # Absolute Monocytes (Manual) 1.3 H Eosinophils # Basophils # Metamyelocytes # 0.5 H Promyelocytes # 0 Nucleated Red Blood Cells # Platelet Estimate NORMAL Polychromasia 3+ Poikilocytosis 3+ Anisocytosis 2+ Microcytosis 1+ Macrocytosis 1+ Medications Medications Current Medications Ondansetron HCl (Zofran Inj) 4 mg Q6H PRN IV NAUSEA AND/OR VOMITING Last administered on 04/23/17 01:46; Admin Dose 4 MG; Start 04/07/17 at 23:00 Pantoprazole (Protonix Iv) 40 mg BID@,18 IV Last administered on 04/23/17 06: 20; Admin Dose 40 MG; Start 04/10/17 at 18:00 Sodium Phosphate (Neutra-Phos) 250 mg BID PO Last administered on 04/23/17 08: 54; Admin Dose 250 MG; Start 04/11/17 at 10:30 Metoclopramide HCl (Reglan) 10 mg Q6 IV Last administered on 04/23/17 06:20; Admin Dose 10 MG; Start 04/16/17 at 18:00 Sucralfate (Carafate) 1 gm QID PO Last administered on 04/23/17 08:54; Admin Dose 1 GM; Start 04/17/17 at 12:30 Promethazine HCl/ Codeine 5 ml 5 ml Q4H PRN PO COUGH Last administered on 06:29; Admin Dose 5 ML; Start 04/17/17 at 23:30 Metronidazole (Flagyl 500 Mg (Pmx)) 100 ml @ 100 mls/hr Q6 IVPB Last administered on 04/23/17 06:21; Admin Dose 100 MLS/HR; Start 04/20/17 at 00:00 Vancomycin HCl (Vancomycin Oral Syringe) 250 mg Q6 PO Last administered on 06:29; Admin Dose 250 MG; Start 04/20/17 at 12:00 Rifampin (Rifampin) 600 mg DAILY PO Last administered on 04/23/17 08:54; Admin Dose 600 MG; Start 04/20/17 at 12:00 Morphine Sulfate 2 mg 2 mg Q4H PRN IV PAIN Last administered on 04/22/17 12:24 ; Admin Dose 2 MG; Start 04/21/17 at 17:00 Fluconazole/ Sodium Chloride (Diflucan 100 Mg/ NS (Pmx)) 50 ml @ 50 mls/hr Q24H IVPB Last administered on 04/22/17 18:27; Admin Dose 50 MLS/HR; Start at 18:00 Nystatin 5 ml 5 ml QID PO Last administered on 04/23/17 08:54; Admin Dose 5 ML ; Start 04/22/17 at 17:00 Sodium Chloride (NS) 1,000 ml @ 40 mls/hr Q24H IV Last administered on 10:06; Admin Dose 40 MLS/HR; Start 04/23/17 at 09:30 GIANNA CHANEL MD Apr 23, 2017 10:42
--- NOTE | 2017-04-23 10:48 | PN ---
DATE: 04/23/2017 SUBJECTIVE DATA: The patient remains weak, lethargic, continues to be nauseous, minimal p.o. intake. OBJECTIVE DATA: VITAL SIGNS: Blood pressure 90/67, respirations 20, pulse 79, temperature 98.9. HEENT: Head is normocephalic. NECK: Supple. HEART: Regular rate. LUNGS: Show diminished breath sounds at the base. ABDOMEN: Soft, nontender to palpation. No rebound or guarding. EXTREMITIES: Negative for clubbing, cyanosis, no edema. DERMATOLOGIC: Clean. No rashes. MUSCULOSKELETAL: No joint effusion. NEUROLOGIC: Unchanged exam. MEDICATIONS: Reviewed. LABORATORY AND DIAGNOSTIC DATA: Sodium 132, potassium 3.5, BUN 12, creatinine 0.40. White count 26.8, hemoglobin 10.1, crit 29.7, platelet count is 173. ASSESSMENT AND PLAN: 1. Hyponatremia. Etiology at this point, likely from hypotonic fluid. Continue to monitor. We will consider changing from half- normal saline to normal saline. 2. Hypomagnesemia. Continue to monitor and replete. 3. Acute respiratory failure. Continue to monitor. 4. Clostridium difficile colitis. Continue current medical management. Gastric cancer with peritoneal carcinomatosis. Patient status post thoracentesis. Continue to 5. monitor. Follow up with Oncology. Follow up with GI. 6. Nausea and vomiting. Continue medical management. 7. Esophagitis, status post stent placement. Dictated By: Kulwinder Ji DO /[email or web address] /Document#: [id number]
--- NOTE | 2017-04-23 11:52 | PN ---
Date/Time of Note Date/Time of Note DATE: 04/23/17 TIME: 11:51 Assessment/Plan VTE Prophylaxis VTE Prophylaxis Intervention: other Lines/Catheters IV Catheter Type (from [facility]): port a cath Urinary Cath still in place: No Assessment/Plan Chief Complaint/Hosp Course -Extreme esophagitis per EGD, follow-up gastroenterology recommendations. Continue Protonix, Carafate, and Reglan. -Metastatic gastric adenocarcinoma, status post chemotherapy by Dr. Ford, oncology. Status post EGD with stent placement on04/[address] Millan, GI. -Nausea and vomiting, resolved. Continue Zofran for for nausea and morphine as needed for pain. -Hyponatremia secondary to dehydration, resolved, Dr. Ji is following in nephrology consultation. 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 -Protein calorie severe malnutrition. Nutritional consult is appreciated. -Leukopenia and anemia most likely secondary to chemotherapy. Restarted on Neupogen. Problems: Subjective 24 Hr Interval Summary Free Text/Dictation Patient complain of cough Exam/Review of Systems Vital Signs Vitals Vital Signs Date Time Temp Pulse Resp B/P Pulse Ox O2 Delivery O2 Flow Rate FiO2 04/23/17 07:51 98.9 79 20 90/60 98 04/23/17 07:38 Nasal Cannula 2.0 04/21/17 21:52 Intake and Output 04/22/17 04/22/17 04/23/17 15:00 23:00 07:00 Intake Total 100 ml 910 ml 790 ml Output Total 160 ml Balance 100 ml 750 ml 790 ml Exam Constitutional: frail Head: atraumatic, normocephalic Neck: supple Respiratory: diminished breath sounds Cardiovascular: regular rate and rhythm Gastrointestinal: non-tender, soft Extremities: normal pulses Results Result Diagram: 04/23/17 0519 04/23/17 0518 Results 24 hrs Laboratory Tests Test 04/23/17 05:18 04/23/17 05:19 Sodium Level 133 L Potassium Level 3.5 Chloride Level 102 Carbon Dioxide Level 22 Anion Gap 13 Blood Urea Nitrogen 12 Creatinine 0.40 L Glucose Level 85 Calcium Level 7.0 L White Blood Count 26.8 H Red Blood Count 3.61 #L Hemoglobin 10.1 #L Hematocrit 29.7 #L Mean Corpuscular Volume 82.3 Mean Corpuscular Hemoglobin 28.0 L Mean Corpuscular Hemoglobin Concent 34.0 Red Cell Distribution Width 18.5 H Platelet Count 173 Mean Platelet Volume 9.7 Neutrophils % Segmented Neutrophils % (Manual) 87 H Band Neutrophils % (Manual) 3 Lymphocytes % Lymphocytes % (Manual) 3 L Monocytes % Monocytes % (Manual) 5 Eosinophils % Basophils % Metamyelocytes % (manual) 2 H Promyelocytes % (Manual) 1 H Nucleated Red Blood Cells % 0.2 H Neutrophils # Neutrophils # (Manual) 23.5 H Band Neutrophils # 0.8 H Absolute Lymphocytes (Manual) 0.8 Lymphocytes # Monocytes # Absolute Monocytes (Manual) 1.3 H Eosinophils # Basophils # Metamyelocytes # 0.5 H Promyelocytes # 0 Nucleated Red Blood Cells # Platelet Estimate NORMAL Polychromasia 3+ Poikilocytosis 3+ Anisocytosis 2+ Microcytosis 1+ Macrocytosis 1+ Medications Medications Current Medications Ondansetron HCl (Zofran Inj) 4 mg Q6H PRN IV NAUSEA AND/OR VOMITING Last administered on 04/23/17 01:46; Admin Dose 4 MG; Start 04/07/17 at 23:00 Pantoprazole (Protonix Iv) 40 mg BID@06,18 IV Last administered on 04/23/17 06: 20; Admin Dose 40 MG; Start 04/10/17 at 18:00 Sodium Phosphate (Neutra-Phos) 250 mg BID PO Last administered on 04/23/17 08: 54; Admin Dose 250 MG; Start 04/11/17 at 10:30 Metoclopramide HCl (Reglan) 10 mg Q6 IV Last administered on 04/23/17 06:20; Admin Dose 10 MG; Start 04/16/17 at 18:00 Promethazine HCl/ Codeine 5 ml 5 ml Q4H PRN PO COUGH Last administered on 06:29; Admin Dose 5 ML; Start 04/17/17 at 23:30 Metronidazole (Flagyl 500 Mg (Pmx)) 100 ml @ 100 mls/hr Q6 IVPB Last administered on 04/23/17 06:21; Admin Dose 100 MLS/HR; Start 04/20/17 at 00:00 Vancomycin HCl (Vancomycin Oral Syringe) 250 mg Q6 PO Last administered on 06:29; Admin Dose 250 MG; Start 04/20/17 at 12:00 Rifampin (Rifampin) 600 mg DAILY PO Last administered on 04/23/17 08:54; Admin Dose 600 MG; Start 04/20/17 at 12:00 Morphine Sulfate 2 mg 2 mg Q4H PRN IV PAIN Last administered on 04/22/17 12:24 ; Admin Dose 2 MG; Start 04/21/17 at 17:00 Fluconazole/ Sodium Chloride (Diflucan 100 Mg/ NS (Pmx)) 50 ml @ 50 mls/hr Q24H IVPB Last administered on 04/22/17 18:27; Admin Dose 50 MLS/HR; Start at 18:00 Nystatin 5 ml 5 ml QID PO Last administered on 04/23/17 08:54; Admin Dose 5 ML ; Start 04/22/17 at 17:00 Sodium Chloride (NS) 1,000 ml @ 40 mls/hr Q24H IV Last administered on 10:06; Admin Dose 40 MLS/HR; Start 04/23/17 at 09:30 Megestrol Acetate (Megace Susp) 400 mg BID PO ; Start 04/23/17 at 12:00 MOE UMANA Apr 23, 2017 11:52
[2017-04-23] MEDS: MEGESTROL (40 MG/ML) 10ML CUP PO SCH ×2 (12:06→21:19)
[2017-04-23 14:29] VITALS: BP 106/73; RESP 18
--- NOTE | 2017-04-23 17:52 | CONS ---
Date/Time of Note Date/Time of Note DATE: 04/23/17 TIME: 17:49 Assessment/Plan Assessment/Plan Chief Complaint/Hosp Course ID PROGRESS NOTE CURRENT ABX: DAY #4=> Flagyl IV #4 + Vanco liq po #4 + Rifampin #4 + Diflucan 100mg IV #2 s/p Fosfomycin po x1 04/20 (Enterococcal UTI) 24H INTERVAL SUMMARY * Frail 61yo no fevers, WBC downtrend on ABX for Yeast UTI + C.Diff formerly up to 9+BMs/day -- now stable Exam Constitutional: alert, oriented, cachetic, generalized weakness Psych: nl mood/affect, no complaints Head: atraumatic, normocephalic Eyes: EOMI, nl conjunctiva, nl lids, nl sclera ENMT: Unremarkable Neck: non-tender, supple Respiratory: (+)Rales, no wheezing, equal chest rise bilaterally Cardiovascular: nl pulses, regular rate and rhythm Gastrointestinal: Ascites Musculoskeletal: nl extremities to inspection Extremities: normal pulses 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: ACID TESTER II-XII intact, nl mental status, nl speech Skin: No diaphoresis, N rash or lesions Lymph: nl lymph nodes ID ASSESSMENT 61 yo F w/Metastatic gastric CA -> status post chemotherapy by Dr. Ford. 1. SEPSIS per (+) rising leukocytosis 10.0(04/16) -> 22.8 (04/17)-> now 40.1 (04/20 ) w/15% BANDS => IMPROVING: * No fevers, mild intermittent tachycardia 90-110, B/P 93/59 * (+)C.Diff Colitis 04/17/17 C DIFFICILE DNA AMPLIFICATION Final CYTOTOXIGENIC C DIFFICILE POSITIVE (Ref Range Neg) * DDx: spontaneous bacterial peritonitis=> D/W Dr. Orozco -- Rx Rifampin onboard * DDx: UTI 04/20 Urine Cx (+) URINE CULTURE Preliminary ==> she was treated empirically w/Fosfomycin po x1 Organism 1 ENTEROCOCCUS SPECIES COLONY COUNT 70,000 - 80,000 CFU/ml Organism 2 CHAPARRITA ALBICANS COLONY COUNT 30,000 - 40,000 CFU/ml * DDx: Aspiration Pneumonitis => Lungs w/increase fluid likely 2. Metastatic gastric CA with suspected malignant abdominopelvic ascites and peritoneal carcinomatosis * s/p PARA 04/14-> ~5000 ml of clear yellow fluid was obtained and then discarded. * DDx: spontaneous bacterial peritonitis => Rifampin 600mg PO daily onboard 3. Leukopenia and anemia 2/2 chemotherapy. Restarted on Neupogen. 4. GERD, extreme esophagitis and severe reflux w/undigested food in the esophagus => risk factor for silent aspiration syndrome * s/p 04/16/17 EGD with stent placement on04/[address] Millan, GI. * Sputum (+)Chaparrita albicans -> Start Nystatin 5mL QIC swish/swallow 5. Abdominal pain with nausea and vomiting 2/2 massive ascites pressure volume = > due to #2 & #4 * N/V/ABD Pain resolved w/Zofran and Morphine 6. Possible aspiration pneumonia => Rifampin onboard * Respiratory culture grew (+)Yeast == Oral Candidiasis likely * RESPIRATORY CULTURE Final Organism 1 CHAPARRITA ALBICANS QUANTITY 1+ Organism 2 NORMAL RESPIRATORY STEFANIA QUANTITY 1+ 7. Pulmonary congestion w/ extensive bilateral upper lobe and lower lobe infiltrates on CXR 04/20 * Multifactorial due to severe ascites fluid back up, low colloid pressure 3rd spacing, malignancy * Moderate right pleural effusion on admission 8. Hx of CHF * 2D ECHO SEP 2016, normal LVFx w/EF~60% * 2D ECHO 2015 preserved systolic LVFx w/STG I diastolic dysfunction 9. Cachexia w/severe protein calorie deficiency 10. Low normal B/P w/transient hypotension due to low colloid pressure 3rd spacing, malignancy, SIRS, sepsis 11. Contaminated Urine culture vs early GNR UTI on 04/07/17 URINE CULTURE Final Organism 1 ESCHERICHIA COLI COLONY COUNT <10,000 CFU/ml Organism 2 LACTOBACILLUS SPECIES COLONY COUNT >100,000 CFU/ml MRSA Nares -> Screening ordered today INVASIVES: Right chest Port-A-Cath ABX ALLERGY: KNDA CURRENT ABX: #4=> Flagyl IV #4 + Vanco liq po #4 + Rifampin #4 + Diflucan 100mg IV #2 s/p Fosfomycin po x1 04/20 (Enterococcal UTI) ID RECOMMENDATIONS=> Improving, continue current ABX plan: 1. Rising WBC w/bandemia is due to (+)C.Diff colitis =IMPROVING CONTINUE ABX * Flagyl IV + Vanco liquid initiated => 9BMs/day -> down to 1-2 BMs/day after 3 days ABX 2. UTI ENTEROCOCCUS => s/p TREATED w/Fosfomycin 3gm po x1 on 04/20 * empiric cystitis vs bladder sepsis w/hx of GNR bacteruria 3. Started Rifampin 600mg po daily for concern risk of spontaneous bacterial peritonitis due to massive ascites + s/p paracentesis * This was discussed w/Dr. Orozco who concurs 4. Aspiration precautions -> AVOID empiric IV ABX for concern possible aspiration pneumonitis * (+)YEAST sputum = (+) esophagitis /oral candidiasis > Start Diflucan IV + Nystatin PO swish/swallow 5. PRN For Temp >101.0 send blood cultures via Port-A-Cath, no compelling evidence infected Port septicemia at this time. 6. Check MRSA Nares Problems: Consultation Date/Type/Reason Admit Date/Time Apr 07, 2017 at 19:17 Initial Consult Date 04/07/17 Type of Consultation: ID Referring Provider: CINDY ESTRELLA MD Exam/Review of Systems Vital Signs Vitals Vital Signs Date Time Temp Pulse Resp B/P Pulse Ox O2 Delivery O2 Flow Rate FiO2 04/23/17 14:29 97.6 81 18 106/73 91 04/23/17 07:38 Nasal Cannula 2.0 04/21/17 21:52 Intake and Output 04/22/17 04/22/17 04/23/17 15:00 23:00 07:00 Intake Total 100 ml 910 ml 790 ml Output Total 160 ml Balance 100 ml 750 ml 790 ml Results Result Diagram: 04/23/17 0519 04/23/17 0518 Results 24 hrs Laboratory Tests Test 04/23/17 05:18 04/23/17 05:19 Sodium Level 133 L Potassium Level 3.5 Chloride Level 102 Carbon Dioxide Level 22 Anion Gap 13 Blood Urea Nitrogen 12 Creatinine 0.40 L Glucose Level 85 Calcium Level 7.0 L White Blood Count 26.8 H Red Blood Count 3.61 #L Hemoglobin 10.1 #L Hematocrit 29.7 #L Mean Corpuscular Volume 82.3 Mean Corpuscular Hemoglobin 28.0 L Mean Corpuscular Hemoglobin Concent 34.0 Red Cell Distribution Width 18.5 H Platelet Count 173 Mean Platelet Volume 9.7 Neutrophils % Segmented Neutrophils % (Manual) 87 H Band Neutrophils % (Manual) 3 Lymphocytes % Lymphocytes % (Manual) 3 L Monocytes % Monocytes % (Manual) 5 Eosinophils % Basophils % Metamyelocytes % (manual) 2 H Promyelocytes % (Manual) 1 H Nucleated Red Blood Cells % 0.2 H Neutrophils # Neutrophils # (Manual) 23.5 H Band Neutrophils # 0.8 H Absolute Lymphocytes (Manual) 0.8 Lymphocytes # Monocytes # Absolute Monocytes (Manual) 1.3 H Eosinophils # Basophils # Metamyelocytes # 0.5 H Promyelocytes # 0 Nucleated Red Blood Cells # Platelet Estimate NORMAL Polychromasia 3+ Poikilocytosis 3+ Anisocytosis 2+ Microcytosis 1+ Macrocytosis 1+ Medications Medications Current Medications Ondansetron HCl (Zofran Inj) 4 mg Q6H PRN IV NAUSEA AND/OR VOMITING Last administered on 04/23/17 01:46; Admin Dose 4 MG; Start 04/07/17 at 23:00 Pantoprazole (Protonix Iv) 40 mg BID@06,18 IV Last administered on 04/23/17 17: 06; Admin Dose 40 MG; Start 04/10/17 at 18:00 Sodium Phosphate (Neutra-Phos) 250 mg BID PO Last administered on 04/23/17 08: 54; Admin Dose 250 MG; Start 04/11/17 at 10:30 Metoclopramide HCl (Reglan) 10 mg Q6 IV Last administered on 04/23/17 17:06; Admin Dose 10 MG; Start 04/16/17 at 18:00 Promethazine HCl/ Codeine 5 ml 5 ml Q4H PRN PO COUGH Last administered on 17:06; Admin Dose 5 ML; Start 04/17/17 at 23:30 Metronidazole (Flagyl 500 Mg (Pmx)) 100 ml @ 100 mls/hr Q6 IVPB Last administered on 04/23/17 17:06; Admin Dose 100 MLS/HR; Start 04/20/17 at 00:00 Vancomycin HCl (Vancomycin Oral Syringe) 250 mg Q6 PO Last administered on 17:06; Admin Dose 250 MG; Start 04/20/17 at 12:00 Rifampin (Rifampin) 600 mg DAILY PO Last administered on 04/23/17 08:54; Admin Dose 600 MG; Start 04/20/17 at 12:00 Morphine Sulfate 2 mg 2 mg Q4H PRN IV PAIN Last administered on 04/22/17 12:24 ; Admin Dose 2 MG; Start 04/21/17 at 17:00 Fluconazole/ Sodium Chloride (Diflucan 100 Mg/ NS (Pmx)) 50 ml @ 50 mls/hr Q24H IVPB Last administered on 04/22/17 18:27; Admin Dose 50 MLS/HR; Start at 18:00 Nystatin 5 ml 5 ml QID PO Last administered on 04/23/17 17:06; Admin Dose 5 ML ; Start 04/22/17 at 17:00 Sodium Chloride (NS) 1,000 ml @ 40 mls/hr Q24H IV Last administered on 10:06; Admin Dose 40 MLS/HR; Start 04/23/17 at 09:30 Megestrol Acetate (Megace Susp) 400 mg BID PO Last administered on 04/23/17 12: 06; Admin Dose 400 MG; Start 04/23/17 at 12:00 GENESIS MESSER NP Apr 23, 2017 17:52
[2017-04-23] MEDS: FLUCONAZOLE 100 MG/NS (PMX) 50 ML IVPB SCH (17:54)
[2017-04-23 19:27] VITALS: BP 102/71; RESP 18
--- NOTE | 2017-04-23 21:04 | CONS ---
Date/Time of Note Date/Time of Note DATE: 04/23/17 TIME: 21:04 Assessment/Plan Assessment/Plan Chief Complaint/Hosp Course Metastatic gastric adenocarcinoma with peritoneal carcinomatosis. ON CHEMO Abdominopelvic ascites - malignant POST Paracentesis LEUKOPENIA, POST CHEMO, WITH SUBSEQUENT LEUKOCYTOSIS 2 TO NEUPOGEN and c diff MONITOR NEUPOGEN- DC ANEMIA POST CHEMO MONITOR prbc today Intractable nausea, vomiting, dehydration ANTIEMETICS, IVF POST EGD- REPORT - NOTED Extreme esophagitis per EGD, PER GI Moderate right pleural effusion. Mild pericardial effusion. Diffuse subcutaneous edema. Abdominal pain. PAIN CONTROL hx Left lower extremity edema.- better HYPONATREMIA NEPHRO plan- family conference tomorrow Problems: Consultation Date/Type/Reason Admit Date/Time Apr 07, 2017 at 19:17 Type of Consultation: HEMEON Referring Provider: CINDY ESTRELLA MD 24 HR Interval Summary Free Text/Dictation all noted Exam/Review of Systems Vital Signs Vitals Vital Signs Date Time Temp Pulse Resp B/P Pulse Ox O2 Delivery O2 Flow Rate FiO2 04/23/17 19:27 98.0 80 18 102/71 100 04/23/17 07:38 Nasal Cannula 2.0 04/21/17 21:52 Intake and Output 04/22/17 04/22/17 04/23/17 14:59 22:59 06:59 Intake Total 100 ml 910 ml 790 ml Output Total 160 ml Balance 100 ml 750 ml 790 ml Exam Constitutional: alert, oriented, cachetic, generalized weakness Psych: nl mood/affect, no complaints Head: atraumatic, normocephalic Eyes: EOMI, nl conjunctiva, nl lids, nl sclera ENMT: Unremarkable Neck: non-tender, supple Respiratory: (+)Rales, no wheezing, equal chest rise bilaterally Cardiovascular: nl pulses, regular rate and rhythm Gastrointestinal: Ascites Musculoskeletal: nl extremities to inspection Extremities: normal pulses 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: TECHNICAL IMPLEMENTATION LEAD II-XII intact, nl mental status, nl speech Skin: No diaphoresis, N rash or lesions Lymph: nl lymph nodes Results Result Diagram: 04/23/17 0519 04/23/17 0518 Results 24 hrs Laboratory Tests Test 04/23/17 05:18 04/23/17 05:19 Sodium Level 133 L Potassium Level 3.5 Chloride Level 102 Carbon Dioxide Level 22 Anion Gap 13 Blood Urea Nitrogen 12 Creatinine 0.40 L Glucose Level 85 Calcium Level 7.0 L White Blood Count 26.8 H Red Blood Count 3.61 #L Hemoglobin 10.1 #L Hematocrit 29.7 #L Mean Corpuscular Volume 82.3 Mean Corpuscular Hemoglobin 28.0 L Mean Corpuscular Hemoglobin Concent 34.0 Red Cell Distribution Width 18.5 H Platelet Count 173 Mean Platelet Volume 9.7 Neutrophils % Segmented Neutrophils % (Manual) 87 H Band Neutrophils % (Manual) 3 Lymphocytes % Lymphocytes % (Manual) 3 L Monocytes % Monocytes % (Manual) 5 Eosinophils % Basophils % Metamyelocytes % (manual) 2 H Promyelocytes % (Manual) 1 H Nucleated Red Blood Cells % 0.2 H Neutrophils # Neutrophils # (Manual) 23.5 H Band Neutrophils # 0.8 H Absolute Lymphocytes (Manual) 0.8 Lymphocytes # Monocytes # Absolute Monocytes (Manual) 1.3 H Eosinophils # Basophils # Metamyelocytes # 0.5 H Promyelocytes # 0 Nucleated Red Blood Cells # Platelet Estimate NORMAL Polychromasia 3+ Poikilocytosis 3+ Anisocytosis 2+ Microcytosis 1+ Macrocytosis 1+ Medications Medications Current Medications Ondansetron HCl (Zofran Inj) 4 mg Q6H PRN IV NAUSEA AND/OR VOMITING Last administered on 04/23/17 01:46; Admin Dose 4 MG; Start 04/07/17 at 23:00 Pantoprazole (Protonix Iv) 40 mg BID@06,18 IV Last administered on 04/23/17 17: 06; Admin Dose 40 MG; Start 04/10/17 at 18:00 Sodium Phosphate (Neutra-Phos) 250 mg BID PO Last administered on 04/23/17 08: 54; Admin Dose 250 MG; Start 04/11/17 at 10:30 Metoclopramide HCl (Reglan) 10 mg Q6 IV Last administered on 04/23/17 17:06; Admin Dose 10 MG; Start 04/16/17 at 18:00 Promethazine HCl/ Codeine 5 ml 5 ml Q4H PRN PO COUGH Last administered on 17:06; Admin Dose 5 ML; Start 04/17/17 at 23:30 Metronidazole (Flagyl 500 Mg (Pmx)) 100 ml @ 100 mls/hr Q6 IVPB Last administered on 04/23/17 17:06; Admin Dose 100 MLS/HR; Start 04/20/17 at 00:00 Vancomycin HCl (Vancomycin Oral Syringe) 250 mg Q6 PO Last administered on 17:06; Admin Dose 250 MG; Start 04/20/17 at 12:00 Rifampin (Rifampin) 600 mg DAILY PO Last administered on 04/23/17 08:54; Admin Dose 600 MG; Start 04/20/17 at 12:00 Morphine Sulfate 2 mg 2 mg Q4H PRN IV PAIN Last administered on 04/22/17 12:24 ; Admin Dose 2 MG; Start 04/21/17 at 17:00 Fluconazole/ Sodium Chloride (Diflucan 100 Mg/ NS (Pmx)) 50 ml @ 50 mls/hr Q24H IVPB Last administered on 04/23/17 17:54; Admin Dose 50 MLS/HR; Start 04/22/17 at 18:00 Nystatin 5 ml 5 ml QID PO Last administered on 04/23/17 17:06; Admin Dose 5 ML ; Start 04/22/17 at 17:00 Sodium Chloride (NS) 1,000 ml @ 40 mls/hr Q24H IV Last administered on 10:06; Admin Dose 40 MLS/HR; Start 04/23/17 at 09:30 Megestrol Acetate (Megace Susp) 400 mg BID PO Last administered on 04/23/17 12: 06; Admin Dose 400 MG; Start 04/23/17 at 12:00 GRETEL LITTLEJOHN MD Apr 23, 2017 21:04
[2017-04-24 02:00] VITALS: BP 100/68; RESP 17
[2017-04-24] MEDS: PROMETHAZINE/CODEINE 5ML CUP PO PRN ×4 (02:33→21:39)
[2017-04-24] MEDS: ONDANSETRON 4 MG INJ IV PRN ×2 (02:33→15:32)
[2017-04-24] MEDS: PANTOPRAZOLE 40 MG INJ IV SCH ×2 (05:33→17:02)
[2017-04-24] MEDS: VANCOMYCIN HCL 250 MG/5ML POSYG PO SCH ×3 (05:33→17:02)
[2017-04-24] MEDS: METOCLOPRAMIDE 10 MG INJ IV SCH ×3 (05:33→17:02)
[2017-04-24] MEDS: metroNIDAZOLE 500 MG/NS (PMX) 100 ML IVPB SCH ×3 (05:36→17:02)
[2017-04-24 06:43] LABS: ABNORMAL IP MESSAGE 1; HEMOGLOBIN 9.9 g/dl (12.0-16.0); MEAN CORPUSCULAR HEMOGLOBIN 27.4 pg (29.0-33.0); MEAN CORPUSCULAR VOLUME 83.1 fl (82.0-101.0); MEAN PLATELET VOLUME 10.1 fl (7.4-10.4); NUCLEATED RED BLOOD CELLS% 0.1 /100WBC (0.0-0.0); PLATELET COUNT 156 10^3/UL (140-415); RED BLOOD COUNT 3.61 10^6/ul (4.20-5.40); RED CELL DISTRIBUTION WIDTH 18.6 % (11.5-14.5); WHITE BLOOD COUNT 25.9 10^3/ul (4.8-10.8)
[2017-04-24 06:53] LABS: POSITIVE DIFF @See below
[2017-04-24 07:26] LABS: CREATININE 0.42 mg/dl (0.44-1.00); MAGNESIUM 1.8 mg/dl (1.7-2.5); PHOSPHORUS 3.3 mg/dl (2.5-4.9); POTASSIUM 3.6 mmol/L (3.5-5.1)
[2017-04-24 07:27] VITALS: BP 108/74; RESP 20
[2017-04-24 07:58] LABS: LYMPHOCYTES # 0.8 10^3/ul (0.8-2.9); METAMYELOCYTES %M 2 % (0-0); MONOCYTE # 0.3 10^3/ul (0.3-0.9); NEUTROPHIL # 23.3 10^3/ul (1.6-7.5)
[2017-04-24 07:59] LABS: BURR CELLS 1+
[2017-04-24] MEDS: NYSTATIN SUSP 5 ML CUP PO SCH ×4 (08:44→21:39)
[2017-04-24] MEDS: NEUTRA-PHOS 250 MG PACKET PO SCH ×2 (08:44→21:39)
[2017-04-24] MEDS: MEGESTROL (40 MG/ML) 10ML CUP PO SCH ×2 (08:44→21:39)
[2017-04-24] MEDS: SOD CHLORIDE 0.9% 1,000 ML IV SCH ×2 (08:45→18:50)
[2017-04-24] MEDS: RIFAMPIN 300 MG CAP PO SCH (08:45)
--- NOTE | 2017-04-24 09:16 | CONS ---
Date/Time of Note Date/Time of Note DATE: 04/24/17 TIME: 09:15 Assessment/Plan Assessment/Plan Chief Complaint/Hosp Course Metastatic gastric adenocarcinoma with peritoneal carcinomatosis. ON CHEMO Abdominopelvic ascites - malignant POST Paracentesis LEUKOPENIA, POST CHEMO, WITH SUBSEQUENT LEUKOCYTOSIS 2 TO NEUPOGEN and c diff MONITOR NEUPOGEN- DC ANEMIA POST CHEMO MONITOR prbc today Intractable nausea, vomiting, dehydration ANTIEMETICS, IVF POST EGD- REPORT - NOTED Extreme esophagitis per EGD, PER GI Moderate right pleural effusion. Mild pericardial effusion. Diffuse subcutaneous edema. Abdominal pain. PAIN CONTROL hx Left lower extremity edema.- better HYPONATREMIA NEPHRO family conference TODAY FINAL DECISION - COMFORT CARE RAMSEY SCRUGGSEL PRESENT Problems: Consultation Date/Type/Reason Admit Date/Time Apr 07, 2017 at 19:17 Type of Consultation: HEMEON Referring Provider: CINDY ESTRELLA MD 24 HR Interval Summary Free Text/Dictation ALL NOTED Exam/Review of Systems Vital Signs Vitals Vital Signs Date Time Temp Pulse Resp B/P Pulse Ox O2 Delivery O2 Flow Rate FiO2 04/24/17 07:55 Nasal Cannula 2.0 04/24/17 07:27 97.7 74 20 108/74 100 04/21/17 21:52 Intake and Output 04/23/17 04/23/17 04/24/17 15:00 23:00 07:00 Intake Total 440 ml 640 ml 680 ml Output Total 200 ml 150 ml Balance 440 ml 440 ml 530 ml Exam Constitutional: alert, oriented, cachetic, generalized weakness Psych: nl mood/affect, no complaints Head: atraumatic, normocephalic Eyes: EOMI, nl conjunctiva, nl lids, nl sclera ENMT: Unremarkable Neck: non-tender, supple Respiratory: (+)Rales, no wheezing, equal chest rise bilaterally Cardiovascular: nl pulses, regular rate and rhythm Gastrointestinal: Ascites Musculoskeletal: nl extremities to inspection Extremities: normal pulses 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: BRISTLE MACHINE OPERATOR II-XII intact, nl mental status, nl speech Skin: No diaphoresis, N rash or lesions Lymph: nl lymph nodes Results Result Diagram: 04/24/1717 04/24/17 0517 Results 24 hrs Laboratory Tests Test 04/24/17 05:17 White Blood Count 25.9 H Red Blood Count 3.61 L Hemoglobin 9.9 L Hematocrit 30.0 L Mean Corpuscular Volume 83.1 Mean Corpuscular Hemoglobin 27.4 L Mean Corpuscular Hemoglobin Concent 33.0 Red Cell Distribution Width 18.6 H Platelet Count 156 Mean Platelet Volume 10.1 Neutrophils % 90.0 H Lymphocytes % 3.0 L Monocytes % 1.0 Eosinophils % Basophils % Metamyelocytes % (manual) 2 H Nucleated Red Blood Cells % 0.1 H Neutrophils # 23.3 H Band Neutrophils # 23.3 H Lymphocytes # 0.8 Monocytes # 0.3 Eosinophils # Basophils # Metamyelocytes # 0.5 H Nucleated Red Blood Cells # Sodium Level 135 Potassium Level 3.6 Chloride Level 104 Carbon Dioxide Level 22 Anion Gap 13 Blood Urea Nitrogen 11 Creatinine 0.42 L Glucose Level 86 Calcium Level 7.0 L Phosphorus Level 3.3 Magnesium Level 1.8 Medications Medications Current Medications Ondansetron HCl (Zofran Inj) 4 mg Q6H PRN IV NAUSEA AND/OR VOMITING Last administered on 04/24/17 02:33; Admin Dose 4 MG; Start 04/07/17 at 23:00 Pantoprazole (Protonix Iv) 40 mg BID@06,18 IV Last administered on 04/24/17 05: 33; Admin Dose 40 MG; Start 04/10/17 at 18:00 Sodium Phosphate (Neutra-Phos) 250 mg BID PO Last administered on 04/24/17 08: 44; Admin Dose 250 MG; Start 04/11/17 at 10:30 Metoclopramide HCl (Reglan) 10 mg Q6 IV Last administered on 04/24/17 05:33; Admin Dose 10 MG; Start 04/16/17 at 18:00 Promethazine HCl/ Codeine 5 ml 5 ml Q4H PRN PO COUGH Last administered on 08:45; Admin Dose 5 ML; Start 04/17/17 at 23:30 Metronidazole (Flagyl 500 Mg (Pmx)) 100 ml @ 100 mls/hr Q6 IVPB Last administered on 04/24/17 05:36; Admin Dose 100 MLS/HR; Start 04/20/17 at 00:00 Vancomycin HCl (Vancomycin Oral Syringe) 250 mg Q6 PO Last administered on 05:33; Admin Dose 250 MG; Start 04/20/17 at 12:00 Rifampin (Rifampin) 600 mg DAILY PO Last administered on 04/24/17 08:45; Admin Dose 600 MG; Start 04/20/17 at 12:00 Morphine Sulfate 2 mg 2 mg Q4H PRN IV PAIN Last administered on 04/22/17 12:24 ; Admin Dose 2 MG; Start 04/21/17 at 17:00 Fluconazole/ Sodium Chloride (Diflucan 100 Mg/ NS (Pmx)) 50 ml @ 50 mls/hr Q24H IVPB Last administered on 04/23/17 17:54; Admin Dose 50 MLS/HR; Start 04/22/17 at 18:00 Nystatin 5 ml 5 ml QID PO Last administered on 04/24/17 08:44; Admin Dose 5 ML ; Start 04/22/17 at 17:00 Sodium Chloride (NS) 1,000 ml @ 40 mls/hr Q24H IV Last administered on 10:06; Admin Dose 40 MLS/HR; Start 04/23/17 at 09:30 Megestrol Acetate (Megace Susp) 400 mg BID PO Last administered on 04/24/17 08: 44; Admin Dose 400 MG; Start 04/23/17 at 12:00 GRETEL LITTLEJOHN MD Apr 24, 2017 09:16
--- NOTE | 2017-04-24 09:44 | PN ---
Date/Time of Note Date/Time of Note DATE: 04/24/17 TIME: 09:43 Assessment/Plan VTE Prophylaxis VTE Prophylaxis Intervention: other Lines/Catheters IV [facility]ter Type (from [facility]): port a cath Urinary Cath still in place: No Assessment/Plan Chief Complaint/Hosp Course -Extreme esophagitis per EGD, follow-up gastroenterology recommendations. Continue Protonix, Carafate, and Reglan. -Metastatic gastric adenocarcinoma, status post chemotherapy by Dr. Ford, oncology. Status post EGD with stent placement on04/[address] Millan, GI. -Nausea and vomiting, resolved. Continue Zofran for for nausea and morphine as needed for pain. -Hyponatremia secondary to dehydration, resolved, Dr. Ji is following in nephrology consultation. 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 -Protein calorie severe malnutrition. Nutritional consult is appreciated. -Leukopenia and anemia most likely secondary to chemotherapy. Restarted on Neupogen. Problems: Subjective 24 Hr Interval Summary Free Text/Dictation Patient's cough is improved Exam/Review of Systems Vital Signs Vitals Vital Signs Date Time Temp Pulse Resp B/P Pulse Ox O2 Delivery O2 Flow Rate FiO2 04/24/17 07:55 Nasal Cannula 2.0 04/24/17 07:27 97.7 74 20 108/74 100 04/21/17 21:52 Intake and Output 04/23/17 04/23/17 04/24/17 14:59 22:59 06:59 Intake Total 440 ml 640 ml 680 ml Output Total 200 ml 150 ml Balance 440 ml 440 ml 530 ml Exam Constitutional: frail Head: atraumatic, normocephalic Neck: supple Respiratory: diminished breath sounds Cardiovascular: regular rate and rhythm Gastrointestinal: non-tender, soft Extremities: normal pulses Results Result Diagram: 04/24/1717 04/24/17 0517 Results 24 hrs Laboratory Tests Test 04/24/17 05:17 White Blood Count 25.9 H Red Blood Count 3.61 L Hemoglobin 9.9 L Hematocrit 30.0 L Mean Corpuscular Volume 83.1 Mean Corpuscular Hemoglobin 27.4 L Mean Corpuscular Hemoglobin Concent 33.0 Red Cell Distribution Width 18.6 H Platelet Count 156 Mean Platelet Volume 10.1 Neutrophils % 90.0 H Lymphocytes % 3.0 L Monocytes % 1.0 Eosinophils % Basophils % Metamyelocytes % (manual) 2 H Nucleated Red Blood Cells % 0.1 H Neutrophils # 23.3 H Band Neutrophils # 23.3 H Lymphocytes # 0.8 Monocytes # 0.3 Eosinophils # Basophils # Metamyelocytes # 0.5 H Nucleated Red Blood Cells # Sodium Level 135 Potassium Level 3.6 Chloride Level 104 Carbon Dioxide Level 22 Anion Gap 13 Blood Urea Nitrogen 11 Creatinine 0.42 L Glucose Level 86 Calcium Level 7.0 L Phosphorus Level 3.3 Magnesium Level 1.8 Medications Medications Current Medications Ondansetron HCl (Zofran Inj) 4 mg Q6H PRN IV NAUSEA AND/OR VOMITING Last administered on 04/24/17 02:33; Admin Dose 4 MG; Start 04/07/17 at 23:00 Pantoprazole (Protonix Iv) 40 mg BID@06,18 IV Last administered on 04/24/17 05: 33; Admin Dose 40 MG; Start 04/10/17 at 18:00 Sodium Phosphate (Neutra-Phos) 250 mg BID PO Last administered on 04/24/17 08: 44; Admin Dose 250 MG; Start 04/11/17 at 10:30 Metoclopramide HCl (Reglan) 10 mg Q6 IV Last administered on 04/24/17 05:33; Admin Dose 10 MG; Start 04/16/17 at 18:00 Promethazine HCl/ Codeine 5 ml 5 ml Q4H PRN PO COUGH Last administered on 08:45; Admin Dose 5 ML; Start 04/17/17 at 23:30 Metronidazole (Flagyl 500 Mg (Pmx)) 100 ml @ 100 mls/hr Q6 IVPB Last administered on 04/24/17 05:36; Admin Dose 100 MLS/HR; Start 04/20/17 at 00:00 Vancomycin HCl (Vancomycin Oral Syringe) 250 mg Q6 PO Last administered on 05:33; Admin Dose 250 MG; Start 04/20/17 at 12:00 Rifampin (Rifampin) 600 mg DAILY PO Last administered on 04/24/17 08:45; Admin Dose 600 MG; Start 04/20/17 at 12:00 Morphine Sulfate 2 mg 2 mg Q4H PRN IV PAIN Last administered on 04/22/17 12:24 ; Admin Dose 2 MG; Start 04/21/17 at 17:00 Fluconazole/ Sodium Chloride (Diflucan 100 Mg/ NS (Pmx)) 50 ml @ 50 mls/hr Q24H IVPB Last administered on 04/23/17 17:54; Admin Dose 50 MLS/HR; Start 04/22/17 at 18:00 Nystatin 5 ml 5 ml QID PO Last administered on 04/24/17 08:44; Admin Dose 5 ML ; Start 04/22/17 at 17:00 Sodium Chloride (NS) 1,000 ml @ 40 mls/hr Q24H IV Last administered on 10:06; Admin Dose 40 MLS/HR; Start 04/23/17 at 09:30 Megestrol Acetate (Megace Susp) 400 mg BID PO Last administered on 04/24/17 08: 44; Admin Dose 400 MG; Start 04/23/17 at 12:00 MOE UMANA Apr 24, 2017 09:43
--- NOTE | 2017-04-24 10:59 | CONS ---
Date/Time of Note Date/Time of Note DATE: 04/24/17 TIME: 10:58 Assessment/Plan Assessment/Plan Additional Assessment/Plan Additional Assessment/Plan 1. 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 Intractable nausea vomiting, resolved, patient is able to tolerate p.o. feeding 3. Dysphagia 4. Hypertension 5. Cachexia 6. Extensive esophageal ulceration 7. Leukocytosis secondary to Neupogen 8. Ascites 9. C. difficile colitis 10. Aspiration pneumonia Chaparrita in the sputum and also in the urine 11. Status post placement of self-expanding metallic stent across the obstructing lesion in the antrum Plan Continue PPI 40 mg twice daily Carafate suspension Reglan Self-expanding metallic stent on Saturday Discussed the patient and the family member and has agreed for the stent Stent successfully deployed across pyloric channel Increase the dose of Reglan as a prokinetic agent Will add p.o. vancomycin IV antibiotic as per ID We will monitor WBC count We will start her on a clear liquid diet Clinically patient looks much better megace Consultation Date/Type/Reason Admit Date/Time Apr 07, 2017 at 19:17 Type of Consultation: HEMEON Referring Provider: CINDY ESTRELLA MD 24 HR Interval Summary Free Text/Dictation Occasional emesis No heartburn no regurgitation Constitutional: improved Exam/Review of Systems Vital Signs Vitals Vital Signs Date Time Temp Pulse Resp B/P Pulse Ox O2 Delivery O2 Flow Rate FiO2 04/24/17 07:55 Nasal Cannula 2.0 04/24/17 07:27 97.7 74 20 108/74 100 04/21/17 21:52 Intake and Output 04/23/17 04/23/17 04/24/17 15:00 23:00 07:00 Intake Total 440 ml 640 ml 680 ml Output Total 200 ml 150 ml Balance 440 ml 440 ml 530 ml Exam Constitutional: alert, oriented, well developed Psych: nl mood/affect, no complaints Head: atraumatic, normocephalic Eyes: EOMI, PERRL, nl conjunctiva, nl lids, nl sclera ENMT: nl external ears & nose, nl lips & teeth, nl nasal mucosa & septum Neck: non-tender, supple Respiratory: clear to auscultation, normal air movement Cardiovascular: nl pulses, regular rate and rhythm Gastrointestinal: nl liver, spleen, non-tender, soft Musculoskeletal: nl extremities to inspection, nl gait and stance Extremities: normal pulses 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: 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, nl mental status, nl speech, nl strength Skin: nl turgor, No rash or lesions Lymph: nl lymph nodes Results Result Diagram: 04/24/1751604/24/17516 Results 24 hrs Laboratory Tests Test 04/24/17 05:17 White Blood Count 25.9 H Red Blood Count 3.61 L Hemoglobin 9.9 L Hematocrit 30.0 L Mean Corpuscular Volume 83.1 Mean Corpuscular Hemoglobin 27.4 L Mean Corpuscular Hemoglobin Concent 33.0 Red Cell Distribution Width 18.6 H Platelet Count 156 Mean Platelet Volume 10.1 Neutrophils % 90.0 H Lymphocytes % 3.0 L Monocytes % 1.0 Eosinophils % Basophils % Metamyelocytes % (manual) 2 H Nucleated Red Blood Cells % 0.1 H Neutrophils # 23.3 H Band Neutrophils # 23.3 H Lymphocytes # 0.8 Monocytes # 0.3 Eosinophils # Basophils # Metamyelocytes # 0.5 H Nucleated Red Blood Cells # Sodium Level 135 Potassium Level 3.6 Chloride Level 104 Carbon Dioxide Level 22 Anion Gap 13 Blood Urea Nitrogen 11 Creatinine 0.42 L Glucose Level 86 Calcium Level 7.0 L Phosphorus Level 3.3 Magnesium Level 1.8 Medications Medications Current Medications Ondansetron HCl (Zofran Inj) 4 mg Q6H PRN IV NAUSEA AND/OR VOMITING Last administered on 04/24/17 02:33; Admin Dose 4 MG; Start 04/07/17 at 23:00 Pantoprazole (Protonix Iv) 40 mg BID@06,18 IV Last administered on 04/24/17 05: 33; Admin Dose 40 MG; Start 04/10/17 at 18:00 Sodium Phosphate (Neutra-Phos) 250 mg BID PO Last administered on 04/24/17 08: 44; Admin Dose 250 MG; Start 04/11/17 at 10:30 Metoclopramide HCl (Reglan) 10 mg Q6 IV Last administered on 04/24/17 05:33; Admin Dose 10 MG; Start 04/16/17 at 18:00 Promethazine HCl/ Codeine 5 ml 5 ml Q4H PRN PO COUGH Last administered on 08:45; Admin Dose 5 ML; Start 04/17/17 at 23:30 Metronidazole (Flagyl 500 Mg (Pmx)) 100 ml @ 100 mls/hr Q6 IVPB Last administered on 04/24/17 05:36; Admin Dose 100 MLS/HR; Start 04/20/17 at 00:00 Vancomycin HCl (Vancomycin Oral Syringe) 250 mg Q6 PO Last administered on 05:33; Admin Dose 250 MG; Start 04/20/17 at 12:00 Rifampin (Rifampin) 600 mg DAILY PO Last administered on 04/24/17 08:45; Admin Dose 600 MG; Start 04/20/17 at 12:00 Morphine Sulfate 2 mg 2 mg Q4H PRN IV PAIN Last administered on 04/22/17 12:24 ; Admin Dose 2 MG; Start 04/21/17 at 17:00 Fluconazole/ Sodium Chloride (Diflucan 100 Mg/ NS (Pmx)) 50 ml @ 50 mls/hr Q24H IVPB Last administered on 04/23/17 17:54; Admin Dose 50 MLS/HR; Start 04/22/17 at 18:00 Nystatin 5 ml 5 ml QID PO Last administered on 04/24/17 08:44; Admin Dose 5 ML ; Start 04/22/17 at 17:00 Sodium Chloride (NS) 1,000 ml @ 40 mls/hr Q24H IV Last administered on 10:06; Admin Dose 40 MLS/HR; Start 04/23/17 at 09:30 Megestrol Acetate (Megace Susp) 400 mg BID PO Last administered on 04/24/17 08: 44; Admin Dose 400 MG; Start 04/23/17 at 12:00 GIANNA CHANEL MD Apr 24, 2017 10:59
[2017-04-24 14:02] VITALS: BP 110/71; RESP 20
[2017-04-24] MEDS: morphine 4 MG/ML VIAL IV PRN ×2 (15:32→19:51)
[2017-04-24] MEDS: FLUCONAZOLE 100 MG/NS (PMX) 50 ML IVPB SCH (18:19)
[2017-04-24 19:38] VITALS: BP 115/81; RESP 20
[2017-04-25] MEDS: metroNIDAZOLE 500 MG/NS (PMX) 100 ML IVPB SCH ×4 (00:12→18:11)
[2017-04-25] MEDS: METOCLOPRAMIDE 10 MG INJ IV SCH ×4 (00:12→18:10)
[2017-04-25] MEDS: VANCOMYCIN HCL 250 MG/5ML POSYG PO SCH ×4 (00:12→18:11)
[2017-04-25 01:30] VITALS: BP 104/70; RESP 20
[2017-04-25] MEDS: morphine 4 MG/ML VIAL IV PRN ×3 (04:14→20:59)
[2017-04-25] MEDS: PANTOPRAZOLE 40 MG INJ IV SCH ×2 (06:40→18:10)
[2017-04-25 07:19] VITALS: BP 110/78; RESP 19
[2017-04-25] MEDS: NEUTRA-PHOS 250 MG PACKET PO SCH ×2 (08:23→20:56)
[2017-04-25] MEDS: RIFAMPIN 300 MG CAP PO SCH (08:23)
[2017-04-25] MEDS: NYSTATIN SUSP 5 ML CUP PO SCH ×4 (08:23→20:56)
[2017-04-25] MEDS: MEGESTROL (40 MG/ML) 10ML CUP PO SCH ×2 (08:23→20:56)
[2017-04-25] MEDS ORDERED: FUROSEMIDE 20 MG INJ IV ONE (09:30)
--- NOTE | 2017-04-25 10:49 | PN ---
DATE: 04/25/2017 SUBJECTIVE DATA: The patient is in serious condition, cachetic, weak, frail, edematous. No other events noted. OBJECTIVE DATA: VITAL SIGNS: Blood pressure is 110/78, respirations 19, pulse 98, temperature 98.5. HEENT: Head is normocephalic. NECK: Supple. HEART: Regular rate. LUNGS: Show diminished breath sounds at the base. ABDOMEN: Soft, nontender to palpation. No rebound or guarding. EXTREMITIES: Negative for clubbing, cyanosis. Positive edema. DERMATOLOGIC: Clean. No rashes. MUSCULOSKELETAL: No joint effusion. NEUROLOGIC: No change in exam. MEDICATIONS: Reviewed. LABORATORY AND DIAGNOSTIC DATA: From 04/24 has been reviewed. ASSESSMENT AND PLAN: 1. Hyponatremia, resolved. Continue to monitor. 2. Volume overload secondary to 3rd spacing. Plan is to discontinue IV fluids. We will give the patient diuretic therapy. Monitor closely. 3. Hypomagnesemia, improved. Continue to monitor. 4. Clostridium difficile colitis. Continue current medical management. 5. Gastric cancer with peritoneal carcinomatosis. Continue to monitor. Follow up with Oncology. 6. Nausea and vomiting. Continue current medical management. 7. Esophagitis, status post stent. Dictated By: Kulwinder Ji DO /[email or web address] /Document#: [id number]
--- NOTE | 2017-04-25 10:49 | CONS ---
Date/Time of Note Date/Time of Note DATE: 04/25/17 TIME: 10:42 Assessment/Plan Assessment/Plan Chief Complaint/Hosp Course Assessment/Plan Chief Complaint/Hosp Course ID PROGRESS NOTE CURRENT ABX: DAY #4=> Flagyl IV #4 + Vanco liq po #4 + Rifampin #4 + Diflucan 100mg IV #2 s/p Fosfomycin po x1 04/20 (Enterococcal UTI) 24H INTERVAL SUMMARY * Alert. Awake. Denies Diarrhea. 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 Ford. 1. SEPSIS per (+) rising leukocytosis 10.0(04/16) -> 22.8 (04/17)-> now 40.1 (04/20 ) w/15% BANDS => IMPROVING: * No fevers, mild intermittent tachycardia 90-110, B/P 93/59 * (+)C.Diff Colitis 04/17/17 C DIFFICILE DNA AMPLIFICATION Final CYTOTOXIGENIC C DIFFICILE POSITIVE (Ref Range Neg) * DDx: spontaneous bacterial peritonitis=> D/W Dr. Orozco -- Rx Rifampin onboard * DDx: UTI 04/20 Urine Cx (+) URINE CULTURE Preliminary ==> she was treated empirically w/Fosfomycin po x1 Organism 1 ENTEROCOCCUS SPECIES COLONY COUNT 70,000 - 80,000 CFU/ml Organism 2 CHAPARRITA ALBICANS COLONY COUNT 30,000 - 40,000 CFU/ml * DDx: Aspiration Pneumonitis => Lungs w/increase fluid likely 2. Metastatic gastric CA with suspected malignant abdominopelvic ascites and peritoneal carcinomatosis * s/p PARA 04/14-> ~5000 ml of clear yellow fluid was obtained and then discarded. * DDx: spontaneous bacterial peritonitis => Rifampin 600mg PO daily onboard 3. Leukopenia and anemia 2/2 chemotherapy. Restarted on Neupogen. 4. GERD, extreme esophagitis and severe reflux w/undigested food in the esophagus => risk factor for silent aspiration syndrome * s/p 04/16/17 EGD with stent placement on04/[address] Millan, GI. * Sputum (+)Chaparrita albicans -> Start Nystatin 5mL QIC swish/swallow 5. Abdominal pain with nausea and vomiting 2/2 massive ascites pressure volume = > due to #2 & #4 * N/V/ABD Pain resolved w/Zofran and Morphine 6. Possible aspiration pneumonia => Rifampin onboard * Respiratory culture grew (+)Yeast == Oral Candidiasis likely * RESPIRATORY CULTURE Final Organism 1 CHAPARRITA ALBICANS QUANTITY 1+ Organism 2 NORMAL RESPIRATORY STEFANIA QUANTITY 1+ 7. Pulmonary congestion w/ extensive bilateral upper lobe and lower lobe infiltrates on CXR 04/20 * Multifactorial due to severe ascites fluid back up, low colloid pressure 3rd spacing, malignancy * Moderate right pleural effusion on admission 8. Hx of CHF * 2D ECHO SEP 2016, normal LVFx w/EF~60% * 2D ECHO 2015 preserved systolic LVFx w/STG I diastolic dysfunction 9. Cachexia w/severe protein calorie deficiency 10. Low normal B/P w/transient hypotension due to low colloid pressure 3rd spacing, malignancy, SIRS, sepsis 11. Contaminated Urine culture vs early GNR UTI on 04/07/17 URINE CULTURE Final Organism 1 ESCHERICHIA COLI COLONY COUNT <10,000 CFU/ml Organism 2 LACTOBACILLUS SPECIES COLONY COUNT >100,000 CFU/ml 12. Jaundice 13. Bilateral Lower Extremities Edema 14. Pain INVASIVES: Right chest Port-A-Cath ABX ALLERGY: KNDA CURRENT ABX: #4=> Flagyl IV #4 + Vanco liq po #4 + Rifampin #4 + Diflucan 100mg IV #2 s/p Fosfomycin po x1 04/20 (Enterococcal UTI) ID RECOMMENDATIONS=> Improving, continue current ABX plan: 1. Rising WBC w/bandemia is due to (+)C.Diff colitis =IMPROVING CONTINUE ABX * Flagyl IV + Vanco liquid initiated => 9BMs/day -> down to 1-2 BMs/day after 3 days ABX 2. UTI ENTEROCOCCUS => s/p TREATED w/Fosfomycin 3gm po x1 on 04/20 * empiric cystitis vs bladder sepsis w/hx of GNR bacteruria 3. Started Rifampin 600mg po daily for concern risk of spontaneous bacterial peritonitis due to massive ascites + s/p paracentesis * This was discussed w/Dr. Orozco who concurs 4. Aspiration precautions -> AVOID empiric IV ABX for concern possible aspiration pneumonitis * (+)YEAST sputum = (+) esophagitis /oral candidiasis > Start Diflucan IV + Nystatin PO swish/swallow 5. PRN For Temp >101.0 send blood cultures via Port-A-Cath, no compelling evidence infected Port septicemia at this time. 6. Check MRSA Nares 7. Continue Medications. Pain Management. Monitor Labs. Problems: Consultation Date/Type/Reason Admit Date/Time Apr 07, 2017 at 19:17 Initial Consult Date 04/07/17 Type of Consultation: id Referring Provider: CINDY ESTRELLA MD Exam/Review of Systems Vital Signs Vitals Vital Signs Date Time Temp Pulse Resp B/P Pulse Ox O2 Delivery O2 Flow Rate FiO2 04/25/17 08:34 95 Nasal Cannula 2.0 04/25/17 07:19 98.5 98 19 110/78 04/21/17 21:52 Intake and Output 04/24/17 04/24/17 04/25/17 15:00 23:00 07:00 Intake Total 980 ml 540 ml Output Total 150 ml Balance 980 ml 390 ml Results Result Diagram: 04/24/1751604/24/17516 Medications Medications Current Medications Ondansetron HCl (Zofran Inj) 4 mg Q6H PRN IV NAUSEA AND/OR VOMITING Last administered on 04/24/17 15:32; Admin Dose 4 MG; Start 04/07/17 at 23:00 Pantoprazole (Protonix Iv) 40 mg BID@,18 IV Last administered on 04/25/17 06: 40; Admin Dose 40 MG; Start 04/10/17 at 18:00 Sodium Phosphate (Neutra-Phos) 250 mg BID PO Last administered on 04/25/17 08: 23; Admin Dose 250 MG; Start 04/11/17 at 10:30 Metoclopramide HCl (Reglan) 10 mg Q6 IV Last administered on 04/25/17 06:40; Admin Dose 10 MG; Start 04/16/17 at 18:00 Promethazine HCl/ Codeine 5 ml 5 ml Q4H PRN PO COUGH Last administered on 21:39; Admin Dose 5 ML; Start 04/17/17 at 23:30 Metronidazole (Flagyl 500 Mg (Pmx)) 100 ml @ 100 mls/hr Q6 IVPB Last administered on 04/25/17 06:40; Admin Dose 100 MLS/HR; Start 04/20/17 at 00:00 Vancomycin HCl (Vancomycin Oral Syringe) 250 mg Q6 PO Last administered on 06:40; Admin Dose 250 MG; Start 04/20/17 at 12:00 Rifampin (Rifampin) 600 mg DAILY PO Last administered on 04/25/17 08:23; Admin Dose 600 MG; Start 04/20/17 at 12:00 Morphine Sulfate 2 mg 2 mg Q4H PRN IV PAIN Last administered on 04/25/17 09:35 ; Admin Dose 2 MG; Start 04/21/17 at 17:00 Fluconazole/ Sodium Chloride (Diflucan 100 Mg/ NS (Pmx)) 50 ml @ 50 mls/hr Q24H IVPB Last administered on 04/24/17 18:19; Admin Dose 50 MLS/HR; Start 04/22/17 at 18:00 Nystatin (Nystatin Susp) 5 ml QID PO Last administered on 04/25/17 08:23; Admin Dose 5 ML; Start 04/22/17 at 17:00 Megestrol Acetate (Megace Susp) 400 mg BID PO Last administered on 04/25/17 08: 23; Admin Dose 400 MG; Start 04/23/17 at 12:00 ABBEY CHU NP Apr 25, 2017 10:49
--- NOTE | 2017-04-25 11:03 | PN ---
Date/Time of Note Date/Time of Note DATE: 04/25/17 TIME: 11:03 Assessment/Plan VTE Prophylaxis VTE Prophylaxis Intervention: other Lines/Catheters IV Catheter Type (from Nrs): PORT A CATH Urinary Cath still in place: Yes Reason Cath still needed: skin wounds contaminated by urine Assessment/Plan Chief Complaint/Hosp Course -Extreme esophagitis per EGD, follow-up gastroenterology recommendations. Continue Protonix, Carafate, and Reglan. -Metastatic gastric adenocarcinoma, status post chemotherapy by Dr. Ford, oncology. Status post EGD with stent placement on04/[address] Millan, GI. -Nausea and vomiting, resolved. Continue Zofran for for nausea and morphine as needed for pain. -Hyponatremia secondary to dehydration, resolved, Dr. Ji is following in nephrology consultation. 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 -Protein calorie severe malnutrition. Nutritional consult is appreciated. -Leukopenia and anemia most likely secondary to chemotherapy. Restarted on Neupogen. Problems: Subjective 24 Hr Interval Summary Free Text/Dictation Patient having constant cough and abdominal pain related to cough Exam/Review of Systems Vital Signs Vitals Vital Signs Date Time Temp Pulse Resp B/P Pulse Ox O2 Delivery O2 Flow Rate FiO2 04/25/17 08:34 95 Nasal Cannula 2.0 04/25/17 07:19 98.5 98 19 110/78 04/21/17 21:52 Intake and Output 04/24/17 04/24/17 04/25/17 14:59 22:59 06:59 Intake Total 980 ml 540 ml Output Total 150 ml Balance 980 ml 390 ml Exam Constitutional: well developed Head: atraumatic, normocephalic Neck: supple Respiratory: diminished breath sounds Cardiovascular: regular rate and rhythm Gastrointestinal: non-tender, soft Extremities: normal pulses Results Result Diagram: 04/24/1751604/24/17516 Medications Medications Current Medications Ondansetron HCl (Zofran Inj) 4 mg Q6H PRN IV NAUSEA AND/OR VOMITING Last administered on 04/24/17 15:32; Admin Dose 4 MG; Start 04/07/17 at 23:00 Pantoprazole (Protonix Iv) 40 mg BID@,18 IV Last administered on 04/25/17 06: 40; Admin Dose 40 MG; Start 04/10/17 at 18:00 Sodium Phosphate (Neutra-Phos) 250 mg BID PO Last administered on 04/25/17 08: 23; Admin Dose 250 MG; Start 04/11/17 at 10:30 Metoclopramide HCl (Reglan) 10 mg Q6 IV Last administered on 04/25/17 06:40; Admin Dose 10 MG; Start 04/16/17 at 18:00 Promethazine HCl/ Codeine 5 ml 5 ml Q4H PRN PO COUGH Last administered on 21:39; Admin Dose 5 ML; Start 04/17/17 at 23:30 Metronidazole (Flagyl 500 Mg (Pmx)) 100 ml @ 100 mls/hr Q6 IVPB Last administered on 04/25/17 06:40; Admin Dose 100 MLS/HR; Start 04/20/17 at 00:00 Vancomycin HCl (Vancomycin Oral Syringe) 250 mg Q6 PO Last administered on 06:40; Admin Dose 250 MG; Start 04/20/17 at 12:00 Rifampin (Rifampin) 600 mg DAILY PO Last administered on 04/25/17 08:23; Admin Dose 600 MG; Start 04/20/17 at 12:00 Morphine Sulfate 2 mg 2 mg Q4H PRN IV PAIN Last administered on 04/25/17 09:35 ; Admin Dose 2 MG; Start 04/21/17 at 17:00 Fluconazole/ Sodium Chloride (Diflucan 100 Mg/ NS (Pmx)) 50 ml @ 50 mls/hr Q24H IVPB Last administered on 04/24/17 18:19; Admin Dose 50 MLS/HR; Start 04/22/17 at 18:00 Nystatin (Nystatin Susp) 5 ml QID PO Last administered on 04/25/17 08:23; Admin Dose 5 ML; Start 04/22/17 at 17:00 Megestrol Acetate (Megace Susp) 400 mg BID PO Last administered on 04/25/17 08: 23; Admin Dose 400 MG; Start 04/23/17 at 12:00 MOE UMANA Apr 25, 2017 11:03
[2017-04-25] MEDS: PROMETHAZINE/CODEINE 5ML CUP PO PRN (12:11)
[2017-04-25 14:51] LABS: INR 1.97; PARTIAL THROMBOPLASTIN TIME 34.2 Sec (25.0-35.0); PROTIME 22.6 Sec (12.2-14.2); PT RATIO 1.8
[2017-04-25 14:59] VITALS: BP 97/69; RESP 20
--- NOTE | 2017-04-25 16:52 | RADRPT ---
PROCEDURE: Ultrasound four quadrants CLINICAL INDICATION: Abdominal distension. Evaluate for ascites. TECHNIQUE: Sonographic evaluation of the four quadrants of the abdomen was performed. Garcia-scale imaging was utilized. Images were reviewed on a high-resolution PACS workstation. COMPARISON: 04/20/2017 FINDINGS: There is a small amount of ascites visualized. IMPRESSION: 1. Small volume of ascites visualized. RPTAT: [facility] Physician Isaiah Date Time Electronically viewed and signed by Gavin Oquendo Physician on 04/25/2017 16:52 /
--- NOTE | 2017-04-25 19:13 | CONS ---
Date/Time of Note Date/Time of Note DATE: 04/25/17 TIME: 19:12 Assessment/Plan Assessment/Plan Additional Assessment/Plan Additional Assessment/Plan Additional Assessment/Plan 1. 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 Intractable nausea vomiting, resolved, patient is able to tolerate p.o. feeding 3. Dysphagia 4. Hypertension 5. Cachexia 6. Extensive esophageal ulceration 7. Leukocytosis secondary to Neupogen 8. Ascites 9. C. difficile colitis 10. Aspiration pneumonia Chaparrita in the sputum and also in the urine 11. Status post placement of self-expanding metallic stent across the obstructing lesion in the antrum, patient is able to tolerate p.o. feeding no nausea or vomiting. Plan Continue PPI 40 mg twice daily Carafate suspension Reglan Self-expanding metallic stent on Saturday Discussed the patient and the family member and has agreed for the stent Stent successfully deployed across pyloric channel Increase the dose of Reglan as a prokinetic agent Will add p.o. vancomycin IV antibiotic as per ID We will monitor WBC count We will start her on a clear liquid diet Clinically patient looks much better megace Patient needs abdominal paracentesis. Consultation Date/Type/Reason Admit Date/Time Apr 07, 2017 at 19:17 Type of Consultation: id Referring Provider: CINDY ESTRELLA MD 24 HR Interval Summary Constitutional: improved Exam/Review of Systems Vital Signs Vitals Vital Signs Date Time Temp Pulse Resp B/P Pulse Ox O2 Delivery O2 Flow Rate FiO2 04/25/17 14:59 98.6 95 20 97/69 93 04/25/17 13:43 2.0 04/25/17 08:34 Nasal Cannula 04/21/17 21:52 Intake and Output 04/24/17 04/24/17 04/25/17 15:00 23:00 07:00 Intake Total 980 ml 540 ml Output Total 150 ml Balance 980 ml 390 ml Exam Constitutional: alert, oriented, well developed Psych: nl mood/affect, no complaints Head: atraumatic, normocephalic Eyes: EOMI, PERRL, nl conjunctiva, nl lids, nl sclera ENMT: nl external ears & nose, nl lips & teeth, nl nasal mucosa & septum Neck: non-tender, supple Respiratory: clear to auscultation, normal air movement Cardiovascular: nl pulses, regular rate and rhythm Gastrointestinal: nl liver, spleen, non-tender, soft Musculoskeletal: nl extremities to inspection, nl gait and stance Extremities: normal pulses 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: 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 intact, nl mental status, nl speech, nl strength Skin: nl turgor, No rash or lesions Lymph: nl lymph nodes Results Result Diagram: 04/24/1751604/24/1717 Results 24 hrs Laboratory Tests Test 04/25/17 13:17 Prothrombin Time 22.6 #H Prothrombin Time Ratio 1.8 INR International Normalized Ratio 1.97 Activated Partial Thromboplast Time 34.2 Medications Medications Current Medications Ondansetron HCl (Zofran Inj) 4 mg Q6H PRN IV NAUSEA AND/OR VOMITING Last administered on 04/24/17 15:32; Admin Dose 4 MG; Start 04/07/17 at 23:00 Pantoprazole (Protonix Iv) 40 mg BID@06,18 IV Last administered on 04/25/17 18: 10; Admin Dose 40 MG; Start 04/10/17 at 18:00 Sodium Phosphate (Neutra-Phos) 250 mg BID PO Last administered on 04/25/17 08: 23; Admin Dose 250 MG; Start 04/11/17 at 10:30 Metoclopramide HCl (Reglan) 10 mg Q6 IV Last administered on 04/25/17 18:10; Admin Dose 10 MG; Start 04/16/17 at 18:00 Promethazine HCl/ Codeine 5 ml 5 ml Q4H PRN PO COUGH Last administered on 12:11; Admin Dose 5 ML; Start 04/17/17 at 23:30 Metronidazole (Flagyl 500 Mg (Pmx)) 100 ml @ 100 mls/hr Q6 IVPB Last administered on 04/25/17 18:11; Admin Dose 100 MLS/HR; Start 04/20/17 at 00:00 Vancomycin HCl (Vancomycin Oral Syringe) 250 mg Q6 PO Last administered on 18:11; Admin Dose 250 MG; Start 04/20/17 at 12:00 Rifampin (Rifampin) 600 mg DAILY PO Last administered on 04/25/17 08:23; Admin Dose 600 MG; Start 04/20/17 at 12:00 Morphine Sulfate 2 mg 2 mg Q4H PRN IV PAIN Last administered on 04/25/17 09:35 ; Admin Dose 2 MG; Start 04/21/17 at 17:00 Fluconazole/ Sodium Chloride (Diflucan 100 Mg/ NS (Pmx)) 50 ml @ 50 mls/hr Q24H IVPB Last administered on 04/24/17 18:19; Admin Dose 50 MLS/HR; Start 04/22/17 at 18:00 Nystatin (Nystatin Susp) 5 ml QID PO Last administered on 04/25/17 18:10; Admin Dose 5 ML; Start 04/22/17 at 17:00 Megestrol Acetate (Megace Susp) 400 mg BID PO Last administered on 04/25/17 08: 23; Admin Dose 400 MG; Start 04/23/17 at 12:00 GIANNA CHANEL MD Apr 25, 2017 19:13
[2017-04-25 20:17] VITALS: BP 109/81; RESP 20
[2017-04-25] MEDS: FLUCONAZOLE 100 MG/NS (PMX) 50 ML IVPB SCH (20:56)
--- NOTE | 2017-04-25 23:08 | CONS ---
Date/Time of Note Date/Time of Note DATE: 04/25/17 TIME: 23:08 Assessment/Plan Assessment/Plan Chief Complaint/Hosp Course Metastatic gastric adenocarcinoma with peritoneal carcinomatosis., POOR PS POST CHEMO Abdominopelvic ascites - malignant POST Paracentesis LEUKOPENIA, POST CHEMO, WITH SUBSEQUENT LEUKOCYTOSIS 2 TO NEUPOGEN and c diff MONITOR NEUPOGEN- DC ANEMIA POST CHEMO MONITOR POST prbc Intractable nausea, vomiting, dehydration ANTIEMETICS, IVF POST EGD- REPORT - NOTED Extreme esophagitis per EGD, PER GI Moderate right pleural effusion. Mild pericardial effusion. Diffuse subcutaneous edema. Abdominal pain. PAIN CONTROL hx Left lower extremity edema.- better HYPONATREMIA NEPHRO POST family conference FINAL DECISION - COMFORT CARE, HOSPICE Problems: Consultation Date/Type/Reason Admit Date/Time Apr 07, 2017 at 19:17 Type of Consultation: hemeon Referring Provider: CINDY ESTRELLA MD 24 HR Interval Summary Free Text/Dictation ALL NOTED HOSPICE PLANNED Exam/Review of Systems Vital Signs Vitals Vital Signs Date Time Temp Pulse Resp B/P Pulse Ox O2 Delivery O2 Flow Rate FiO2 04/25/17 20:17 99.5 88 20 109/81 94 04/25/17 13:43 2.0 04/25/17 08:34 Nasal Cannula 04/21/17 21:52 Intake and Output 04/24/17 04/24/17 04/25/17 14:59 22:59 06:59 Intake Total 980 ml 540 ml Output Total 150 ml Balance 980 ml 390 ml Exam Constitutional: alert, oriented, cachetic, generalized weakness Psych: nl mood/affect, no complaints Head: atraumatic, normocephalic Eyes: EOMI, nl conjunctiva, nl lids, nl sclera ENMT: Unremarkable Neck: non-tender, supple Respiratory: (+)Rales, no wheezing, equal chest rise bilaterally Cardiovascular: nl pulses, regular rate and rhythm Gastrointestinal: Ascites Musculoskeletal: nl extremities to inspection Extremities: normal pulses 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: 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-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 intact, nl mental status, nl speech Skin: No diaphoresis, N rash or lesions Lymph: nl lymph nodes Results Result Diagram: 04/24/17 0517 04/24/17 0517 Results 24 hrs Laboratory Tests Test 04/25/17 13:17 Prothrombin Time 22.6 #H Prothrombin Time Ratio 1.8 INR International Normalized Ratio 1.97 Activated Partial Thromboplast Time 34.2 Medications Medications Current Medications Ondansetron HCl (Zofran Inj) 4 mg Q6H PRN IV NAUSEA AND/OR VOMITING Last administered on 04/24/17 15:32; Admin Dose 4 MG; Start 04/07/17 at 23:00 Pantoprazole (Protonix Iv) 40 mg BID@06,18 IV Last administered on 04/25/17 18: 10; Admin Dose 40 MG; Start 04/10/17 at 18:00 Sodium Phosphate (Neutra-Phos) 250 mg BID PO Last administered on 04/25/17 20: 56; Admin Dose 250 MG; Start 04/11/17 at 10:30 Metoclopramide HCl (Reglan) 10 mg Q6 IV Last administered on 04/25/17 18:10; Admin Dose 10 MG; Start 04/16/17 at 18:00 Promethazine HCl/ Codeine 5 ml 5 ml Q4H PRN PO COUGH Last administered on 12:11; Admin Dose 5 ML; Start 04/17/17 at 23:30 Metronidazole (Flagyl 500 Mg (Pmx)) 100 ml @ 100 mls/hr Q6 IVPB Last administered on 04/25/17 18:11; Admin Dose 100 MLS/HR; Start 04/20/17 at 00:00 Vancomycin HCl (Vancomycin Oral Syringe) 250 mg Q6 PO Last administered on 18:11; Admin Dose 250 MG; Start 04/20/17 at 12:00 Rifampin (Rifampin) 600 mg DAILY PO Last administered on 04/25/17 08:23; Admin Dose 600 MG; Start 04/20/17 at 12:00 Morphine Sulfate 2 mg 2 mg Q4H PRN IV PAIN Last administered on 04/25/17 20:59 ; Admin Dose 2 MG; Start 04/21/17 at 17:00 Fluconazole/ Sodium Chloride (Diflucan 100 Mg/ NS (Pmx)) 50 ml @ 50 mls/hr Q24H IVPB Last administered on 04/25/17 20:56; Admin Dose 50 MLS/HR; Start 04/22/17 at 18:00 Nystatin (Nystatin Susp) 5 ml QID PO Last administered on 04/25/17 20:56; Admin Dose 5 ML; Start 04/22/17 at 17:00 Megestrol Acetate (Megace Susp) 400 mg BID PO Last administered on 04/25/17t 20: 56; Admin Dose 400 MG; Start 04/23/17 at 12:00 GRETEL LITTLEJOHN MD Apr 25, 2017 23:08
[2017-04-26] MEDS: VANCOMYCIN HCL 250 MG/5ML POSYG PO SCH ×5 (00:26→23:44)
[2017-04-26] MEDS: metroNIDAZOLE 500 MG/NS (PMX) 100 ML IVPB SCH ×5 (00:26→23:44)
[2017-04-26] MEDS: METOCLOPRAMIDE 10 MG INJ IV SCH ×5 (00:26→23:44)
[2017-04-26 02:51] VITALS: BP 102/69; RESP 20
[2017-04-26] MEDS: PANTOPRAZOLE 40 MG INJ IV SCH ×2 (05:34→18:10)
[2017-04-26 05:46] LABS: WHITE BLOOD COUNT 19.7 10^3/ul (4.8-10.8)
[2017-04-26 05:47] LABS: ABNORMAL IP MESSAGE 1; BASOPHILS % 0.2 % (0.0-2.0); EOSINOPHILS % 0.1 % (0.0-7.0); HEMATOCRIT 29.5 % (37.0-47.0); LYMPHOCYTES # 0.4 10^3/ul (0.8-2.9); LYMPHOCYTES % 2.1 % (15.0-51.0); MEAN CORPUSCULAR HEMOGLOBIN 27.8 pg (29.0-33.0); MEAN CORPUSCULAR HGB CONC 33.9 g/dl (32.0-37.0); MEAN CORPUSCULAR VOLUME 81.9 fl (82.0-101.0); MEAN PLATELET VOLUME 10.3 fl (7.4-10.4); MONOCYTE # 0.9 10^3/ul (0.3-0.9); MONOCYTES % 4.5 % (0.0-11.0); NEUTROPHIL # 17.4 10^3/ul (1.6-7.5); NEUTROPHILS % 88.5 % (39.0-77.0); NUCLEATED RED BLOOD CELLS% 0.1 /100WBC (0.0-0.0); PLATELET COUNT 175 10^3/UL (140-415); RED CELL DISTRIBUTION WIDTH 19.7 % (11.5-14.5)
[2017-04-26 06:05] LABS: POSITIVE DIFF @See below
[2017-04-26 06:11] LABS: CREATININE 0.38 mg/dl (0.44-1.00); MAGNESIUM 1.8 mg/dl (1.7-2.5); PHOSPHORUS 3.4 mg/dl (2.5-4.9); POTASSIUM 3.8 mmol/L (3.5-5.1)
[2017-04-26] MEDS: NYSTATIN SUSP 5 ML CUP PO SCH ×4 (08:37→20:46)
[2017-04-26] MEDS: RIFAMPIN 300 MG CAP PO SCH (08:37)
[2017-04-26] MEDS: MEGESTROL (40 MG/ML) 10ML CUP PO SCH ×2 (08:37→20:46)
[2017-04-26] MEDS: NEUTRA-PHOS 250 MG PACKET PO SCH ×2 (08:37→20:46)
[2017-04-26] MEDS ORDERED: FUROSEMIDE 20 MG INJ IV ONE (09:30)
[2017-04-26] MEDS: morphine 4 MG/ML VIAL IV PRN ×3 (09:45→23:05)
--- NOTE | 2017-04-26 11:10 | PN ---
DATE: 04/26/2017 SUBJECTIVE DATA: The patient remains cachectically frail. No other events noted. OBJECTIVE DATA: VITAL SIGNS: Blood pressure 102/69, respirations 20, pulse 95, temperature 98.8. HEENT: Head is normocephalic. NECK: Supple. HEART: Regular rate. LUNGS: Show diminished breath sounds at the base. ABDOMEN: Soft, nontender to palpation. No rebound or guarding. EXTREMITIES: Negative for clubbing, cyanosis. Positive edema. DERMATOLOGIC: Clean. No rashes. MUSCULOSKELETAL: No joint effusion. NEUROLOGIC: Unchanged exam. MEDICATIONS: Reviewed. LABORATORY AND DIAGNOSTIC DATA: Show sodium 134, potassium 3.8, BUN 13, creatinine 0.38. White count 19.7, hemoglobin 10.0, crit 29.5, platelet count is 175. ASSESSMENT AND PLAN: 1. Hyponatremia, mild. We will continue to monitor. 2. Volume overload secondary to third-spacing. Continue low- dose diuretic therapy. Monitor renal function and electrolytes closely. 3. Hypomagnesemia, improved. 4. Clostridium difficile colitis. Continue current medical management. 5. Gastric cancer with peritoneal carcinomatosis. Continue to monitor. Follow up with Oncology. 6. Ascites, status post paracentesis. 7. . Continue medical management. 8. Esophagitis, status post stent. Dictated By: Kulwinder Ji DO /[email or web address] /Document#: [id number]
--- NOTE | 2017-04-26 11:43 | CONS ---
Date/Time of Note Date/Time of Note DATE: 04/26/17 TIME: 11:40 Assessment/Plan Assessment/Plan Chief Complaint/Hosp Course Assessment/Plan Chief Complaint/Hosp Course ID PROGRESS NOTE CURRENT ABX: DAY #4=> Flagyl IV #4 + Vanco liq po #4 + Rifampin #4 + Diflucan 100mg IV #2 s/p Fosfomycin po x1 04/20 (Enterococcal UTI) 24H INTERVAL SUMMARY * Alert. Awake. Denies Diarrhea. Complains of Abdominal Pain. 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 Ford. 1. SEPSIS per (+) rising leukocytosis 10.0(04/16) -> 22.8 (04/17)-> now 40.1 (04/20 ) w/15% BANDS => IMPROVING: * No fevers, mild intermittent tachycardia 90-110, B/P 93/59 * (+)C.Diff Colitis 04/17/17 C DIFFICILE DNA AMPLIFICATION Final CYTOTOXIGENIC C DIFFICILE POSITIVE (Ref Range Neg) * DDx: spontaneous bacterial peritonitis=> D/W Dr. Orozco -- Rx Rifampin onboard * DDx: UTI 04/20 Urine Cx (+) URINE CULTURE Preliminary ==> she was treated empirically w/Fosfomycin po x1 Organism 1 ENTEROCOCCUS SPECIES COLONY COUNT 70,000 - 80,000 CFU/ml Organism 2 CHAPARRITA ALBICANS COLONY COUNT 30,000 - 40,000 CFU/ml * DDx: Aspiration Pneumonitis => Lungs w/increase fluid likely 2. Metastatic gastric CA with suspected malignant abdominopelvic ascites and peritoneal carcinomatosis * s/p PARA 04/14-> ~5000 ml of clear yellow fluid was obtained and then discarded. * DDx: spontaneous bacterial peritonitis => Rifampin 600mg PO daily onboard 3. Leukopenia and anemia 2/2 chemotherapy. Restarted on Neupogen. 4. GERD, extreme esophagitis and severe reflux w/undigested food in the esophagus => risk factor for silent aspiration syndrome * s/p 04/16/17 EGD with stent placement on04/[address] Millan, GI. * Sputum (+)Chaparrita albicans -> Start Nystatin 5mL QIC swish/swallow 5. Abdominal pain with nausea and vomiting 2/2 massive ascites pressure volume = > due to #2 & #4 * N/V/ABD Pain resolved w/Zofran and Morphine 6. Possible aspiration pneumonia => Rifampin onboard * Respiratory culture grew (+)Yeast == Oral Candidiasis likely * RESPIRATORY CULTURE Final Organism 1 CHAPARRITA ALBICANS QUANTITY 1+ Organism 2 NORMAL RESPIRATORY STEFANIA QUANTITY 1+ 7. Pulmonary congestion w/ extensive bilateral upper lobe and lower lobe infiltrates on CXR 04/20 * Multifactorial due to severe ascites fluid back up, low colloid pressure 3rd spacing, malignancy * Moderate right pleural effusion on admission 8. Hx of CHF * 2D ECHO SEP 2016, normal LVFx w/EF~60% * 2D ECHO 2015 preserved systolic LVFx w/STG I diastolic dysfunction 9. Cachexia w/severe protein calorie deficiency 10. Low normal B/P w/transient hypotension due to low colloid pressure 3rd spacing, malignancy, SIRS, sepsis 11. Contaminated Urine culture vs early GNR UTI on 04/07/17 URINE CULTURE Final Organism 1 ESCHERICHIA COLI COLONY COUNT <10,000 CFU/ml Organism 2 LACTOBACILLUS SPECIES COLONY COUNT >100,000 CFU/ml 12. Jaundice 13. Bilateral Lower Extremities Edema 14. Pain INVASIVES: Right chest Port-A-Cath ABX ALLERGY: KNDA CURRENT ABX: #4=> Flagyl IV #4 + Vanco liq po #4 + Rifampin #4 + Diflucan 100mg IV #2 s/p Fosfomycin po x1 04/20 (Enterococcal UTI) ID RECOMMENDATIONS=> Improving, continue current ABX plan: 1. Rising WBC w/bandemia is due to (+)C.Diff colitis =IMPROVING CONTINUE ABX * Flagyl IV + Vanco liquid initiated => 9BMs/day -> down to 1-2 BMs/day after 3 days ABX 2. UTI ENTEROCOCCUS => s/p TREATED w/Fosfomycin 3gm po x1 on 04/20 * empiric cystitis vs bladder sepsis w/hx of GNR bacteruria 3. Started Rifampin 600mg po daily for concern risk of spontaneous bacterial peritonitis due to massive ascites + s/p paracentesis * This was discussed w/Dr. Orozco who concurs 4. Aspiration precautions -> AVOID empiric IV ABX for concern possible aspiration pneumonitis * (+)YEAST sputum = (+) esophagitis /oral candidiasis > Start Diflucan IV + Nystatin PO swish/swallow 5. PRN For Temp >101.0 send blood cultures via Port-A-Cath, no compelling evidence infected Port septicemia at this time. 6. Check MRSA Nares 7. Continue Medications. Pain Management. Monitor Labs. GI Prophylaxis. DVT Prophylaxis. Problems: Consultation Date/Type/Reason Admit Date/Time Apr 07, 2017 at 19:17 Initial Consult Date 04/07/17 Type of Consultation: id Referring Provider: CINDY ESTRELLA MD Exam/Review of Systems Vital Signs Vitals Vital Signs Date Time Temp Pulse Resp B/P Pulse Ox O2 Delivery O2 Flow Rate FiO2 04/26/17 08:00 Nasal Cannula 2.0 04/26/17 02:51 98.8 95 20 102/69 98 Intake and Output 04/25/17 04/25/17 04/26/17 15:00 23:00 07:00 Intake Total 200 ml 690 ml 220 ml Output Total 800 ml 150 ml Balance 200 ml -110 ml 70 ml Results Result Diagram: 04/26/17 0458 04/26/17 0458 Results 24 hrs Laboratory Tests Test 04/25/17 13:17 04/26/17 04:58 Prothrombin Time 22.6 #H Prothrombin Time Ratio 1.8 INR International Normalized Ratio 1.97 Activated Partial Thromboplast Time 34.2 White Blood Count 19.7 #H Red Blood Count 3.60 L Hemoglobin 10.0 L Hematocrit 29.5 L Mean Corpuscular Volume 81.9 L Mean Corpuscular Hemoglobin 27.8 L Mean Corpuscular Hemoglobin Concent 33.9 Red Cell Distribution Width 19.7 H Platelet Count 175 Mean Platelet Volume 10.3 Neutrophils % 88.5 H Lymphocytes % 2.1 L Monocytes % 4.5 Eosinophils % 0.1 Basophils % 0.2 Nucleated Red Blood Cells % 0.1 H Neutrophils # 17.4 H Lymphocytes # 0.4 L Monocytes # 0.9 Eosinophils # 0.0 Basophils # 0.0 Nucleated Red Blood Cells # 0.0 Sodium Level 134 L Potassium Level 3.8 Chloride Level 105 Carbon Dioxide Level 20 L Anion Gap 13 Blood Urea Nitrogen 13 Creatinine 0.38 L Glucose Level 94 Calcium Level 7.0 L Phosphorus Level 3.4 Magnesium Level 1.8 Medications Medications Current Medications Ondansetron HCl (Zofran Inj) 4 mg Q6H PRN IV NAUSEA AND/OR VOMITING Last administered on 04/24/17 15:32; Admin Dose 4 MG; Start 04/07/17 at 23:00 Pantoprazole (Protonix Iv) 40 mg BID@06,18 IV Last administered on 04/26/17 05: 34; Admin Dose 40 MG; Start 04/10/17 at 18:00 Sodium Phosphate (Neutra-Phos) 250 mg BID PO Last administered on 04/26/17 08: 37; Admin Dose 250 MG; Start 04/11/17 at 10:30 Metoclopramide HCl (Reglan) 10 mg Q6 IV Last administered on 04/26/17 05:34; Admin Dose 10 MG; Start 04/16/17 at 18:00 Promethazine HCl/ Codeine 5 ml 5 ml Q4H PRN PO COUGH Last administered on 12:11; Admin Dose 5 ML; Start 04/17/17 at 23:30 Metronidazole (Flagyl 500 Mg (Pmx)) 100 ml @ 100 mls/hr Q6 IVPB Last administered on 04/26/17 05:34; Admin Dose 100 MLS/HR; Start 04/20/17 at 00:00 Vancomycin HCl (Vancomycin Oral Syringe) 250 mg Q6 PO Last administered on 05:35; Admin Dose 250 MG; Start 04/20/17 at 12:00 Rifampin (Rifampin) 600 mg DAILY PO Last administered on 04/26/17 08:37; Admin Dose 600 MG; Start 04/20/17 at 12:00 Morphine Sulfate 2 mg 2 mg Q4H PRN IV PAIN Last administered on 04/26/17 09:45 ; Admin Dose 2 MG; Start 04/21/17 at 17:00 Fluconazole/ Sodium Chloride (Diflucan 100 Mg/ NS (Pmx)) 50 ml @ 50 mls/hr Q24H IVPB Last administered on 04/25/17 20:56; Admin Dose 50 MLS/HR; Start 04/22/17 at 18:00 Nystatin (Nystatin Susp) 5 ml QID PO Last administered on 04/26/17 08:37; Admin Dose 5 ML; Start 04/22/17 at 17:00 Megestrol Acetate (Megace Susp) 400 mg BID PO Last administered on 04/26/17 08: 37; Admin Dose 400 MG; Start 04/23/17 at 12:00 ABBEY CHU NP Apr 26, 2017 11:43
--- NOTE | 2017-04-26 13:17 | PN ---
Date/Time of Note Date/Time of Note DATE: 04/26/17 TIME: 13:16 Assessment/Plan VTE Prophylaxis VTE Prophylaxis Intervention: other Lines/Catheters IV Catheter Type (from Nrs): DILIP CATH Urinary Cath still in place: Yes Reason Cath still needed: skin wounds contaminated by urine Assessment/Plan Chief Complaint/Hosp Course -Extreme esophagitis per EGD, follow-up gastroenterology recommendations. Continue Protonix, Carafate, and Reglan. -Metastatic gastric adenocarcinoma, status post chemotherapy by Dr. Ford, oncology. Status post EGD with stent placement on04/[address] Millan, GI. -Nausea and vomiting, resolved. Continue Zofran for for nausea and morphine as needed for pain. -Hyponatremia secondary to dehydration, resolved, Dr. Ji is following in nephrology consultation. 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 -Protein calorie severe malnutrition. Nutritional consult is appreciated. -Leukopenia and anemia most likely secondary to chemotherapy. Restarted on Neupogen. Problems: Subjective 24 Hr Interval Summary Free Text/Dictation Patient is still nauseous, having abdominal pain Exam/Review of Systems Vital Signs Vitals Vital Signs Date Time Temp Pulse Resp B/P Pulse Ox O2 Delivery O2 Flow Rate FiO2 04/26/17 08:00 Nasal Cannula 2.0 04/26/17 02:51 98.8 95 20 102/69 98 Intake and Output 04/25/17 04/25/17 04/26/17 15:00 23:00 07:00 Intake Total 200 ml 690 ml 220 ml Output Total 800 ml 150 ml Balance 200 ml -110 ml 70 ml Exam Constitutional: well developed Head: atraumatic, normocephalic Neck: supple Respiratory: diminished breath sounds Cardiovascular: regular rate and rhythm Gastrointestinal: non-tender, soft Extremities: normal pulses Results Result Diagram: 04/26/17 0458 04/26/17 0458 Results 24 hrs Laboratory Tests Test 04/25/17 13:17 04/26/17 04:58 Prothrombin Time 22.6 #H Prothrombin Time Ratio 1.8 INR International Normalized Ratio 1.97 Activated Partial Thromboplast Time 34.2 White Blood Count 19.7 #H Red Blood Count 3.60 L Hemoglobin 10.0 L Hematocrit 29.5 L Mean Corpuscular Volume 81.9 L Mean Corpuscular Hemoglobin 27.8 L Mean Corpuscular Hemoglobin Concent 33.9 Red Cell Distribution Width 19.7 H Platelet Count 175 Mean Platelet Volume 10.3 Neutrophils % 88.5 H Lymphocytes % 2.1 L Monocytes % 4.5 Eosinophils % 0.1 Basophils % 0.2 Nucleated Red Blood Cells % 0.1 H Neutrophils # 17.4 H Lymphocytes # 0.4 L Monocytes # 0.9 Eosinophils # 0.0 Basophils # 0.0 Nucleated Red Blood Cells # 0.0 Sodium Level 134 L Potassium Level 3.8 Chloride Level 105 Carbon Dioxide Level 20 L Anion Gap 13 Blood Urea Nitrogen 13 Creatinine 0.38 L Glucose Level 94 Calcium Level 7.0 L Phosphorus Level 3.4 Magnesium Level 1.8 Medications Medications Current Medications Ondansetron HCl (Zofran Inj) 4 mg Q6H PRN IV NAUSEA AND/OR VOMITING Last administered on 04/24/17 15:32; Admin Dose 4 MG; Start 04/07/17 at 23:00 Pantoprazole (Protonix Iv) 40 mg BID@06,18 IV Last administered on 04/26/17 05: 34; Admin Dose 40 MG; Start 04/10/17 at 18:00 Sodium Phosphate (Neutra-Phos) 250 mg BID PO Last administered on 04/26/17 08: 37; Admin Dose 250 MG; Start 04/11/17 at 10:30 Metoclopramide HCl (Reglan) 10 mg Q6 IV Last administered on 04/26/17 13:02; Admin Dose 10 MG; Start 04/16/17 at 18:00 Promethazine HCl/ Codeine 5 ml 5 ml Q4H PRN PO COUGH Last administered on 12:11; Admin Dose 5 ML; Start 04/17/17 at 23:30 Metronidazole (Flagyl 500 Mg (Pmx)) 100 ml @ 100 mls/hr Q6 IVPB Last administered on 04/26/17 13:02; Admin Dose 100 MLS/HR; Start 04/20/17 at 00:00 Vancomycin HCl (Vancomycin Oral Syringe) 250 mg Q6 PO Last administered on 13:03; Admin Dose 250 MG; Start 04/20/17 at 12:00 Rifampin (Rifampin) 600 mg DAILY PO Last administered on 04/26/17 08:37; Admin Dose 600 MG; Start 04/20/17 at 12:00 Morphine Sulfate 2 mg 2 mg Q4H PRN IV PAIN Last administered on 04/26/17 09:45 ; Admin Dose 2 MG; Start 04/21/17 at 17:00 Fluconazole/ Sodium Chloride (Diflucan 100 Mg/ NS (Pmx)) 50 ml @ 50 mls/hr Q24H IVPB Last administered on 04/25/17 20:56; Admin Dose 50 MLS/HR; Start 04/22/17 at 18:00 Nystatin (Nystatin Susp) 5 ml QID PO Last administered on 04/26/17 13:02; Admin Dose 5 ML; Start 04/22/17 at 17:00 Megestrol Acetate (Megace Susp) 400 mg BID PO Last administered on 04/26/17 08: 37; Admin Dose 400 MG; Start 04/23/17 at 12:00 MOE UMANA Apr 26, 2017 13:17
--- NOTE | 2017-04-26 15:31 | CONS ---
Date/Time of Note Date/Time of Note DATE: 04/26/17 TIME: 15:31 Assessment/Plan Assessment/Plan Chief Complaint/Hosp Course Metastatic gastric adenocarcinoma with peritoneal carcinomatosis., POOR PS POST CHEMO Abdominopelvic ascites - malignant POST Paracentesis LEUKOPENIA, POST CHEMO, WITH SUBSEQUENT LEUKOCYTOSIS 2 TO NEUPOGEN and c diff MONITOR NEUPOGEN- DC ANEMIA POST CHEMO MONITOR POST prbc Intractable nausea, vomiting, dehydration ANTIEMETICS, IVF POST EGD- REPORT - NOTED Extreme esophagitis per EGD, PER GI Moderate right pleural effusion. Mild pericardial effusion. Diffuse subcutaneous edema. Abdominal pain. PAIN CONTROL hx Left lower extremity edema.- better HYPONATREMIA NEPHRO POST family conference FINAL DECISION - COMFORT CARE, HOSPICE family want inpt hospice Problems: Consultation Date/Type/Reason Admit Date/Time Apr 07, 2017 at 19:17 Type of Consultation: [facility] Referring Provider: CINDY ESTRELLA MD 24 HR Interval Summary Free Text/Dictation all noted Exam/Review of Systems Vital Signs Vitals Vital Signs Date Time Temp Pulse Resp B/P Pulse Ox O2 Delivery O2 Flow Rate FiO2 04/26/17 08:00 Nasal Cannula 2.0 04/26/17 02:51 98.8 95 20 102/69 98 Intake and Output 04/25/17 04/25/17 04/26/17 15:00 23:00 07:00 Intake Total 200 ml 690 ml 220 ml Output Total 800 ml 150 ml Balance 200 ml -110 ml 70 ml Exam Constitutional: alert, oriented, cachetic, generalized weakness Psych: nl mood/affect, no complaints Head: atraumatic, normocephalic Eyes: EOMI, nl conjunctiva, nl lids, nl sclera ENMT: Unremarkable Neck: non-tender, supple Respiratory: (+)Rales, no wheezing, equal chest rise bilaterally Cardiovascular: nl pulses, regular rate and rhythm Gastrointestinal: Ascites Musculoskeletal: nl extremities to inspection Extremities: normal pulses 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: 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 II-XII intact, nl mental status, nl speech Skin: No diaphoresis, N rash or lesions Lymph: nl lymph nodes Results Result Diagram: 04/26/17 0458 04/26/17 0458 Results 24 hrs Laboratory Tests Test 04/26/17 04:58 White Blood Count 19.7 #H Red Blood Count 3.60 L Hemoglobin 10.0 L Hematocrit 29.5 L Mean Corpuscular Volume 81.9 L Mean Corpuscular Hemoglobin 27.8 L Mean Corpuscular Hemoglobin Concent 33.9 Red Cell Distribution Width 19.7 H Platelet Count 175 Mean Platelet Volume 10.3 Neutrophils % 88.5 H Lymphocytes % 2.1 L Monocytes % 4.5 Eosinophils % 0.1 Basophils % 0.2 Nucleated Red Blood Cells % 0.1 H Neutrophils # 17.4 H Lymphocytes # 0.4 L Monocytes # 0.9 Eosinophils # 0.0 Basophils # 0.0 Nucleated Red Blood Cells # 0.0 Sodium Level 134 L Potassium Level 3.8 Chloride Level 105 Carbon Dioxide Level 20 L Anion Gap 13 Blood Urea Nitrogen 13 Creatinine 0.38 L Glucose Level 94 Calcium Level 7.0 L Phosphorus Level 3.4 Magnesium Level 1.8 Medications Medications Current Medications Ondansetron HCl (Zofran Inj) 4 mg Q6H PRN IV NAUSEA AND/OR VOMITING Last administered on 04/24/17 15:32; Admin Dose 4 MG; Start 04/07/17 at 23:00 Pantoprazole (Protonix Iv) 40 mg BID@06,18 IV Last administered on 04/26/17 05: 34; Admin Dose 40 MG; Start 04/10/17 at 18:00 Sodium Phosphate (Neutra-Phos) 250 mg BID PO Last administered on 04/26/17 08: 37; Admin Dose 250 MG; Start 04/11/17 at 10:30 Metoclopramide HCl (Reglan) 10 mg Q6 IV Last administered on 04/26/17 13:02; Admin Dose 10 MG; Start 04/16/17 at 18:00 Promethazine HCl/ Codeine 5 ml 5 ml Q4H PRN PO COUGH Last administered on 12:11; Admin Dose 5 ML; Start 04/17/17 at 23:30 Metronidazole (Flagyl 500 Mg (Pmx)) 100 ml @ 100 mls/hr Q6 IVPB Last administered on 04/26/17 13:02; Admin Dose 100 MLS/HR; Start 04/20/17 at 00:00 Vancomycin HCl (Vancomycin Oral Syringe) 250 mg Q6 PO Last administered on 13:03; Admin Dose 250 MG; Start 04/20/17 at 12:00 Rifampin (Rifampin) 600 mg DAILY PO Last administered on 04/26/17 08:37; Admin Dose 600 MG; Start 04/20/17 at 12:00 Morphine Sulfate 2 mg 2 mg Q4H PRN IV PAIN Last administered on 04/26/17 09:45 ; Admin Dose 2 MG; Start 04/21/17 at 17:00 Fluconazole/ Sodium Chloride (Diflucan 100 Mg/ NS (Pmx)) 50 ml @ 50 mls/hr Q24H IVPB Last administered on 04/25/17 20:56; Admin Dose 50 MLS/HR; Start 04/22/17 at 18:00 Nystatin (Nystatin Susp) 5 ml QID PO Last administered on 04/26/17 13:02; Admin Dose 5 ML; Start 04/22/17 at 17:00 Megestrol Acetate (Megace Susp) 400 mg BID PO Last administered on 04/26/17 08: 37; Admin Dose 400 MG; Start 04/23/17 at 12:00 GRETEL LITTLEJOHN MD Apr 26, 2017 15:31
[2017-04-26] MEDS: PROMETHAZINE/CODEINE 5ML CUP PO PRN ×2 (15:54→23:05)
[2017-04-26 15:56] VITALS: BP 119/87; RESP 18
--- NOTE | 2017-04-26 17:48 | CONS ---
Date/Time of Note Date/Time of Note DATE: 04/26/17 TIME: 17:47 Assessment/Plan Assessment/Plan Additional Assessment/Plan Additional Assessment/Plan 1. 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 Intractable nausea vomiting, resolved, patient is able to tolerate p.o. feeding 3. Dysphagia 4. Hypertension 5. Cachexia 6. Extensive esophageal ulceration 7. Leukocytosis secondary to Neupogen 8. Ascites 9. C. difficile colitis 10. Aspiration pneumonia Chaparrita in the sputum and also in the urine 11. Status post placement of self-expanding metallic stent across the obstructing lesion in the antrum, patient is able to tolerate p.o. feeding no nausea or vomiting. Plan Continue PPI 40 mg twice daily Reglan Self-expanding metallic stent on Saturday Discussed the patient and the family member and has agreed for the stent Stent successfully deployed across pyloric channel Increase the dose of Reglan as a prokinetic agent Will add p.o. vancomycin IV antibiotic as per ID We will monitor WBC count We will start her on a clear liquid diet and advance it as tolerated by the patient Clinically patient looks much better megace Sonogram was negative for significant ascites Consultation Date/Type/Reason Admit Date/Time Apr 07, 2017 at 19:17 [facility] Referring Provider: CINDY ESTRELLA MD 24 HR Interval Summary Constitutional: improved Exam/Review of Systems Vital Signs Vitals Vital Signs Date Time Temp Pulse Resp B/P Pulse Ox O2 Delivery O2 Flow Rate FiO2 04/26/17 15:56 97.4 90 18 119/87 95 04/26/17 08:00 Nasal Cannula 2.0 Intake and Output 04/25/17 04/25/17 04/26/17 15:00 23:00 07:00 Intake Total 200 ml 690 ml 220 ml Output Total 800 ml 150 ml Balance 200 ml -110 ml 70 ml Exam Constitutional: alert, oriented, well developed Psych: nl mood/affect, no complaints Head: atraumatic, normocephalic Eyes: EOMI, PERRL, nl conjunctiva, nl lids, nl sclera ENMT: nl external ears & nose, nl lips & teeth, nl nasal mucosa & septum Neck: non-tender, supple Respiratory: clear to auscultation, normal air movement Cardiovascular: nl pulses, regular rate and rhythm Gastrointestinal: nl liver, spleen, non-tender, soft Musculoskeletal: nl extremities to inspection, nl gait and stance Extremities: normal pulses 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: 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 II-XII intact, nl mental status, nl speech, nl strength Skin: nl turgor, No rash or lesions Lymph: nl lymph nodes Results Result Diagram: 04/26/17 0458 04/26/17 0458 Results 24 hrs Laboratory Tests Test 04/26/17 04:58 White Blood Count 19.7 #H Red Blood Count 3.60 L Hemoglobin 10.0 L Hematocrit 29.5 L Mean Corpuscular Volume 81.9 L Mean Corpuscular Hemoglobin 27.8 L Mean Corpuscular Hemoglobin Concent 33.9 Red Cell Distribution Width 19.7 H Platelet Count 175 Mean Platelet Volume 10.3 Neutrophils % 88.5 H Lymphocytes % 2.1 L Monocytes % 4.5 Eosinophils % 0.1 Basophils % 0.2 Nucleated Red Blood Cells % 0.1 H Neutrophils # 17.4 H Lymphocytes # 0.4 L Monocytes # 0.9 Eosinophils # 0.0 Basophils # 0.0 Nucleated Red Blood Cells # 0.0 Sodium Level 134 L Potassium Level 3.8 Chloride Level 105 Carbon Dioxide Level 20 L Anion Gap 13 Blood Urea Nitrogen 13 Creatinine 0.38 L Glucose Level 94 Calcium Level 7.0 L Phosphorus Level 3.4 Magnesium Level 1.8 Medications Medications Current Medications Ondansetron HCl (Zofran Inj) 4 mg Q6H PRN IV NAUSEA AND/OR VOMITING Last administered on 04/24/17 15:32; Admin Dose 4 MG; Start 04/07/17 at 23:00 Pantoprazole (Protonix Iv) 40 mg BID@06,18 IV Last administered on 04/26/17 05: 34; Admin Dose 40 MG; Start 04/10/17 at 18:00 Sodium Phosphate (Neutra-Phos) 250 mg BID PO Last administered on 04/26/17 08: 37; Admin Dose 250 MG; Start 04/11/17 at 10:30 Metoclopramide HCl (Reglan) 10 mg Q6 IV Last administered on 04/26/17 13:02; Admin Dose 10 MG; Start 04/16/17 at 18:00 Promethazine HCl/ Codeine 5 ml 5 ml Q4H PRN PO COUGH Last administered on 15:54; Admin Dose 5 ML; Start 04/17/17 at 23:30 Metronidazole (Flagyl 500 Mg (Pmx)) 100 ml @ 100 mls/hr Q6 IVPB Last administered on 04/26/17 13:02; Admin Dose 100 MLS/HR; Start 04/20/17 at 00:00 Vancomycin HCl (Vancomycin Oral Syringe) 250 mg Q6 PO Last administered on 13:03; Admin Dose 250 MG; Start 04/20/17 at 12:00 Rifampin (Rifampin) 600 mg DAILY PO Last administered on 04/26/17 08:37; Admin Dose 600 MG; Start 04/20/17 at 12:00 Morphine Sulfate 2 mg 2 mg Q4H PRN IV PAIN Last administered on 04/26/17 16:20 ; Admin Dose 2 MG; Start 04/21/17 at 17:00 Fluconazole/ Sodium Chloride (Diflucan 100 Mg/ NS (Pmx)) 50 ml @ 50 mls/hr Q24H IVPB Last administered on 04/25/17 20:56; Admin Dose 50 MLS/HR; Start 04/22/17 at 18:00 Nystatin (Nystatin Susp) 5 ml QID PO Last administered on 04/26/17 13:02; Admin Dose 5 ML; Start 04/22/17 at 17:00 Megestrol Acetate (Megace Susp) 400 mg BID PO Last administered on 04/26/17 08: 37; Admin Dose 400 MG; Start 04/23/17 at 12:00 GIANNA CHANEL MD Apr 26, 2017 17:48
[2017-04-26] MEDS: FLUCONAZOLE 100 MG/NS (PMX) 50 ML IVPB SCH (18:10)
[2017-04-26 19:34] VITALS: BP 111/72; RESP 20
[2017-04-27 02:22] VITALS: BP 99/68; RESP 18
[2017-04-27] MEDS: VANCOMYCIN HCL 250 MG/5ML POSYG PO SCH ×3 (05:51→17:55)
[2017-04-27] MEDS: METOCLOPRAMIDE 10 MG INJ IV SCH ×3 (05:51→17:55)
[2017-04-27] MEDS: metroNIDAZOLE 500 MG/NS (PMX) 100 ML IVPB SCH ×3 (05:51→17:55)
[2017-04-27] MEDS: PANTOPRAZOLE 40 MG INJ IV SCH ×2 (05:51→17:55)
[2017-04-27 07:08] LABS: CALCIUM 7.4 mg/dl (8.4-10.2); CREATININE 0.33 mg/dl (0.44-1.00); MAGNESIUM 1.8 mg/dl (1.7-2.5); PHOSPHORUS 3.7 mg/dl (2.5-4.9); POTASSIUM 3.6 mmol/L (3.5-5.1)
[2017-04-27 07:54] VITALS: BP 109/85; RESP 20
[2017-04-27] MEDS: MEGESTROL (40 MG/ML) 10ML CUP PO SCH ×2 (08:47→20:42)
[2017-04-27] MEDS: NEUTRA-PHOS 250 MG PACKET PO SCH ×2 (08:47→20:42)
[2017-04-27] MEDS: NYSTATIN SUSP 5 ML CUP PO SCH ×4 (08:47→20:42)
[2017-04-27] MEDS: RIFAMPIN 300 MG CAP PO SCH (08:47)
[2017-04-27] MEDS: PROMETHAZINE/CODEINE 5ML CUP PO PRN (11:06)
--- NOTE | 2017-04-27 11:35 | PN ---
Date/Time of Note Date/Time of Note DATE: 04/27/17 TIME: 11:34 Assessment/Plan VTE Prophylaxis VTE Prophylaxis Intervention: other Lines/Catheters IV Catheter Type (from Nrsg): portacath Urinary Cath still in place: Yes Reason Cath still needed: skin wounds contaminated by urine Assessment/Plan Chief Complaint/Hosp Course -Extreme esophagitis per EGD, follow-up gastroenterology recommendations. Continue Protonix, Carafate, and Reglan. -Metastatic gastric adenocarcinoma, status post chemotherapy by Dr. Ford, oncology. Status post EGD with stent placement on04/[address] Millan, GI. -Nausea and vomiting, resolved. Continue Zofran for for nausea and morphine as needed for pain. -Hyponatremia secondary to dehydration, resolved, Dr. Ji is following in nephrology consultation. 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 -Protein calorie severe malnutrition. Nutritional consult is appreciated. -Leukopenia and anemia most likely secondary to chemotherapy. Restarted on Neupogen. Patient is on palliative care, family seeking placement in SNF Problems: Subjective 24 Hr Interval Summary Free Text/Dictation Patient complain of pain in legs Exam/Review of Systems Vital Signs Vitals Vital Signs Date Time Temp Pulse Resp B/P Pulse Ox O2 Delivery O2 Flow Rate FiO2 04/27/17 09:59 2.0 04/27/17 07:54 98.6 94 20 109/85 96 04/26/17 20:00 Nasal Cannula Intake and Output 04/26/17 04/26/17 04/27/17 15:00 23:00 07:00 Intake Total 100 ml 750 ml 440 ml Output Total 700 ml 100 ml Balance 100 ml 50 ml 340 ml Exam Constitutional: frail Head: atraumatic, normocephalic Neck: supple Respiratory: diminished breath sounds Cardiovascular: regular rate and rhythm Gastrointestinal: soft, tender Extremities: edema Results Result Diagram: 04/26/17 0458 04/27/17 0536 Results 24 hrs Laboratory Tests Test 04/27/17 05:36 Sodium Level 134 L Potassium Level 3.6 Chloride Level 102 Carbon Dioxide Level 23 Anion Gap 13 Blood Urea Nitrogen 15 Creatinine 0.33 L Glucose Level 85 Calcium Level 7.4 L Phosphorus Level 3.7 Magnesium Level 1.8 Medications Medications Current Medications Ondansetron HCl (Zofran Inj) 4 mg Q6H PRN IV NAUSEA AND/OR VOMITING Last administered on 04/24/17 15:32; Admin Dose 4 MG; Start 04/07/17 at 23:00 Pantoprazole (Protonix Iv) 40 mg BID@06,18 IV Last administered on 04/27/17 05: 51; Admin Dose 40 MG; Start 04/10/17 at 18:00 Sodium Phosphate (Neutra-Phos) 250 mg BID PO Last administered on 04/27/17 08: 47; Admin Dose 250 MG; Start 04/11/17 at 10:30 Metoclopramide HCl (Reglan) 10 mg Q6 IV Last administered on 04/27/17 05:51; Admin Dose 10 MG; Start 04/16/17 at 18:00 Promethazine HCl/ Codeine 5 ml 5 ml Q4H PRN PO COUGH Last administered on 11:06; Admin Dose 5 ML; Start 04/17/17 at 23:30 Metronidazole (Flagyl 500 Mg (Pmx)) 100 ml @ 100 mls/hr Q6 IVPB Last administered on 04/27/17 05:51; Admin Dose 100 MLS/HR; Start 04/20/17 at 00:00 Vancomycin HCl (Vancomycin Oral Syringe) 250 mg Q6 PO Last administered on 05:51; Admin Dose 250 MG; Start 04/20/17 at 12:00 Rifampin 600 mg 600 mg DAILY PO Last administered on 04/27/17 08:47; Admin Dose 600 MG; Start 04/20/17 at 12:00 Fluconazole/ Sodium Chloride (Diflucan 100 Mg/ NS (Pmx)) 50 ml @ 50 mls/hr Q24H IVPB Last administered on 04/26/17 18:10; Admin Dose 50 MLS/HR; Start 04/22/17 at 18:00 Nystatin (Nystatin Susp) 5 ml QID PO Last administered on 04/27/17 08:47; Admin Dose 5 ML; Start 04/22/17 at 17:00 Megestrol Acetate (Megace Susp) 400 mg BID PO Last administered on 04/27/17 08: 47; Admin Dose 400 MG; Start 04/23/17 at 12:00 Morphine Sulfate (morphine) 2 mg Q4H PRN IV PAIN; Start 04/27/17 at 10:30 MOE UMANA Apr 27, 2017 11:35
--- NOTE | 2017-04-27 12:27 | CONS ---
Date/Time of Note Date/Time of Note DATE: 04/27/17 TIME: 12:26 Assessment/Plan Assessment/Plan Additional Assessment/Plan Additional Assessment/Plan 1. 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 Intractable nausea vomiting, resolved, patient is able to tolerate p.o. feeding 3. Dysphagia 4. Hypertension 5. Cachexia 6. Extensive esophageal ulceration 7. Leukocytosis secondary to Neupogen 8. Ascites 9. C. difficile colitis 10. Aspiration pneumonia Chaparrita in the sputum and also in the urine 11. Status post placement of self-expanding metallic stent across the obstructing lesion in the antrum, patient is able to tolerate p.o. feeding no nausea or vomiting. Plan Continue PPI 40 mg twice daily Reglan Self-expanding metallic stent on Saturday Discussed the patient and the family member and has agreed for the stent Stent successfully deployed across pyloric channel Increase the dose of Reglan as a prokinetic agent Will add p.o. vancomycin IV antibiotic as per ID We will monitor WBC count We will start her on a clear liquid diet and advance it as tolerated by the patient Clinically patient looks much better megace Sonogram was negative for significant ascites, on examination patient definitely has moderate ascites and a 4+ pedal edema. She definitely needs drainage of ascites fluid. Consultation Date/Type/Reason Admit Date/Time Apr 07, 2017 at 19:17 Type of Consultation: [facility] Referring Provider: CINDY ESTRELLA MD 24 HR Interval Summary Free Text/Dictation No nausea no vomiting. Abdomen is distended Exam/Review of Systems Vital Signs Vitals Vital Signs Date Time Temp Pulse Resp B/P Pulse Ox O2 Delivery O2 Flow Rate FiO2 04/27/17 09:59 2.0 04/27/17 07:54 98.6 94 20 109/85 96 04/26/17 20:00 Nasal Cannula Intake and Output 04/26/17 04/26/17 04/27/17 15:00 23:00 07:00 Intake Total 100 ml 750 ml 440 ml Output Total 700 ml 100 ml Balance 100 ml 50 ml 340 ml Exam Constitutional: alert, oriented, well developed Psych: nl mood/affect, no complaints Respiratory: clear to auscultation, normal air movement Gastrointestinal: ascites, distended, non-tender, other, soft Extremities: pitting pedal edema 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: IN SERVICE EDUCATOR II-XII intact, nl mental status, nl speech, nl strength Results Result Diagram: 04/26/17 0458 04/27/17 0536 Results 24 hrs Laboratory Tests Test 04/27/17 05:36 Sodium Level 134 L Potassium Level 3.6 Chloride Level 102 Carbon Dioxide Level 23 Anion Gap 13 Blood Urea Nitrogen 15 Creatinine 0.33 L Glucose Level 85 Calcium Level 7.4 L Phosphorus Level 3.7 Magnesium Level 1.8 Medications Medications Current Medications Ondansetron HCl (Zofran Inj) 4 mg Q6H PRN IV NAUSEA AND/OR VOMITING Last administered on 04/24/17 15:32; Admin Dose 4 MG; Start 04/07/17 at 23:00 Pantoprazole (Protonix Iv) 40 mg BID@06,18 IV Last administered on 04/27/17 05: 51; Admin Dose 40 MG; Start 04/10/17 at 18:00 Sodium Phosphate (Neutra-Phos) 250 mg BID PO Last administered on 04/27/17 08: 47; Admin Dose 250 MG; Start 04/11/17 at 10:30 Metoclopramide HCl (Reglan) 10 mg Q6 IV Last administered on 04/27/17 05:51; Admin Dose 10 MG; Start 04/16/17 at 18:00 Promethazine HCl/ Codeine 5 ml 5 ml Q4H PRN PO COUGH Last administered on 11:06; Admin Dose 5 ML; Start 04/17/17 at 23:30 Metronidazole (Flagyl 500 Mg (Pmx)) 100 ml @ 100 mls/hr Q6 IVPB Last administered on 04/27/17 05:51; Admin Dose 100 MLS/HR; Start 04/20/17 at 00:00 Vancomycin HCl (Vancomycin Oral Syringe) 250 mg Q6 PO Last administered on 05:51; Admin Dose 250 MG; Start 04/20/17 at 12:00 Rifampin 600 mg 600 mg DAILY PO Last administered on 04/27/17 08:47; Admin Dose 600 MG; Start 04/20/17 at 12:00 Fluconazole/ Sodium Chloride (Diflucan 100 Mg/ NS (Pmx)) 50 ml @ 50 mls/hr Q24H IVPB Last administered on 04/26/17 18:10; Admin Dose 50 MLS/HR; Start 04/22/17 at 18:00 Nystatin (Nystatin Susp) 5 ml QID PO Last administered on 04/27/17 08:47; Admin Dose 5 ML; Start 04/22/17 at 17:00 Megestrol Acetate (Megace Susp) 400 mg BID PO Last administered on 04/27/17 08: 47; Admin Dose 400 MG; Start 04/23/17 at 12:00 Morphine Sulfate (morphine) 2 mg Q4H PRN IV PAIN; Start 04/27/17 at 10:30 GIANNA CHANEL MD Apr 27, 2017 12:27
--- NOTE | 2017-04-27 12:56 | CONS ---
Date/Time of Note Date/Time of Note DATE: 04/27/17 TIME: 12:55 Consultation Date/Type/Reason Admit Date/Time Apr 07, 2017 at 19:17 Initial Consult Date 04/07/17 Type of Consultation: nephrology Reason for Consultation all noted good uop. s/p egd Referring Provider: CINDY ESTRELLA MD Detailed Summary Additional Comments 1. Hyponatremia, mild. We will continue to monitor. 2. Volume overload secondary to third-spacing. Continue low- dose diuretic therapy. Monitor renal function and electrolytes closely. 3. Hypomagnesemia, improved. 4. Clostridium difficile colitis. Continue current medical management. 5. Gastric cancer with peritoneal carcinomatosis. Continue to monitor. Follow up with Oncology. Exam/Review of Systems Vital Signs Vitals Vital Signs Date Time Temp Pulse Resp B/P Pulse Ox O2 Delivery O2 Flow Rate FiO2 04/27/17 09:59 2.0 04/27/17 07:54 98.6 94 20 109/85 96 04/26/17 20:00 Nasal Cannula Intake and Output 04/26/17 04/26/17 04/27/17 15:00 23:00 07:00 Intake Total 100 ml 750 ml 440 ml Output Total 700 ml 100 ml Balance 100 ml 50 ml 340 ml Exam ENMT: nl external ears & nose, nl lips & teeth, nl nasal mucosa & septum Neck: non-tender, supple Respiratory: clear to auscultation, normal air movement Cardiovascular: nl pulses, regular rate and rhythm Gastrointestinal: nl liver, spleen, non-tender, soft Extremities: normal pulses Results Result Diagram: 04/26/17 0458 04/27/17 0536 Results 24 hrs Laboratory Tests Test 04/27/17 05:36 Sodium Level 134 L Potassium Level 3.6 Chloride Level 102 Carbon Dioxide Level 23 Anion Gap 13 Blood Urea Nitrogen 15 Creatinine 0.33 L Glucose Level 85 Calcium Level 7.4 L Phosphorus Level 3.7 Magnesium Level 1.8 Medications Medications Current Medications Ondansetron HCl (Zofran Inj) 4 mg Q6H PRN IV NAUSEA AND/OR VOMITING Last administered on 04/24/17 15:32; Admin Dose 4 MG; Start 04/07/17 at 23:00 Pantoprazole (Protonix Iv) 40 mg BID@06,18 IV Last administered on 04/27/17 05: 51; Admin Dose 40 MG; Start 04/10/17 at 18:00 Sodium Phosphate (Neutra-Phos) 250 mg BID PO Last administered on 04/27/17 08: 47; Admin Dose 250 MG; Start 04/11/17 at 10:30 Metoclopramide HCl (Reglan) 10 mg Q6 IV Last administered on 04/27/17 05:51; Admin Dose 10 MG; Start 04/16/17 at 18:00 Promethazine HCl/ Codeine 5 ml 5 ml Q4H PRN PO COUGH Last administered on 11:06; Admin Dose 5 ML; Start 04/17/17 at 23:30 Metronidazole (Flagyl 500 Mg (Pmx)) 100 ml @ 100 mls/hr Q6 IVPB Last administered on 04/27/17 05:51; Admin Dose 100 MLS/HR; Start 04/20/17 at 00:00 Vancomycin HCl (Vancomycin Oral Syringe) 250 mg Q6 PO Last administered on 05:51; Admin Dose 250 MG; Start 04/20/17 at 12:00 Rifampin 600 mg 600 mg DAILY PO Last administered on 04/27/17 08:47; Admin Dose 600 MG; Start 04/20/17 at 12:00 Fluconazole/ Sodium Chloride (Diflucan 100 Mg/ NS (Pmx)) 50 ml @ 50 mls/hr Q24H IVPB Last administered on 04/26/17 18:10; Admin Dose 50 MLS/HR; Start 04/22/17 at 18:00 Nystatin (Nystatin Susp) 5 ml QID PO Last administered on 04/27/17 08:47; Admin Dose 5 ML; Start 04/22/17 at 17:00 Megestrol Acetate (Megace Susp) 400 mg BID PO Last administered on 04/27/17 08: 47; Admin Dose 400 MG; Start 04/23/17 at 12:00 Morphine Sulfate (morphine) 2 mg Q4H PRN IV PAIN; Start 04/27/17 at 10:30 HEMALATHA CAMARILLO MD Apr 27, 2017 12:56
[2017-04-27] MEDS: morphine 2 MG INJ IV PRN ×3 (13:02→22:03)
[2017-04-27 16:23] VITALS: BP 109/75; RESP 18
[2017-04-27] MEDS: FLUCONAZOLE 100 MG/NS (PMX) 50 ML IVPB SCH (18:03)
--- NOTE | 2017-04-27 19:21 | CONS ---
Date/Time of Note Date/Time of Note DATE: 04/27/17 TIME: 19:13 Assessment/Plan Assessment/Plan Chief Complaint/Hosp Course ID PROGRESS NOTE CURRENT ABX: DAY #7=> Flagyl IV #7 + Vanco liq po #7 + Rifampin #7 + Diflucan 100mg IV #5 s/p Fosfomycin po x1 04/20 (Enterococcal UTI) 24H INTERVAL SUMMARY * Doing OK, no fevers, diarrhea much better Exam Constitutional: alert, oriented, cachetic, generalized weakness Psych: nl mood/affect, no complaints Head: atraumatic, normocephalic Eyes: EOMI, nl conjunctiva, nl lids, nl sclera ENMT: Unremarkable Neck: non-tender, supple Respiratory: (+)Rales, no wheezing, equal chest rise bilaterally Cardiovascular: nl pulses, regular rate and rhythm Gastrointestinal: Ascites Musculoskeletal: nl extremities to inspection Extremities: normal pulses 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: [employer] C[employer] II-XII intact, nl mental status, nl speech Skin: No diaphoresis, N rash or lesions Lymph: nl lymph nodes ID ASSESSMENT 61 yo F w/Metastatic gastric CA -> status post chemotherapy by Dr. Ford. 1. SEPSIS per (+) rising leukocytosis 10.0(04/16) -> 22.8 (04/17)-> now 40.1 (04/20 ) w/15% BANDS => IMPROVING: * No fevers, mild intermittent tachycardia 90-110, B/P 93/59 * (+)C.Diff Colitis 04/17/17 C DIFFICILE DNA AMPLIFICATION Final CYTOTOXIGENIC C DIFFICILE POSITIVE (Ref Range Neg) * DDx: spontaneous bacterial peritonitis=> D/W Dr. Orozco -- Rx Rifampin onboard * DDx: UTI 04/20 Urine Cx (+) URINE CULTURE Preliminary ==> she was treated empirically w/Fosfomycin po x1 Organism 1 ENTEROCOCCUS SPECIES COLONY COUNT 70,000 - 80,000 CFU/ml Organism 2 CHAPARRITA ALBICANS COLONY COUNT 30,000 - 40,000 CFU/ml * DDx: Aspiration Pneumonitis => Lungs w/increase fluid likely 2. Metastatic gastric CA with suspected malignant abdominopelvic ascites and peritoneal carcinomatosis * s/p PARA 04/14-> ~5000 ml of clear yellow fluid was obtained and then discarded. * DDx: spontaneous bacterial peritonitis => Rifampin 600mg PO daily onboard 3. Leukopenia and anemia 2/2 chemotherapy. Restarted on Neupogen. 4. GERD, extreme esophagitis and severe reflux w/undigested food in the esophagus => risk factor for silent aspiration syndrome * s/p 04/16/17 EGD with stent placement on04/[address] Millan, GI. * Sputum (+)Chaparrita albicans -> Start Nystatin 5mL QIC swish/swallow 5. Abdominal pain with nausea and vomiting 2/2 massive ascites pressure volume = > due to #2 & #4 * N/V/ABD Pain resolved w/Zofran and Morphine 6. Possible aspiration pneumonia => Rifampin onboard * Respiratory culture grew (+)Yeast == Oral Candidiasis likely * RESPIRATORY CULTURE Final Organism 1 CHAPARRITA ALBICANS QUANTITY 1+ Organism 2 NORMAL RESPIRATORY STEFANIA QUANTITY 1+ 7. Pulmonary congestion w/ extensive bilateral upper lobe and lower lobe infiltrates on CXR 04/20 * Multifactorial due to severe ascites fluid back up, low colloid pressure 3rd spacing, malignancy * Moderate right pleural effusion on admission 8. Hx of CHF * 2D ECHO SEP 2016, normal LVFx w/EF~60% * 2D ECHO 2015 preserved systolic LVFx w/STG I diastolic dysfunction 9. Cachexia w/severe protein calorie deficiency 10. Low normal B/P w/transient hypotension due to low colloid pressure 3rd spacing, malignancy, SIRS, sepsis 11. Contaminated Urine culture vs early GNR UTI on 04/07/17 URINE CULTURE Final Organism 1 ESCHERICHIA COLI COLONY COUNT <10,000 CFU/ml Organism 2 LACTOBACILLUS SPECIES COLONY COUNT >100,000 CFU/ml (-) MRSA Nares INVASIVES: Right chest Port-A-Cath ABX ALLERGY: KNDA CURRENT ABX: DAY #7=> Flagyl IV #7 + Vanco liq po #7 + Rifampin #7 + Diflucan 100mg IV #5 s/p Fosfomycin po x1 04/20 (Enterococcal UTI) s/o Fosfomycin po x1 04/27 (Repeat per WBC remains elevated) ID RECOMMENDATIONS 1. WBC remains elevated, yet overall improved after Fosfomycin x1 for Enterococcal UTI, Diflucan for yeast * Let's repeat Fosfomycin x1 to ensure Enterococcus has cleared 2. Rising WBC w/bandemia is due to (+)C.Diff colitis =IMPROVING CONTINUE ABX * Diarrhea resolving ->Start Vanco taper 250mg QID -> 125mg TID 2. Aspiration precautions -> AVOID empiric IV ABX for concern possible aspiration pneumonitis * (+)YEAST sputum = (+) esophagitis /oral candidiasis > Start Diflucan IV + Nystatin PO swish/swallow 3. PRN For Temp >101.0 send blood cultures via Port-A-Cath, no compelling evidence infected Port septicemia at this time. 4. Problems: Consultation Date/Type/Reason Admit Date/Time Apr 07, 2017 at 19:17 Initial Consult Date 04/07/17 Type of Consultation: ID Referring Provider: CINDY ESTRELLA MD Exam/Review of Systems Vital Signs Vitals Vital Signs Date Time Temp Pulse Resp B/P Pulse Ox O2 Delivery O2 Flow Rate FiO2 04/27/17 16:23 98.4 88 18 109/75 100 04/27/17 09:59 2.0 04/27/17 08:20 Nasal Cannula Intake and Output 04/26/17 04/26/17 04/27/17 15:00 23:00 07:00 Intake Total 100 ml 750 ml 440 ml Output Total 700 ml 100 ml Balance 100 ml 50 ml 340 ml Results Result Diagram: 04/26/17 0458 04/27/17 0536 Results 24 hrs Laboratory Tests Test 04/27/17 05:36 Sodium Level 134 L Potassium Level 3.6 Chloride Level 102 Carbon Dioxide Level 23 Anion Gap 13 Blood Urea Nitrogen 15 Creatinine 0.33 L Glucose Level 85 Calcium Level 7.4 L Phosphorus Level 3.7 Magnesium Level 1.8 Medications Medications Current Medications Ondansetron HCl (Zofran Inj) 4 mg Q6H PRN IV NAUSEA AND/OR VOMITING Last administered on 04/24/17 15:32; Admin Dose 4 MG; Start 04/07/17 at 23:00 Pantoprazole (Protonix Iv) 40 mg BID@06,18 IV Last administered on 04/27/17 17: 55; Admin Dose 40 MG; Start 04/10/17 at 18:00 Sodium Phosphate (Neutra-Phos) 250 mg BID PO Last administered on 04/27/17 08: 47; Admin Dose 250 MG; Start 04/11/17 at 10:30 Metoclopramide HCl (Reglan) 10 mg Q6 IV Last administered on 04/27/17 17:55; Admin Dose 10 MG; Start 04/16/17 at 18:00 Promethazine HCl/ Codeine 5 ml 5 ml Q4H PRN PO COUGH Last administered on 11:06; Admin Dose 5 ML; Start 04/17/17 at 23:30 Metronidazole (Flagyl 500 Mg (Pmx)) 100 ml @ 100 mls/hr Q6 IVPB Last administered on 04/27/17 17:55; Admin Dose 100 MLS/HR; Start 04/20/17 at 00:00 Vancomycin HCl (Vancomycin Oral Syringe) 250 mg Q6 PO Last administered on 17:55; Admin Dose 250 MG; Start 04/20/17 at 12:00 Rifampin 600 mg 600 mg DAILY PO Last administered on 04/27/17 08:47; Admin Dose 600 MG; Start 04/20/17 at 12:00 Fluconazole/ Sodium Chloride (Diflucan 100 Mg/ NS (Pmx)) 50 ml @ 50 mls/hr Q24H IVPB Last administered on 04/27/17 18:03; Admin Dose 50 MLS/HR; Start 04/22/17 at 18:00 Nystatin (Nystatin Susp) 5 ml QID PO Last administered on 04/27/17 17:55; Admin Dose 5 ML; Start 04/22/17 at 17:00 Megestrol Acetate (Megace Susp) 400 mg BID PO Last administered on 04/27/17 08: 47; Admin Dose 400 MG; Start 04/23/17 at 12:00 Morphine Sulfate (morphine) 2 mg Q4H PRN IV PAIN Last administered on 04/27/17 17:58; Admin Dose 2 MG; Start 04/27/17 at 10:30 GENESIS MESSER NP Apr 27, 2017 19:21
[2017-04-27 20:00] VITALS: BP 103/72; RESP 20
[2017-04-27 22:07] VITALS: BP 103/76; PULSE 96; RESP 20
[2017-04-28] MEDS: VANCOMYCIN HCL 250 MG/5ML POSYG PO SCH ×4 (00:02→22:00)
[2017-04-28] MEDS: METOCLOPRAMIDE 10 MG INJ IV SCH ×4 (00:02→18:06)
[2017-04-28] MEDS: metroNIDAZOLE 500 MG/NS (PMX) 100 ML IVPB SCH ×4 (00:02→18:06)
[2017-04-28] MEDS: ALBUTEROL/IPRATROPIUM (NEB) 3 ML AMP HHN PRN (01:00)
[2017-04-28 01:19] VITALS: BP 126/88; PULSE 86; RESP 22
[2017-04-28] MEDS: morphine 2 MG INJ IV PRN ×3 (01:25→17:28)
[2017-04-28] MEDS ORDERED: morphine 4 MG/ML VIAL IV PRN (01:30)
[2017-04-28 02:24] VITALS: BP 108/82; RESP 16
[2017-04-28] MEDS: PANTOPRAZOLE 40 MG INJ IV SCH ×2 (06:35→18:06)
[2017-04-28] MEDS: NYSTATIN SUSP 5 ML CUP PO SCH ×4 (09:00→21:00)
[2017-04-28 09:05] VITALS: BP 91/71; RESP 14
[2017-04-28] MEDS: NEUTRA-PHOS 250 MG PACKET PO SCH ×2 (09:43→21:00)
[2017-04-28] MEDS: RIFAMPIN 300 MG CAP PO SCH (09:43)
[2017-04-28] MEDS: MEGESTROL (40 MG/ML) 10ML CUP PO SCH ×2 (09:43→21:00)
[2017-04-28] MEDS ORDERED: FOSFOMYCIN 3 GM PACKET PO ONE (10:00)
--- NOTE | 2017-04-28 11:18 | PN ---
Date/Time of Note Date/Time of Note DATE: 04/28/17 TIME: 11:18 Assessment/Plan VTE Prophylaxis VTE Prophylaxis Intervention: other Lines/Catheters IV Catheter Type (from Nrs): PORT-A-CATH Urinary Cath still in place: Yes Reason Cath still needed: skin wounds contaminated by urine Assessment/Plan Chief Complaint/Hosp Course -Extreme esophagitis per EGD, follow-up gastroenterology recommendations. Continue Protonix, Carafate, and Reglan. -Metastatic gastric adenocarcinoma, status post chemotherapy by Dr. Ford, oncology. Status post EGD with stent placement on04/[address] Millan, GI. -Nausea and vomiting, resolved. Continue Zofran for for nausea and morphine as needed for pain. -Hyponatremia secondary to dehydration, resolved, Dr. Ji is following in nephrology consultation. 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 -Protein calorie severe malnutrition. Nutritional consult is appreciated. -Leukopenia and anemia most likely secondary to chemotherapy. Restarted on Neupogen. Patient is on palliative care, family seeking placement in SNF Problems: Subjective 24 Hr Interval Summary Free Text/Dictation Patient feels ok, still weak though Exam/Review of Systems Vital Signs Vitals Vital Signs Date Time Temp Pulse Resp B/P Pulse Ox O2 Delivery O2 Flow Rate FiO2 04/28/17 09:05 97.9 94 14 91/71 100 04/28/17 02:00 Nasal Cannula 3.0 Intake and Output 04/27/17 04/27/17 04/28/17 15:00 23:00 07:00 Intake Total 100 ml 750 ml 300 ml Output Total 200 ml 100 ml Balance 100 ml 550 ml 200 ml Exam Constitutional: well developed Head: atraumatic, normocephalic Neck: supple Respiratory: diminished breath sounds Cardiovascular: regular rate and rhythm Gastrointestinal: non-tender, soft Extremities: normal pulses Results Result Diagram: 04/26/17 0458 04/27/17 0536 Medications Medications Current Medications Ondansetron HCl (Zofran Inj) 4 mg Q6H PRN IV NAUSEA AND/OR VOMITING Last administered on 04/24/17t 15:32; Admin Dose 4 MG; Start 04/07/17 at 23:00 Pantoprazole (Protonix Iv) 40 mg BID@,18 IV Last administered on 04/28/17 06: 35; Admin Dose 40 MG; Start 04/10/17 at 18:00 Sodium Phosphate (Neutra-Phos) 250 mg BID PO Last administered on 04/28/17 09: 43; Admin Dose 250 MG; Start 04/11/17 at 10:30 Metoclopramide HCl (Reglan) 10 mg Q6 IV Last administered on 04/28/17 06:35; Admin Dose 10 MG; Start 04/16/17 at 18:00 Promethazine HCl/ Codeine 5 ml 5 ml Q4H PRN PO COUGH Last administered on 11:06; Admin Dose 5 ML; Start 04/17/17 at 23:30 Metronidazole (Flagyl 500 Mg (Pmx)) 100 ml @ 100 mls/hr Q6 IVPB Last administered on 04/28/17 06:35; Admin Dose 100 MLS/HR; Start 04/20/17 at 00:00 Rifampin 600 mg 600 mg DAILY PO Last administered on 04/28/17 09:43; Admin Dose 600 MG; Start 04/20/17 at 12:00 Fluconazole/ Sodium Chloride (Diflucan 100 Mg/ NS (Pmx)) 50 ml @ 50 mls/hr Q24H IVPB Last administered on 04/27/17 18:03; Admin Dose 50 MLS/HR; Start 04/22/17 at 18:00 Nystatin (Nystatin Susp) 5 ml QID PO Last administered on 04/27/17 20:42; Admin Dose 5 ML; Start 04/22/17 at 17:00 Megestrol Acetate (Megace Susp) 400 mg BID PO Last administered on 04/28/17 09: 43; Admin Dose 400 MG; Start 04/23/17 at 12:00 Vancomycin HCl (Vancomycin Oral Syringe) 125 mg Q8 PO Last administered on 06:35; Admin Dose 125 MG; Start 04/27/17 at 23:30 Morphine Sulfate (morphine) 2 mg Q2H PRN IV PAIN Last administered on 04/28/17 08:36; Admin Dose 2 MG; Start 04/28/17 at 01:30 MOE UMANA Apr 28, 2017 11:18
[2017-04-28] MEDS: PROMETHAZINE/CODEINE 5ML CUP PO PRN (12:35)
--- NOTE | 2017-04-28 12:44 | CONS ---
Date/Time of Note Date/Time of Note DATE: 04/28/17 TIME: 12:43 Assessment/Plan Assessment/Plan Chief Complaint/Hosp Course 1. Hyponatremia, mild. We will continue to monitor. 2. Volume overload secondary to third-spacing. Continue low- dose diuretic therapy. Monitor renal function and electrolytes closely. 3. Hypomagnesemia, improved. 4. Clostridium difficile colitis. Continue current medical management. 5. Gastric cancer with peritoneal carcinomatosis. Continue to monitor. Follow up with Oncology. Problems: Consultation Date/Type/Reason Admit Date/Time Apr 07, 2017 at 19:17 Initial Consult Date 04/07/17 Type of Consultation: nephrology Referring Provider: CINDY ESTRELLA MD 24 HR Interval Summary Free Text/Dictation all noted na stable good uop. Exam hENnT: nl external ears & nose, nl lips & teeth, nl nasal mucosa & septum Neck: non-tender, supple Respiratory: clear to auscultation, normal air movement Cardiovascular: nl pulses, regular rate and rhythm Gastrointestinal: nl liver, spleen, non-tender, soft Extremities: normal pulses Exam/Review of Systems Vital Signs Vitals Vital Signs Date Time Temp Pulse Resp B/P Pulse Ox O2 Delivery O2 Flow Rate FiO2 04/28/17 09:05 97.9 94 14 91/71 100 04/28/17 02:00 Nasal Cannula 3.0 Intake and Output 04/27/17 04/27/17 04/28/17 15:00 23:00 07:00 Intake Total 100 ml 750 ml 300 ml Output Total 200 ml 100 ml Balance 100 ml 550 ml 200 ml Results Result Diagram: 04/26/17 0458 04/27/17 0536 Medications Medications Current Medications Ondansetron HCl (Zofran Inj) 4 mg Q6H PRN IV NAUSEA AND/OR VOMITING Last administered on 04/24/17 15:32; Admin Dose 4 MG; Start 04/07/17 at 23:00 Pantoprazole (Protonix Iv) 40 mg BID@18 IV Last administered on 04/28/17 06: 35; Admin Dose 40 MG; Start 04/10/17 at 18:00 Sodium Phosphate (Neutra-Phos) 250 mg BID PO Last administered on 04/28/17 09: 43; Admin Dose 250 MG; Start 04/11/17 at 10:30 Metoclopramide HCl (Reglan) 10 mg Q6 IV Last administered on 04/28/17 12:34; Admin Dose 10 MG; Start 04/16/17 at 18:00 Promethazine HCl/ Codeine 5 ml 5 ml Q4H PRN PO COUGH Last administered on 12:35; Admin Dose 5 ML; Start 04/17/17 at 23:30 Metronidazole (Flagyl 500 Mg (Pmx)) 100 ml @ 100 mls/hr Q6 IVPB Last administered on 04/28/17 12:34; Admin Dose 100 MLS/HR; Start 04/20/17 at 00:00 Rifampin 600 mg 600 mg DAILY PO Last administered on 04/28/17 09:43; Admin Dose 600 MG; Start 04/20/17 at 12:00 Fluconazole/ Sodium Chloride (Diflucan 100 Mg/ NS (Pmx)) 50 ml @ 50 mls/hr Q24H IVPB Last administered on 04/27/17 18:03; Admin Dose 50 MLS/HR; Start 04/22/17 at 18:00 Nystatin (Nystatin Susp) 5 ml QID PO Last administered on 04/28/17 12:35; Admin Dose 5 ML; Start 04/22/17 at 17:00 Megestrol Acetate (Megace Susp) 400 mg BID PO Last administered on 04/28/17 09: 43; Admin Dose 400 MG; Start 04/23/17 at 12:00 Vancomycin HCl (Vancomycin Oral Syringe) 125 mg Q8 PO Last administered on 06:35; Admin Dose 125 MG; Start 04/27/17 at 23:30 Morphine Sulfate (morphine) 2 mg Q2H PRN IV PAIN Last administered on 04/28/17 08:36; Admin Dose 2 MG; Start 04/28/17 at 01:30 HEMALATHA CAMARILLO MD Apr 28, 2017 12:44
--- NOTE | 2017-04-28 15:30 | CONS ---
Date/Time of Note Date/Time of Note DATE: 04/28/17 TIME: 15:23 Assessment/Plan Assessment/Plan Chief Complaint/Hosp Course ID PROGRESS NOTE CURRENT ABX: DAY #8=> Flagyl IV #8 + Vanco liq po #8 + Rifampin #8 + Diflucan 100mg IV #6 s/p Fosfomycin po x1 04/20 (Enterococcal UTI) 24H INTERVAL SUMMARY * Doing OK, no fevers, diarrhea much better * WBC down to 19.7 from prior 50 -> due to esophageal candidiasis + C.Diff, s/p UTI Exam Constitutional: alert, oriented, cachetic, generalized weakness Psych: nl mood/affect, no complaints Head: atraumatic, normocephalic Eyes: EOMI, nl conjunctiva, nl lids, nl sclera ENMT: Unremarkable Neck: non-tender, supple Respiratory: (+)Rales, no wheezing, equal chest rise bilaterally Cardiovascular: nl pulses, regular rate and rhythm Gastrointestinal: Ascites Musculoskeletal: nl extremities to inspection Extremities: normal pulses 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: CHICK[employer]LER II-XII intact, nl mental status, nl speech Skin: No diaphoresis, N rash or lesions Lymph: nl lymph nodes ID ASSESSMENT 61 yo F w/Metastatic gastric CA -> status post chemotherapy by Dr. Ford. 1. SEPSIS per (+) rising leukocytosis 10.0(04/16) -> 22.8 (04/17)-> now 40.1 (04/20 ) w/15% BANDS => IMPROVING: * No fevers, mild intermittent tachycardia 90-110, B/P 93/59 * (+)C.Diff Colitis 04/17/17 C DIFFICILE DNA AMPLIFICATION Final CYTOTOXIGENIC C DIFFICILE POSITIVE (Ref Range Neg) * DDx: spontaneous bacterial peritonitis=> D/W Dr. Orozco -- Rx Rifampin onboard * DDx: UTI 04/20 Urine Cx (+) URINE CULTURE Preliminary ==> she was treated empirically w/Fosfomycin po x1 Organism 1 ENTEROCOCCUS SPECIES COLONY COUNT 70,000 - 80,000 CFU/ml Organism 2 CHRIS ALBICANS COLONY COUNT 30,000 - 40,000 CFU/ml * DDx: Aspiration Pneumonitis => Lungs w/increase fluid likely 2. Metastatic gastric CA with suspected malignant abdominopelvic ascites and peritoneal carcinomatosis * s/p PARA 04/14-> ~5000 ml of clear yellow fluid was obtained and then discarded. * DDx: spontaneous bacterial peritonitis => Rifampin 600mg PO daily onboard 3. Leukopenia and anemia 2/2 chemotherapy. Restarted on Neupogen. 4. GERD, extreme esophagitis and severe reflux w/undigested food in the esophagus => risk factor for silent aspiration syndrome * s/p 04/16/17 EGD with stent placement on04/[address] Millan, GI. * Sputum (+)Chris albicans -> Start Nystatin 5mL QIC swish/swallow 5. Abdominal pain with nausea and vomiting 2/2 massive ascites pressure volume = > due to #2 & #4 * N/V/ABD Pain resolved w/Zofran and Morphine 6. Possible aspiration pneumonia => Rifampin onboard * Respiratory culture grew (+)Yeast == Oral Candidiasis likely * RESPIRATORY CULTURE Final Organism 1 CHRIS ALBICANS QUANTITY 1+ Organism 2 NORMAL RESPIRATORY STEFANIA QUANTITY 1+ 7. Pulmonary congestion w/ extensive bilateral upper lobe and lower lobe infiltrates on CXR 04/20 * Multifactorial due to severe ascites fluid back up, low colloid pressure 3rd spacing, malignancy * Moderate right pleural effusion on admission 8. Hx of CHF * 2D ECHO SEP 2016, normal LVFx w/EF~60% * 2D ECHO 2015 preserved systolic LVFx w/STG I diastolic dysfunction 9. Cachexia w/severe protein calorie deficiency 10. Low normal B/P w/transient hypotension due to low colloid pressure 3rd spacing, malignancy, SIRS, sepsis 11. Contaminated Urine culture vs early GNR UTI on 04/07/17 URINE CULTURE Final Organism 1 ESCHERICHIA COLI COLONY COUNT <10,000 CFU/ml Organism 2 LACTOBACILLUS SPECIES COLONY COUNT >100,000 CFU/ml (-) MRSA Nares INVASIVES: Right chest Port-A-Cath ABX ALLERGY: KNDA CURRENT ABX: DAY #8=> Vanco liq po #8 + Rifampin #8 + Diflucan 100mg IV #6 Flagyl IV #8 -> DC 8/6 s/p Fosfomycin po x1 04/20 (Enterococcal UTI) s/o Fosfomycin po x1 04/27 (Repeat per WBC remains elevated) ID RECOMMENDATIONS 1. Start C. Diff ABX taper: DC Flagyl IV -> Lower Vanco PO to 125mg TID 2. Continue Diflucan + Nystatin oral swish/swallow for oral thrush chris esophagitis 3. Rifampin onboard for prophy SBP and C.Diff 4. PRN For Temp >101.0 send blood cultures via Port-A-Cath, no compelling evidence infected Port septicemia at this time. . Problems: Consultation Date/Type/Reason Admit Date/Time Apr 07, 2017 at 19:17 Initial Consult Date 04/07/17 Type of Consultation: ID Referring Provider: CINDY ESTRELLA MD Exam/Review of Systems Vital Signs Vitals Vital Signs Date Time Temp Pulse Resp B/P Pulse Ox O2 Delivery O2 Flow Rate FiO2 04/28/17 09:05 97.9 94 14 91/71 100 04/28/17 02:00 Nasal Cannula 3.0 Intake and Output 04/27/17 04/27/17 04/28/17 15:00 23:00 07:00 Intake Total 100 ml 750 ml 300 ml Output Total 200 ml 100 ml Balance 100 ml 550 ml 200 ml Results Result Diagram: 04/26/17 0458 04/27/17 0536 Medications Medications Current Medications Ondansetron HCl (Zofran Inj) 4 mg Q6H PRN IV NAUSEA AND/OR VOMITING Last administered on 04/24/17 15:32; Admin Dose 4 MG; Start 04/07/17 at 23:00 Pantoprazole (Protonix Iv) 40 mg BID@06,18 IV Last administered on 04/28/17 06: 35; Admin Dose 40 MG; Start 04/10/17 at 18:00 Sodium Phosphate (Neutra-Phos) 250 mg BID PO Last administered on 04/28/17 09: 43; Admin Dose 250 MG; Start 04/11/17 at 10:30 Metoclopramide HCl (Reglan) 10 mg Q6 IV Last administered on 04/28/17 12:34; Admin Dose 10 MG; Start 04/16/17 at 18:00 Promethazine HCl/ Codeine 5 ml 5 ml Q4H PRN PO COUGH Last administered on 12:35; Admin Dose 5 ML; Start 04/17/17 at 23:30 Metronidazole (Flagyl 500 Mg (Pmx)) 100 ml @ 100 mls/hr Q6 IVPB Last administered on 04/28/17 12:34; Admin Dose 100 MLS/HR; Start 04/20/17 at 00:00 Rifampin 600 mg 600 mg DAILY PO Last administered on 04/28/17 09:43; Admin Dose 600 MG; Start 04/20/17 at 12:00 Fluconazole/ Sodium Chloride (Diflucan 100 Mg/ NS (Pmx)) 50 ml @ 50 mls/hr Q24H IVPB Last administered on 04/27/17 18:03; Admin Dose 50 MLS/HR; Start 04/22/17 at 18:00 Nystatin (Nystatin Susp) 5 ml QID PO Last administered on 04/28/17 12:35; Admin Dose 5 ML; Start 04/22/17 at 17:00 Megestrol Acetate (Megace Susp) 400 mg BID PO Last administered on 04/28/17 09: 43; Admin Dose 400 MG; Start 04/23/17 at 12:00 Vancomycin HCl (Vancomycin Oral Syringe) 125 mg Q8 PO Last administered on 13:59; Admin Dose 125 MG; Start 04/27/17 at 23:30 Morphine Sulfate (morphine) 2 mg Q2H PRN IV PAIN Last administered on 04/28/17 08:36; Admin Dose 2 MG; Start 04/28/17 at 01:30 GENESIS MESSER NP Apr 28, 2017 15:30
[2017-04-28] MEDS: FLUCONAZOLE 100 MG/NS (PMX) 50 ML IVPB SCH (18:06)
[2017-04-28 20:00] VITALS: BP 89/65; RESP 16
[2017-04-29] VITALS (7 sets, daily range): BP systolic 87–133; BP diastolic 61–72; PULSE 79–107; RESP 18–22
[2017-04-29] MEDS: METOCLOPRAMIDE 10 MG INJ IV SCH ×4 (00:17→18:20)
[2017-04-29] MEDS: metroNIDAZOLE 500 MG/NS (PMX) 100 ML IVPB SCH ×4 (00:17→18:20)
[2017-04-29] MEDS: PANTOPRAZOLE 40 MG INJ IV SCH ×2 (04:51→18:20)
[2017-04-29] MEDS: morphine 2 MG INJ IV PRN ×4 (04:52→20:48)
[2017-04-29] MEDS: VANCOMYCIN HCL 250 MG/5ML POSYG PO SCH ×3 (04:52→20:40)
[2017-04-29] MEDS: NYSTATIN SUSP 5 ML CUP PO SCH ×4 (09:18→20:40)
[2017-04-29] MEDS: MEGESTROL (40 MG/ML) 10ML CUP PO SCH ×2 (09:18→20:40)
[2017-04-29] MEDS: RIFAMPIN 300 MG CAP PO SCH (09:18)
[2017-04-29] MEDS: NEUTRA-PHOS 250 MG PACKET PO SCH ×2 (09:18→20:40)
--- NOTE | 2017-04-29 10:33 | PN ---
DATE: 04/29/2017 SUBJECTIVE DATA: The patient remains cachectic, frail. No other events noted. OBJECTIVE DATA: VITAL SIGNS: Blood pressure 87/60, respirations 19, pulse 102, temperature 97.7. HEENT: Head is normocephalic. NECK: Supple. HEART: Regular rate. LUNGS: Diminished breath sounds at the base. ABDOMEN: Soft, distended. EXTREMITIES: Negative for clubbing, cyanosis. Positive edema. DERMATOLOGIC: No rashes. MUSCULOSKELETAL: No joint effusion. NEUROLOGIC: No change in exam. The patient's medications have been reviewed. LABORATORY AND DIAGNOSTIC DATA: Laboratory data has been reviewed. No new labs. ASSESSMENT AND PLAN: 1. Mild hyponatremia. Continue to monitor. The etiology is multifactorial. 2. Volume overload secondary to third-spacing. Continue low- dose diuretic therapy. 3. Hypomagnesemia, improved. 4. Clostridium difficile colitis. Continue current medical management. 5. Gastric cancer, peritoneal carcinomatosis. Continue to monitor. Follow up with Oncology. 6. Ascites, status post paracentesis. 7. Esophagitis, status post stent. 8. Nausea and vomiting. Continue current medical management. Patient is on palliative care pending possible half-way facility placement. Dictated By: Kulwinder Ji DO /[email or web address] /Document#: [id number]
--- NOTE | 2017-04-29 16:26 | PN ---
Date/Time of Note Date/Time of Note DATE: 04/29/17 TIME: 16:20 Assessment/Plan VTE Prophylaxis VTE Prophylaxis Intervention: SCD's Lines/Catheters IV Catheter Type (from [facility]): Saline Lock Urinary Cath still in place: No Assessment/Plan Chief Complaint/Hosp Course Patient was generalized edema and ascites, continues to have poor appetite and nausea, denies any fever chills. Assessment/Plan -Metastatic gastric adenocarcinoma, status post chemotherapy by Dr. Ford, oncology. Status post EGD with stent placement on04/[address] Millan, GI. -C. difficile colitis, continue p.o. vancomycin and IV Flagyl. -Esophagitis. Continue Protonix and Reglan. -Nausea. Continue Zofran for for nausea and morphine as needed for pain. -Malignant ascites with peritoneal carcinomatosis, status post paracentesis on and 04/20. -Protein calorie severe malnutrition. Nutritional consult is appreciated. Further recommendations based on clinical course. Plan of care discussed with Dr. Garner. Problems: Exam/Review of Systems Vital Signs Vitals Vital Signs Date Time Temp Pulse Resp B/P Pulse Ox O2 Delivery O2 Flow Rate FiO2 04/29/17 13:05 97.8 101 19 91/68 100 04/29/17 10:17 Nasal Cannula 2.0 Intake and Output 04/28/17 04/28/17 04/29/17 15:00 23:00 07:00 Intake Total 200 ml 250 ml 350 ml Output Total 150 ml 100 ml Balance 200 ml 100 ml 250 ml Exam Constitutional: alert, frail Head: normocephalic Neck: supple Respiratory: normal air movement Cardiovascular: nl pulses Gastrointestinal: ascites, distended, soft Extremities: edema, normal pulses 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: nl mental status Results Result Diagram: 04/26/17 0458 04/27/17 0536 Medications Medications Current Medications Ondansetron HCl (Zofran Inj) 4 mg Q6H PRN IV NAUSEA AND/OR VOMITING Last administered on 04/24/17 15:32; Admin Dose 4 MG; Start 04/07/17 at 23:00 Pantoprazole (Protonix Iv) 40 mg BID@06,18 IV Last administered on 04/29/17 04: 51; Admin Dose 40 MG; Start 04/10/17 at 18:00 Sodium Phosphate (Neutra-Phos) 250 mg BID PO Last administered on 04/29/17 09: 18; Admin Dose 250 MG; Start 04/11/17 at 10:30 Metoclopramide HCl (Reglan) 10 mg Q6 IV Last administered on 04/29/17 12:35; Admin Dose 10 MG; Start 04/16/17 at 18:00 Promethazine HCl/ Codeine 5 ml 5 ml Q4H PRN PO COUGH Last administered on 12:35; Admin Dose 5 ML; Start 04/17/17 at 23:30 Metronidazole (Flagyl 500 Mg (Pmx)) 100 ml @ 100 mls/hr Q6 IVPB Last administered on 04/29/17 12:35; Admin Dose 100 MLS/HR; Start 04/20/17 at 00:00 Rifampin 600 mg 600 mg DAILY PO Last administered on 04/29/17 09:18; Admin Dose 600 MG; Start 04/20/17 at 12:00 Fluconazole/ Sodium Chloride (Diflucan 100 Mg/ NS (Pmx)) 50 ml @ 50 mls/hr Q24H IVPB Last administered on 04/28/17 18:06; Admin Dose 50 MLS/HR; Start 04/22/17 at 18:00 Nystatin (Nystatin Susp) 5 ml QID PO Last administered on 04/29/17 12:35; Admin Dose 5 ML; Start 04/22/17 at 17:00 Megestrol Acetate (Megace Susp) 400 mg BID PO Last administered on 04/29/17 09: 18; Admin Dose 400 MG; Start 04/23/17 at 12:00 Vancomycin HCl (Vancomycin Oral Syringe) 125 mg Q8 PO Last administered on 13:57; Admin Dose 125 MG; Start 04/27/17 at 23:30 Morphine Sulfate (morphine) 2 mg Q2H PRN IV PAIN Last administered on 04/29/17 10:08; Admin Dose 2 MG; Start 04/28/17 at 01:30 GHAZALA HORNE Apr 29, 2017 16:26
[2017-04-29] MEDS: ONDANSETRON 4 MG INJ IV PRN (16:55)
--- NOTE | 2017-04-29 18:03 | CONS ---
Date/Time of Note Date/Time of Note DATE: 04/29/17 TIME: 18:01 Assessment/Plan Assessment/Plan Additional Assessment/Plan Assessment/Plan Assessment/Plan Additional Assessment/Plan Additional Assessment/Plan 1. 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 Intractable nausea vomiting, resolved, patient is able to tolerate p.o. feeding 3. Dysphagia 4. Hypertension 5. Cachexia 6. Extensive esophageal ulceration 7. Leukocytosis secondary to Neupogen 8. Ascites 9. C. difficile colitis 10. Aspiration pneumonia Chaparrita in the sputum and also in the urine 11. Status post placement of self-expanding metallic stent across the obstructing lesion in the antrum, patient is able to tolerate p.o. feeding no nausea or vomiting. Plan Continue PPI 40 mg twice daily Reglan Self-expanding metallic stent on Saturday Discussed the patient and the family member and has agreed for the stent Stent successfully deployed across pyloric channel Increase the dose of Reglan as a prokinetic agent Will add p.o. vancomycin IV antibiotic as per ID We will monitor WBC count We will start her on a clear liquid diet and advance it as tolerated Comfort measures Consultation Date/Type/Reason Admit Date/Time Apr 07, 2017 at 19:17 Type of Consultation: ID Referring Provider: CINDY ESTRELLA MD 24 HR Interval Summary Free Text/Dictation Intermittent nausea Constitutional: improved Exam/Review of Systems Vital Signs Vitals Vital Signs Date Time Temp Pulse Resp B/P Pulse Ox O2 Delivery O2 Flow Rate FiO2 04/29/17 16:42 98 133/68 04/29/17 16:35 2.0 04/29/17 13:05 97.8 19 100 04/29/17 10:17 Nasal Cannula Intake and Output 04/28/17 04/28/17 04/29/17 15:00 23:00 07:00 Intake Total 200 ml 250 ml 350 ml Output Total 150 ml 100 ml Balance 200 ml 100 ml 250 ml Exam Respiratory: diminished breath sounds Gastrointestinal: ascites, non-tender, soft Musculoskeletal: nl extremities to inspection, nl gait and stance Extremities: normal pulses 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: COSMETOLOGY PROFESSOR II-XII intact, nl mental status, nl speech, nl strength Results Result Diagram: 04/26/17 0458 04/27/17 0536 Medications Medications Current Medications Ondansetron HCl (Zofran Inj) 4 mg Q6H PRN IV NAUSEA AND/OR VOMITING Last administered on 04/29/17 16:55; Admin Dose 4 MG; Start 04/07/17 at 23:00 Pantoprazole (Protonix Iv) 40 mg BID@06,18 IV Last administered on 04/29/17 04: 51; Admin Dose 40 MG; Start 04/10/17 at 18:00 Sodium Phosphate (Neutra-Phos) 250 mg BID PO Last administered on 04/29/17 09: 18; Admin Dose 250 MG; Start 04/11/17 at 10:30 Metoclopramide HCl (Reglan) 10 mg Q6 IV Last administered on 04/29/17 12:35; Admin Dose 10 MG; Start 04/16/17 at 18:00 Promethazine HCl/ Codeine 5 ml 5 ml Q4H PRN PO COUGH Last administered on 12:35; Admin Dose 5 ML; Start 04/17/17 at 23:30 Metronidazole (Flagyl 500 Mg (Pmx)) 100 ml @ 100 mls/hr Q6 IVPB Last administered on 04/29/17 12:35; Admin Dose 100 MLS/HR; Start 04/20/17 at 00:00 Rifampin 600 mg 600 mg DAILY PO Last administered on 04/29/17 09:18; Admin Dose 600 MG; Start 04/20/17 at 12:00 Fluconazole/ Sodium Chloride (Diflucan 100 Mg/ NS (Pmx)) 50 ml @ 50 mls/hr Q24H IVPB Last administered on 04/28/17 18:06; Admin Dose 50 MLS/HR; Start 04/22/17 at 18:00 Nystatin (Nystatin Susp) 5 ml QID PO Last administered on 04/29/17 16:42; Admin Dose 5 ML; Start 04/22/17 at 17:00 Megestrol Acetate (Megace Susp) 400 mg BID PO Last administered on 04/29/17 09: 18; Admin Dose 400 MG; Start 04/23/17 at 12:00 Vancomycin HCl (Vancomycin Oral Syringe) 125 mg Q8 PO Last administered on 13:57; Admin Dose 125 MG; Start 04/27/17 at 23:30 Morphine Sulfate (morphine) 2 mg Q2H PRN IV PAIN Last administered on 8/7/17at 16:42; Admin Dose 2 MG; Start 04/28/17 at 01:30 GIANNA CHANEL MD Apr 29, 2017 18:03
--- NOTE | 2017-04-29 18:26 | CONS ---
Date/Time of Note Date/Time of Note DATE: 04/29/17 TIME: 18:25 Assessment/Plan Assessment/Plan Additional Assessment/Plan 1. 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 Intractable nausea vomiting, resolved, patient is able to tolerate p.o. feeding 3. Dysphagia 4. Hypertension 5. Cachexia 6. Extensive esophageal ulceration 7. Leukocytosis secondary to Neupogen 8. Ascites 9. C. difficile colitis 10. Aspiration pneumonia Chaparrita in the sputum and also in the urine 11. Status post placement of self-expanding metallic stent across the obstructing lesion in the antrum, patient is able to tolerate p.o. feeding no nausea or vomiting. Plan Continue PPI and Reglan Vancomycin p.o. for C. difficile colitis May need paracentesis Pain management. This patient was seen yesterday this known is for 04/28/2017 Consultation Date/Type/Reason Admit Date/Time Apr 07, 2017 at 19:17 Type of Consultation: ID Referring Provider: CINDY ESTRELLA MD 24 HR Interval Summary Free Text/Dictation Poor appetite Exam/Review of Systems Vital Signs Vitals Vital Signs Date Time Temp Pulse Resp B/P Pulse Ox O2 Delivery O2 Flow Rate FiO2 04/29/17 16:42 98 133/68 04/29/17 16:35 2.0 04/29/17 13:05 97.8 19 100 04/29/17 10:17 Nasal Cannula Intake and Output 04/28/17 04/28/17 04/29/17 15:00 23:00 07:00 Intake Total 200 ml 250 ml 350 ml Output Total 150 ml 100 ml Balance 200 ml 100 ml 250 ml Exam Respiratory: clear to auscultation, normal air movement Cardiovascular: nl pulses, regular rate and rhythm Gastrointestinal: ascites, distended Extremities: edema, pitting pedal edema Results Result Diagram: 04/26/17 0458 04/27/17 0536 Medications Medications Current Medications Ondansetron HCl (Zofran Inj) 4 mg Q6H PRN IV NAUSEA AND/OR VOMITING Last administered on 04/29/17 16:55; Admin Dose 4 MG; Start 04/07/17 at 23:00 Pantoprazole (Protonix Iv) 40 mg BID@,18 IV Last administered on 04/29/17 18: 20; Admin Dose 40 MG; Start 04/10/17 at 18:00 Sodium Phosphate (Neutra-Phos) 250 mg BID PO Last administered on 04/29/17 09: 18; Admin Dose 250 MG; Start 04/11/17 at 10:30 Metoclopramide HCl (Reglan) 10 mg Q6 IV Last administered on 04/29/17 18:20; Admin Dose 10 MG; Start 04/16/17 at 18:00 Promethazine HCl/ Codeine 5 ml 5 ml Q4H PRN PO COUGH Last administered on 12:35; Admin Dose 5 ML; Start 04/17/17 at 23:30 Metronidazole (Flagyl 500 Mg (Pmx)) 100 ml @ 100 mls/hr Q6 IVPB Last administered on 04/29/17 18:20; Admin Dose 100 MLS/HR; Start 04/20/17 at 00:00 Rifampin 600 mg 600 mg DAILY PO Last administered on 04/29/17 09:18; Admin Dose 600 MG; Start 04/20/17 at 12:00 Fluconazole/ Sodium Chloride (Diflucan 100 Mg/ NS (Pmx)) 50 ml @ 50 mls/hr Q24H IVPB Last administered on 04/28/17 18:06; Admin Dose 50 MLS/HR; Start 04/22/17 at 18:00 Nystatin (Nystatin Susp) 5 ml QID PO Last administered on 04/29/17 16:42; Admin Dose 5 ML; Start 04/22/17 at 17:00 Megestrol Acetate (Megace Susp) 400 mg BID PO Last administered on 04/29/17 09: 18; Admin Dose 400 MG; Start 04/23/17 at 12:00 Vancomycin HCl (Vancomycin Oral Syringe) 125 mg Q8 PO Last administered on 13:57; Admin Dose 125 MG; Start 04/27/17 at 23:30 Morphine Sulfate (morphine) 2 mg Q2H PRN IV PAIN Last administered on 04/29/17 16:42; Admin Dose 2 MG; Start 04/28/17 at 01:30 GIANNA CHANEL MD Apr 29, 2017 18:26
[2017-04-29] MEDS: FLUCONAZOLE 100 MG/NS (PMX) 50 ML IVPB SCH (20:39)
[2017-04-30] MEDS: metroNIDAZOLE 500 MG/NS (PMX) 100 ML IVPB SCH ×5 (00:33→23:46)
[2017-04-30] MEDS: METOCLOPRAMIDE 10 MG INJ IV SCH ×5 (00:34→23:46)
[2017-04-30 02:58] VITALS: BP 105/70; RESP 18
[2017-04-30] MEDS: morphine 2 MG INJ IV PRN ×3 (05:26→18:14)
[2017-04-30] MEDS: VANCOMYCIN HCL 250 MG/5ML POSYG PO SCH ×3 (05:27→21:18)
[2017-04-30] MEDS: PANTOPRAZOLE 40 MG INJ IV SCH ×2 (05:27→18:14)
[2017-04-30 05:44] LABS: ABNORMAL IP MESSAGE 1; BASOPHILS % 0.1 % (0.0-2.0); HEMATOCRIT 30.5 % (37.0-47.0); HEMOGLOBIN 10.4 g/dl (12.0-16.0); LYMPHOCYTES # 0.3 10^3/ul (0.8-2.9); LYMPHOCYTES % 1.4 % (15.0-51.0); MEAN CORPUSCULAR HEMOGLOBIN 27.2 pg (29.0-33.0); MEAN CORPUSCULAR HGB CONC 34.1 g/dl (32.0-37.0); MEAN CORPUSCULAR VOLUME 79.8 fl (82.0-101.0); MEAN PLATELET VOLUME 10.6 fl (7.4-10.4); MONOCYTE # 0.8 10^3/ul (0.3-0.9); MONOCYTES % 3.6 % (0.0-11.0); NEUTROPHIL # 19.8 10^3/ul (1.6-7.5); NEUTROPHILS % 92.3 % (39.0-77.0); NUCLEATED RED BLOOD CELLS% 0.1 /100WBC (0.0-0.0); PLATELET COUNT 232 10^3/UL (140-415); RED BLOOD COUNT 3.82 10^6/ul (4.20-5.40); RED CELL DISTRIBUTION WIDTH 21.9 % (11.5-14.5); WHITE BLOOD COUNT 21.4 10^3/ul (4.8-10.8)
[2017-04-30 05:49] LABS: POSITIVE DIFF @See below
[2017-04-30 06:29] LABS: CALCIUM 7.8 mg/dl (8.4-10.2); CREATININE 0.46 mg/dl (0.44-1.00); POTASSIUM 4.2 mmol/L (3.5-5.1)
[2017-04-30 07:32] VITALS: BP 93/67; RESP 19
[2017-04-30] MEDS: ONDANSETRON 4 MG INJ IV PRN (08:57)
[2017-04-30] MEDS: MEGESTROL (40 MG/ML) 10ML CUP PO SCH ×2 (08:58→21:12)
[2017-04-30] MEDS: RIFAMPIN 300 MG CAP PO SCH (08:59)
[2017-04-30] MEDS: NYSTATIN SUSP 5 ML CUP PO SCH ×4 (08:59→21:12)
[2017-04-30] MEDS: NEUTRA-PHOS 250 MG PACKET PO SCH ×2 (08:59→21:12)
--- NOTE | 2017-04-30 09:35 | PN ---
DATE: 04/30/2017 SUBJECTIVE DATA: The patient remains frail, weak, cachectic. OBJECTIVE DATA: VITAL SIGNS: Blood pressure 93/67, respirations 19, pulse 106, temperature 97.8. HEENT: Head is normocephalic. NECK: Supple. HEART: Regular rate. LUNGS: Diminished breath sounds at the base. ABDOMEN: Soft. Distended. Positive fluid wave. EXTREMITIES: Negative for clubbing, cyanosis. Positive edema. DERMATOLOGIC: No rashes. MUSCULOSKELETAL: No joint effusion. NEUROLOGIC: No change in exam. MEDICATIONS: The patient's medications have been reviewed. LABORATORY AND DIAGNOSTIC DATA: Shows a sodium 136, potassium 4.2. BUN 21, creatinine 0.46. White count 21.4, hemoglobin 10.4, hematocrit 30.5; platelet count is 232. ASSESSMENT AND PLAN: 1. Hyponatremia. Etiology is secondary to hemodynamics, possible underlying syndrome of inappropriate antidiuretic hormone secretion. Sodium levels have improved. Continue to monitor. 2. Volume overload. Secondary to third-spacing. Continue intermittent diuretic therapy. 3. Hypomagnesemia, improved. 4. Clostridium difficile colitis. Continue vancomycin. 5. Gastric cancer with peritoneal carcinomatosis. Continue to monitor. Follow up with Oncology and Gastroenterology for recommendations. 6. Ascites, status post paracentesis. 7. Esophagitis, status post stent. 8. Nausea and vomiting. Continue current medical management. 9. Severe calorie malnutrition. Continue nutritional support. Dictated By: Kulwinder Ji DO /madalyn/wilber /Document#: [id number]
--- NOTE | 2017-04-30 11:46 | CONS ---
Date/Time of Note Date/Time of Note DATE: 04/30/17 TIME: 11:45 Assessment/Plan Assessment/Plan Additional Assessment/Plan Additional Assessment/Plan 1. 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 Intractable nausea vomiting, resolved, patient is able to tolerate p.o. feeding 3. Dysphagia 4. Hypertension 5. Cachexia 6. Extensive esophageal ulceration 7. Leukocytosis secondary to Neupogen 8. Ascites 9. C. difficile colitis 10. Aspiration pneumonia Chaparrita in the sputum and also in the urine 11. Status post placement of self-expanding metallic stent across the obstructing lesion in the antrum, patient is able to tolerate p.o. feeding no nausea or vomiting. 12. Colostomy bag at the paracentesis site and its draining large quantity of a side ache fluid Plan Continue PPI and Reglan Vancomycin p.o. for C. difficile colitis May need paracentesis Pain management. Continue drainage from the paracentesis site. Patient's nausea might be related related to narcotic Consultation Date/Type/Reason Admit Date/Time Apr 07, 2017 at 19:17 Type of Consultation: ID Referring Provider: CINDY ESTRELLA MD 24 HR Interval Summary Free Text/Dictation Emesis very little, but able to tolerate feeding much better after stent Constitutional: improved Exam/Review of Systems Vital Signs Vitals Vital Signs Date Time Temp Pulse Resp B/P Pulse Ox O2 Delivery O2 Flow Rate FiO2 04/30/17 07:33 2.0 04/30/17 07:32 97.8 106 19 93/67 99 04/29/17 22:00 Nasal Cannula Intake and Output 04/29/17 04/29/17 04/30/17 15:00 23:00 07:00 Intake Total 1230 ml 200 ml Output Total 700 ml 300 ml Balance 530 ml -100 ml Exam Constitutional: alert, oriented, well developed Psych: nl mood/affect, no complaints Head: atraumatic, normocephalic Eyes: EOMI, PERRL, nl conjunctiva, nl lids, nl sclera ENMT: nl external ears & nose, nl lips & teeth, nl nasal mucosa & septum Neck: non-tender, supple Respiratory: clear to auscultation, normal air movement Cardiovascular: nl pulses, regular rate and rhythm Gastrointestinal: nl liver, spleen, non-tender, soft Musculoskeletal: nl extremities to inspection, nl gait and stance Extremities: normal pulses 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: OVEN TENDER II-XII intact, nl mental status, nl speech, nl strength Skin: nl turgor, No rash or lesions Lymph: nl lymph nodes Results Result Diagram: 04/30/1751204/30/17512 Results 24 hrs Laboratory Tests Test 04/30/17 05:13 White Blood Count 21.4 H Red Blood Count 3.82 L Hemoglobin 10.4 L Hematocrit 30.5 L Mean Corpuscular Volume 79.8 L Mean Corpuscular Hemoglobin 27.2 L Mean Corpuscular Hemoglobin Concent 34.1 Red Cell Distribution Width 21.9 H Platelet Count 232 # Mean Platelet Volume 10.6 H Neutrophils % 92.3 H Lymphocytes % 1.4 L Monocytes % 3.6 Eosinophils % 0.0 Basophils % 0.1 Nucleated Red Blood Cells % 0.1 H Neutrophils # 19.8 H Lymphocytes # 0.3 L Monocytes # 0.8 Eosinophils # 0.0 Basophils # 0.0 Nucleated Red Blood Cells # 0.0 Sodium Level 136 Potassium Level 4.2 Chloride Level 107 Carbon Dioxide Level 20 L Anion Gap 13 Blood Urea Nitrogen 21 H Creatinine 0.46 Glucose Level 93 Calcium Level 7.8 L Medications Medications Current Medications Ondansetron HCl (Zofran Inj) 4 mg Q6H PRN IV NAUSEA AND/OR VOMITING Last administered on 04/30/17 08:57; Admin Dose 4 MG; Start 04/07/17 at 23:00 Pantoprazole (Protonix Iv) 40 mg BID@06,18 IV Last administered on 04/30/17 05: 27; Admin Dose 40 MG; Start 04/10/17 at 18:00 Sodium Phosphate (Neutra-Phos) 250 mg BID PO Last administered on 04/30/17 08: 59; Admin Dose 250 MG; Start 04/11/17 at 10:30 Metoclopramide HCl (Reglan) 10 mg Q6 IV Last administered on 04/30/17 05:27; Admin Dose 10 MG; Start 04/16/17 at 18:00 Promethazine HCl/ Codeine 5 ml 5 ml Q4H PRN PO COUGH Last administered on 12:35; Admin Dose 5 ML; Start 04/17/17 at 23:30 Metronidazole (Flagyl 500 Mg (Pmx)) 100 ml @ 100 mls/hr Q6 IVPB Last administered on 04/30/17 05:27; Admin Dose 100 MLS/HR; Start 04/20/17 at 00:00 Rifampin 600 mg 600 mg DAILY PO Last administered on 04/30/17 08:59; Admin Dose 600 MG; Start 04/20/17 at 12:00 Fluconazole/ Sodium Chloride (Diflucan 100 Mg/ NS (Pmx)) 50 ml @ 50 mls/hr Q24H IVPB Last administered on 04/29/17 20:39; Admin Dose 50 MLS/HR; Start 04/22/17 at 18:00 Nystatin (Nystatin Susp) 5 ml QID PO Last administered on 04/30/17 08:59; Admin Dose 5 ML; Start 04/22/17 at 17:00 Megestrol Acetate (Megace Susp) 400 mg BID PO Last administered on 04/30/17 08: 58; Admin Dose 400 MG; Start 04/23/17 at 12:00 Vancomycin HCl (Vancomycin Oral Syringe) 125 mg Q8 PO Last administered on 20:40; Admin Dose 125 MG; Start 04/27/17 at 23:30 Morphine Sulfate (morphine) 2 mg Q2H PRN IV PAIN Last administered on 04/30/17 09:00; Admin Dose 2 MG; Start 04/28/17 at 01:30 GIANNA CHANEL MD Apr 30, 2017 11:46
[2017-04-30 13:49] VITALS: BP 86/63; RESP 21
--- NOTE | 2017-04-30 14:51 | CONS ---
Date/Time of Note Date/Time of Note DATE: 04/30/17 TIME: 14:38 Assessment/Plan Assessment/Plan Chief Complaint/Hosp Course Assessment/Plan Chief Complaint/Hosp Course ID PROGRESS NOTE CURRENT ABX: DAY #8=> Flagyl IV #8 + Vanco liq po #8 + Rifampin #8 + Diflucan 100mg IV #6 s/p Fosfomycin po x1 04/20 (Enterococcal UTI) 24H INTERVAL SUMMARY 1. Awake. Alert. Denies Diarrhea. Complains of Nausea. Exam Constitutional: alert, oriented, cachetic, generalized weakness Psych: nl mood/affect, no complaints Head: atraumatic, normocephalic Eyes: EOMI, nl conjunctiva, nl lids, nl sclera ENMT: Unremarkable Neck: non-tender, supple Respiratory: (+)Rales, no wheezing, equal chest rise bilaterally Cardiovascular: nl pulses, regular rate and rhythm Gastrointestinal: Ascites Musculoskeletal: nl extremities to inspection Extremities: normal pulses 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: RECORDAK OPERATOR II-XII intact, nl mental status, nl speech Skin: No diaphoresis, N rash or lesions Lymph: nl lymph nodes ID ASSESSMENT 61 yo F w/Metastatic gastric CA -> status post chemotherapy by Dr. Ford. 1. SEPSIS per (+) rising leukocytosis 10.0(04/16) -> 22.8 (04/17)-> now 40.1 (04/20 ) w/15% BANDS => IMPROVING: No fevers, mild intermittent tachycardia 90-110, B/P 93/59 (+)C.Diff Colitis 04/17/17 C DIFFICILE DNA AMPLIFICATION Final CYTOTOXIGENIC C DIFFICILE POSITIVE (Ref Range Neg) DDx: spontaneous bacterial peritonitis=> D/W Dr. Orozco -- Rx Rifampin onboard DDx: UTI 04/20 Urine Cx (+) URINE CULTURE Preliminary ==> she was treated empirically w/Fosfomycin po x1 Organism 1 ENTEROCOCCUS SPECIES COLONY COUNT 70,000 - 80,000 CFU/ml Organism 2 CHRIS ALBICANS COLONY COUNT 30,000 - 40,000 CFU/ml DDx: Aspiration Pneumonitis => Lungs w/increase fluid likely 2. Metastatic gastric CA with suspected malignant abdominopelvic ascites and peritoneal carcinomatosis s/p PARA 04/14-> ~5000 ml of clear yellow fluid was obtained and then discarded. DDx: spontaneous bacterial peritonitis => Rifampin 600mg PO daily onboard 3. Leukopenia and anemia 2/2 chemotherapy. Restarted on Neupogen. 4. GERD, extreme esophagitis and severe reflux w/undigested food in the esophagus => risk factor for silent aspiration syndrome s/p 04/16/17 EGD with stent placement on04/[address] Millan, GI. Sputum (+)Chris albicans -> Start Nystatin 5mL QIC swish/swallow 5. Abdominal pain with nausea and vomiting 2/2 massive ascites pressure volume = > due to #2 & #4 N/V/ABD Pain resolved w/Zofran and Morphine 6. Possible aspiration pneumonia => Rifampin onboard Respiratory culture grew (+)Yeast == Oral Candidiasis likely RESPIRATORY CULTURE Final Organism 1 CHRIS ALBICANS QUANTITY 1+ Organism 2 NORMAL RESPIRATORY STEFANIA QUANTITY 1+ 7. Pulmonary congestion w/ extensive bilateral upper lobe and lower lobe infiltrates on CXR 04/20 Multifactorial due to severe ascites fluid back up, low colloid pressure 3rd spacing, malignancy Moderate right pleural effusion on admission 8. Hx of CHF 2D ECHO SEP 2016, normal LVFx w/EF~60% 2D ECHO 2015 preserved systolic LVFx w/STG I diastolic dysfunction 9. Cachexia w/severe protein calorie deficiency 10. Low normal B/P w/transient hypotension due to low colloid pressure 3rd spacing, malignancy, SIRS, sepsis 11. Contaminated Urine culture vs early GNR UTI on 04/07/17 URINE CULTURE Final Organism 1 ESCHERICHIA COLI COLONY COUNT <10,000 CFU/ml Organism 2 LACTOBACILLUS SPECIES COLONY COUNT >100,000 CFU/ml (-) MRSA Nares INVASIVES: Right chest Port-A-Cath ABX ALLERGY: KNDA CURRENT ABX: DAY #8=> Vanco liq po #8 + Rifampin #8 + Diflucan 100mg IV #6 Flagyl IV #8 -> DC 8/6 s/p Fosfomycin po x1 04/20 (Enterococcal UTI) s/o Fosfomycin po x1 04/27 (Repeat per WBC remains elevated) 12. Nausea ID RECOMMENDATIONS 1. Start C. Diff ABX taper: DC Flagyl IV -> Lower Vanco PO to 125mg TID 2. Continue Diflucan + Nystatin oral swish/swallow for oral thrush chris esophagitis 3. Rifampin onboard for prophy SBP and C.Diff 4. PRN For Temp >101.0 send blood cultures via Port-A-Cath, no compelling evidence infected Port septicemia at this time. 5. Pain Management. Monitor Labs. Problems: Consultation Date/Type/Reason Admit Date/Time Apr 07, 2017 at 19:17 Initial Consult Date 04/07/17 Type of Consultation: ID Referring Provider: CINDY ESTRELLA MD Exam/Review of Systems Vital Signs Vitals Vital Signs Date Time Temp Pulse Resp B/P Pulse Ox O2 Delivery O2 Flow Rate FiO2 04/30/17 13:49 97.7 106 21 86/63 100 04/30/17 07:33 2.0 04/29/17 22:00 Nasal Cannula Intake and Output 04/29/17 04/29/17 04/30/17 15:00 23:00 07:00 Intake Total 1230 ml 200 ml Output Total 700 ml 300 ml Balance 530 ml -100 ml Results Result Diagram: 04/30/17 0513 04/30/17 0513 Results 24 hrs Laboratory Tests Test 04/30/17 05:13 White Blood Count 21.4 H Red Blood Count 3.82 L Hemoglobin 10.4 L Hematocrit 30.5 L Mean Corpuscular Volume 79.8 L Mean Corpuscular Hemoglobin 27.2 L Mean Corpuscular Hemoglobin Concent 34.1 Red Cell Distribution Width 21.9 H Platelet Count 232 # Mean Platelet Volume 10.6 H Neutrophils % 92.3 H Lymphocytes % 1.4 L Monocytes % 3.6 Eosinophils % 0.0 Basophils % 0.1 Nucleated Red Blood Cells % 0.1 H Neutrophils # 19.8 H Lymphocytes # 0.3 L Monocytes # 0.8 Eosinophils # 0.0 Basophils # 0.0 Nucleated Red Blood Cells # 0.0 Sodium Level 136 Potassium Level 4.2 Chloride Level 107 Carbon Dioxide Level 20 L Anion Gap 13 Blood Urea Nitrogen 21 H Creatinine 0.46 Glucose Level 93 Calcium Level 7.8 L Medications Medications Current Medications Ondansetron HCl (Zofran Inj) 4 mg Q6H PRN IV NAUSEA AND/OR VOMITING Last administered on 04/30/17 08:57; Admin Dose 4 MG; Start 04/07/17 at 23:00 Pantoprazole (Protonix Iv) 40 mg BID@06,18 IV Last administered on 04/30/17 05: 27; Admin Dose 40 MG; Start 04/10/17 at 18:00 Sodium Phosphate (Neutra-Phos) 250 mg BID PO Last administered on 04/30/17 08: 59; Admin Dose 250 MG; Start 04/11/17 at 10:30 Metoclopramide HCl (Reglan) 10 mg Q6 IV Last administered on 04/30/17 12:10; Admin Dose 10 MG; Start 04/16/17 at 18:00 Promethazine HCl/ Codeine 5 ml 5 ml Q4H PRN PO COUGH Last administered on 12:35; Admin Dose 5 ML; Start 04/17/17 at 23:30 Metronidazole (Flagyl 500 Mg (Pmx)) 100 ml @ 100 mls/hr Q6 IVPB Last administered on 04/30/17 12:11; Admin Dose 100 MLS/HR; Start 04/20/17 at 00:00 Rifampin 600 mg 600 mg DAILY PO Last administered on 04/30/17 08:59; Admin Dose 600 MG; Start 04/20/17 at 12:00 Fluconazole/ Sodium Chloride (Diflucan 100 Mg/ NS (Pmx)) 50 ml @ 50 mls/hr Q24H IVPB Last administered on 04/29/17 20:39; Admin Dose 50 MLS/HR; Start 04/22/17 at 18:00 Nystatin (Nystatin Susp) 5 ml QID PO Last administered on 04/30/17 12:10; Admin Dose 5 ML; Start 04/22/17 at 17:00 Megestrol Acetate (Megace Susp) 400 mg BID PO Last administered on 04/30/17 08: 58; Admin Dose 400 MG; Start 04/23/17 at 12:00 Vancomycin HCl (Vancomycin Oral Syringe) 125 mg Q8 PO Last administered on 20:40; Admin Dose 125 MG; Start 04/27/17 at 23:30 Morphine Sulfate (morphine) 2 mg Q2H PRN IV PAIN Last administered on 04/30/17 09:00; Admin Dose 2 MG; Start 04/28/17 at 01:30 ABBEY CHU NP Apr 30, 2017 14:50
--- NOTE | 2017-04-30 15:52 | PN ---
Date/Time of Note Date/Time of Note DATE: 04/30/17 TIME: 15:34 Assessment/Plan VTE Prophylaxis VTE Prophylaxis Intervention: SCD's Lines/Catheters IV Catheter Type (from Nrs): port-a-cath Urinary Cath still in place: Yes Reason Cath still needed: urinary retention Assessment/Plan Chief Complaint/Hosp Course Patient's continues to have abdominal pain and nausea, poor appetite. Patient denies diarrhea denies fever. Assessment/Plan -Metastatic gastric adenocarcinoma, status post chemotherapy by Dr. Ford, oncology. Status post EGD with stent placement on04/[address] Millan, GI. -C. difficile colitis, continue p.o. vancomycin and IV Flagyl. -Esophagitis. Continue Protonix and Reglan. -Nausea. Continue Zofran for for nausea and morphine as needed for pain. -Malignant ascites with peritoneal carcinomatosis, status post paracentesis on and 04/20. -Protein calorie severe malnutrition. -DNR status, undergoing hospice evaluation. Further recommendations based on clinical course. Plan of care discussed with Dr. Garner. Problems: Exam/Review of Systems Vital Signs Vitals Vital Signs Date Time Temp Pulse Resp B/P Pulse Ox O2 Delivery O2 Flow Rate FiO2 04/30/17 13:49 97.7 106 21 86/63 100 04/30/17 07:33 2.0 04/29/17 22:00 Nasal Cannula Intake and Output 04/29/17 04/29/17 04/30/17 15:00 23:00 07:00 Intake Total 1230 ml 200 ml Output Total 700 ml 300 ml Balance 530 ml -100 ml Exam Constitutional: alert, frail Head: normocephalic Neck: supple Respiratory: normal air movement Cardiovascular: nl pulses Gastrointestinal: ascites, distended, soft Extremities: edema, normal pulses 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: nl mental status Results Result Diagram: 04/30/17 0513 04/30/17 0513 Results 24 hrs Laboratory Tests Test 04/30/17 05:13 White Blood Count 21.4 H Red Blood Count 3.82 L Hemoglobin 10.4 L Hematocrit 30.5 L Mean Corpuscular Volume 79.8 L Mean Corpuscular Hemoglobin 27.2 L Mean Corpuscular Hemoglobin Concent 34.1 Red Cell Distribution Width 21.9 H Platelet Count 232 # Mean Platelet Volume 10.6 H Neutrophils % 92.3 H Lymphocytes % 1.4 L Monocytes % 3.6 Eosinophils % 0.0 Basophils % 0.1 Nucleated Red Blood Cells % 0.1 H Neutrophils # 19.8 H Lymphocytes # 0.3 L Monocytes # 0.8 Eosinophils # 0.0 Basophils # 0.0 Nucleated Red Blood Cells # 0.0 Sodium Level 136 Potassium Level 4.2 Chloride Level 107 Carbon Dioxide Level 20 L Anion Gap 13 Blood Urea Nitrogen 21 H Creatinine 0.46 Glucose Level 93 Calcium Level 7.8 L Medications Medications Current Medications Ondansetron HCl (Zofran Inj) 4 mg Q6H PRN IV NAUSEA AND/OR VOMITING Last administered on 04/30/17 08:57; Admin Dose 4 MG; Start 04/07/17 at 23:00 Pantoprazole (Protonix Iv) 40 mg BID@06,18 IV Last administered on 04/30/17 05: 27; Admin Dose 40 MG; Start 04/10/17 at 18:00 Sodium Phosphate (Neutra-Phos) 250 mg BID PO Last administered on 04/30/17 08: 59; Admin Dose 250 MG; Start 04/11/17 at 10:30 Metoclopramide HCl (Reglan) 10 mg Q6 IV Last administered on 04/30/17 12:10; Admin Dose 10 MG; Start 04/16/17 at 18:00 Promethazine HCl/ Codeine 5 ml 5 ml Q4H PRN PO COUGH Last administered on 12:35; Admin Dose 5 ML; Start 04/17/17 at 23:30 Metronidazole (Flagyl 500 Mg (Pmx)) 100 ml @ 100 mls/hr Q6 IVPB Last administered on 04/30/17 12:11; Admin Dose 100 MLS/HR; Start 04/20/17 at 00:00 Rifampin 600 mg 600 mg DAILY PO Last administered on 04/30/17 08:59; Admin Dose 600 MG; Start 04/20/17 at 12:00 Fluconazole/ Sodium Chloride (Diflucan 100 Mg/ NS (Pmx)) 50 ml @ 50 mls/hr Q24H IVPB Last administered on 04/29/17 20:39; Admin Dose 50 MLS/HR; Start 04/22/17 at 18:00 Nystatin (Nystatin Susp) 5 ml QID PO Last administered on 04/30/17 12:10; Admin Dose 5 ML; Start 04/22/17 at 17:00 Megestrol Acetate (Megace Susp) 400 mg BID PO Last administered on 04/30/17 08: 58; Admin Dose 400 MG; Start 04/23/17 at 12:00 Vancomycin HCl (Vancomycin Oral Syringe) 125 mg Q8 PO Last administered on 14:58; Admin Dose 125 MG; Start 04/27/17 at 23:30 Morphine Sulfate (morphine) 2 mg Q2H PRN IV PAIN Last administered on 04/30/17 09:00; Admin Dose 2 MG; Start 04/28/17 at 01:30 GHAZALA HORNE Apr 30, 2017 15:52
[2017-04-30] MEDS: ALBUTEROL/IPRATROPIUM (NEB) 3 ML AMP HHN PRN (19:47)
[2017-04-30 20:00] VITALS: BP 102/77; PULSE 110; RESP 16
[2017-04-30] MEDS: FLUCONAZOLE 100 MG/NS (PMX) 50 ML IVPB SCH (21:10)
[2017-05-01] MEDS: morphine 2 MG INJ IV PRN ×2 (00:01→03:55)
[2017-05-01 03:27] VITALS: BP 96/65; RESP 22
[2017-05-01] MEDS: VANCOMYCIN HCL 250 MG/5ML POSYG PO SCH ×3 (06:00→21:15)
[2017-05-01] MEDS: PANTOPRAZOLE 40 MG INJ IV SCH ×2 (06:08→17:56)
[2017-05-01] MEDS: metroNIDAZOLE 500 MG/NS (PMX) 100 ML IVPB SCH ×3 (06:08→17:57)
[2017-05-01] MEDS: METOCLOPRAMIDE 10 MG INJ IV SCH ×4 (06:08→23:41)
[2017-05-01 06:35] LABS: WHITE BLOOD COUNT 22.6 10^3/ul (4.8-10.8)
[2017-05-01 06:36] LABS: ABNORMAL IP MESSAGE 1; HEMATOCRIT 32.2 % (37.0-47.0); MEAN CORPUSCULAR HEMOGLOBIN 28.2 pg (29.0-33.0); MEAN CORPUSCULAR HGB CONC 34.2 g/dl (32.0-37.0); MEAN CORPUSCULAR VOLUME 82.6 fl (82.0-101.0); MEAN PLATELET VOLUME 11.1 fl (7.4-10.4); NUCLEATED RED BLOOD CELLS% 0.1 /100WBC (0.0-0.0); RED CELL DISTRIBUTION WIDTH 23.5 % (11.5-14.5)
--- NOTE | 2017-05-01 06:44 | CONS ---
Date/Time of Note Date/Time of Note DATE: 05/01/17 TIME: 06:37 Assessment/Plan Assessment/Plan Additional Assessment/Plan Metastatic gastric cancer Ascites Peritoneal metastasis Fluid and electrolyte abnormality Pain out of control secondary to the above We will make adjustments in her current pain control medication and antiemetics. Once patient is more comfortable will speak with them concerning home with hospice care but first will the posterior pain control meds. Consultation Date/Type/Reason Admit Date/Time Apr 07, 2017 at 19:17 Date of Consultation: May 01, 2017 Type of Consultation: Pain management palliative car Hx of Present Illness This is a very debilitated 7-year-old female who has a history of metastatic gastric adenocarcinoma with ascites and peritoneal metastasis. Complications include poor physical performance, malnutrition, malaise nausea vomiting and pain out of control. Patient describes her pain is upper and mid abdomen once again with nausea vomiting pain is continuous gnawing without radiation. Daughter states that with the current pain control medication she becomes on nausea and states that her pain is not alleviated. She is been put appropriate pain control regimen but continues to have intractable nausea. Pain is described is severe with only minor improvement post pain medication dosing. Patient is status post chemotherapy consideration is not given to hospice care. According the patient's daughter she has 3 other sons who live in the [facility] consideration is home with Hospice care. Constitutional: improved ENT: no complaints Respiratory: no complaints Cardiovascular: no complaints Gastrointestinal: nausea Genitourinary: no complaints Musculoskeletal: no complaints Skin: no complaints Neurologic: no complaints Psychological: nl mood/affect, no complaints Past Medical History Medical History: hypertension Past Surgical History Past Surgical Hx: other Social History Alcohol Use: none Smoking Status: Never smoker Drug Use: none Exam/Review of Systems Vital Signs Vitals Vital Signs Date Time Temp Pulse Resp B/P Pulse Ox O2 Delivery O2 Flow Rate FiO2 05/01/17 03:27 98.3 107 22 96/65 99 05/01/17 01:24 2.0 04/30/17 20:00 Nasal Cannula Intake and Output 04/30/17 04/30/17 05/01/17 15:00 23:00 07:00 Intake Total 240 ml 710 ml 1200 ml Output Total 400 ml 150 ml 100 ml Balance -160 ml 560 ml 1100 ml Exam Constitutional: frail Neck: non-tender, supple Respiratory: clear to auscultation, normal air movement Cardiovascular: nl pulses, regular rate and rhythm Gastrointestinal: distended, other (Tender in all 4 quadrants active bowel without gross organomegaly or succussion splash) 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: CENTERLESS GRINDER TENDER II-XII intact, nl mental status, nl speech, nl strength Results Result Diagram: 04/30/1751204/30/17512 Results 24 hrs Laboratory Tests Test 05/01/17 06:08 White Blood Count Pending Red Blood Count Pending Hemoglobin Pending Hematocrit Pending Mean Corpuscular Volume Pending Mean Corpuscular Hemoglobin Pending Mean Corpuscular Hemoglobin Concent Pending Red Cell Distribution Width Pending Platelet Count Pending Mean Platelet Volume Pending Medications Medications Current Medications Ondansetron HCl (Zofran Inj) 4 mg Q6H PRN IV NAUSEA AND/OR VOMITING Last administered on 04/30/17 08:57; Admin Dose 4 MG; Start 04/07/17 at 23:00 Pantoprazole (Protonix Iv) 40 mg BID@06,18 IV Last administered on 05/01/17 06: 08; Admin Dose 40 MG; Start 04/10/17 at 18:00 Sodium Phosphate (Neutra-Phos) 250 mg BID PO Last administered on 04/30/17 21: 12; Admin Dose 250 MG; Start 04/11/17 at 10:30 Metoclopramide HCl (Reglan) 10 mg Q6 IV Last administered on 05/01/17 06:08; Admin Dose 10 MG; Start 04/16/17 at 18:00 Promethazine HCl/ Codeine 5 ml 5 ml Q4H PRN PO COUGH Last administered on 12:35; Admin Dose 5 ML; Start 04/17/17 at 23:30 Metronidazole (Flagyl 500 Mg (Pmx)) 100 ml @ 100 mls/hr Q6 IVPB Last administered on 05/01/17 06:08; Admin Dose 100 MLS/HR; Start 04/20/17 at 00:00 Rifampin 600 mg 600 mg DAILY PO Last administered on 04/30/17 08:59; Admin Dose 600 MG; Start 04/20/17 at 12:00 Fluconazole/ Sodium Chloride (Diflucan 100 Mg/ NS (Pmx)) 50 ml @ 50 mls/hr Q24H IVPB Last administered on 04/30/17 21:10; Admin Dose 50 MLS/HR; Start 04/22/17 at 18:00 Nystatin (Nystatin Susp) 5 ml QID PO Last administered on 04/30/17 21:12; Admin Dose 5 ML; Start 04/22/17 at 17:00 Megestrol Acetate (Megace Susp) 400 mg BID PO Last administered on 04/30/17 21: 12; Admin Dose 400 MG; Start 04/23/17 at 12:00 Vancomycin HCl (Vancomycin Oral Syringe) 125 mg Q8 PO Last administered on 21:18; Admin Dose 125 MG; Start 04/27/17 at 23:30 Morphine Sulfate (morphine) 2 mg Q2H PRN IV PAIN Last administered on 05/01/17 03:55; Admin Dose 2 MG; Start 04/28/17 at 01:30 KORINA SHERMAN May 01, 2017 06:43
[2017-05-01 06:45] LABS: PLATELET COUNT 168 10^3/UL (140-415); POSITIVE DIFF @See below
[2017-05-01 06:56] VITALS: BP 105/62; RESP 18
[2017-05-01 07:02] LABS: CALCIUM 7.7 mg/dl (8.4-10.2); CREATININE 0.41 mg/dl (0.44-1.00); POTASSIUM 4.9 mmol/L (3.5-5.1)
[2017-05-01] MEDS: HYDROmorphONE 1 MG/ML SYG IV SCH ×5 (07:59→23:42)
[2017-05-01] MEDS: MEGESTROL (40 MG/ML) 10ML CUP PO SCH ×2 (08:04→21:00)
[2017-05-01] MEDS: NEUTRA-PHOS 250 MG PACKET PO SCH ×2 (08:04→21:00)
[2017-05-01] MEDS: RIFAMPIN 300 MG CAP PO SCH (08:04)
[2017-05-01] MEDS: NYSTATIN SUSP 5 ML CUP PO SCH ×4 (08:04→21:00)
[2017-05-01 09:13] LABS: ANISOCYTOSIS 2+ (0-0); BURR CELLS 2+ (0-0); GIANT THROMBO% (M) 1 % (0-0); MONOCYTES % (M) 4 % (0-11); PLATELET ESTIMATE INCREASED; POIKILOCYTOSIS 3+ (0-0)
[2017-05-01] MEDS: ALBUTEROL/IPRATROPIUM (NEB) 3 ML AMP HHN PRN ×2 (10:51→21:30)
[2017-05-01] MEDS: ONDANSETRON 4 MG INJ IV SCH ×3 (11:42→23:41)
--- NOTE | 2017-05-01 13:08 | PN ---
Date/Time of Note Date/Time of Note DATE: 05/01/17 TIME: 13:07 Assessment/Plan VTE Prophylaxis VTE Prophylaxis Intervention: SCD's Lines/Catheters IV Catheter Type (from Nrsg): PORT A CATH Urinary Cath still in place: Yes Reason Cath still needed: urinary retention Assessment/Plan Chief Complaint/Hosp Course Patient's continues to complain of nausea and abdominal pain and poor appetite. Assessment/Plan -Metastatic gastric adenocarcinoma, status post chemotherapy by Dr. Ford, oncology. Status post EGD with stent placement on04/[address] Millan, GI. -Abdominal pain secondary to #1. Dr. Suarez, pain management consult is appreciated. -C. difficile colitis, continue p.o. vancomycin and IV Flagyl. -Esophagitis. Continue Protonix and Reglan. -Nausea. Continue Zofran for for nausea and morphine as needed for pain. -Malignant ascites with peritoneal carcinomatosis, status post paracentesis on and 04/20. -Protein calorie severe malnutrition. -DNR status, undergoing hospice evaluation. Further recommendations based on clinical course. Plan of care discussed with Dr. Garner. Problems: Exam/Review of Systems Vital Signs Vitals Vital Signs Date Time Temp Pulse Resp B/P Pulse Ox O2 Delivery O2 Flow Rate FiO2 05/01/17 10:51 112 18 100 Nasal Cannula 2.0 05/01/17 06:56 98.4 105/62 Intake and Output 04/30/17 04/30/17 05/01/17 15:00 23:00 07:00 Intake Total 240 ml 710 ml 1300 ml Output Total 400 ml 150 ml 300 ml Balance -160 ml 560 ml 1000 ml Exam Constitutional: alert, frail Head: normocephalic Neck: supple Respiratory: normal air movement Cardiovascular: nl pulses Gastrointestinal: ascites, distended, soft Extremities: edema, normal pulses 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: nl mental status Results Result Diagram: 05/01/17 0608 05/01/17 0608 Results 24 hrs Laboratory Tests Test 05/01/17 06:08 White Blood Count 22.6 H Red Blood Count 3.90 L Hemoglobin 11.0 L Hematocrit 32.2 L Mean Corpuscular Volume 82.6 Mean Corpuscular Hemoglobin 28.2 L Mean Corpuscular Hemoglobin Concent 34.2 Red Cell Distribution Width 23.5 H Platelet Count 168 # Mean Platelet Volume 11.1 H Neutrophils % Segmented Neutrophils % (Manual) 96 H Lymphocytes % Monocytes % Monocytes % (Manual) 4 Eosinophils % Basophils % Nucleated Red Blood Cells % 0.1 H Neutrophils # Lymphocytes # Monocytes # Absolute Monocytes (Manual) 0.9 Eosinophils # Basophils # Nucleated Red Blood Cells # Smudge Cells % 17 H Thrombocytosis 1 H Platelet Estimate INCREASED Poikilocytosis 3+ Anisocytosis 2+ Macrocytosis 2+ Sodium Level 135 Potassium Level 4.9 Chloride Level 105 Carbon Dioxide Level 18 L Anion Gap 17 H Blood Urea Nitrogen 27 H Creatinine 0.41 L Glucose Level 92 Calcium Level 7.7 L Medications Medications Current Medications Pantoprazole (Protonix Iv) 40 mg BID@06,18 IV Last administered on 05/01/17 06: 08; Admin Dose 40 MG; Start 04/10/17 at 18:00 Sodium Phosphate (Neutra-Phos) 250 mg BID PO Last administered on 04/30/17 21: 12; Admin Dose 250 MG; Start 04/11/17 at 10:30 Metoclopramide HCl 10 mg 10 mg Q6 IV Last administered on 05/01/17 11:42; Admin Dose 10 MG; Start 04/16/17 at 18:00 Metronidazole (Flagyl 500 Mg (Pmx)) 100 ml @ 100 mls/hr Q6 IVPB Last administered on 05/01/17 11:41; Admin Dose 100 MLS/HR; Start 04/20/17 at 00:00 Rifampin 600 mg 600 mg DAILY PO Last administered on 05/01/17 08:04; Admin Dose 600 MG; Start 04/20/17 at 12:00 Fluconazole/ Sodium Chloride (Diflucan 100 Mg/ NS (Pmx)) 50 ml @ 50 mls/hr Q24H IVPB Last administered on 04/30/17 21:10; Admin Dose 50 MLS/HR; Start 04/22/17 at 18:00 Nystatin (Nystatin Susp) 5 ml QID PO Last administered on 04/30/17 21:12; Admin Dose 5 ML; Start 04/22/17 at 17:00 Megestrol Acetate (Megace Susp) 400 mg BID PO Last administered on 04/30/17 21: 12; Admin Dose 400 MG; Start 04/23/17 at 12:00 Vancomycin HCl (Vancomycin Oral Syringe) 125 mg Q8 PO Last administered on 21:18; Admin Dose 125 MG; Start 04/27/17 at 23:30 Ondansetron HCl (Zofran Inj) 4 mg Q6H IV Last administered on 05/01/17 11:42; Admin Dose 4 MG; Start 05/01/17 at 11:00 Hydromorphone HCl (Dilaudid) 0.5 mg Q4H IV Last administered on 05/01/17 11:41 ; Admin Dose 0.5 MG; Start 05/01/17 at 07:00 GHAZALA HORNE May 01, 2017 13:08
[2017-05-01 14:06] VITALS: BP 117/77; RESP 20
[2017-05-01 14:45] VITALS: PULSE 105
--- NOTE | 2017-05-01 16:59 | CONS ---
Date/Time of Note Date/Time of Note DATE: 05/01/17 TIME: 16:57 Assessment/Plan Assessment/Plan Additional Assessment/Plan Additional Assessment/Plan Additional Assessment/Plan 1. 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 Intractable nausea vomiting, resolved, patient is able to tolerate p.o. feeding 3. Dysphagia 4. Hypertension 5. Cachexia 6. Extensive esophageal ulceration 7. Leukocytosis secondary to Neupogen 8. Ascites 9. C. difficile colitis 10. Aspiration pneumonia [place] in the sputum and also in the urine 11. Status post placement of self-expanding metallic stent across the obstructing lesion in the antrum, patient is able to tolerate p.o. feeding no nausea or vomiting. 12. Colostomy bag at the paracentesis site and its draining large quantity of a side ache fluid Plan Continue PPI and Reglan Vancomycin p.o. for C. difficile colitis May need paracentesis Pain management. Continue drainage from the paracentesis site. Patient's nausea might be related related to narcotic Consultation Date/Type/Reason Admit Date/Time Apr 07, 2017 at 19:17 Type of Consultation: Pain management palliative car Referring Provider: CINDY ESTRELLA MD 24 HR Interval Summary Free Text/Dictation Nausea Exam/Review of Systems Vital Signs Vitals Vital Signs Date Time Temp Pulse Resp B/P Pulse Ox O2 Delivery O2 Flow Rate FiO2 05/01/17 14:45 105 05/01/17 14:06 98.6 20 117/77 100 05/01/17 10:51 Nasal Cannula 2.0 Intake and Output 04/30/17 04/30/17 05/01/17 15:00 23:00 07:00 Intake Total 240 ml 710 ml 1300 ml Output Total 400 ml 150 ml 300 ml Balance -160 ml 560 ml 1000 ml Exam Constitutional: alert, oriented, well developed Psych: nl mood/affect, no complaints Head: atraumatic, normocephalic Eyes: EOMI, PERRL, nl conjunctiva, nl lids, nl sclera ENMT: nl external ears & nose, nl lips & teeth, nl nasal mucosa & septum Neck: non-tender, supple Respiratory: clear to auscultation, normal air movement Cardiovascular: nl pulses, regular rate and rhythm Gastrointestinal: nl liver, spleen, non-tender, soft Musculoskeletal: nl extremities to inspection, nl gait and stance Extremities: normal pulses 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: MOTION PICTURE PROJECTIONIST II-XII intact, nl mental status, nl speech, nl strength Skin: nl turgor, No rash or lesions Lymph: nl lymph nodes Results Result Diagram: 05/01/1708 05/01/17 0608 Results 24 hrs Laboratory Tests Test 05/01/17 06:08 White Blood Count 22.6 H Red Blood Count 3.90 L Hemoglobin 11.0 L Hematocrit 32.2 L Mean Corpuscular Volume 82.6 Mean Corpuscular Hemoglobin 28.2 L Mean Corpuscular Hemoglobin Concent 34.2 Red Cell Distribution Width 23.5 H Platelet Count 168 # Mean Platelet Volume 11.1 H Neutrophils % Segmented Neutrophils % (Manual) 96 H Lymphocytes % Monocytes % Monocytes % (Manual) 4 Eosinophils % Basophils % Nucleated Red Blood Cells % 0.1 H Neutrophils # Lymphocytes # Monocytes # Absolute Monocytes (Manual) 0.9 Eosinophils # Basophils # Nucleated Red Blood Cells # Smudge Cells % 17 H Thrombocytosis 1 H Platelet Estimate INCREASED Poikilocytosis 3+ Anisocytosis 2+ Macrocytosis 2+ Sodium Level 135 Potassium Level 4.9 Chloride Level 105 Carbon Dioxide Level 18 L Anion Gap 17 H Blood Urea Nitrogen 27 H Creatinine 0.41 L Glucose Level 92 Calcium Level 7.7 L Medications Medications Current Medications Pantoprazole (Protonix Iv) 40 mg BID@06,18 IV Last administered on 05/01/17 06: 08; Admin Dose 40 MG; Start 04/10/17 at 18:00 Sodium Phosphate (Neutra-Phos) 250 mg BID PO Last administered on 04/30/17 21: 12; Admin Dose 250 MG; Start 04/11/17 at 10:30 Metoclopramide HCl 10 mg 10 mg Q6 IV Last administered on 05/01/17 11:42; Admin Dose 10 MG; Start 04/16/17 at 18:00 Metronidazole (Flagyl 500 Mg (Pmx)) 100 ml @ 100 mls/hr Q6 IVPB Last administered on 05/01/17 11:41; Admin Dose 100 MLS/HR; Start 04/20/17 at 00:00 Rifampin 600 mg 600 mg DAILY PO Last administered on 05/01/17 08:04; Admin Dose 600 MG; Start 04/20/17 at 12:00 Fluconazole/ Sodium Chloride (Diflucan 100 Mg/ NS (Pmx)) 50 ml @ 50 mls/hr Q24H IVPB Last administered on 04/30/17 21:10; Admin Dose 50 MLS/HR; Start 04/22/17 at 18:00 Nystatin (Nystatin Susp) 5 ml QID PO Last administered on 04/30/17 21:12; Admin Dose 5 ML; Start 04/22/17 at 17:00 Megestrol Acetate (Megace Susp) 400 mg BID PO Last administered on 04/30/17 21: 12; Admin Dose 400 MG; Start 04/23/17 at 12:00 Vancomycin HCl (Vancomycin Oral Syringe) 125 mg Q8 PO Last administered on 21:18; Admin Dose 125 MG; Start 04/27/17 at 23:30 Ondansetron HCl (Zofran Inj) 4 mg Q6H IV Last administered on 05/01/17 11:42; Admin Dose 4 MG; Start 05/01/17 at 11:00 Hydromorphone HCl (Dilaudid) 0.5 mg Q4H IV Last administered on 05/01/17 15:21 ; Admin Dose 0.5 MG; Start 05/01/17 at 07:00 GIANNA CHANEL MD May 01, 2017 16:59
--- NOTE | 2017-05-01 18:44 | CONS ---
Date/Time of Note Date/Time of Note DATE: 05/01/17 TIME: 18:39 Assessment/Plan Assessment/Plan Chief Complaint/Hosp Course ID PROGRESS NOTE CURRENT ABX: DAY #11=> Flagyl IV #11 + Vanco liq po #11 + Rifampin #11 + Diflucan 100mg IV #9 24H INTERVAL SUMMARY * Resting comfortably in bed, no fevers, VSS, no complaints offered * WBC down to 22.6 from prior 50 -> Still elevated * ON ABX for presumptive SBP, s/p UTI, esophageal candidiasis + C.Diff Exam Constitutional: alert, oriented, cachetic, generalized weakness Psych: nl mood/affect, no complaints Head: atraumatic, normocephalic Eyes: EOMI, nl conjunctiva, nl lids, nl sclera ENMT: Unremarkable Neck: non-tender, supple Respiratory: (+)Rales, no wheezing, equal chest rise bilaterally Cardiovascular: nl pulses, regular rate and rhythm Gastrointestinal: Ascites Musculoskeletal: nl extremities to inspection Extremities: normal pulses 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 Ford. 1. SEPSIS per (+) rising leukocytosis 10.0(04/16) -> 22.8 (04/17)-> now 40.1 (04/20 ) w/15% BANDS => RESOLVED * SIRS -> Persistent leukocytosis, no fevers, VSS * No fevers, mild intermittent tachycardia 90-110, B/P 93/59 * (+)C.Diff Colitis 04/17/17 C DIFFICILE DNA AMPLIFICATION Final CYTOTOXIGENIC C DIFFICILE POSITIVE (Ref Range Neg) * DDx: spontaneous bacterial peritonitis=> D/W Dr. Orozco -- Rx Rifampin onboard * DDx: UTI 04/20 Urine Cx (+) URINE CULTURE Preliminary ==> she was treated empirically w/Fosfomycin po x1 Organism 1 ENTEROCOCCUS SPECIES COLONY COUNT 70,000 - 80,000 CFU/ml Organism 2 CHRIS ALBICANS COLONY COUNT 30,000 - 40,000 CFU/ml * DDx: Aspiration Pneumonitis => Lungs w/increase fluid likely 2. Metastatic gastric CA with suspected malignant abdominopelvic ascites and peritoneal carcinomatosis * s/p PARA 04/14-> ~5000 ml of clear yellow fluid was obtained and then discarded. * DDx: spontaneous bacterial peritonitis => Rifampin 600mg PO daily onboard 3. Leukopenia and anemia 2/2 chemotherapy. Restarted on Neupogen. 4. GERD, extreme esophagitis and severe reflux w/undigested food in the esophagus => risk factor for silent aspiration syndrome * s/p 04/16/17 EGD with stent placement on04/[address] Millan, GI. * Sputum (+)Chris albicans -> Start Nystatin 5mL QIC swish/swallow 5. Abdominal pain with nausea and vomiting 2/2 massive ascites pressure volume = > due to #2 & #4 * N/V/ABD Pain resolved w/Zofran and Morphine 6. Possible aspiration pneumonia => Rifampin onboard * Respiratory culture grew (+)Yeast == Oral Candidiasis likely * RESPIRATORY CULTURE Final Organism 1 CHRIS ALBICANS QUANTITY 1+ Organism 2 NORMAL RESPIRATORY STEFANIA QUANTITY 1+ 7. Pulmonary congestion w/ extensive bilateral upper lobe and lower lobe infiltrates on CXR 04/20 * Multifactorial due to severe ascites fluid back up, low colloid pressure 3rd spacing, malignancy * Moderate right pleural effusion on admission 8. Hx of CHF * 2D ECHO SEP 2016, normal LVFx w/EF~60% * 2D ECHO 2015 preserved systolic LVFx w/STG I diastolic dysfunction 9. Cachexia w/severe protein calorie deficiency 10. Low normal B/P w/transient hypotension due to low colloid pressure 3rd spacing, malignancy, SIRS, sepsis 11. Contaminated Urine culture vs early GNR UTI on 04/07/17 URINE CULTURE Final Organism 1 ESCHERICHIA COLI COLONY COUNT <10,000 CFU/ml Organism 2 LACTOBACILLUS SPECIES COLONY COUNT >100,000 CFU/ml (-) MRSA Nares INVASIVES: Right chest Port-A-Cath ABX ALLERGY: KNDA CURRENT ABX: DAY #11=> Vanco liq po #11 + Rifampin #11 + Diflucan 100mg IV #9 Flagyl IV #11 -> DC 8/9 s/p Fosfomycin po x1 04/20 (Enterococcal UTI) s/o Fosfomycin po x1 04/27 (Repeat per WBC remains elevated) ID RECOMMENDATIONS 1. Started C. Diff ABX taper: DC Flagyl IV -> Lower Vanco PO to 125mg TID 2. Continue Diflucan + Nystatin oral swish/swallow for oral thrush chris esophagitis 3. Rifampin onboard for prophy SBP and C.Diff 4. PRN For Temp >101.0 send blood cultures via Port-A-Cath, no compelling evidence infected Port septicemia at this time. . Problems: Consultation Date/Type/Reason Admit Date/Time Apr 07, 2017 at 19:17 Initial Consult Date 04/07/17 Type of Consultation: ID Referring Provider: CINDY ESTRELLA MD Exam/Review of Systems Vital Signs Vitals Vital Signs Date Time Temp Pulse Resp B/P Pulse Ox O2 Delivery O2 Flow Rate FiO2 05/01/17 14:45 105 05/01/17 14:06 98.6 20 117/77 100 05/01/17 10:51 Nasal Cannula 2.0 Intake and Output 04/30/17 04/30/17 05/01/17 15:00 23:00 07:00 Intake Total 240 ml 710 ml 1300 ml Output Total 400 ml 150 ml 300 ml Balance -160 ml 560 ml 1000 ml Results Result Diagram: 05/01/17 0608 05/01/17 0608 Results 24 hrs Laboratory Tests Test 05/01/17 06:08 White Blood Count 22.6 H Red Blood Count 3.90 L Hemoglobin 11.0 L Hematocrit 32.2 L Mean Corpuscular Volume 82.6 Mean Corpuscular Hemoglobin 28.2 L Mean Corpuscular Hemoglobin Concent 34.2 Red Cell Distribution Width 23.5 H Platelet Count 168 # Mean Platelet Volume 11.1 H Neutrophils % Segmented Neutrophils % (Manual) 96 H Lymphocytes % Monocytes % Monocytes % (Manual) 4 Eosinophils % Basophils % Nucleated Red Blood Cells % 0.1 H Neutrophils # Lymphocytes # Monocytes # Absolute Monocytes (Manual) 0.9 Eosinophils # Basophils # Nucleated Red Blood Cells # Smudge Cells % 17 H Thrombocytosis 1 H Platelet Estimate INCREASED Poikilocytosis 3+ Anisocytosis 2+ Macrocytosis 2+ Sodium Level 135 Potassium Level 4.9 Chloride Level 105 Carbon Dioxide Level 18 L Anion Gap 17 H Blood Urea Nitrogen 27 H Creatinine 0.41 L Glucose Level 92 Calcium Level 7.7 L Medications Medications Current Medications Pantoprazole (Protonix Iv) 40 mg BID@,18 IV Last administered on 05/01/17t 17: 56; Admin Dose 40 MG; Start 04/10/17 at 18:00 Sodium Phosphate (Neutra-Phos) 250 mg BID PO Last administered on 04/30/17 21: 12; Admin Dose 250 MG; Start 04/11/17 at 10:30 Metoclopramide HCl 10 mg 10 mg Q6 IV Last administered on 05/01/17 17:56; Admin Dose 10 MG; Start 04/16/17 at 18:00 Metronidazole (Flagyl 500 Mg (Pmx)) 100 ml @ 100 mls/hr Q6 IVPB Last administered on 05/01/17 17:57; Admin Dose 100 MLS/HR; Start 04/20/17 at 00:00 Rifampin 600 mg 600 mg DAILY PO Last administered on 05/01/17 08:04; Admin Dose 600 MG; Start 04/20/17 at 12:00 Fluconazole/ Sodium Chloride (Diflucan 100 Mg/ NS (Pmx)) 50 ml @ 50 mls/hr Q24H IVPB Last administered on 04/30/17 21:10; Admin Dose 50 MLS/HR; Start 04/22/17 at 18:00 Nystatin (Nystatin Susp) 5 ml QID PO Last administered on 04/30/17 21:12; Admin Dose 5 ML; Start 04/22/17 at 17:00 Megestrol Acetate (Megace Susp) 400 mg BID PO Last administered on 04/30/17 21: 12; Admin Dose 400 MG; Start 04/23/17 at 12:00 Vancomycin HCl (Vancomycin Oral Syringe) 125 mg Q8 PO Last administered on 21:18; Admin Dose 125 MG; Start 04/27/17 at 23:30 Ondansetron HCl (Zofran Inj) 4 mg Q6H IV Last administered on 05/01/17 17:56; Admin Dose 4 MG; Start 05/01/17 at 11:00 Hydromorphone HCl (Dilaudid) 0.5 mg Q4H IV Last administered on 05/01/17 15:21 ; Admin Dose 0.5 MG; Start 05/01/17 at 07:00 GENESIS MESSER NP May 01, 2017 18:43
[2017-05-01 20:00] VITALS: BP 92/59; RESP 20
[2017-05-01] MEDS: FLUCONAZOLE 100 MG/NS (PMX) 50 ML IVPB SCH (20:52)
[2017-05-02 02:27] VITALS: BP 98/65; RESP 18
[2017-05-02] MEDS: HYDROmorphONE 1 MG/ML SYG IV SCH ×3 (03:00→10:40)
[2017-05-02] MEDS: ONDANSETRON 4 MG INJ IV SCH ×4 (04:47→22:43)
[2017-05-02] MEDS: VANCOMYCIN HCL 250 MG/5ML POSYG PO SCH (05:01)
[2017-05-02] MEDS: PANTOPRAZOLE 40 MG INJ IV SCH ×2 (05:01→17:33)
[2017-05-02] MEDS: METOCLOPRAMIDE 10 MG INJ IV SCH ×4 (05:01→23:42)
[2017-05-02 06:03] LABS: CALCIUM 7.6 mg/dl (8.4-10.2); CREATININE 0.69 mg/dl (0.44-1.00); POTASSIUM 4.7 mmol/L (3.5-5.1)
[2017-05-02 07:03] LABS: ABNORMAL IP MESSAGE 1; BASOPHILS % 0.1 % (0.0-2.0); HEMATOCRIT 32.9 % (37.0-47.0); LYMPHOCYTES # 0.2 10^3/ul (0.8-2.9); LYMPHOCYTES % 0.8 % (15.0-51.0); MEAN CORPUSCULAR HEMOGLOBIN 28.2 pg (29.0-33.0); MEAN CORPUSCULAR HGB CONC 33.4 g/dl (32.0-37.0); MEAN CORPUSCULAR VOLUME 84.4 fl (82.0-101.0); MEAN PLATELET VOLUME 11.8 fl (7.4-10.4); MONOCYTE # 0.6 10^3/ul (0.3-0.9); MONOCYTES % 2.6 % (0.0-11.0); NEUTROPHIL # 20.5 10^3/ul (1.6-7.5); NEUTROPHILS % 94.7 % (39.0-77.0); NUCLEATED RED BLOOD CELLS # 0.1 10^3/ul (0.0-0.0); NUCLEATED RED BLOOD CELLS% 0.4 /100WBC (0.0-0.0); RED CELL DISTRIBUTION WIDTH 24.5 % (11.5-14.5); WHITE BLOOD COUNT 21.7 10^3/ul (4.8-10.8)
[2017-05-02 07:07] LABS: PLATELET COUNT 134 10^3/UL (140-415); POSITIVE DIFF @See below
[2017-05-02 07:33] VITALS: BP_SYST 75; BP_SYST 89; BP_DIAS 55; BP_DIAS 60; PULSE 116; RESP 8
[2017-05-02] MEDS: NEUTRA-PHOS 250 MG PACKET PO SCH (09:00)
[2017-05-02] MEDS: MEGESTROL (40 MG/ML) 10ML CUP PO SCH (09:00)
[2017-05-02] MEDS: RIFAMPIN 300 MG CAP PO SCH (09:00)
[2017-05-02] MEDS: NYSTATIN SUSP 5 ML CUP PO SCH ×2 (09:00→12:34)
--- NOTE | 2017-05-02 10:28 | CONS ---
Date/Time of Note Date/Time of Note DATE: 05/02/17 TIME: 10:27 Assessment/Plan Assessment/Plan Additional Assessment/Plan 1. 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 Intractable nausea vomiting, resolved, patient is able to tolerate p.o. feeding 3. Dysphagia 4. Hypertension 5. Cachexia 6. Extensive esophageal ulceration 7. Leukocytosis secondary to Neupogen 8. Ascites 9. C. difficile colitis 10. Aspiration pneumonia [place] in the sputum and also in the urine 11. Status post placement of self-expanding metallic stent across the obstructing lesion in the antrum, patient is able to tolerate p.o. feeding no nausea or vomiting. 12. Colostomy bag at the paracentesis site and its draining large quantity of a side ache fluid Plan Continue PPI and Reglan Vancomycin p.o. for C. difficile colitis May need paracentesis Pain management. Continue drainage from the paracentesis site. Patient's nausea might be related related to narcotic Patient is steadily losing weight, prognosis remains poor Consultation Date/Type/Reason Admit Date/Time Apr 07, 2017 at 19:17 Type of Consultation: ID Referring Provider: CINDY ESTRELLA MD 24 HR Interval Summary Free Text/Dictation P.o. intake is poor Exam/Review of Systems Vital Signs Vitals Vital Signs Date Time Temp Pulse Resp B/P Pulse Ox O2 Delivery O2 Flow Rate FiO2 05/02/17 07:33 98.4 116 8 75/55 99 Nasal Cannula 89/60 05/02/17 04:29 2.0 Intake and Output 05/01/17 05/01/17 05/02/17 15:00 23:00 07:00 Intake Total 100 ml 350 ml 120 ml Output Total 380 ml 100 ml Balance 100 ml -30 ml 20 ml Exam Constitutional: alert, oriented, well developed Psych: nl mood/affect, no complaints Head: atraumatic, normocephalic Eyes: EOMI, PERRL, nl conjunctiva, nl lids, nl sclera ENMT: nl external ears & nose, nl lips & teeth, nl nasal mucosa & septum Neck: non-tender, supple Respiratory: clear to auscultation, normal air movement Cardiovascular: nl pulses, regular rate and rhythm Gastrointestinal: nl liver, spleen, non-tender, soft Musculoskeletal: nl extremities to inspection, nl gait and stance Extremities: normal pulses 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: UNSTACKER II-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 intact, nl mental status, nl speech, nl strength Skin: nl turgor, No rash or lesions Lymph: nl lymph nodes Results Result Diagram: 05/02/1751205/02/17512 Results 24 hrs Laboratory Tests Test 05/02/17 05:13 White Blood Count 21.7 H Red Blood Count 3.90 L Hemoglobin 11.0 L Hematocrit 32.9 L Mean Corpuscular Volume 84.4 Mean Corpuscular Hemoglobin 28.2 L Mean Corpuscular Hemoglobin Concent 33.4 Red Cell Distribution Width 24.5 H Platelet Count 134 #L Mean Platelet Volume 11.8 H Neutrophils % 94.7 H Lymphocytes % 0.8 L Monocytes % 2.6 Eosinophils % 0.0 Basophils % 0.1 Nucleated Red Blood Cells % 0.4 H Neutrophils # 20.5 H Lymphocytes # 0.2 L Monocytes # 0.6 Eosinophils # 0.0 Basophils # 0.0 Nucleated Red Blood Cells # 0.1 H Sodium Level 135 Potassium Level 4.7 Chloride Level 108 Carbon Dioxide Level 16 L Anion Gap 16 Blood Urea Nitrogen 34 H Creatinine 0.69 Glucose Level 97 Calcium Level 7.6 L Medications Medications Current Medications Pantoprazole (Protonix Iv) 40 mg BID@06,18 IV Last administered on 05/02/17 05 :01; Admin Dose 40 MG; Start 04/10/17 at 18:00 Sodium Phosphate (Neutra-Phos) 250 mg BID PO Last administered on 04/30/17 21: 12; Admin Dose 250 MG; Start 04/11/17 at 10:30 Metoclopramide HCl (Reglan) 10 mg Q6 IV Last administered on 05/02/17 05:01; Admin Dose 10 MG; Start 04/16/17 at 18:00 Rifampin 600 mg 600 mg DAILY PO Last administered on 05/01/17 08:04; Admin Dose 600 MG; Start 04/20/17 at 12:00 Fluconazole/ Sodium Chloride (Diflucan 100 Mg/ NS (Pmx)) 50 ml @ 50 mls/hr Q24H IVPB Last administered on 05/01/17 20:52; Admin Dose 50 MLS/HR; Start 04/22/17 at 18:00 Nystatin (Nystatin Susp) 5 ml QID PO Last administered on 04/30/17 21:12; Admin Dose 5 ML; Start 04/22/17 at 17:00 Megestrol Acetate (Megace Susp) 400 mg BID PO Last administered on 04/30/17 21: 12; Admin Dose 400 MG; Start 04/23/17 at 12:00 Vancomycin HCl (Vancomycin Oral Syringe) 125 mg Q8 PO Last administered on 21:18; Admin Dose 125 MG; Start 04/27/17 at 23:30 Ondansetron HCl (Zofran Inj) 4 mg Q6H IV Last administered on 05/02/17 04:47; Admin Dose 4 MG; Start 05/01/17 at 11:00 Hydromorphone HCl (Dilaudid) 0.5 mg Q4H IV Last administered on 05/02/17 06:49 ; Admin Dose 0.5 MG; Start 05/01/17 at 07:00 GIANNA CHANEL MD May 02, 2017 10:27
[2017-05-02] MEDS ORDERED: DIMETHICONE STICK TOP PRN (13:00)
[2017-05-02] MEDS ORDERED: HALOPERIDOL 5 MG INJ IM PRN (13:00)
[2017-05-02] MEDS ORDERED: ACETAMINOPHEN 1000MG/100ML IV 100 ML IVPB PRN (13:00)
[2017-05-02] MEDS ORDERED: LORAZEPAM 2 MG INJ IV PRN (13:00)
[2017-05-02] MEDS ORDERED: ATROPINE 1% 5 ML OPH SL PRN (13:00)
[2017-05-02] MEDS ORDERED: DIPHENHYDRAMINE 50 MG INJ IV PRN (13:00)
[2017-05-02 14:00] VITALS: BP 88/60
[2017-05-02] MEDS ORDERED: ARTIFICIAL TEARS 15 ML OPH BOTH EYES PRN (14:30)
[2017-05-02] MEDS: morphine (DRIP) 100 MG/100 ML 100 ML IV SCH ×2 (14:41→20:21)
[2017-05-02] MEDS: ALBUTEROL/IPRATROPIUM (NEB) 3 ML AMP HHN PRN ×2 (15:09→22:22)
--- NOTE | 2017-05-02 19:41 | CONS ---
Date/Time of Note Date/Time of Note DATE: 05/02/17 TIME: 19:37 Assessment/Plan Assessment/Plan Chief Complaint/Hosp Course ID PROGRESS NOTE CURRENT ABX: DAY #12=> + Vanco liq po #12 + Rifampin #12 + Diflucan 100mg IV # 10 Flagyl IV #11-> DC'd 24H INTERVAL SUMMARY * Awake, alert, family present, no new issues, no complaints offered, she is stable, no fevers * WBC down to 21.7 yesterday was 22.6 -- overall improved from prior 50 -> Still elevated * ON ABX for presumptive SBP, s/p UTI, esophageal candidiasis + C.Diff Exam Constitutional: alert, oriented, cachetic, generalized weakness Psych: nl mood/affect, no complaints Head: atraumatic, normocephalic Eyes: EOMI, nl conjunctiva, nl lids, nl sclera ENMT: Unremarkable Neck: non-tender, supple Respiratory: equal chest rise bilaterally Cardiovascular: nl pulses, regular rate and rhythm Gastrointestinal: Ascites Musculoskeletal: nl extremities to inspection Extremities: normal pulses 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: 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 Ford. 1. SEPSIS per (+) rising leukocytosis 10.0(04/16) -> 22.8 (04/17)-> now 40.1 (04/20 ) w/15% BANDS => RESOLVED * SIRS -> Persistent leukocytosis, no fevers, VSS * No fevers, mild intermittent tachycardia 90-110, B/P 93/59 * (+)C.Diff Colitis 04/17/17 C DIFFICILE DNA AMPLIFICATION Final CYTOTOXIGENIC C DIFFICILE POSITIVE (Ref Range Neg) * DDx: spontaneous bacterial peritonitis=> D/W Dr. Orozco -- Rx Rifampin onboard * DDx: UTI 04/20 Urine Cx (+) URINE CULTURE Preliminary ==> she was treated empirically w/Fosfomycin po x1 Organism 1 ENTEROCOCCUS SPECIES COLONY COUNT 70,000 - 80,000 CFU/ml Organism 2 CHRIS ALBICANS COLONY COUNT 30,000 - 40,000 CFU/ml * DDx: Aspiration Pneumonitis => Lungs w/increase fluid likely 2. Metastatic gastric CA with suspected malignant abdominopelvic ascites and peritoneal carcinomatosis * s/p PARA 04/14-> ~5000 ml of clear yellow fluid was obtained and then discarded. * DDx: spontaneous bacterial peritonitis => Rifampin 600mg PO daily onboard 3. Leukopenia and anemia 2/2 chemotherapy. Restarted on Neupogen. 4. GERD, extreme esophagitis and severe reflux w/undigested food in the esophagus => risk factor for silent aspiration syndrome * s/p 04/16/17 EGD with stent placement on04/[address] Millan, GI. * Sputum (+)Chris albicans -> Start Nystatin 5mL QIC swish/swallow 5. Abdominal pain with nausea and vomiting 2/2 massive ascites pressure volume = > due to #2 & #4 * N/V/ABD Pain resolved w/Zofran and Morphine 6. Possible aspiration pneumonia => Rifampin onboard * Respiratory culture grew (+)Yeast == Oral Candidiasis likely * RESPIRATORY CULTURE Final Organism 1 CHRIS ALBICANS QUANTITY 1+ Organism 2 NORMAL RESPIRATORY STEFANIA QUANTITY 1+ 7. Pulmonary congestion w/ extensive bilateral upper lobe and lower lobe infiltrates on CXR 04/20 * Multifactorial due to severe ascites fluid back up, low colloid pressure 3rd spacing, malignancy * Moderate right pleural effusion on admission 8. Hx of CHF * 2D ECHO SEP 2016, normal LVFx w/EF~60% * 2D ECHO 2015 preserved systolic LVFx w/STG I diastolic dysfunction 9. Cachexia w/severe protein calorie deficiency 10. Low normal B/P w/transient hypotension due to low colloid pressure 3rd spacing, malignancy, SIRS, sepsis 11. Contaminated Urine culture vs early GNR UTI on 04/07/17 URINE CULTURE Final Organism 1 ESCHERICHIA COLI COLONY COUNT <10,000 CFU/ml Organism 2 LACTOBACILLUS SPECIES COLONY COUNT >100,000 CFU/ml (-) MRSA Nares INVASIVES: Right chest Port-A-Cath ABX ALLERGY: KNDA CURRENT ABX: DAY #12=> + Vanco liq po #12 + Rifampin #12 + Diflucan 100mg IV # 10 Flagyl IV #11 -> DC 8/9 s/p Fosfomycin po x1 04/20 (Enterococcal UTI) s/o Fosfomycin po x1 / (Repeat per WBC remains elevated) ID RECOMMENDATIONS=> DC ABX on day #14 1. Vanco liquid tapered for C.Diff > Lower Vanco PO to 125mg TID 2. Continue Diflucan + Nystatin oral swish/swallow for oral thrush chris esophagitis 3. Rifampin onboard for prophy SBP and C.Diff 4. PRN For Temp >101.0 send blood cultures via Port-A-Cath, no compelling evidence infected Port septicemia at this time. . Problems: Consultation Date/Type/Reason Admit Date/Time Apr 07, 2017 at 19:17 Initial Consult Date 04/07/17 Type of Consultation: ID Referring Provider: CINDY ESTRELLA MD Exam/Review of Systems Vital Signs Vitals Vital Signs Date Time Temp Pulse Resp B/P Pulse Ox O2 Delivery O2 Flow Rate FiO2 05/02/17 18:39 2.0 05/02/17 15:10 66 20 Nasal Cannula 05/02/17 14:00 97.7 88/60 58 Intake and Output 05/01/17 05/01/17 05/02/17 15:00 23:00 07:00 Intake Total 100 ml 350 ml 120 ml Output Total 380 ml 100 ml Balance 100 ml -30 ml 20 ml Results Result Diagram: 05/02/17 0513 05/02/17 0513 Results 24 hrs Laboratory Tests Test 05/02/17 05:13 White Blood Count 21.7 H Red Blood Count 3.90 L Hemoglobin 11.0 L Hematocrit 32.9 L Mean Corpuscular Volume 84.4 Mean Corpuscular Hemoglobin 28.2 L Mean Corpuscular Hemoglobin Concent 33.4 Red Cell Distribution Width 24.5 H Platelet Count 134 #L Mean Platelet Volume 11.8 H Neutrophils % 94.7 H Lymphocytes % 0.8 L Monocytes % 2.6 Eosinophils % 0.0 Basophils % 0.1 Nucleated Red Blood Cells % 0.4 H Neutrophils # 20.5 H Lymphocytes # 0.2 L Monocytes # 0.6 Eosinophils # 0.0 Basophils # 0.0 Nucleated Red Blood Cells # 0.1 H Sodium Level 135 Potassium Level 4.7 Chloride Level 108 Carbon Dioxide Level 16 L Anion Gap 16 Blood Urea Nitrogen 34 H Creatinine 0.69 Glucose Level 97 Calcium Level 7.6 L Medications Medications Current Medications Pantoprazole (Protonix Iv) 40 mg BID@06,18 IV Last administered on 05/02/17t 17 :33; Admin Dose 40 MG; Start 04/10/17 at 18:00 Metoclopramide HCl (Reglan) 10 mg Q6 IV Last administered on 05/02/17 17:37; Admin Dose 10 MG; Start 04/16/17 at 18:00 Ondansetron HCl 4 mg 4 mg Q6H IV Last administered on 05/02/17 17:33; Admin Dose 4 MG; Start 05/01/17 at 11:00 Morphine Sulfate/ Sodium Chloride 100 ml @ 1 mls/hr TITRATE IV Last administered on 05/02/17 14:41; Admin Dose 1 MLS/HR; Start 05/02/17 at 13:00 Acetaminophen (Ofirmev 1000mg/ 100ml Iv) 100 ml @ 400 mls/hr Q6H PRN IVPB PAIN AND OR ELEVATED TEMP; Start 05/02/17 at 13:00 Lorazepam (Ativan) 1 mg Q4H PRN IV ANXIETY/SEIZURES; Start 05/02/17 at 13:00 Haloperidol (Haldol) 1 mg Q1H PRN IM DELIRIUM; Start 05/02/17 at 13:00 Atropine Sulfate (Atropine 1% Oph) 2 drop Q4H PRN SL TERMINAL CONGESTION; Start 05/02/17 at 13:00 Diphenhydramine HCl (Benadryl) 25 mg Q4H PRN IV PRURITUS; Start 05/02/17 at 13: 00 GENESIS MESSER NP May 02, 2017 19:41
[2017-05-02 20:22] VITALS: BP 94/57; RESP 17
--- NOTE | 2017-05-02 21:31 | DS ---
Date/Time of Note Date/Time of Note DATE: 05/02/17 TIME: 21:31 Discharge Summary Admission/Discharge Info Admit Date/Time Apr 07, 2017 at 19:17 Discharge Date/Time Hx of Present Illness The patient is 61-year-old unfortunate female with history of gastric cancer was diagnosed in July 2016. Patient underwent chemotherapy through right upper chest permacath and was followed by Dr. Ford in oncology consultation. Patient received chemotherapy 4 days ago. Patient developed dysphagia, was able to tolerate only liquid diet for the last couple of weeks. Patient presented to the emergency room with increased abdominal pain and nausea and vomiting, patient also complains of generalized weakness. Patient also complains of esophageal pain after food ingestion. Patient denies any chest pain, denies any shortness of breath, denies fever, chills. Patient complains of weight loss, appears cachectic. Patient was also noted to have hyponatremia with dehydration, was giving IV fluids. Chest x-ray revealed bilateral interstitial markings patient was giving cefepime for possible infection since patient immunocompromised. Patient is admitted for further evaluation and management. Hospital Course ID PROGRESS NOTE CURRENT ABX: DAY #12=> + Vanco liq po #12 + Rifampin #12 + Diflucan 100mg IV # 10 Flagyl IV #11-> DC'd 24H INTERVAL SUMMARY * Awake, alert, family present, no new issues, no complaints offered, she is stable, no fevers * WBC down to 21.7 yesterday was 22.6 -- overall improved from prior 50 -> Still elevated * ON ABX for presumptive SBP, s/p UTI, esophageal candidiasis + C.Diff Exam Constitutional: alert, oriented, cachetic, generalized weakness Psych: nl mood/affect, no complaints Head: atraumatic, normocephalic Eyes: EOMI, nl conjunctiva, nl lids, nl sclera ENMT: Unremarkable Neck: non-tender, supple Respiratory: equal chest rise bilaterally Cardiovascular: nl pulses, regular rate and rhythm Gastrointestinal: Ascites Musculoskeletal: nl extremities to inspection Extremities: normal pulses 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: SLIP INJECTOR AND APPLICATOR II-XII intact, nl mental status, nl speech Skin: No diaphoresis, N rash or lesions ID ASSESSMENT 61 yo F w/Metastatic gastric CA -> status post chemotherapy by Dr. Ford. 1. SEPSIS per (+) rising leukocytosis 10.0(04/16) -> 22.8 (04/17)-> now 40.1 (04/20 ) w/15% BANDS => RESOLVED * SIRS -> Persistent leukocytosis, no fevers, VSS * No fevers, mild intermittent tachycardia 90-110, B/P 93/59 * (+)C.Diff Colitis 04/17/17 C DIFFICILE DNA AMPLIFICATION Final CYTOTOXIGENIC C DIFFICILE POSITIVE (Ref Range Neg) * DDx: spontaneous bacterial peritonitis=> D/W Dr. Orozco -- Rx Rifampin onboard * DDx: UTI 04/20 Urine Cx (+) URINE CULTURE Preliminary ==> she was treated empirically w/Fosfomycin po x1 Organism 1 ENTEROCOCCUS SPECIES COLONY COUNT 70,000 - 80,000 CFU/ml Organism 2 CHRIS ALBICANS COLONY COUNT 30,000 - 40,000 CFU/ml * DDx: Aspiration Pneumonitis => Lungs w/increase fluid likely 2. Metastatic gastric CA with suspected malignant abdominopelvic ascites and peritoneal carcinomatosis * s/p PARA 04/14-> ~5000 ml of clear yellow fluid was obtained and then discarded. * DDx: spontaneous bacterial peritonitis => Rifampin 600mg PO daily onboard 3. Leukopenia and anemia 2/2 chemotherapy. Restarted on Neupogen. 4. GERD, extreme esophagitis and severe reflux w/undigested food in the esophagus => risk factor for silent aspiration syndrome * s/p 04/16/17 EGD with stent placement on04/[address] Millan, GI. * Sputum (+)Chris albicans -> Start Nystatin 5mL QIC swish/swallow 5. Abdominal pain with nausea and vomiting 2/2 massive ascites pressure volume = > due to #2 & #4 * N/V/ABD Pain resolved w/Zofran and Morphine 6. Possible aspiration pneumonia => Rifampin onboard * Respiratory culture grew (+)Yeast == Oral Candidiasis likely * RESPIRATORY CULTURE Final Organism 1 CHRIS ALBICANS QUANTITY 1+ Organism 2 NORMAL RESPIRATORY STEFANIA QUANTITY 1+ 7. Pulmonary congestion w/ extensive bilateral upper lobe and lower lobe infiltrates on CXR 04/20 * Multifactorial due to severe ascites fluid back up, low colloid pressure 3rd spacing, malignancy * Moderate right pleural effusion on admission 8. Hx of CHF * 2D ECHO SEP 2016, normal LVFx w/EF~60% * 2D ECHO 2015 preserved systolic LVFx w/STG I diastolic dysfunction 9. Cachexia w/severe protein calorie deficiency 10. Low normal B/P w/transient hypotension due to low colloid pressure 3rd spacing, malignancy, SIRS, sepsis 11. Contaminated Urine culture vs early GNR UTI on 04/07/17 URINE CULTURE Final Organism 1 ESCHERICHIA COLI COLONY COUNT <10,000 CFU/ml Organism 2 LACTOBACILLUS SPECIES COLONY COUNT >100,000 CFU/ml (-) MRSA Nares INVASIVES: Right chest Port-A-Cath ABX ALLERGY: KNDA CURRENT ABX: DAY #12=> + Vanco liq po #12 + Rifampin #12 + Diflucan 100mg IV # 10 Flagyl IV #11 -> DC 8/ s/p Fosfomycin po x1 04/20 (Enterococcal UTI) s/o Fosfomycin po x1 04/27 (Repeat per WBC remains elevated) ID RECOMMENDATIONS=> DC ABX on day #14 1. Vanco liquid tapered for C.Diff > Lower Vanco PO to 125mg TID 2. Continue Diflucan + Nystatin oral swish/swallow for oral thrush chris esophagitis 3. Rifampin onboard for prophy SBP and C.Diff 4. PRN For Temp >101.0 send blood cultures via Port-A-Cath, no compelling evidence infected Port septicemia at this time. . Home Meds Active Scripts Ondansetron Hcl* (Zofran*) 4 Mg Tablet, 4 MG PO Q6H for NAUSEA AND/OR VOMITING, #12 TAB Prov:ELISHA JOHNSON DO 04/02/17 Reported Medications Gabapentin* (Gabapentin*) 600 Mg Tablet, 600 MG PO BID, #60 TAB 04/02/17 Potassium Chloride* (K-Dur*) 10 Meq Tab.prt.sr, 10 MEQ PO DAILY, TAB 04/02/17 Furosemide* (Furosemide*) 80 Mg Tablet, 80 MG PO DAILY, #30 TAB 04/02/17 Ondansetron Hcl* (Ondansetron Hcl*) 4 Mg Tablet, 4 MG PO Q4H Y for NAUSEA AND OR VOMITING, TAB 11/20/16 Primary Care Provider Pending Labs Laboratory Tests Test 05/02/17 05:13 White Blood Count 21.710^3/ul (4.8-10.8) Red Blood Count 3.9010^6/ul (4.20-5.40) Hemoglobin 11.0g/dl (12.0-16.0) Hematocrit 32.9% (37.0-47.0) Mean Corpuscular Volume 84.4fl (82.0-101.0) Mean Corpuscular Hemoglobin 28.2pg (29.0-33.0) Mean Corpuscular Hemoglobin Concent 33.4g/dl (32.0-37.0) Red Cell Distribution Width 24.5% (11.5-14.5) Platelet Count 71274^3/UL (140-415) Mean Platelet Volume 11.8fl (7.4-10.4) Neutrophils % 94.7% (39.0-77.0) Lymphocytes % 0.8% (15.0-51.0) Monocytes % 2.6% (0.0-11.0) Eosinophils % 0.0% (0.0-7.0) Basophils % 0.1% (0.0-2.0) Nucleated Red Blood Cells % 0.4/100WBC (0.0-0.0) Neutrophils # 20.510^3/ul (1.6-7.5) Lymphocytes # 0.210^3/ul (0.8-2.9) Monocytes # 0.610^3/ul (0.3-0.9) Eosinophils # 0.010^3/ul (0.0-0.5) Basophils # 0.010^3/ul (0.0-0.1) Nucleated Red Blood Cells # 0.110^3/ul (0.0-0.0) Sodium Level 135mmol/L (135-144) Potassium Level 4.7mmol/L (3.5-5.1) Chloride Level 108mmol/L (97-110) Carbon Dioxide Level 16mmol/L (21-31) Anion Gap 16 (8-16) Blood Urea Nitrogen 34mg/dl (7-20) Creatinine 0.69mg/dl (0.44-1.00) Glucose Level 97mg/dl (70-220) Calcium Level 7.6mg/dl (8.4-10.2) EDILSON ADEN May 02, 2017 21:31
[2017-05-02 22:00] VITALS: RESP 22
[2017-05-03] VITALS: RESP 20
[2017-05-03 02:00] VITALS: RESP 22
[2017-05-03 02:48] VITALS: BP 90/61; RESP 18
[2017-05-03] MEDS: ALBUTEROL/IPRATROPIUM (NEB) 3 ML AMP HHN PRN ×2 (03:15→08:37)
--- NOTE | 2017-05-03 03:36 | HP ---
DATE OF ADMISSION: 04/07/2017 HOSPICE DIAGNOSIS: Metastatic gastric cancer. HISTORY OF PRESENT ILLNESS: The patient is a 61-year-old female with history of metastatic gastric cancer status post chemotherapy by Dr. Sands. The patient came to the ER with nausea and vomiting and was unable to keep anything down. The patient was seen in the ER and reported esophageal pain after food ingestion. The patient did not have any chest pain or shortness of breath. The patient was feeling weak and does appear cachectic and had significant weight loss recently. The patient developed anemia and was noted to have possible pneumonia and was given IV Cipro in ER. The patient also was noted to have a white count of only 1.9. Sodium was 136. The patient was seen by a balcony worker for hypernatremia. Dr. Sands was called from an oncology standpoint. Dr. Millan was called from a GI standpoint. The patient continues to decline. The patient was noted to have extensive esophageal ulceration. The patient was also diagnosed with extensive mets to the peritoneum. The patient was started on a proton pump inhibitor as well as Carafate suspension and Reglan. A self expanding metallic stent was placed in. The patient, however, continued to decline. A surgical consult was called from Dr. Garza. The patient meanwhile also developed C. diff colitis which was treated with po vancomycin and IV Flagyl. The patient also underwent recurrent paracentesis for symptomatic ascitis. Hospice was recommended. Family finally decided to put her on hospice care. The patient, since admission, has continued to become weaker and is spending most of her time in the bed. The patient did have abdominal pain and distention due to adenocarcinomatous. HISTORY OF PRESENT ILLNESS: The patient has increasing weakness and shortness of breath. PAST MEDICAL HISTORY: As stated above. In addition, the patient did have a history of hypertension. FAMILY HISTORY: Negative. SOCIAL HISTORY: No smoking. No alcohol. PHYSICAL EXAMINATION: GENERAL: The patient is weak but responsive. VITAL SIGNS: Temperature 97.3, pulse 113, respirations 17, blood pressure 94/57, O2 sat 98 percent on 2 L nasal cannula. HEENT: No eye discharge. Extraocular movements are intact. Oropharynx with dry oral mucosa. Nose is normal. NECK: Supple. No masses or thyromegaly. CHEST: decreased BS at bases. CV: S1, S2 normal. No murmur. ABDOMEN: Soft, distended, tender. EXTREMITIES: No leg edema. Cachectic. NEURO: The patient is weak but responsive. LABS: Done this morning, WBC 21.4, hemoglobin 11, platelet 134. Chemistry: Sodium 135, potassium 4.7, BUN 34, creatinine 0.6. IMPRESSION: Metastatic gastric cancer. PLAN: The patient will be started on IV morphine drip at 2 mg an hour, which will be titrated up to provide comfort. Goal is to control her pain, as well as shortness of breath. The patient will also be put on atropine drops for secretion, Zofran and Reglan for nausea and vomiting. We will continue IV Protonix for esophageal ulceration and Duoneb for chest condition. Will also give Ativan for anxiety. Inhaler for agitation. The plan of care was discussed with test nurse, Ziyad, as well as [facility] nurse, Julisa. The patient remains terminally ill and appropriate for GI level of care. Dictated By: Randal Garner MD /[email or web address]/leslie /Document#: [id number] MTDD
[2017-05-03 04:00] VITALS: RESP 20
[2017-05-03] MEDS: ONDANSETRON 4 MG INJ IV SCH ×4 (05:02→23:00)
[2017-05-03] MEDS: METOCLOPRAMIDE 10 MG INJ IV SCH ×4 (06:25→23:12)
[2017-05-03] MEDS: PANTOPRAZOLE 40 MG INJ IV SCH ×2 (06:25→18:18)
[2017-05-03 07:38] VITALS: BP 94/66; RESP 14
[2017-05-03] MEDS: morphine (DRIP) 100 MG/100 ML 100 ML IV SCH ×5 (08:32→15:08)
[2017-05-03 20:00] VITALS: BP 55/38; PULSE 99; RESP 12
--- NOTE | 2017-05-03 22:47 | CONS ---
Date/Time of Note Date/Time of Note DATE: 05/03/17 TIME: 22:42 Assessment/Plan Assessment/Plan Chief Complaint/Hosp Course ID PROGRESS NOTE CURRENT ABX: DAY #13=> ABX DC'D + Vanco liq po #12 + Rifampin #12 + Diflucan 100mg IV #10 Flagyl IV #11-> DC'd 24H INTERVAL SUMMARY * Clinical status change noted -- patient/family have opted for comfort measures and patient started on Morphine GTT today Exam Constitutional: Resting in bed on morphine gtt Psych: Calm HEENT: WNL, wearing cap Respiratory: equal chest rise bilaterally, ID ASSESSMENT 61 yo F w/Metastatic gastric CA -> status post chemotherapy by Dr. Ford. 1. SEPSIS per (+) rising leukocytosis 10.0(04/16) -> 22.8 (04/17)-> now 40.1 (04/20 ) w/15% BANDS => RESOLVED * SIRS -> Persistent leukocytosis, no fevers, VSS * No fevers, mild intermittent tachycardia 90-110, B/P 93/59 * (+)C.Diff Colitis 04/17/17 C DIFFICILE DNA AMPLIFICATION Final CYTOTOXIGENIC C DIFFICILE POSITIVE (Ref Range Neg) * DDx: spontaneous bacterial peritonitis=> D/W Dr. Orozco -- Rx Rifampin onboard * DDx: UTI 04/20 Urine Cx (+) URINE CULTURE Preliminary ==> she was treated empirically w/Fosfomycin po x1 Organism 1 ENTEROCOCCUS SPECIES COLONY COUNT 70,000 - 80,000 CFU/ml Organism 2 CHAPARRITA ALBICANS COLONY COUNT 30,000 - 40,000 CFU/ml * DDx: Aspiration Pneumonitis => Lungs w/increase fluid likely 2. Metastatic gastric CA with suspected malignant abdominopelvic ascites and peritoneal carcinomatosis * s/p PARA 04/14-> ~5000 ml of clear yellow fluid was obtained and then discarded. * DDx: spontaneous bacterial peritonitis => Rifampin 600mg PO daily onboard 3. Leukopenia and anemia 2/2 chemotherapy. Restarted on Neupogen. 4. GERD, extreme esophagitis and severe reflux w/undigested food in the esophagus => risk factor for silent aspiration syndrome * s/p 04/16/17 EGD with stent placement on04/[address] Millan, GI. * Sputum (+)Chaparrita albicans -> Start Nystatin 5mL QIC swish/swallow 5. Abdominal pain with nausea and vomiting 2/2 massive ascites pressure volume = > due to #2 & #4 * N/V/ABD Pain resolved w/Zofran and Morphine 6. Possible aspiration pneumonia => Rifampin onboard * Respiratory culture grew (+)Yeast == Oral Candidiasis likely * RESPIRATORY CULTURE Final Organism 1 CHAPARRITA ALBICANS QUANTITY 1+ Organism 2 NORMAL RESPIRATORY STEFANIA QUANTITY 1+ 7. Pulmonary congestion w/ extensive bilateral upper lobe and lower lobe infiltrates on CXR 04/20 * Multifactorial due to severe ascites fluid back up, low colloid pressure 3rd spacing, malignancy * Moderate right pleural effusion on admission 8. Hx of CHF * 2D ECHO SEP 2016, normal LVFx w/EF~60% * 2D ECHO 2015 preserved systolic LVFx w/STG I diastolic dysfunction 9. Cachexia w/severe protein calorie deficiency 10. Low normal B/P w/transient hypotension due to low colloid pressure 3rd spacing, malignancy, SIRS, sepsis 11. Contaminated Urine culture vs early GNR UTI on 04/07/17 URINE CULTURE Final Organism 1 ESCHERICHIA COLI COLONY COUNT <10,000 CFU/ml Organism 2 LACTOBACILLUS SPECIES COLONY COUNT >100,000 CFU/ml (-) MRSA Nares INVASIVES: Right chest Port-A-Cath ABX ALLERGY: KNDA CURRENT ABX: DAY #13 == ABX DC'D => + Vanco liq po #12 + Rifampin #12 + Diflucan 100mg IV #10 Flagyl IV #11 -> DC 8/9 s/p Fosfomycin po x1 04/20 (Enterococcal UTI) s/o Fosfomycin po x1 04/27 (Repeat per WBC remains elevated) ID RECOMMENDATIONS Clinical status change noted -- patient/family have opted for comfort measures and patient started on Morphine GTT today Patient is observed to be resting comfortably on morphine gtt -- Thank you -- Will sign off. My condolences to the family . Problems: Consultation Date/Type/Reason Admit Date/Time Apr 07, 2017 at 19:17 Initial Consult Date 04/07/17 Type of Consultation: ID Referring Provider: CINDY ESTRELLA MD Exam/Review of Systems Vital Signs Vitals Vital Signs Date Time Temp Pulse Resp B/P Pulse Ox O2 Delivery O2 Flow Rate FiO2 05/03/17 20:00 97.5 99 12 55/38 88 Nasal Cannula 05/03/17 09:00 3.0 Intake and Output 05/02/17 05/02/17 05/03/17 15:00 23:00 07:00 Intake Total 5 ml 104 ml Output Total 200 ml 100 ml Balance -195 ml 4 ml Results Result Diagram: 05/02/17 0513 05/02/17 0513 Medications Medications Current Medications Pantoprazole (Protonix Iv) 40 mg BID@06,18 IV Last administered on 05/03/17 18 :18; Admin Dose 40 MG; Start 04/10/17 at 18:00 Metoclopramide HCl (Reglan) 10 mg Q6 IV Last administered on 05/03/17 19:07; Admin Dose 10 MG; Start 04/16/17 at 18:00 Ondansetron HCl 4 mg 4 mg Q6H IV Last administered on 05/03/17 18:18; Admin Dose 4 MG; Start 05/01/17 at 11:00 Morphine Sulfate/ Sodium Chloride 100 ml @ 1 mls/hr TITRATE IV Last administered on 05/03/17 13:12; Admin Dose 8 MLS/HR; Start 05/02/17 at 13:00 Acetaminophen (Ofirmev 1000mg/ 100ml Iv) 100 ml @ 400 mls/hr Q6H PRN IVPB PAIN AND OR ELEVATED TEMP; Start 05/02/17 at 13:00 Lorazepam (Ativan) 1 mg Q4H PRN IV ANXIETY/SEIZURES; Start 05/02/17 at 13:00 Haloperidol (Haldol) 1 mg Q1H PRN IM DELIRIUM; Start 05/02/17 at 13:00 Atropine Sulfate (Atropine 1% Oph) 2 drop Q4H PRN SL TERMINAL CONGESTION; Start 05/02/17 at 13:00 Diphenhydramine HCl (Benadryl) 25 mg Q4H PRN IV PRURITUS; Start 05/02/17 at 13: 00 GENESIS MESSER NP May 03, 2017 22:46
--- NOTE | 2017-05-04 02:27 | PN ---
DATE: 05/03/2017 LEVEL OF CARE: [facility]. SUBJECTIVE DATA: Follow-up on metastatic gastric cancer. The patient since yesterday has continued to decline and due to pain and shortness of breath, the morphine drip had to be increased to 4 mg an hour. The patient did not have any seizures. No reported fever. The patient also is lethargic but arousable to verbal and tactile stimuli. Respirations irregular. Patient continued to have abdominal pain, and morphine dose has been subsequently increased to 7 mg an hour. OBJECTIVE DATA: GENERAL: Patient lethargic, but arousable. VITAL SIGNS: Blood pressure 94/66, pulse 47, temperature 97.6, respiration 24. HEENT: No eye discharge or redness. The patient has significant temporal muscle wasting. NECK: No mass. No JVD CHEST: Diminished air entry at bases. CVS: S1, S2 normal. No murmur. ABDOMEN: Soft, nondistended, diminished diffuse tenderness EXTREMITIES: Cachectic. No clubbing or cyanosis. NEUROLOGIC: The patient is lethargic but arousable. IMPRESSION: Metastatic gastric cancer. PLAN: We will continue morphine drip at 7 mg an hour and we will optimize to achieve comfort care. Continue atropine drops for secretions, DuoNeb for chest congestion, and we will continue Zofran and Reglan for vomiting. The patient remains appropriate for [facility] level of care. Dictated By: Randal Garner MD /madalyn/[email or web address] /Document#: [id number]
--- NOTE | 2017-05-05 07:11 | DES ---
DATE OF ADMISSION: 04/07/2017 DATE OF DISCHARGE: 05/04/2017 CAUSE OF : Metastatic gastric cancer. PRELIMINARY CAUSE OF : The patient was a 61-year-old female with a history of metastatic breast cancer status post chemotherapy with Dr. Sands. The patient came to the ER with nausea, vomiting, and abdominal pain. The was diagnosed with breast metastases. The patient also had vomiting and then underwent an ER workup which revealed extensive . The patient was started on Protonix as well as Reglan and Zofran. The patient was seen by Dr. Sands, who recommended hospice evaluation. The patient's family decided to put her on hospice care. The patient denies any hematemesis and melena. No history of bleeding. The patient's status remained suboptimal. The patient continued to decline and become progressively more weak. Hospice eval was suggested by surgery. The patient was seen by hospice. The patient, due to continuous decline, was referred to hospice facility for further care. HOSPITAL COURSE: The patient was started on IV morphine drip, which was optimized, and the patient did not have any significant p.o. intake. The patient was cachectic with a weight of only 41.9 kg with a BMI of 16.9. The patient did not have any fever or chills. No vomiting. Despite all measures, the patient was started on IV morphine drip which was started for comfort. She was noted to have no pulse or blood pressure. Heart sounds were absent, and there were no breath sounds. Pupils were fixed . The patient was [place] and has been referred to tertiary care, including [facility], [facility], etc. Plan of care was discussed with the patient, as well as nursing staff. Dictated By: Randal Garner MD /madalyn/[email or web address] /Document#: [id number]
== END 2017-05-04 00:54 | disposition expired | DRG 374 ==
LOC: FTE 16:43 → EDBD 16:43 → MERGE 19:17 → TEL 19:17 → FTE 21:26 → MS2 04-14 00:40
PROVIDERS: ADMIT Internal Medicine; ATTEND Internal Medicine
PROC: 0DJ08ZZ Inspection of Upper Intestinal Tract, Via Natural or Artificial Opening Endoscopic (ICD-10-PCS; 2017-04-07)
PROC: 0DJ08ZZ Inspection of Upper Intestinal Tract, Via Natural or Artificial Opening Endoscopic (ICD-10-PCS; 2017-04-09)
PROC: 0W9G3ZZ Drainage of Peritoneal Cavity, Percutaneous Approach (ICD-10-PCS; principal; 2017-04-14)
PROC: 0DJ08ZZ Inspection of Upper Intestinal Tract, Via Natural or Artificial Opening Endoscopic (ICD-10-PCS; 2017-04-16)
PROC: 0D798DZ Dilation of Duodenum with Intraluminal Device, Via Natural or Artificial Opening Endoscopic (ICD-10-PCS; 2017-04-19)
PROC: 0W9G3ZZ Drainage of Peritoneal Cavity, Percutaneous Approach (ICD-10-PCS; 2017-04-20)
PROC: 30233N1 Transfusion of Nonautologous Red Blood Cells into Peripheral Vein, Percutaneous Approach (ICD-10-PCS; 2017-04-22)
DX: C16.9 Malignant neoplasm of stomach, unspecified (principal); E43 Unspecified severe protein-calorie malnutrition; J96.00 Acute respiratory failure, unspecified whether with hypoxia or hypercapnia; J69.0 Pneumonitis due to inhalation of food and vomit; A41.9 Sepsis, unspecified organism; R18.0 Malignant ascites; J90 Pleural effusion, not elsewhere classified; K65.2 Spontaneous bacterial peritonitis; I11.0 Hypertensive heart disease with heart failure; K31.5 Obstruction of duodenum; K22.10 Ulcer of esophagus without bleeding; E87.1 Hypo-osmolality and hyponatremia; C78.6 Secondary malignant neoplasm of retroperitoneum and peritoneum; I31.3 Pericardial effusion (noninflammatory); Z68.1 Body mass index [BMI] 19.9 or less, adult; A04.7 Enterocolitis due to Clostridium difficile; N39.0 Urinary tract infection, site not specified; B37.0 Candidal stomatitis; R17 Unspecified jaundice; K31.1 Adult hypertrophic pyloric stenosis; K31.84 Gastroparesis; E86.0 Dehydration; D70.1 Agranulocytosis secondary to cancer chemotherapy; E83.39 Other disorders of phosphorus metabolism; D64.81 Anemia due to antineoplastic chemotherapy; E87.6 Hypokalemia; R60.0 Localized edema; E83.42 Hypomagnesemia; I10 Essential (primary) hypertension; E87.70 Fluid overload, unspecified; I50.9 Heart failure, unspecified; R13.10 Dysphagia, unspecified; R60.9 Edema, unspecified; Z66 Do not resuscitate; B95.2 Enterococcus as the cause of diseases classified elsewhere; G89.3 Neoplasm related pain (acute) (chronic)
CPT/HCPCS: 36430; 71010; 74000; 74176; 76705; 80048; 80053; 81001; 81003; 82040; 82043; 82962; 83605; 83690; 83735; 84100; 84155; 84300; 84484; 85025; 85610; 85730; 86644; 86850; 86900; 86901; 86920; 87040; 87070; 87075; 87081; 87086; 93005; 93970; 94640; 94664; 96374; 96375; 96376; J1940; C2617; C9113; J0692; J0696; J1170; J1450; J1642; J2001; J2250; J2270; J2370; J2405; J2765; J3010; J3475; J3480; J7030; J7070; P9016; P9612